=== PATIENT | male | born 1935 | race Caucasian/White ===

== ENCOUNTER 2016-07-16 09:48 | Inpatient (IN) | payer MEDICARE, OTHER ==
[~2016-07-16] VITALS: Ht 193 cm; Wt 90.3 kg
[~2016-07-16 09:48] MED LIST: ACLI400A2 IH; ALBU8.5H6 INH; AMOX1TAB11 PO; ASPI325T11 PO; BUDE10.2 IH; DIGO125T PO; DIGO250T PO; GABA-585 PO; GLIM1TAB2 PO; HYDR-971 PO; LISI10TA2 PO; LISI2.5T PO; METF500T9 PO; ROPI0.5T PO; TEMA15CA PO; THEO400T2 PO; WARF3TAB PO; WARF3TAB7 PO; WARF5TAB7 PO
--- NOTE | 2016-07-16 10:10 | EKG ---
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
[2016-07-16] MEDS ORDERED: ASPIRIN 81 MG TAB.CHEW PO ONE (10:15)
[2016-07-16] MEDS ORDERED: VENTOLIN HFA18 GM INH (10:22)
[2016-07-16] MEDS ORDERED: PROP150T2 PO (10:23)
[2016-07-16] MEDS ORDERED: GABA-587 PO (10:25)
[2016-07-16] MEDS ORDERED: METH-37 PO (10:25)
[2016-07-16] MEDS ORDERED: MELO-156 PO (10:25)
[2016-07-16] MEDS ORDERED: THEO400T2 PO (10:26)
[2016-07-16] MEDS ORDERED: ALEN70TA5 PO (10:27)
[2016-07-16] MEDS ORDERED: CEFU500T46 PO (10:28)
[2016-07-16 10:42] LABS: CALCIUM 8.8 mg/dL (8.5-10.1); GFR 71.5; POTASSIUM 4.5 mmol/L (3.5-5.1)
--- NOTE | 2016-07-16 10:42 | PHYS DOC ---
Past Medical History Past Medical History: A-Fib, Asthma, Cancer, COPD, Diabetes-Type II, Hypertension, Pneumonia, UTI, Other Additional Past Medical Histor: EMPHYSEMA,SKIN CANCER FACE,PROSTATE CA, NEUROPATHY Past Surgical History: Cholecystectomy, Knee Replacement Additional Past Surgical Histo: HERNIA, BACK, NECK,PROSTATECTOMY Alcohol Use: None Drug Use: None Adult General Chief Complaint Chief Complaint: SHORTNESS OF BREATH HPI HPI 80-year-old male presenting to the emergency department with shortness of breath with a cough for the past 3 weeks. He was recently diagnosed with pneumonia and given antibiotics. He denies chest pain. He reports changes in his sputum production including his sputum turning green. He has a history of COPD and hypertension. He denies chest pain nausea vomiting or diaphoresis. onset 3 wks location lungs duration intermittent no alleviating factors Review of Systems Review of Systems ROS neg for chest pain, nausea vomiting, abd pain, fevers or chills. All other review of systems is negative unless otherwise noted in history of present illness. Current Medications Current Medications Current Medications Medications (Trade) Dose Ordered Sig/Suri Start Time Stop Time Status Last Admin Dose Admin Aspirin 324 mg 324 mg 1X ONCE 07/16/16 10:15 07/16/16 10:37 DC Diltiazem HCl (Cardizem) 10 mg 1X ONCE 07/16/16 10:45 07/16/16 10:46 DC 07/16/16 10:46 10 MG Sodium Chloride (Iv Sodium Chloride 0.9% 500ml Bag) 500 ml @ 500 mls/hr 1X ONCE 07/16/16 10:45 07/16/16 11:44 DC 07/16/16 10:46 500 MLS/HR Allergies Allergies Allergies Coded Allergies Type Severity Reaction Last Updated Verified duloxetine Allergy Severe syncope; nausea; weakness 07/16/16 Yes Physical Exam Physical Exam Constitutional: Well developed, well nourished, no acute distress, non-toxic appearance. HENT: Normocephalic, atraumatic, bilateral external ears normal, oropharynx moist, no oral exudates, nose normal. [] Eyes: PERRLA, EOMI, conjunctiva normal, no discharge. Neck: Normal range of motion, no tenderness, supple, no stridor. [] Cardiovascular:Heart rate regular rhythm, no murmur Lungs & Thorax: Mild wheezing on left more than right. No crackles present. Abdomen: Bowel sounds normal, soft, no tenderness, no masses, no pulsatile masses. Skin: Warm, dry, no erythema, no rash. [] Back: No tenderness, no CVA tenderness. Extremities: No tenderness, no cyanosis, no clubbing, ROM intact, no edema. [] Neurologic: Alert and oriented X 3, normal motor function, normal sensory function, no focal deficits noted. Psychologic: Affect normal, judgement normal, mood normal. [] Current Patient Data Vital Signs Vital Signs Date Time Temp Pulse Resp B/P Pulse Ox O2 Delivery O2 Flow Rate FiO2 07/16/16 10:46 119 120/58 07/16/16 09:58 98.2 20 89 Room Air 98.2 Lab Values Laboratory Tests Test 07/16/16 10:09 White Blood Count 11.7x10^3/uL (4.0-11.0) H Red Blood Count 5.11x10^6/uL (4.30-5.70) Hemoglobin 14.7g/dL (13.0-17.5) Hematocrit 44.2% (39.0-53.0) Mean Corpuscular Volume 86fL (79-100) Mean Corpuscular Hemoglobin 29pg (25-35) Mean Corpuscular Hemoglobin Concent 33g/dL (31-37) Red Cell Distribution Width 16.0% (11.5-14.5) H Platelet Count 126x10^3/uL (140-400) L Neutrophils (%) (Auto) 84% (31-73) H Lymphocytes (%) (Auto) 7% (24-48) L Monocytes (%) (Auto) 8% (0-9) Eosinophils (%) (Auto) 0% (0-3) Basophils (%) (Auto) 1% (0-3) Neutrophils # (Auto) 9.9x10^3uL (1.8-7.7) H Lymphocytes # (Auto) 0.8x10^3/uL (1.0-4.8) L Monocytes # (Auto) 1.0x10^3/uL (0.0-1.1) Eosinophils # (Auto) 0.0x10^3/uL (0.0-0.7) Basophils # (Auto) 0.1x10^3/uL (0.0-0.2) Sodium Level 141mmol/L (136-145) Potassium Level 4.5mmol/L (3.5-5.1) Chloride Level 104mmol/L (98-107) Carbon Dioxide Level 27mmol/L (21-32) Anion Gap 10 (6-14) Blood Urea Nitrogen 13mg/dL (8-26) Creatinine 1.0mg/dL (0.7-1.3) Estimated GFR (Cockcroft-Gault) 71.5 Glucose Level 155mg/dL (70-99) H Calcium Level 8.8mg/dL (8.5-10.1) Total Bilirubin 0.8mg/dL (0.2-1.0) Direct Bilirubin 0.1mg/dL (0.0-0.2) Aspartate Amino Transferase (AST) 22U/L (15-37) Alanine Aminotransferase (ALT) 31U/L (16-63) Alkaline Phosphatase 60U/L (46-116) Troponin I Quantitative < 0.017ng/mL (0.000-0.055) EY-Czx-O-Type Natriuretic Peptide 324pg/mL (0-449) Total Protein 7.3g/dL (6.4-8.2) Albumin 4.0g/dL (3.4-5.0) Lipase 133U/L (73-393) Digoxin Level 1.8ng/mL (0.9-2.0) Digoxin Last Dose Date Unknown Digoxin Last Dose Time Unknown Laboratory Tests 07/16/16 10:09 Laboratory Tests 07/16/16 10:09 EKG EKG EKG shows irregularly irregular rhythm with associated tachycardia. [place] is mildly leftward. Intervals are within normal limits. ST segments show ST depressions in lead V3 V4 and V5 without ST elevation. Radiology/Procedures Radiology/Procedures [facility] [address] [place], [place] [id number] IMAGING REPORT Signed PATIENT: YUNIER HAWK ACCOUNT: [id number] : 1935 LOCATION: ER AGE: 80 SEX: M EXAM STATUS: REG ER ORD. PHYSICIAN: JJ ROLAND MD REASON: chest pain PROCEDURE: CHEST AP ONLY Exam: AP portable chest. History: Chest pain and shortness of breath, emphysema and diabetes. Comparison: 09/03/2015. Findings: The heart and mediastinal structures are within normal limits for size. Lungs are without infiltrate. No pneumothorax or pleural effusion is appreciated. Aortic atherosclerosis is seen. Impression: 1. No acute cardiopulmonary process. DICTATED and SIGNED BY: ZENAIDA ONTIVEROS MD DATE: 07/16/16 1052 CC: Edward MCGINNIS MD; JJ ROLAND MD ~ [] Course & Med Decision Making Course & Med Decision Making Pertinent Labs and Imaging studies reviewed. (See chart for details) 80-year-old male presenting to the emergency department today with worsening cough after being diagnosed with a pneumonia in the outpatient clinic setting. On evaluation the patient's vital signs showed tachycardia at 120 230. He was hypoxic and placed on 2 L nasal cannula. Otherwise blood pressure normal. Afebrile. Physical exam showed mild wheezing on the left. Abdomen was nontender. Patient was nontoxic appearing. Aspirin ordered however patient received full dose aspirin prior to arrival. IV fluids administered along with small dose of diltiazem which brought the patient's pulse from 130 to approximately 100. EKG showed A. fib with a tachycardic rate. ST depressions in lead V3 through V5. No ST elevation present. Otherwise the patient's blood work showed a mild leukocytosis with a normal hemoglobin. Chemistry panel showed hyperglycemia with a troponin within the reference range of normal. Digoxin level within the reference range of normal. Given the patient's new hypoxia, A. fib with RVR and ST depressions the patient was admitted to our hospital for further evaluation workup and care. Cardiology consulted. Dragon Disclaimer Dragon Disclaimer This electronic medical record was generated, in whole or in part, using a voice recognition dictation system. Departure Departure Impression: Primary Impression: Atrial fibrillation with RVR Additional Impressions: Hypoxia Shortness of breath Disposition: ADMITTED INPATIENT Admitting Physician: Juan Mcginnis Condition: IMPROVED Referrals: Edward MCGINNIS MD (PCP) Problem Qualifiers JJ ROLAND MD Jul 16, 2016 10:42
[2016-07-16 10:43] LABS: BASO # 0.1 x10^3/uL (0.0-0.2); BASO % 1 % (0-3); EOS % 0 % (0-3); HEMATOCRIT 44.2 % (39.0-53.0); HEMOGLOBIN 14.7 g/dL (13.0-17.5); LYMPH # 0.8 x10^3/uL (1.0-4.8); LYMPH % 7 % (24-48); MEAN CORPUSCULAR HEMOGLOBIN 29 pg (25-35); MEAN CORPUSCULAR HGB CONC 33 g/dL (31-37); MEAN CORPUSCULAR VOLUME 86 fL (79-100); MONO % 8 % (0-9); NEUT % 84 % (31-73); PLATELET COUNT 126 x10^3/uL (140-400); RED BLOOD COUNT 5.11 x10^6/uL (4.30-5.70); WHITE BLOOD COUNT 11.7 x10^3/uL (4.0-11.0)
[2016-07-16] MEDS ORDERED: DILTIAZEM IV PUSH 25 MG/5 ML VIAL. IVP ONE (10:45)
[2016-07-16] MEDS ORDERED: IV NORMAL SALINE 500ML BAG 500 ML IV ONE (10:45)
[2016-07-16 10:49] LABS: DIRECT BILIRUBIN 0.1 mg/dL (0.0-0.2); TOTAL BILIRUBIN 0.8 mg/dL (0.2-1.0); TOTAL PROTEIN 7.3 g/dL (6.4-8.2)
--- NOTE | 2016-07-16 10:56 | RAD ---
Exam: AP portable chest. History: Chest pain and shortness of breath, emphysema and diabetes. Comparison: 09/03/2015. Findings: The heart and mediastinal structures are within normal limits for size. Lungs are without infiltrate. No pneumothorax or pleural effusion is appreciated. Aortic atherosclerosis is seen. Impression: 1. No acute cardiopulmonary process.
[2016-07-16] MEDS ORDERED: MORPHINE SULFATE 2 MG/ML DISP.SYRIN. IV PRN (11:30)
[2016-07-16] MEDS ORDERED: AZITHRMYCN 500MG IVPB FOR OMNI 250 ML IV ONE (11:30)
[2016-07-16] MEDS ORDERED: CEFTRIAXONE 1GM IVPB FOR OMNI 50 ML IV ONE (11:30)
[2016-07-16] MEDS ORDERED: ONDANSETRON PF 4 MG/2 ML VIAL. IV PRN (11:30)
[2016-07-16] MEDS: IPRATRPIUM/ALBUTEROL 0.5/2.5MG 3 ML NEBU. NEB SCH ×2 (11:43→16:00)
[2016-07-16 13:05] VITALS: BP 120/58
[2016-07-16 13:17] LABS: PROTHROMBIN TIME PATIENT 21.5 SEC (11.7-14.0)
--- NOTE | 2016-07-16 13:40 | PDOC2 ---
CONSULT Date of Consult Date of Consult DATE: 07/16/16 TIME: 13:32 Reason for Consult Reason for Consult: SOB with dizziness Referring Physician Referring Physician: Identification/Chief Complaint Chief Complaint "I can't hardly walk without getting short of breath" Source Source: Patient History of Present Illness Reason for Visit: Pleasant 80 year old white male. A&O x 3. Presents with SOB and cough times 3 weeks. States he doesnt think he ahs been sick, feels that this came on out of nowhere. States that he has had a consistent non-productive cough over the past three weeks as well. States that he gets short of breath when walking and has noticed this worsening as well. States he can not walk to the door without getting SOB and dizzy. Denies any chest pain or LOC. States he has neve had this before. With his 81rd birthday next month, he became concerned and came into the ED for evaluation. Past Medical History Cardiovascular: AFIB, HTN Pulmonary: COPD Heme/Onc: Cancer Endocrine: Diabetes (sugars usually 105-110) Past Surgical History Past Surgical History: Other Current Problem List Problem List Problems Medical Problems: (1) Atrial fibrillation with RVR Status: Acute (2) Hypoxia Status: Acute (3) Shortness of breath Status: Acute Current Medications Current Medications Current Medications Aspirin 324 mg 324 mg 1X ONCE PO ; Start 07/16/16 at 10:15; Stop 07/16/16 at 10 :37; Status DC Sodium Chloride (Iv Sodium Chloride 0.9% 500ml Bag) 500 ml @ 500 mls/hr 1X ONCE IV Last administered on 07/16/16 10:46; Start 07/16/16 at 10:45; Stop at 11:44; Status DC Diltiazem HCl (Cardizem) 10 mg 1X ONCE IVP Last administered on 07/16/16t 10: 46; Start 07/16/16 at 10:45; Stop 07/16/16 at 10:46; Status DC Ondansetron HCl (Zofran) 4 mg PRN Q8HRS PRN IV NAUSEA/VOMITING; Start 07/16/16 at 11:30; Stop 07/17/16 at 11:29 Morphine Sulfate 2 mg PRN Q2HR PRN IV PAIN; Start 07/16/16 at 11:30; Stop 07/17 at 11:29 Albuterol/ Ipratropium 3 ml 3 ml RTQID NEB Last administered on 07/16/16t 11:43 ; Start 07/16/16 at 12:00; Stop 07/17/16 at 11:59 Ceftriaxone Sodium 50 ml @ 100 mls/hr 1X ONCE IV Last administered on t 11:44; Start 07/16/16 at 11:30; Stop 07/16/16 at 11:59; Status DC Azithromycin (Zithromax 500mg Ivpb For Omni) 250 ml @ 250 mls/hr 1X ONCE IV ; Start 07/16/16 at 11:30; Stop 07/16/16 at 12:29; Status DC Oxymetazoline HCl (Afrin) 2 spray BID NS ; Start 07/16/16 at 14:00 Active Scripts Active [place] 5-325 Tablet (Acetaminophen/Hydrocodone Bitart) 1 Each Tablet 1 Tab PO PRN Q6HRS PRN Amox Tr-K Clv 875-125 Mg Tab (Amoxicillin/Potassium Clav) 1 Each Tablet 1 Tab PO BID Reported Cefuroxime (Cefuroxime Axetil) 500 Mg Tablet 1 Tab PO BID Alendronate Sodium 70 Mg Tablet 1 Tab PO WEEKLY Theophylline (Theophylline Anhydrous) 400 Mg Tablet.er 300 Mg PO Meloxicam 7.5 Mg Tablet 1 Tab PO DAILY Robaxin (Methocarbamol) 500 Mg Tablet 1 Tab PO BID Gabapentin 400 Mg Capsule 400 Mg PO TID Propafenone Hcl 150 Mg Tablet 150 Mg PO BID Ventolin Hfa Inhaler (Albuterol Sulfate) 18 Gm Hfa.aer.ad 2 Puff INH Q4HRS Warfarin Sodium 3 Mg Tablet 2 Tab PO QFR Warfarin Sodium 3 Mg Tablet 1 Tab PO QHS Digoxin 250 Mcg Tablet 250 Mcg PO DAILY Lisinopril 2.5 Mg Tablet 2.5 Mg PO DAILY Glimepiride 1 Mg Tablet 1 Mg PO DAILY Albuterol Sulfate Hfa Inhaler (Albuterol Sulfate) 8.5 Gm Hfa.aer.ad 2 Puff INH QID Symbicort 160-4.5 Mcg Inhaler (Budesonide/Formoterol Fumarate) 10.2 Gm Hfa.aer.ad 2 Puff IH BID Aspirin Ec (Aspirin) 325 Mg Tablet.dr 1 Tab PO DAILY Temazepam 15 Mg Capsule 1 Cap PO QHS Gabapentin 100 Mg Capsule 300 Mg PO HS Metformin Hcl Er (Metformin Hcl) 500 Mg Tab.er.24h 1 Tab PO BID Theophylline (Theophylline Anhydrous) 400 Mg Tablet.er 300 Mg PO DAILY07 Allergies Allergies: Coded Allergies: duloxetine (Verified Allergy, Severe, syncope; nausea; weakness, 07/16/16) Physical Exam General: Alert, Oriented X3, Cooperative, No acute distress Lungs: Clear to auscultation, Other (diminished bialt bases) Heart: Regular rate, Normal S1, Normal S2, No murmurs Abdomen: Normal bowel sounds, Soft, No tenderness, No hepatosplenomegaly, No masses Vitals VITALS Vital Signs Date Time Temp Pulse Resp B/P Pulse Ox O2 Delivery O2 Flow Rate FiO2 07/16/16 13:05 98.2 119 120/58 92 1.0 98.2 07/16/16 11:48 Nasal Cannula 07/16/16 09:58 20 Labs Labs Laboratory Tests Test 07/16/16 10:09 07/16/16 12:28 White Blood Count 11.7x10^3/uL (4.0-11.0) Red Blood Count 5.11x10^6/uL (4.30-5.70) Hemoglobin 14.7g/dL (13.0-17.5) Hematocrit 44.2% (39.0-53.0) Mean Corpuscular Volume 86fL (79-100) Mean Corpuscular Hemoglobin 29pg (25-35) Mean Corpuscular Hemoglobin Concent 33g/dL (31-37) Red Cell Distribution Width 16.0% (11.5-14.5) Platelet Count 126x10^3/uL (140-400) Neutrophils (%) (Auto) 84% (31-73) Lymphocytes (%) (Auto) 7% (24-48) Monocytes (%) (Auto) 8% (0-9) Eosinophils (%) (Auto) 0% (0-3) Basophils (%) (Auto) 1% (0-3) Neutrophils # (Auto) 9.9x10^3uL (1.8-7.7) Lymphocytes # (Auto) 0.8x10^3/uL (1.0-4.8) Monocytes # (Auto) 1.0x10^3/uL (0.0-1.1) Eosinophils # (Auto) 0.0x10^3/uL (0.0-0.7) Basophils # (Auto) 0.1x10^3/uL (0.0-0.2) Prothrombin Time 21.5SEC (11.7-14.0) Prothromb Time International Ratio 2.0 (0.8-1.1) Activated Partial Thromboplast Time 42SEC (24-38) Sodium Level 141mmol/L (136-145) Potassium Level 4.5mmol/L (3.5-5.1) Chloride Level 104mmol/L (98-107) Carbon Dioxide Level 27mmol/L (21-32) Anion Gap 10 (6-14) Blood Urea Nitrogen 13mg/dL (8-26) Creatinine 1.0mg/dL (0.7-1.3) Estimated GFR (Cockcroft-Gault) 71.5 Glucose Level 155mg/dL (70-99) Calcium Level 8.8mg/dL (8.5-10.1) Total Bilirubin 0.8mg/dL (0.2-1.0) Direct Bilirubin 0.1mg/dL (0.0-0.2) Aspartate Amino Transf (AST/SGOT) 22U/L (15-37) Alanine Aminotransferase (ALT/SGPT) 31U/L (16-63) Alkaline Phosphatase 60U/L (46-116) Troponin I Quantitative < 0.017ng/mL (0.000-0.055) IP-Vtp-Z-Type Natriuretic Peptide 324pg/mL (0-449) Total Protein 7.3g/dL (6.4-8.2) Albumin 4.0g/dL (3.4-5.0) Lipase 133U/L (73-393) Digoxin Level 1.8ng/mL (0.9-2.0) Digoxin Last Dose Date Unknown Digoxin Last Dose Time Unknown Glucose (Fingerstick) 134mg/dL (70-99) Laboratory Tests Test 07/16/16 10:09 07/16/16 12:28 White Blood Count 11.7x10^3/uL (4.0-11.0) Red Blood Count 5.11x10^6/uL (4.30-5.70) Hemoglobin 14.7g/dL (13.0-17.5) Hematocrit 44.2% (39.0-53.0) Mean Corpuscular Volume 86fL (79-100) Mean Corpuscular Hemoglobin 29pg (25-35) Mean Corpuscular Hemoglobin Concent 33g/dL (31-37) Red Cell Distribution Width 16.0% (11.5-14.5) Platelet Count 126x10^3/uL (140-400) Neutrophils (%) (Auto) 84% (31-73) Lymphocytes (%) (Auto) 7% (24-48) Monocytes (%) (Auto) 8% (0-9) Eosinophils (%) (Auto) 0% (0-3) Basophils (%) (Auto) 1% (0-3) Neutrophils # (Auto) 9.9x10^3uL (1.8-7.7) Lymphocytes # (Auto) 0.8x10^3/uL (1.0-4.8) Monocytes # (Auto) 1.0x10^3/uL (0.0-1.1) Eosinophils # (Auto) 0.0x10^3/uL (0.0-0.7) Basophils # (Auto) 0.1x10^3/uL (0.0-0.2) Prothrombin Time 21.5SEC (11.7-14.0) Prothromb Time International Ratio 2.0 (0.8-1.1) Activated Partial Thromboplast Time 42SEC (24-38) Sodium Level 141mmol/L (136-145) Potassium Level 4.5mmol/L (3.5-5.1) Chloride Level 104mmol/L (98-107) Carbon Dioxide Level 27mmol/L (21-32) Anion Gap 10 (6-14) Blood Urea Nitrogen 13mg/dL (8-26) Creatinine 1.0mg/dL (0.7-1.3) Estimated GFR (Cockcroft-Gault) 71.5 Glucose Level 155mg/dL (70-99) Calcium Level 8.8mg/dL (8.5-10.1) Total Bilirubin 0.8mg/dL (0.2-1.0) Direct Bilirubin 0.1mg/dL (0.0-0.2) Aspartate Amino Transf (AST/SGOT) 22U/L (15-37) Alanine Aminotransferase (ALT/SGPT) 31U/L (16-63) Alkaline Phosphatase 60U/L (46-116) Troponin I Quantitative < 0.017ng/mL (0.000-0.055) GK-Zbp-T-Type Natriuretic Peptide 324pg/mL (0-449) Total Protein 7.3g/dL (6.4-8.2) Albumin 4.0g/dL (3.4-5.0) Lipase 133U/L (73-393) Digoxin Level 1.8ng/mL (0.9-2.0) Digoxin Last Dose Date Unknown Digoxin Last Dose Time Unknown Glucose (Fingerstick) 134mg/dL (70-99) Assessment/Plan Assessment/Plan Shortness of Breath due to a viral infection. AFIB: This patient with a known history of atrial fibrillation for many years has been well controlled and on Rhythmol 150 mg by mouth twice a day but about 2 weeks ago he chose to stop taking it. Now with this respiratory tract infection he has gone back into the atrial fibrillation with a rapid ventricular response. The rapid ventricular response has been controlled with the diltiazem but I would recommend to resume the Rhythmol at 150 mg by mouth twice a day like he had been on for years with a very good control of the rhythm. Continue to monitor COPD Thank you for allowing me to participate in the care of this patient RUDY NELSON MD Jul 16, 2016 13:40
[2016-07-16] MEDS: OXYMETAZOLINE 0.05% NASAL SPRAY 30ML BOTTLE. NS SCH ×2 (14:00→21:11)
[2016-07-16 15:00] VITALS: BP 104/57
--- NOTE | 2016-07-16 16:41 | PDOC1 ---
History and Physical Date of Admission Date of Admission DATE: 07/16/16 TIME: 16:29 Identification/Chief Complaint Chief Complaint He came to the office yesterday with complaint of cough and tenacious sputum and was worried he had pneumonia, he was also requesting samples of Symbicort, he has emphysema. He was presumed to have pneumonia and sent for a CXR but 1st given a gram of Rocephin IM and started on Ceftin 500 mg bid. This am he noted he was more SOA and came to the ER, his CXR was negative for pneumonia but his monitor showed Afib with RVR requiring a Cardizem bolus and admission. 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 Almazan History of Present Illness History of Present Illness see above Past Medical History Cardiovascular: AFIB, HTN Pulmonary: COPD Heme/Onc: Cancer Endocrine: Diabetes (sugars usually 105-110) Past Surgical History Past Surgical History: Other Social History Smoke: No Drugs: None Current Problem List Problem List Problems Medical Problems: (1) Atrial fibrillation with RVR Status: Acute (2) Hypoxia Status: Acute (3) Shortness of breath Status: Acute Problems: Current Medications Current Medications Current Medications Aspirin 324 mg 324 mg 1X ONCE PO ; Start 07/16/16 at 10:15; Stop 07/16/16 at 10 :37; Status DC Sodium Chloride (Iv Sodium Chloride 0.9% 500ml Bag) 500 ml @ 500 mls/hr 1X ONCE IV Last administered on 07/16/16 10:46; Start 07/16/16 at 10:45; Stop at 11:44; Status DC Diltiazem HCl (Cardizem) 10 mg 1X ONCE IVP Last administered on 07/16/16 10: 46; Start 07/16/16 at 10:45; Stop 07/16/16 at 10:46; Status DC Ondansetron HCl (Zofran) 4 mg PRN Q8HRS PRN IV NAUSEA/VOMITING; Start 07/16/16 at 11:30; Stop 07/17/16 at 11:29 Morphine Sulfate 2 mg PRN Q2HR PRN IV PAIN; Start 07/16/16 at 11:30; Stop 07/17 at 11:29 Albuterol/ Ipratropium 3 ml 3 ml RTQID NEB Last administered on 07/16/16t 11:43 ; Start 07/16/16 at 12:00; Stop 07/17/16 at 11:59 Ceftriaxone Sodium 50 ml @ 100 mls/hr 1X ONCE IV Last administered on t 11:44; Start 07/16/16 at 11:30; Stop 07/16/16 at 11:59; Status DC Azithromycin (Zithromax 500mg Ivpb For Omni) 250 ml @ 250 mls/hr 1X ONCE IV ; Start 07/16/16 at 11:30; Stop 07/16/16 at 12:29; Status DC Oxymetazoline HCl (Afrin) 2 spray BID NS ; Start 07/16/16 at 14:00 Aspirin (Ecotrin) 325 mg DAILY PO ; Start 07/17/16 at 09:00; Status UNV Digoxin (Lanoxin) 250 mcg DAILY PO ; Start 07/17/16 at 09:00; Status UNV Gabapentin (Neurontin) 300 mg HS PO ; Start 07/16/16 at 21:00; Status UNV Gabapentin (Neurontin) 400 mg TID PO ; Start 07/16/16 at 21:00; Status UNV Acetaminophen/ Hydrocodone Bitart (Lortab 5/325) 1 tab PRN Q6HRS PRN PO PAIN; Start 07/16/16 at 16:30; Status UNV Lisinopril (Prinivil) 2.5 mg DAILY PO ; Start 07/17/16 at 09:00; Status UNV Meloxicam (Mobic) 7.5 mg DAILY PO ; Start 07/17/16 at 09:00; Status UNV Metformin HCl (Glucophage Xr) 500 mg BID PO ; Start 07/16/16 at 21:00; Status UNV Methocarbamol (Robaxin) 500 mg BID PO ; Start 07/16/16 at 21:00; Status UNV Active Scripts Active [place] 5-325 Tablet (Acetaminophen/Hydrocodone Bitart) 1 Each Tablet 1 Tab PO PRN Q6HRS PRN Amox Tr-K Clv 875-125 Mg Tab (Amoxicillin/Potassium Clav) 1 Each Tablet 1 Tab PO BID Reported Cefuroxime (Cefuroxime Axetil) 500 Mg Tablet 1 Tab PO BID Alendronate Sodium 70 Mg Tablet 1 Tab PO WEEKLY Theophylline (Theophylline Anhydrous) 400 Mg Tablet.er 300 Mg PO Meloxicam 7.5 Mg Tablet 1 Tab PO DAILY Robaxin (Methocarbamol) 500 Mg Tablet 1 Tab PO BID Gabapentin 400 Mg Capsule 400 Mg PO TID Propafenone Hcl 150 Mg Tablet 150 Mg PO BID Ventolin Hfa Inhaler (Albuterol Sulfate) 18 Gm Hfa.aer.ad 2 Puff INH Q4HRS Warfarin Sodium 3 Mg Tablet 2 Tab PO QFR Warfarin Sodium 3 Mg Tablet 1 Tab PO QHS Digoxin 250 Mcg Tablet 250 Mcg PO DAILY Lisinopril 2.5 Mg Tablet 2.5 Mg PO DAILY Glimepiride 1 Mg Tablet 1 Mg PO DAILY Albuterol Sulfate Hfa Inhaler (Albuterol Sulfate) 8.5 Gm Hfa.aer.ad 2 Puff INH QID Symbicort 160-4.5 Mcg Inhaler (Budesonide/Formoterol Fumarate) 10.2 Gm Hfa.aer.ad 2 Puff IH BID Aspirin Ec (Aspirin) 325 Mg Tablet.dr 1 Tab PO DAILY Temazepam 15 Mg Capsule 1 Cap PO QHS Gabapentin 100 Mg Capsule 300 Mg PO HS Metformin Hcl Er (Metformin Hcl) 500 Mg Tab.er.24h 1 Tab PO BID Theophylline (Theophylline Anhydrous) 400 Mg Tablet.er 300 Mg PO DAILY07 Allergies Allergies: Coded Allergies: duloxetine (Verified Allergy, Severe, syncope; nausea; weakness, 07/16/16) ROS General: YES: Fatigue, Malaise, No: Appetite, Chills, Night Sweats, Other PSYCHOLOGICAL ROS: YES: Anxiety, No: Behavioral Disorder, Concentration difficultie, Decreased libido, Depression, Disorientation, Hallucinations, Hostility, Irritablity, Memory difficulties, Mood Swings, Obsessive thoughts, Other, Physical abuse, Sexual abuse, Sleep disturbances, Suicidal ideation Eyes: No Blurry vision, No Decreased vision, No Double vision, No Dry eyes, No Excessive tearing, No Eye Pain, No Itchy Eyes, No Loss of vision, No Other, No Photophobia, No Scotomata, No Uses contacts, No Uses glasses HEENT: YES: Hearing change, Nasal congestion, No: Epistaxis, Heacaches, Nasal discharge, Oral lesions, Other, Sinus pain, Sneezing, Snoring, Sore Throat, Tinnitus, Vertigo, Visual Changes, Vocal changes ALLERGY AND IMMUNOLOGY: YES: Nasal Congestion, No: Hives, Insect Bite Sensitivity, Itchy/Watery Eyes, Other, Post Nasal Drip , Seasonal Allergies Hematological and Lymphatic: No: Bleeding Problems, Blood Clots, Blood Transfusions, Brusing, Night Sweats, Other, Pallor, Swollen Lymph Nodes Respiratory: YES: Cough, Orthopnea, SOB with excertion, Shortness of breath, Sputum Changes, Wheezing, No: Hemoptysis, Other, Pleuritic Pain, Stridor, Tachypnea Cardiovascular: yes Lt Headedness, No Chest Pain, No Edema, No Orthopnea, No Other, No Palpitations, No Paroxysmal Noc. Dyspnea Gastrointestinal: No Abdominal Pain, No Constipation, No Diarrhea, No Hematochezia, No Melena, No Nausea, No Other, No Vomiting Genitourinary: No , No , No , No , No , No , No , No Discharge, No Dysuria, No Flank Pain, No Frequency, No Hematuria, No Incontinence, No Other, No Pain, No Retention, No Urgency Physical Exam General: Alert, Oriented X3, Cooperative HEENT: Other (congested) Lungs: Other (coarse sounds with end expiratory wheezes) Heart: irregularly irregular Abdomen: Soft, No tenderness Extremities: No clubbing, No cyanosis Skin: No breakdown Neuro: Normal speech Psych/Mental Status: Mental status NL Vitals Vitals Vital Signs Date Time Temp Pulse Resp B/P Pulse Ox O2 Delivery O2 Flow Rate FiO2 07/16/16 15:00 97.9 116 17 104/57 94 Nasal Cannula 2.0 97.9 Labs Labs Laboratory Tests Test 07/16/16 10:09 07/16/16 12:28 White Blood Count 11.7x10^3/uL (4.0-11.0) Red Blood Count 5.11x10^6/uL (4.30-5.70) Hemoglobin 14.7g/dL (13.0-17.5) Hematocrit 44.2% (39.0-53.0) Mean Corpuscular Volume 86fL (79-100) Mean Corpuscular Hemoglobin 29pg (25-35) Mean Corpuscular Hemoglobin Concent 33g/dL (31-37) Red Cell Distribution Width 16.0% (11.5-14.5) Platelet Count 126x10^3/uL (140-400) Neutrophils (%) (Auto) 84% (31-73) Lymphocytes (%) (Auto) 7% (24-48) Monocytes (%) (Auto) 8% (0-9) Eosinophils (%) (Auto) 0% (0-3) Basophils (%) (Auto) 1% (0-3) Neutrophils # (Auto) 9.9x10^3uL (1.8-7.7) Lymphocytes # (Auto) 0.8x10^3/uL (1.0-4.8) Monocytes # (Auto) 1.0x10^3/uL (0.0-1.1) Eosinophils # (Auto) 0.0x10^3/uL (0.0-0.7) Basophils # (Auto) 0.1x10^3/uL (0.0-0.2) Prothrombin Time 21.5SEC (11.7-14.0) Prothromb Time International Ratio 2.0 (0.8-1.1) Activated Partial Thromboplast Time 42SEC (24-38) Sodium Level 141mmol/L (136-145) Potassium Level 4.5mmol/L (3.5-5.1) Chloride Level 104mmol/L (98-107) Carbon Dioxide Level 27mmol/L (21-32) Anion Gap 10 (6-14) Blood Urea Nitrogen 13mg/dL (8-26) Creatinine 1.0mg/dL (0.7-1.3) Estimated GFR (Cockcroft-Gault) 71.5 Glucose Level 155mg/dL (70-99) Calcium Level 8.8mg/dL (8.5-10.1) Total Bilirubin 0.8mg/dL (0.2-1.0) Direct Bilirubin 0.1mg/dL (0.0-0.2) Aspartate Amino Transf (AST/SGOT) 22U/L (15-37) Alanine Aminotransferase (ALT/SGPT) 31U/L (16-63) Alkaline Phosphatase 60U/L (46-116) Troponin I Quantitative < 0.017ng/mL (0.000-0.055) NV-Gfv-E-Type Natriuretic Peptide 324pg/mL (0-449) Total Protein 7.3g/dL (6.4-8.2) Albumin 4.0g/dL (3.4-5.0) Lipase 133U/L (73-393) Digoxin Level 1.8ng/mL (0.9-2.0) Digoxin Last Dose Date Unknown Digoxin Last Dose Time Unknown Glucose (Fingerstick) 134mg/dL (70-99) Laboratory Tests Test 07/16/16 10:09 07/16/16 12:28 White Blood Count 11.7x10^3/uL (4.0-11.0) Red Blood Count 5.11x10^6/uL (4.30-5.70) Hemoglobin 14.7g/dL (13.0-17.5) Hematocrit 44.2% (39.0-53.0) Mean Corpuscular Volume 86fL (79-100) Mean Corpuscular Hemoglobin 29pg (25-35) Mean Corpuscular Hemoglobin Concent 33g/dL (31-37) Red Cell Distribution Width 16.0% (11.5-14.5) Platelet Count 126x10^3/uL (140-400) Neutrophils (%) (Auto) 84% (31-73) Lymphocytes (%) (Auto) 7% (24-48) Monocytes (%) (Auto) 8% (0-9) Eosinophils (%) (Auto) 0% (0-3) Basophils (%) (Auto) 1% (0-3) Neutrophils # (Auto) 9.9x10^3uL (1.8-7.7) Lymphocytes # (Auto) 0.8x10^3/uL (1.0-4.8) Monocytes # (Auto) 1.0x10^3/uL (0.0-1.1) Eosinophils # (Auto) 0.0x10^3/uL (0.0-0.7) Basophils # (Auto) 0.1x10^3/uL (0.0-0.2) Prothrombin Time 21.5SEC (11.7-14.0) Prothromb Time International Ratio 2.0 (0.8-1.1) Activated Partial Thromboplast Time 42SEC (24-38) Sodium Level 141mmol/L (136-145) Potassium Level 4.5mmol/L (3.5-5.1) Chloride Level 104mmol/L (98-107) Carbon Dioxide Level 27mmol/L (21-32) Anion Gap 10 (6-14) Blood Urea Nitrogen 13mg/dL (8-26) Creatinine 1.0mg/dL (0.7-1.3) Estimated GFR (Cockcroft-Gault) 71.5 Glucose Level 155mg/dL (70-99) Calcium Level 8.8mg/dL (8.5-10.1) Total Bilirubin 0.8mg/dL (0.2-1.0) Direct Bilirubin 0.1mg/dL (0.0-0.2) Aspartate Amino Transf (AST/SGOT) 22U/L (15-37) Alanine Aminotransferase (ALT/SGPT) 31U/L (16-63) Alkaline Phosphatase 60U/L (46-116) Troponin I Quantitative < 0.017ng/mL (0.000-0.055) WZ-Gli-W-Type Natriuretic Peptide 324pg/mL (0-449) Total Protein 7.3g/dL (6.4-8.2) Albumin 4.0g/dL (3.4-5.0) Lipase 133U/L (73-393) Digoxin Level 1.8ng/mL (0.9-2.0) Digoxin Last Dose Date Unknown Digoxin Last Dose Time Unknown Glucose (Fingerstick) 134mg/dL (70-99) VTE Prophylaxis Ordered VTE Prophylaxis Devices: No VTE Pharmacological Prophylaxi: Yes Assessment/Plan Assessment/Plan 1. Afib with RVR requiring Cardizem bolus, not currently on drip and heart rate around 100, will resume home meds including Rythmol which may have recently been stopped 2. Bronchitis - with hypoxia causing acute respiratory failure - continue IV ceftriaxone, add mucinex 3. chronic bronchitis with emphysema/COPD - [facility] tx Edward ALLEN MD Jul 16, 2016 16:41
[2016-07-16] MEDS: DIGOXIN 250 MCG TABLET PO SCH (17:36)
[2016-07-16] MEDS: LISINOPRIL 2.5 MG TABLET PO SCH (17:36)
[2016-07-16] MEDS: GABAPENTIN 400 MG CAPSULE. PO SCH (17:36)
[2016-07-16] MEDS: MELOXICAM 7.5 MG TABLET PO SCH (17:38)
[2016-07-16] MEDS: WARFARIN 6 MG TABLET. PO SCH (17:41)
[2016-07-16] MEDS ORDERED: ENOXAPARIN 40 MG/0.4 ML DISP.SYRIN. SQ SCH (18:30)
[2016-07-16 19:45] VITALS: BP 111/61
[2016-07-16] MEDS: GABAPENTIN 300 MG CAPSULE. PO SCH (20:35)
[2016-07-16] MEDS: TEMAZEPAM 15 MG CAPSULE PO SCH (20:35)
[2016-07-16] MEDS: PROPAFENONE 150 MG TABLET. PO SCH (20:35)
[2016-07-16] MEDS: METHOCARBAMOL 500 MG TABLET PO SCH (20:36)
[2016-07-16] MEDS: METFORMIN XR 500 MG TAB.ER.24H PO SCH (20:36)
[2016-07-16] MEDS: BUDESONIDE 0.5 MG/2 ML NEBU NEB SCH (20:39)
[2016-07-16] MEDS: ALBUTEROL SULFATE 2.5 MG/3 ML NEBU. NEB SCH (20:39)
[2016-07-16] MEDS ORDERED: NON FORMULARY ITEM (Budesonide/Formoterol Fumarate (Symbicort 160-4.5 Mcg Inhaler) 2 PUFF) IH SCH (21:00)
[2016-07-16] MEDS ORDERED: PROPAFENONE 150 MG TABLET. PO SCH (21:00)
[2016-07-16 23:25] VITALS: BP 114/60
[2016-07-16] MEDS: HYDROCODONE/APAP 5/325MG TABLET. PO PRN (23:56)
[2016-07-17 05:29] LABS: BASO # 0.1 x10^3/uL (0.0-0.2); BASO % 1 % (0-3); EOS % 0 % (0-3); HEMATOCRIT 42.9 % (39.0-53.0); HEMOGLOBIN 13.8 g/dL (13.0-17.5); LYMPH # 1.5 x10^3/uL (1.0-4.8); LYMPH % 19 % (24-48); MEAN CORPUSCULAR HEMOGLOBIN 29 pg (25-35); MEAN CORPUSCULAR HGB CONC 32 g/dL (31-37); MEAN CORPUSCULAR VOLUME 90 fL (79-100); MONO % 12 % (0-9); NEUT % 68 % (31-73); PLATELET COUNT 114 x10^3/uL (140-400); RED BLOOD COUNT 4.76 x10^6/uL (4.30-5.70); RED CELL DISTRIBUTION WIDTH 16.7 % (11.5-14.5); WHITE BLOOD COUNT 8.1 x10^3/uL (4.0-11.0)
[2016-07-17 06:08] LABS: CALCIUM 8.6 mg/dL (8.5-10.1); GFR 71.5; POTASSIUM 4.2 mmol/L (3.5-5.1)
[2016-07-17] MEDS: BUDESONIDE 0.5 MG/2 ML NEBU NEB SCH ×2 (06:10→19:19)
[2016-07-17] MEDS: ALBUTEROL SULFATE 2.5 MG/3 ML NEBU. NEB SCH ×4 (06:10→19:20)
[2016-07-17 07:00] VITALS: BP 137/67
[2016-07-17] MEDS: THEOPHYLLINE 12HR ER 300 MG TAB.ER.12H. PO SCH (07:15)
[2016-07-17] MEDS: PROPAFENONE 150 MG TABLET. PO SCH ×2 (09:06→20:56)
[2016-07-17] MEDS: GABAPENTIN 400 MG CAPSULE. PO SCH ×3 (09:06→16:44)
[2016-07-17] MEDS: METFORMIN XR 500 MG TAB.ER.24H PO SCH ×2 (09:06→20:55)
[2016-07-17] MEDS: GLIMEPIRIDE 2 MG TABLET PO SCH (09:06)
[2016-07-17] MEDS: ASPIRIN ENTERIC COATED 325 MG TABLET.DR. PO SCH (09:06)
[2016-07-17] MEDS: DIGOXIN 250 MCG TABLET PO SCH (09:07)
[2016-07-17] MEDS: METHOCARBAMOL 500 MG TABLET PO SCH ×2 (09:07→20:55)
[2016-07-17] MEDS: MELOXICAM 7.5 MG TABLET PO SCH (09:07)
[2016-07-17] MEDS: LISINOPRIL 2.5 MG TABLET PO SCH (09:07)
[2016-07-17] MEDS: OXYMETAZOLINE 0.05% NASAL SPRAY 30ML BOTTLE. NS SCH ×2 (09:09→21:00)
[2016-07-17 10:46] VITALS: BP 116/56
[2016-07-17] MEDS: CEFTRIAXONE SODIUM 1 GM in IV NORMAL SALINE 50ML 50 ML IV SCH (12:19)
--- NOTE | 2016-07-17 13:33 | PDOC ---
PROGRESS NOTES Subjective Subjective Patient not feeling better yet, C/O cough and chest pain. Objective Objective Vital Signs Date Time Temp Pulse Resp B/P Pulse Ox O2 Delivery O2 Flow Rate FiO2 07/17/16 12:22 94 Nasal Cannula 2.0 07/17/16 10:46 98.4 72 18 116/56 98.4 Intake and Output 07/17/16 07:00 Intake Total 2430 ml Output Total 600 ml Balance 1830 ml Intake Oral 1880 ml IV Total 550 ml Output Urine Total 600 ml # Voids 1 Physical Exam Abdomen: Normal bowel sounds Heart: Other (irregular) Extremities: No edema General: Alert Lungs: Other (wheezes bilaterally) Assessment Assessment Problems Medical Problems: (1) Atrial fibrillation with RVR Status: Acute (2) Hypoxia Status: Acute (3) Shortness of breath Status: Acute 1. Afib with RVR requiring Cardizem bolus, not currently on drip and heart rate around 100, will resume home meds including Rythmol which may have recently been stopped 2. Bronchitis - with hypoxia causing acute respiratory failure - continue IV ceftriaxone, add mucinex 3. chronic bronchitis with emphysema/COPD - neb tx Plan Plan of Care Continue pulm toilet Give po steroids today Comment Review of Relevant I have reviewed the following items kaila (where applicable) has been applied. Labs Laboratory Tests Test 07/16/16 10:09 07/16/16 12:28 07/16/16 17:08 07/16/16 17:30 White Blood Count 11.7x10^3/uL (4.0-11.0) Red Blood Count 5.11x10^6/uL (4.30-5.70) Hemoglobin 14.7g/dL (13.0-17.5) Hematocrit 44.2% (39.0-53.0) Mean Corpuscular Volume 86fL (79-100) Mean Corpuscular Hemoglobin 29pg (25-35) Mean Corpuscular Hemoglobin Concent 33g/dL (31-37) Red Cell Distribution Width 16.0% (11.5-14.5) Platelet Count 126x10^3/uL (140-400) Neutrophils (%) (Auto) 84% (31-73) Lymphocytes (%) (Auto) 7% (24-48) Monocytes (%) (Auto) 8% (0-9) Eosinophils (%) (Auto) 0% (0-3) Basophils (%) (Auto) 1% (0-3) Neutrophils # (Auto) 9.9x10^3uL (1.8-7.7) Lymphocytes # (Auto) 0.8x10^3/uL (1.0-4.8) Monocytes # (Auto) 1.0x10^3/uL (0.0-1.1) Eosinophils # (Auto) 0.0x10^3/uL (0.0-0.7) Basophils # (Auto) 0.1x10^3/uL (0.0-0.2) Prothrombin Time 21.5SEC (11.7-14.0) Prothromb Time International Ratio 2.0 (0.8-1.1) Activated Partial Thromboplast Time 42SEC (24-38) Sodium Level 141mmol/L (136-145) Potassium Level 4.5mmol/L (3.5-5.1) Chloride Level 104mmol/L (98-107) Carbon Dioxide Level 27mmol/L (21-32) Anion Gap 10 (6-14) Blood Urea Nitrogen 13mg/dL (8-26) Creatinine 1.0mg/dL (0.7-1.3) Estimated GFR (Cockcroft-Gault) 71.5 Glucose Level 155mg/dL (70-99) Calcium Level 8.8mg/dL (8.5-10.1) Total Bilirubin 0.8mg/dL (0.2-1.0) Direct Bilirubin 0.1mg/dL (0.0-0.2) Aspartate Amino Transf (AST/SGOT) 22U/L (15-37) Alanine Aminotransferase (ALT/SGPT) 31U/L (16-63) Alkaline Phosphatase 60U/L (46-116) Troponin I Quantitative < 0.017ng/mL (0.000-0.055) < 0.017ng/mL (0.000-0.055) AF-Ldf-O-Type Natriuretic Peptide 324pg/mL (0-449) Total Protein 7.3g/dL (6.4-8.2) Albumin 4.0g/dL (3.4-5.0) Lipase 133U/L (73-393) Digoxin Level 1.8ng/mL (0.9-2.0) Digoxin Last Dose Date Unknown Digoxin Last Dose Time Unknown Glucose (Fingerstick) 134mg/dL (70-99) 145mg/dL (70-99) Test 07/16/16 17:44 07/16/16 20:33 07/17/16 05:00 07/17/16 07:32 Glucose (Fingerstick) 137mg/dL (70-99) 172mg/dL (70-99) 135mg/dL (70-99) White Blood Count 8.1x10^3/uL (4.0-11.0) Red Blood Count 4.76x10^6/uL (4.30-5.70) Hemoglobin 13.8g/dL (13.0-17.5) Hematocrit 42.9% (39.0-53.0) Mean Corpuscular Volume 90fL (79-100) Mean Corpuscular Hemoglobin 29pg (25-35) Mean Corpuscular Hemoglobin Concent 32g/dL (31-37) Red Cell Distribution Width 16.7% (11.5-14.5) Platelet Count 114x10^3/uL (140-400) Neutrophils (%) (Auto) 68% (31-73) Lymphocytes (%) (Auto) 19% (24-48) Monocytes (%) (Auto) 12% (0-9) Eosinophils (%) (Auto) 0% (0-3) Basophils (%) (Auto) 1% (0-3) Neutrophils # (Auto) 5.5x10^3uL (1.8-7.7) Lymphocytes # (Auto) 1.5x10^3/uL (1.0-4.8) Monocytes # (Auto) 1.0x10^3/uL (0.0-1.1) Eosinophils # (Auto) 0.0x10^3/uL (0.0-0.7) Basophils # (Auto) 0.1x10^3/uL (0.0-0.2) Sodium Level 141mmol/L (136-145) Potassium Level 4.2mmol/L (3.5-5.1) Chloride Level 104mmol/L (98-107) Carbon Dioxide Level 27mmol/L (21-32) Anion Gap 10 (6-14) Blood Urea Nitrogen 14mg/dL (8-26) Creatinine 1.0mg/dL (0.7-1.3) Estimated GFR (Cockcroft-Gault) 71.5 Glucose Level 66mg/dL (70-99) Calcium Level 8.6mg/dL (8.5-10.1) Test 07/17/16 11:38 Glucose (Fingerstick) 148mg/dL (70-99) Laboratory Tests Test 07/16/16 17:08 07/16/16 17:30 07/16/16 17:44 07/16/16 20:33 Glucose (Fingerstick) 145mg/dL (70-99) 137mg/dL (70-99) 172mg/dL (70-99) Troponin I Quantitative < 0.017ng/mL (0.000-0.055) Test 07/17/16 05:00 07/17/16 07:32 07/17/16 11:38 White Blood Count 8.1x10^3/uL (4.0-11.0) Red Blood Count 4.76x10^6/uL (4.30-5.70) Hemoglobin 13.8g/dL (13.0-17.5) Hematocrit 42.9% (39.0-53.0) Mean Corpuscular Volume 90fL (79-100) Mean Corpuscular Hemoglobin 29pg (25-35) Mean Corpuscular Hemoglobin Concent 32g/dL (31-37) Red Cell Distribution Width 16.7% (11.5-14.5) Platelet Count 114x10^3/uL (140-400) Neutrophils (%) (Auto) 68% (31-73) Lymphocytes (%) (Auto) 19% (24-48) Monocytes (%) (Auto) 12% (0-9) Eosinophils (%) (Auto) 0% (0-3) Basophils (%) (Auto) 1% (0-3) Neutrophils # (Auto) 5.5x10^3uL (1.8-7.7) Lymphocytes # (Auto) 1.5x10^3/uL (1.0-4.8) Monocytes # (Auto) 1.0x10^3/uL (0.0-1.1) Eosinophils # (Auto) 0.0x10^3/uL (0.0-0.7) Basophils # (Auto) 0.1x10^3/uL (0.0-0.2) Sodium Level 141mmol/L (136-145) Potassium Level 4.2mmol/L (3.5-5.1) Chloride Level 104mmol/L (98-107) Carbon Dioxide Level 27mmol/L (21-32) Anion Gap 10 (6-14) Blood Urea Nitrogen 14mg/dL (8-26) Creatinine 1.0mg/dL (0.7-1.3) Estimated GFR (Cockcroft-Gault) 71.5 Glucose Level 66mg/dL (70-99) Calcium Level 8.6mg/dL (8.5-10.1) Glucose (Fingerstick) 135mg/dL (70-99) 148mg/dL (70-99) Microbiology 07/16/16 Blood Culture - Preliminary, Resulted NO GROWTH AFTER 1 DAY Medications Current Medications Aspirin 324 mg 324 mg 1X ONCE PO ; Start 07/16/16 at 10:15; Stop 07/16/16 at 10 :37; Status DC Sodium Chloride (Iv Sodium Chloride 0.9% 500ml Bag) 500 ml @ 500 mls/hr 1X ONCE IV Last administered on 07/16/16 10:46; Start 07/16/16 at 10:45; Stop at 11:44; Status DC Diltiazem HCl (Cardizem) 10 mg 1X ONCE IVP Last administered on 07/16/16 10: 46; Start 07/16/16 at 10:45; Stop 07/16/16 at 10:46; Status DC Ondansetron HCl (Zofran) 4 mg PRN Q8HRS PRN IV NAUSEA/VOMITING; Start 07/16/16 at 11:30; Stop 07/17/16 at 11:29; Status DC Morphine Sulfate 2 mg PRN Q2HR PRN IV PAIN Last administered on 07/17/16 01:45 ; Start 07/16/16 at 11:30; Stop 07/17/16 at 11:29; Status DC Albuterol/ Ipratropium 3 ml 3 ml RTQID NEB Last administered on 07/16/16 16:00 ; Start 07/16/16 at 12:00; Stop 07/16/16 at 16:40; Status DC Ceftriaxone Sodium 50 ml @ 100 mls/hr 1X ONCE IV Last administered on 11:44; Start 07/16/16 at 11:30; Stop 07/16/16 at 11:59; Status DC Azithromycin (Zithromax 500mg Ivpb For Omni) 250 ml @ 250 mls/hr 1X ONCE IV ; Start 07/16/16 at 11:30; Stop 07/16/16 at 12:29; Status DC Oxymetazoline HCl (Afrin) 2 spray BID NS Last administered on 07/17/16 09:09; Start 07/16/16 at 14:00 Aspirin (Ecotrin) 325 mg DAILY PO Last administered on 07/17/16 09:06; Start 07/17/16 at 09:00 Digoxin (Lanoxin) 250 mcg DAILY PO Last administered on 07/17/16 09:07; Start 07/16/16 at 17:00 Gabapentin (Neurontin) 300 mg HS PO Last administered on 07/16/16 20:35; Start 07/16/16 at 21:00 Gabapentin (Neurontin) 400 mg TIDWMEALS PO Last administered on 07/17/16 12:19 ; Start 07/16/16 at 17:00 Acetaminophen/ Hydrocodone Bitart (Lortab 5/325) 1 tab PRN Q6HRS PRN PO PAIN Last administered on 07/16/16 23:56; Start 07/16/16 at 16:30 Lisinopril (Prinivil) 2.5 mg DAILY PO Last administered on 07/17/16 09:07; Start 07/16/16 at 17:00 Meloxicam (Mobic) 7.5 mg DAILY PO Last administered on 07/17/16 09:07; Start 07/16/16 at 17:30 Metformin HCl (Glucophage Xr) 500 mg BID PO Last administered on 07/17/16 09: 06; Start 07/16/16 at 21:00 Methocarbamol (Robaxin) 500 mg BID PO Last administered on 07/17/16 09:07; Start 07/16/16 at 21:00 Propafenone HCl (Rythmol) 150 mg BID PO Last administered on 07/17/16 09:06; Start 07/16/16 at 21:00 Temazepam (Restoril) 15 mg QHS PO Last administered on 07/16/16 20:35; Start 07/16/16 at 21:00 Warfarin Sodium (Coumadin) 3 mg [id number] PO ; Start 07/17/16 at 16:00 Warfarin Sodium (Coumadin) 6 mg QFR PO Last administered on 07/16/16 17:41; Start 07/16/16 at 17:00 Non-Formulary Medication 2 puff BID IH ; Start 07/16/16 at 21:00; Status UNV Glimepiride (Amaryl) 1 mg DAILY PO Last administered on 07/17/16 09:06; Start 07/17/16 at 09:00 Theophylline (Theodur) 300 mg DAILY07 PO Last administered on 07/17/16 07:15; Start 07/17/16 at 07:00 Warfarin Sodium (Coumadin Per Physician) 1 each PRN DAILY PRN MC SEE COMMENTS Last administered on 07/17/16 11:15; Start 07/16/16 at 16:45 Budesonide (Pulmicort) 0.5 mg RTBID NEB Last administered on 07/17/16 06:10; Start 07/16/16 at 20:00 Albuterol Sulfate (Ventolin Neb Soln) 2.5 mg RTQID NEB Last administered on 12:20; Start 07/16/16 at 20:00 Propafenone HCl (Rythmol) 150 mg BID PO ; Start 07/16/16 at 21:00; Stop at 21:00; Status DC Enoxaparin Sodium 40 mg 40 mg Q24H SQ ; Start 07/16/16 at 18:30; Status UNV Ceftriaxone Sodium/Sodium Chloride (Rocephin/Iv Sodium Chloride 0.9% 50ml) 50 ml @ 100 mls/hr Q24H IV Last administered on 07/17/16 12:19; Start 07/17/16 at 12:00 Active Scripts Active [place] 5-325 Tablet (Acetaminophen/Hydrocodone Bitart) 1 Each Tablet 1 Tab PO PRN Q6HRS PRN Amox Tr-K Clv 875-125 Mg Tab (Amoxicillin/Potassium Clav) 1 Each Tablet 1 Tab PO BID Reported Cefuroxime (Cefuroxime Axetil) 500 Mg Tablet 1 Tab PO BID Alendronate Sodium 70 Mg Tablet 1 Tab PO WEEKLY Theophylline (Theophylline Anhydrous) 400 Mg Tablet.er 300 Mg PO Meloxicam 7.5 Mg Tablet 1 Tab PO DAILY Robaxin (Methocarbamol) 500 Mg Tablet 1 Tab PO BID Gabapentin 400 Mg Capsule 400 Mg PO TID Propafenone Hcl 150 Mg Tablet 150 Mg PO BID Ventolin Hfa Inhaler (Albuterol Sulfate) 18 Gm Hfa.aer.ad 2 Puff INH Q4HRS Warfarin Sodium 3 Mg Tablet 2 Tab PO QFR Warfarin Sodium 3 Mg Tablet 1 Tab PO QHS Digoxin 250 Mcg Tablet 250 Mcg PO DAILY Lisinopril 2.5 Mg Tablet 2.5 Mg PO DAILY Glimepiride 1 Mg Tablet 1 Mg PO DAILY Albuterol Sulfate Hfa Inhaler (Albuterol Sulfate) 8.5 Gm Hfa.aer.ad 2 Puff INH QID Symbicort 160-4.5 Mcg Inhaler (Budesonide/Formoterol Fumarate) 10.2 Gm Hfa.aer.ad 2 Puff IH BID Aspirin Ec (Aspirin) 325 Mg Tablet.dr 1 Tab PO DAILY Temazepam 15 Mg Capsule 1 Cap PO QHS Gabapentin 100 Mg Capsule 300 Mg PO HS Metformin Hcl Er (Metformin Hcl) 500 Mg Tab.er.24h 1 Tab PO BID Theophylline (Theophylline Anhydrous) 400 Mg Tablet.er 300 Mg PO DAILY07 Vitals/I & O Vital Sign - Last 24 Hours 07/16/16 07/16/16 07/16/16 07/16/16 15:00 16:46 17:36 17:36 Temp 97.9 97.9 Pulse 116 116 116 Resp 17 B/P 104/57 104/57 104/57 Pulse Ox 94 92 O2 Delivery Nasal Cannula Nasal Cannula O2 Flow Rate 2.0 1.0 07/16/16 07/16/16 07/16/16 07/16/16 19:45 20:28 20:35 20:39 Temp 99.1 99.1 Pulse 94 84 Resp 20 B/P 111/61 111/61 Pulse Ox 97 93 O2 Delivery Nasal Cannula Nasal Cannula Nasal Cannula O2 Flow Rate 2.0 2.0 2.0 07/16/16 07/16/16 07/17/16 07/17/16 23:25 23:56 00:56 01:45 Temp 98.1 98.1 Pulse 87 Resp 22 20 18 18 B/P 114/60 Pulse Ox 95 O2 Delivery Nasal Cannula Nasal Cannula Nasal Cannula Nasal Cannula O2 Flow Rate 2.0 2.0 2.0 2.0 07/17/16 07/17/16 07/17/16 07/17/16 02:15 06:10 07:00 08:00 Temp 97.6 97.6 Pulse 89 Resp 18 18 B/P 137/67 Pulse Ox 94 95 O2 Delivery Nasal Cannula Nasal Cannula Nasal Cannula Nasal Cannula O2 Flow Rate 2.0 2.0 2.0 2.0 07/17/16 07/17/16 07/17/16 07/17/16 09:06 09:07 09:07 10:46 Temp 98.4 98.4 Pulse 89 89 89 72 Resp 18 B/P 137/67 137/67 137/67 116/56 Pulse Ox 97 O2 Delivery Nasal Cannula O2 Flow Rate 2.0 07/17/16 12:22 Pulse Ox 94 O2 Delivery Nasal Cannula O2 Flow Rate 2.0 Intake and Output 07/16/16 07/16/16 07/17/16 15:00 23:00 07:00 Intake Total 790 ml 1220 ml 420 ml Output Total 500 ml 100 ml Balance 790 ml 720 ml 320 ml ZENAIDA PATEL MD Jul 17, 2016 13:33
[2016-07-17] MEDS ORDERED: PREDNISONE 20 MG TABLET PO ONE (14:00)
[2016-07-17] MEDS: BENZONATATE 100 MG CAPSULE. PO PRN ×2 (14:07→20:57)
[2016-07-17] MEDS: GUAIFENESIN ER 600 MG TABLET.ER PO SCH ×2 (14:08→20:54)
--- NOTE | 2016-07-17 14:41 | PDOC ---
PROGRESS NOTES Subjective Subjective Patient complains of cough and dyspnea. No chest pains. Objective Objective Vital Signs Date Time Temp Pulse Resp B/P Pulse Ox O2 Delivery O2 Flow Rate FiO2 07/17/16 12:22 94 Nasal Cannula 2.0 07/17/16 10:46 98.4 72 18 116/56 98.4 Intake and Output 07/17/16 07:00 Intake Total 2430 ml Output Total 600 ml Balance 1830 ml Intake Oral 1880 ml IV Total 550 ml Output Urine Total 600 ml # Voids 1 Physical Exam Physical Exam Neck no JVD. Lungs diffuse wheezing rhonchi and fine crackles. Heart irregular. Extremities no changes Assessment Assessment Patient seems to be having a pneumonic process with a COPD exacerbation. Cardiac-montejo I would continue with the propafenone at the present dose Problems Medical Problems: (1) Atrial fibrillation with RVR Status: Acute (2) Hypoxia Status: Acute (3) Shortness of breath Status: Acute Comment Review of Relevant I have reviewed the following items kaila (where applicable) has been applied. Labs Laboratory Tests Test 07/16/16 10:09 07/16/16 12:28 07/16/16 17:08 07/16/16 17:30 White Blood Count 11.7x10^3/uL (4.0-11.0) Red Blood Count 5.11x10^6/uL (4.30-5.70) Hemoglobin 14.7g/dL (13.0-17.5) Hematocrit 44.2% (39.0-53.0) Mean Corpuscular Volume 86fL (79-100) Mean Corpuscular Hemoglobin 29pg (25-35) Mean Corpuscular Hemoglobin Concent 33g/dL (31-37) Red Cell Distribution Width 16.0% (11.5-14.5) Platelet Count 126x10^3/uL (140-400) Neutrophils (%) (Auto) 84% (31-73) Lymphocytes (%) (Auto) 7% (24-48) Monocytes (%) (Auto) 8% (0-9) Eosinophils (%) (Auto) 0% (0-3) Basophils (%) (Auto) 1% (0-3) Neutrophils # (Auto) 9.9x10^3uL (1.8-7.7) Lymphocytes # (Auto) 0.8x10^3/uL (1.0-4.8) Monocytes # (Auto) 1.0x10^3/uL (0.0-1.1) Eosinophils # (Auto) 0.0x10^3/uL (0.0-0.7) Basophils # (Auto) 0.1x10^3/uL (0.0-0.2) Prothrombin Time 21.5SEC (11.7-14.0) Prothromb Time International Ratio 2.0 (0.8-1.1) Activated Partial Thromboplast Time 42SEC (24-38) Sodium Level 141mmol/L (136-145) Potassium Level 4.5mmol/L (3.5-5.1) Chloride Level 104mmol/L (98-107) Carbon Dioxide Level 27mmol/L (21-32) Anion Gap 10 (6-14) Blood Urea Nitrogen 13mg/dL (8-26) Creatinine 1.0mg/dL (0.7-1.3) Estimated GFR (Cockcroft-Gault) 71.5 Glucose Level 155mg/dL (70-99) Calcium Level 8.8mg/dL (8.5-10.1) Total Bilirubin 0.8mg/dL (0.2-1.0) Direct Bilirubin 0.1mg/dL (0.0-0.2) Aspartate Amino Transf (AST/SGOT) 22U/L (15-37) Alanine Aminotransferase (ALT/SGPT) 31U/L (16-63) Alkaline Phosphatase 60U/L (46-116) Troponin I Quantitative < 0.017ng/mL (0.000-0.055) < 0.017ng/mL (0.000-0.055) DT-Rcr-Y-Type Natriuretic Peptide 324pg/mL (0-449) Total Protein 7.3g/dL (6.4-8.2) Albumin 4.0g/dL (3.4-5.0) Lipase 133U/L (73-393) Digoxin Level 1.8ng/mL (0.9-2.0) Digoxin Last Dose Date Unknown Digoxin Last Dose Time Unknown Glucose (Fingerstick) 134mg/dL (70-99) 145mg/dL (70-99) Test 07/16/16 17:44 07/16/16 20:33 1/14/17 05:00 07/17/16 07:32 Glucose (Fingerstick) 137mg/dL (70-99) 172mg/dL (70-99) 135mg/dL (70-99) White Blood Count 8.1x10^3/uL (4.0-11.0) Red Blood Count 4.76x10^6/uL (4.30-5.70) Hemoglobin 13.8g/dL (13.0-17.5) Hematocrit 42.9% (39.0-53.0) Mean Corpuscular Volume 90fL (79-100) Mean Corpuscular Hemoglobin 29pg (25-35) Mean Corpuscular Hemoglobin Concent 32g/dL (31-37) Red Cell Distribution Width 16.7% (11.5-14.5) Platelet Count 114x10^3/uL (140-400) Neutrophils (%) (Auto) 68% (31-73) Lymphocytes (%) (Auto) 19% (24-48) Monocytes (%) (Auto) 12% (0-9) Eosinophils (%) (Auto) 0% (0-3) Basophils (%) (Auto) 1% (0-3) Neutrophils # (Auto) 5.5x10^3uL (1.8-7.7) Lymphocytes # (Auto) 1.5x10^3/uL (1.0-4.8) Monocytes # (Auto) 1.0x10^3/uL (0.0-1.1) Eosinophils # (Auto) 0.0x10^3/uL (0.0-0.7) Basophils # (Auto) 0.1x10^3/uL (0.0-0.2) Sodium Level 141mmol/L (136-145) Potassium Level 4.2mmol/L (3.5-5.1) Chloride Level 104mmol/L (98-107) Carbon Dioxide Level 27mmol/L (21-32) Anion Gap 10 (6-14) Blood Urea Nitrogen 14mg/dL (8-26) Creatinine 1.0mg/dL (0.7-1.3) Estimated GFR (Cockcroft-Gault) 71.5 Glucose Level 66mg/dL (70-99) Calcium Level 8.6mg/dL (8.5-10.1) Troponin I Quantitative < 0.017ng/mL (0.000-0.055) Test 07/17/16 11:38 Glucose (Fingerstick) 148mg/dL (70-99) Laboratory Tests Test 07/16/16 17:08 07/16/16 17:30 07/16/16 17:44 07/16/16 20:33 Glucose (Fingerstick) 145mg/dL (70-99) 137mg/dL (70-99) 172mg/dL (70-99) Troponin I Quantitative < 0.017ng/mL (0.000-0.055) Test 07/17/16 05:00 07/17/16 07:32 07/17/16 11:38 White Blood Count 8.1x10^3/uL (4.0-11.0) Red Blood Count 4.76x10^6/uL (4.30-5.70) Hemoglobin 13.8g/dL (13.0-17.5) Hematocrit 42.9% (39.0-53.0) Mean Corpuscular Volume 90fL (79-100) Mean Corpuscular Hemoglobin 29pg (25-35) Mean Corpuscular Hemoglobin Concent 32g/dL (31-37) Red Cell Distribution Width 16.7% (11.5-14.5) Platelet Count 114x10^3/uL (140-400) Neutrophils (%) (Auto) 68% (31-73) Lymphocytes (%) (Auto) 19% (24-48) Monocytes (%) (Auto) 12% (0-9) Eosinophils (%) (Auto) 0% (0-3) Basophils (%) (Auto) 1% (0-3) Neutrophils # (Auto) 5.5x10^3uL (1.8-7.7) Lymphocytes # (Auto) 1.5x10^3/uL (1.0-4.8) Monocytes # (Auto) 1.0x10^3/uL (0.0-1.1) Eosinophils # (Auto) 0.0x10^3/uL (0.0-0.7) Basophils # (Auto) 0.1x10^3/uL (0.0-0.2) Sodium Level 141mmol/L (136-145) Potassium Level 4.2mmol/L (3.5-5.1) Chloride Level 104mmol/L (98-107) Carbon Dioxide Level 27mmol/L (21-32) Anion Gap 10 (6-14) Blood Urea Nitrogen 14mg/dL (8-26) Creatinine 1.0mg/dL (0.7-1.3) Estimated GFR (Cockcroft-Gault) 71.5 Glucose Level 66mg/dL (70-99) Calcium Level 8.6mg/dL (8.5-10.1) Troponin I Quantitative < 0.017ng/mL (0.000-0.055) Glucose (Fingerstick) 135mg/dL (70-99) 148mg/dL (70-99) Microbiology 07/16/16 Blood Culture - Preliminary, Resulted NO GROWTH AFTER 1 DAY Medications Current Medications Aspirin 324 mg 324 mg 1X ONCE PO ; Start 07/16/16 at 10:15; Stop 07/16/16 at 10 :37; Status DC Sodium Chloride (Iv Sodium Chloride 0.9% 500ml Bag) 500 ml @ 500 mls/hr 1X ONCE IV Last administered on 07/16/16 10:46; Start 07/16/16 at 10:45; Stop at 11:44; Status DC Diltiazem HCl (Cardizem) 10 mg 1X ONCE IVP Last administered on 07/16/16 10: 46; Start 07/16/16 at 10:45; Stop 07/16/16 at 10:46; Status DC Ondansetron HCl (Zofran) 4 mg PRN Q8HRS PRN IV NAUSEA/VOMITING; Start 07/16/16 at 11:30; Stop 07/17/16 at 11:29; Status DC Morphine Sulfate 2 mg PRN Q2HR PRN IV PAIN Last administered on 07/17/16 01:45 ; Start 07/16/16 at 11:30; Stop 07/17/16 at 11:29; Status DC Albuterol/ Ipratropium 3 ml 3 ml RTQID NEB Last administered on 07/16/16 16:00 ; Start 07/16/16 at 12:00; Stop 07/16/16 at 16:40; Status DC Ceftriaxone Sodium 50 ml @ 100 mls/hr 1X ONCE IV Last administered on 11:44; Start 07/16/16 at 11:30; Stop 07/16/16 at 11:59; Status DC Azithromycin (Zithromax 500mg Ivpb For Omni) 250 ml @ 250 mls/hr 1X ONCE IV ; Start 07/16/16 at 11:30; Stop 07/16/16 at 12:29; Status DC Oxymetazoline HCl (Afrin) 2 spray BID NS Last administered on 07/17/16 09:09; Start 07/16/16 at 14:00 Aspirin (Ecotrin) 325 mg DAILY PO Last administered on 07/17/16 09:06; Start 07/17/16 at 09:00 Digoxin (Lanoxin) 250 mcg DAILY PO Last administered on 07/17/16 09:07; Start 07/16/16 at 17:00 Gabapentin (Neurontin) 300 mg HS PO Last administered on 07/16/16 20:35; Start 07/16/16 at 21:00 Gabapentin (Neurontin) 400 mg TIDWMEALS PO Last administered on 07/17/16 12:19 ; Start 07/16/16 at 17:00 Acetaminophen/ Hydrocodone Bitart (Lortab 5/325) 1 tab PRN Q6HRS PRN PO PAIN Last administered on 07/16/16 23:56; Start 07/16/16 at 16:30 Lisinopril (Prinivil) 2.5 mg DAILY PO Last administered on 07/17/16 09:07; Start 07/16/16 at 17:00 Meloxicam (Mobic) 7.5 mg DAILY PO Last administered on 07/17/16 09:07; Start 07/16/16 at 17:30 Metformin HCl (Glucophage Xr) 500 mg BID PO Last administered on 07/17/16 09: 06; Start 07/16/16 at 21:00 Methocarbamol (Robaxin) 500 mg BID PO Last administered on 07/17/16 09:07; Start 07/16/16 at 21:00 Propafenone HCl (Rythmol) 150 mg BID PO Last administered on 07/17/16 09:06; Start 07/16/16 at 21:00 Temazepam (Restoril) 15 mg QHS PO Last administered on 07/16/16 20:35; Start 07/16/16 at 21:00 Warfarin Sodium (Coumadin) 3 mg [id number] PO ; Start 07/17/16 at 16:00 Warfarin Sodium (Coumadin) 6 mg QFR PO Last administered on 07/16/16 17:41; Start 07/16/16 at 17:00 Non-Formulary Medication 2 puff BID IH ; Start 07/16/16 at 21:00; Status UNV Glimepiride (Amaryl) 1 mg DAILY PO Last administered on 07/17/16 09:06; Start 07/17/16 at 09:00 Theophylline (Theodur) 300 mg DAILY07 PO Last administered on 07/17/16 07:15; Start 07/17/16 at 07:00 Warfarin Sodium (Coumadin Per Physician) 1 each PRN DAILY PRN MC SEE COMMENTS Last administered on 07/17/16 11:15; Start 07/16/16 at 16:45 Budesonide (Pulmicort) 0.5 mg RTBID NEB Last administered on 07/17/16 06:10; Start 07/16/16 at 20:00 Albuterol Sulfate (Ventolin Neb Soln) 2.5 mg RTQID NEB Last administered on 12:20; Start 07/16/16 at 20:00 Propafenone HCl (Rythmol) 150 mg BID PO ; Start 07/16/16 at 21:00; Stop at 21:00; Status DC Enoxaparin Sodium 40 mg 40 mg Q24H SQ ; Start 07/16/16 at 18:30; Status UNV Ceftriaxone Sodium/Sodium Chloride (Rocephin/Iv Sodium Chloride 0.9% 50ml) 50 ml @ 100 mls/hr Q24H IV Last administered on 07/17/16 12:19; Start 07/17/16 at 12:00 Guaifenesin (Mucinex) 1,200 mg BID PO Last administered on 07/17/16 14:08; Start 07/17/16 at 14:00 Benzonatate (Tessalon Perle) 100 mg PRN TID PRN PO COUGH Last administered on 14:07; Start 07/17/16 at 14:00 Morphine Sulfate 2 mg PRN QHS PRN IM PAIN; Start 07/17/16 at 13:30 Prednisone (Prednisone) 60 mg 1X ONCE PO Last administered on 07/17/16t 14:08 ; Start 07/17/16 at 14:00; Stop 07/17/16 at 14:01; Status DC Active Scripts Active Ross 5-325 Tablet (Acetaminophen/Hydrocodone Bitart) 1 Each Tablet 1 Tab PO PRN Q6HRS PRN Amox Tr-K Clv 875-125 Mg Tab (Amoxicillin/Potassium Clav) 1 Each Tablet 1 Tab PO BID Reported Cefuroxime (Cefuroxime Axetil) 500 Mg Tablet 1 Tab PO BID Alendronate Sodium 70 Mg Tablet 1 Tab PO WEEKLY Theophylline (Theophylline Anhydrous) 400 Mg Tablet.er 300 Mg PO Meloxicam 7.5 Mg Tablet 1 Tab PO DAILY Robaxin (Methocarbamol) 500 Mg Tablet 1 Tab PO BID Gabapentin 400 Mg Capsule 400 Mg PO TID Propafenone Hcl 150 Mg Tablet 150 Mg PO BID Ventolin Hfa Inhaler (Albuterol Sulfate) 18 Gm Hfa.aer.ad 2 Puff INH Q4HRS Warfarin Sodium 3 Mg Tablet 2 Tab PO QFR Warfarin Sodium 3 Mg Tablet 1 Tab PO QHS Digoxin 250 Mcg Tablet 250 Mcg PO DAILY Lisinopril 2.5 Mg Tablet 2.5 Mg PO DAILY Glimepiride 1 Mg Tablet 1 Mg PO DAILY Albuterol Sulfate Hfa Inhaler (Albuterol Sulfate) 8.5 Gm Hfa.aer.ad 2 Puff INH QID Symbicort 160-4.5 Mcg Inhaler (Budesonide/Formoterol Fumarate) 10.2 Gm Hfa.aer.ad 2 Puff IH BID Aspirin Ec (Aspirin) 325 Mg Tablet.dr 1 Tab PO DAILY Temazepam 15 Mg Capsule 1 Cap PO QHS Gabapentin 100 Mg Capsule 300 Mg PO HS Metformin Hcl Er (Metformin Hcl) 500 Mg Tab.er.24h 1 Tab PO BID Theophylline (Theophylline Anhydrous) 400 Mg Tablet.er 300 Mg PO DAILY07 Vitals/I & O Vital Sign - Last 24 Hours 07/16/16 07/16/16 07/16/16 07/16/16 15:00 16:46 17:36 17:36 Temp 97.9 97.9 Pulse 116 116 116 Resp 17 B/P 104/57 104/57 104/57 Pulse Ox 94 92 O2 Delivery Nasal Cannula Nasal Cannula O2 Flow Rate 2.0 1.0 07/16/16 07/16/16 07/16/16 07/16/16 19:45 20:28 20:35 20:39 Temp 99.1 99.1 Pulse 94 84 Resp 20 B/P 111/61 111/61 Pulse Ox 97 93 O2 Delivery Nasal Cannula Nasal Cannula Nasal Cannula O2 Flow Rate 2.0 2.0 2.0 07/16/16 07/16/16 07/17/16 07/17/16 23:25 23:56 00:56 01:45 Temp 98.1 98.1 Pulse 87 Resp 22 20 18 18 B/P 114/60 Pulse Ox 95 O2 Delivery Nasal Cannula Nasal Cannula Nasal Cannula Nasal Cannula O2 Flow Rate 2.0 2.0 2.0 2.0 07/17/16 07/17/16 07/17/16 07/17/16 02:15 06:10 07:00 08:00 Temp 97.6 97.6 Pulse 89 Resp 18 18 B/P 137/67 Pulse Ox 94 95 O2 Delivery Nasal Cannula Nasal Cannula Nasal Cannula Nasal Cannula O2 Flow Rate 2.0 2.0 2.0 2.0 07/17/16 07/17/16 07/17/16 07/17/16 09:06 09:07 09:07 10:46 Temp 98.4 98.4 Pulse 89 89 89 72 Resp 18 B/P 137/67 137/67 137/67 116/56 Pulse Ox 97 O2 Delivery Nasal Cannula O2 Flow Rate 2.0 07/17/16 12:22 Pulse Ox 94 O2 Delivery Nasal Cannula O2 Flow Rate 2.0 Intake and Output 07/16/16 07/16/16 07/17/16 15:00 23:00 07:00 Intake Total 790 ml 1220 ml 420 ml Output Total 500 ml 100 ml Balance 790 ml 720 ml 320 ml RUDY NELSON MD Jul 17, 2016 14:40
[2016-07-17 15:00] VITALS: BP 117/64
[2016-07-17] MEDS: WARFARIN 3 MG TABLET. PO SCH (16:44)
[2016-07-17 19:50] VITALS: BP 110/63
[2016-07-17] MEDS: TEMAZEPAM 15 MG CAPSULE PO SCH (20:54)
[2016-07-17] MEDS: GABAPENTIN 300 MG CAPSULE. PO SCH (20:56)
[2016-07-17 23:06] VITALS: BP 117/67
[2016-07-17] MEDS: MORPHINE SULFATE 2 MG/ML DISP.SYRIN. IM PRN (23:29)
[2016-07-18 03:20] VITALS: BP 131/84
[2016-07-18 05:36] LABS: PROTHROMBIN TIME PATIENT 21.9 SEC (11.7-14.0)
--- NOTE | 2016-07-18 06:01 | ACF ---
Admission Forms Criteria ATRIAL FIBRILLATION Clinical Indications for Admission to Inpatient Care (Place 'X' for any and all applicable criteria): Admission indicated for ANY ONE of the following(1)(2)(3)(4)(5) : [ ]I. Myocardial ischemia [X]II. Dyspnea or hypoxemia [ ]III. Hemodynamic instability [ ]IV. Heart failure (e.g., pulmonary edema) (7) [ ]V. New-onset (less than 48 hours) atrial fibrillation with high risk for causing complications secondary to comorbidities (eg, symptomatic heart failure ) [ ]. Altered mental status [ ]VII. Syncope [ ]VIII. Patient has implantable cardioverter defibrillator that has fired more than once within past 24hr or needs immediate adjustment of settings that cannot be done other than in inpatient setting. (8) [ ]IX. Suspected accessory pathway (e.g., Rddpv-Dfxloqohl-Pwhxp syndrome) on ECG [ ]X. Recent systemic thromboembolism (eg, stroke) [ ]XI. Medication toxicity (e.g., digitalis) causing arrhythmia(9) [ ]XII. Underlying medical condition that necessitates inpatient care (e.g., thyrotoxicosis, pneumonia) (10) [ ]XIII. Continuous ECG monitoring is required for condition causing arrhythmia (e.g., severe hyperkalemia, hypokalemia, acid-base disturbance).(11)(12)(13) [ ]XIV. Initiation of antiarrhythmic drug therapy is needed in patient at high risk of adverse effects as indicated by ANY ONE of the following: [ ]a) Significant structural heart disease (e.g., reduced ejection fraction, congenital heart disease, valvular heart disease) [ ]b) Prolonged QT interval [ ]c) Underlying sinus node or atrioventricular conduction disturbances [ ]d) Need for treatment with antiarrhythmic drugs that have significant proarrhythmic potential (e.g., dofetilide, sotalol, procainamide) [ ]e) Patient whose sinus rhythm has never been observed on ECG [ ]XV. Intolerable symptoms despite optimal outpatient treatment [ ]XVI. Elective or urgent cardioversion that cannot be performed on outpatient basis or during observation care. [A] (Use also Atrial Fibrillation: Observation Care ) as appropriate.(14) [ ]XVII.Contraindications and/or Inappropriate clinical situations for Observational Care in patients with Atrial Fibrillation, when ANY ONE of the following is required: [ ]a) Patient with High risk of cardiac embolism (e.g, patients with previous cardiac embolism, LVEF < 40%, age >75 and patients with prosthetic valve) 18 [ ]b) Patient with Moderate risk including DM patient, CAD and patient aged 65-75 18 [ ]c) Patient with any change in cardiac biomarker especially troponin should be managed as high risk in an inpatient setting 19 [ ]d) Physician judgement irrespective of ECG and other diagnostic findings 20 [ ]XVIII.General contraindications and/or Inappropriate clinical situations for Observational Care in patients with Atrial Fibrillation, when ANY ONE of the following is required: [ ]a) Prediction of prolongation of LOS based on ANY ONE of the following may be considered as a contraindication for observational care 2, 3, 4, 5, 6, 7, 8, 9, 10, 11 [ ]i) Age > 65 yrs. [ ]ii) Patient arriving by ambulance [ ]iii) Patient with high acuity [ ]iv) Patient requiring vital sign monitoring [ ]v) Patient on IV medication [ ]b) Systolic blood pressures 180mmHg 3,12 [ ]c) Patient with altered mental status including delirium and other alteration of consciousness3 [ ]d) Patient whose discharge disposition will be to a group home home or rehabilitation home should not be managed in Emergency Department Observation Unit. CMS rule requires 3 days hospital stay before such placement.3,13 [ ]e) Patient with failure to thrive due to broad array of etiologies 3,16,17 [ ]f) Inability to ambulate 3,14 Extended stay beyond goal length of stay may be needed for (1)(25)(26): [ ]a) Unstable comorbidities [ ]b) Persistently uncontrolled atrial fibrillation or other arrhythmias [ ]c) Acute thromboembolic event (e.g., stroke, limb ischemia) [ ]d) Need for inpatient attainment of full anticoagulation The original [employer] content created by [employer] has been revised. The portions of the content which have been revised are identified through the use of italic text or in bold, and [employer] has neither reviewed nor approved the modified material. All other unmodified content is copyright [employer]. Please see references footnoted in the original [facility] [facility] edition 2016 Admission Criteria Met?: Yes ROSA NICOLE Jul 18, 2016 06:01
[2016-07-18 07:15] VITALS: BP 115/72
[2016-07-18] MEDS: ALBUTEROL SULFATE 2.5 MG/3 ML NEBU. NEB SCH (07:48)
[2016-07-18] MEDS: BUDESONIDE 0.5 MG/2 ML NEBU NEB SCH ×2 (07:48→21:01)
[2016-07-18] MEDS: IPRATRPIUM/ALBUTEROL 0.5/2.5MG 3 ML NEBU. NEB SCH ×4 (08:00→21:01)
--- NOTE | 2016-07-18 08:06 | PDOC ---
Provider Note Provider Note [id number] acute resp fail acute exacer of copd acute bronchitis 02 bronchodilator abx steroid REE RODRIGUEZ MD Jul 18, 2016 08:06
--- NOTE | 2016-07-18 08:19 | PDOC ---
PROGRESS NOTES Subjective Subjective Patient without new complaints, Pulm input appreciated, BS high with IV steroids. Objective Objective Vital Signs Date Time Temp Pulse Resp B/P Pulse Ox O2 Delivery O2 Flow Rate FiO2 07/18/16 07:49 95 Nasal Cannula 2.0 07/18/16 07:15 97.3 86 17 115/72 97.3 Intake and Output 07/18/16 07:00 Intake Total 1580 ml Output Total 325 ml Balance 1255 ml Intake Oral 1580 ml Output Urine Total 325 ml Physical Exam Physical Exam Abdomen: Normal bowel sounds Heart: Other (irregular) Extremities: No edema General: Alert Lungs: Other (wheezes bilaterally) Assessment Assessment Problems Medical Problems: (1) Atrial fibrillation with RVR Status: Acute (2) Hypoxia Status: Acute (3) Shortness of breath Status: Acute 1. Afib with RVR requiring Cardizem bolus, not currently on drip and heart rate around 100, will resume home meds including Rythmol which may have recently been stopped 2. Bronchitis - with hypoxia causing acute respiratory failure - continue IV ceftriaxone, add mucinex 3. chronic bronchitis with emphysema/COPD - neb tx Plan Plan of Care Continue Pulm Care Add SS insulin Monitor AFIB Comment Review of Relevant I have reviewed the following items kaila (where applicable) has been applied. Labs Laboratory Tests Test 07/16/16 10:09 07/16/16 12:28 07/16/16 17:08 07/16/16 17:30 White Blood Count 11.7x10^3/uL (4.0-11.0) Red Blood Count 5.11x10^6/uL (4.30-5.70) Hemoglobin 14.7g/dL (13.0-17.5) Hematocrit 44.2% (39.0-53.0) Mean Corpuscular Volume 86fL (79-100) Mean Corpuscular Hemoglobin 29pg (25-35) Mean Corpuscular Hemoglobin Concent 33g/dL (31-37) Red Cell Distribution Width 16.0% (11.5-14.5) Platelet Count 126x10^3/uL (140-400) Neutrophils (%) (Auto) 84% (31-73) Lymphocytes (%) (Auto) 7% (24-48) Monocytes (%) (Auto) 8% (0-9) Eosinophils (%) (Auto) 0% (0-3) Basophils (%) (Auto) 1% (0-3) Neutrophils # (Auto) 9.9x10^3uL (1.8-7.7) Lymphocytes # (Auto) 0.8x10^3/uL (1.0-4.8) Monocytes # (Auto) 1.0x10^3/uL (0.0-1.1) Eosinophils # (Auto) 0.0x10^3/uL (0.0-0.7) Basophils # (Auto) 0.1x10^3/uL (0.0-0.2) Prothrombin Time 21.5SEC (11.7-14.0) Prothromb Time International Ratio 2.0 (0.8-1.1) Activated Partial Thromboplast Time 42SEC (24-38) Sodium Level 141mmol/L (136-145) Potassium Level 4.5mmol/L (3.5-5.1) Chloride Level 104mmol/L (98-107) Carbon Dioxide Level 27mmol/L (21-32) Anion Gap 10 (6-14) Blood Urea Nitrogen 13mg/dL (8-26) Creatinine 1.0mg/dL (0.7-1.3) Estimated GFR (Cockcroft-Gault) 71.5 Glucose Level 155mg/dL (70-99) Calcium Level 8.8mg/dL (8.5-10.1) Total Bilirubin 0.8mg/dL (0.2-1.0) Direct Bilirubin 0.1mg/dL (0.0-0.2) Aspartate Amino Transf (AST/SGOT) 22U/L (15-37) Alanine Aminotransferase (ALT/SGPT) 31U/L (16-63) Alkaline Phosphatase 60U/L (46-116) Troponin I Quantitative < 0.017ng/mL (0.000-0.055) < 0.017ng/mL (0.000-0.055) SF-Peq-V-Type Natriuretic Peptide 324pg/mL (0-449) Total Protein 7.3g/dL (6.4-8.2) Albumin 4.0g/dL (3.4-5.0) Lipase 133U/L (73-393) Digoxin Level 1.8ng/mL (0.9-2.0) Digoxin Last Dose Date Unknown Digoxin Last Dose Time Unknown Glucose (Fingerstick) 134mg/dL (70-99) 145mg/dL (70-99) Test 07/16/16 17:44 07/16/16 20:33 07/17/16 05:00 07/17/16 07:32 Glucose (Fingerstick) 137mg/dL (70-99) 172mg/dL (70-99) 135mg/dL (70-99) White Blood Count 8.1x10^3/uL (4.0-11.0) Red Blood Count 4.76x10^6/uL (4.30-5.70) Hemoglobin 13.8g/dL (13.0-17.5) Hematocrit 42.9% (39.0-53.0) Mean Corpuscular Volume 90fL (79-100) Mean Corpuscular Hemoglobin 29pg (25-35) Mean Corpuscular Hemoglobin Concent 32g/dL (31-37) Red Cell Distribution Width 16.7% (11.5-14.5) Platelet Count 114x10^3/uL (140-400) Neutrophils (%) (Auto) 68% (31-73) Lymphocytes (%) (Auto) 19% (24-48) Monocytes (%) (Auto) 12% (0-9) Eosinophils (%) (Auto) 0% (0-3) Basophils (%) (Auto) 1% (0-3) Neutrophils # (Auto) 5.5x10^3uL (1.8-7.7) Lymphocytes # (Auto) 1.5x10^3/uL (1.0-4.8) Monocytes # (Auto) 1.0x10^3/uL (0.0-1.1) Eosinophils # (Auto) 0.0x10^3/uL (0.0-0.7) Basophils # (Auto) 0.1x10^3/uL (0.0-0.2) Sodium Level 141mmol/L (136-145) Potassium Level 4.2mmol/L (3.5-5.1) Chloride Level 104mmol/L (98-107) Carbon Dioxide Level 27mmol/L (21-32) Anion Gap 10 (6-14) Blood Urea Nitrogen 14mg/dL (8-26) Creatinine 1.0mg/dL (0.7-1.3) Estimated GFR (Cockcroft-Gault) 71.5 Glucose Level 66mg/dL (70-99) Calcium Level 8.6mg/dL (8.5-10.1) Troponin I Quantitative < 0.017ng/mL (0.000-0.055) Test 07/17/16 11:38 07/17/16 16:45 07/17/16 21:31 07/17/16 21:33 Glucose (Fingerstick) 148mg/dL (70-99) 179mg/dL (70-99) 299mg/dL (70-99) 333mg/dL (70-99) Test 07/18/16 04:30 Prothrombin Time 21.9SEC (11.7-14.0) Prothromb Time International Ratio 2.0 (0.8-1.1) Laboratory Tests Test 07/17/16 11:38 07/17/16 16:45 07/17/16 21:31 07/17/16 21:33 Glucose (Fingerstick) 148mg/dL (70-99) 179mg/dL (70-99) 299mg/dL (70-99) 333mg/dL (70-99) Test 07/18/16 04:30 Prothrombin Time 21.9SEC (11.7-14.0) Prothromb Time International Ratio 2.0 (0.8-1.1) Microbiology 07/16/16 Blood Culture - Preliminary, Resulted NO GROWTH AFTER 1 DAY Medications Current Medications Aspirin 324 mg 324 mg 1X ONCE PO ; Start 07/16/16 at 10:15; Stop 07/16/16 at 10 :37; Status DC Sodium Chloride (Iv Sodium Chloride 0.9% 500ml Bag) 500 ml @ 500 mls/hr 1X ONCE IV Last administered on 07/16/16t 10:46; Start 07/16/16 at 10:45; Stop at 11:44; Status DC Diltiazem HCl (Cardizem) 10 mg 1X ONCE IVP Last administered on 07/16/16t 10: 46; Start 07/16/16 at 10:45; Stop 07/16/16 at 10:46; Status DC Ondansetron HCl (Zofran) 4 mg PRN Q8HRS PRN IV NAUSEA/VOMITING; Start 07/16/16 at 11:30; Stop 07/17/16 at 11:29; Status DC Morphine Sulfate 2 mg PRN Q2HR PRN IV PAIN Last administered on 07/17/16 01:45 ; Start 07/16/16 at 11:30; Stop 07/17/16 at 11:29; Status DC Albuterol/ Ipratropium 3 ml 3 ml RTQID NEB Last administered on 07/16/16 16:00 ; Start 07/16/16 at 12:00; Stop 07/16/16 at 16:40; Status DC Ceftriaxone Sodium 50 ml @ 100 mls/hr 1X ONCE IV Last administered on 11:44; Start 07/16/16 at 11:30; Stop 07/16/16 at 11:59; Status DC Azithromycin (Zithromax 500mg Ivpb For Omni) 250 ml @ 250 mls/hr 1X ONCE IV ; Start 07/16/16 at 11:30; Stop 07/16/16 at 12:29; Status DC Oxymetazoline HCl (Afrin) 2 spray BID NS Last administered on 07/17/16 21:00; Start 07/16/16 at 14:00 Aspirin (Ecotrin) 325 mg DAILY PO Last administered on 07/17/16 09:06; Start 07/17/16 at 09:00 Digoxin (Lanoxin) 250 mcg DAILY PO Last administered on 07/17/16 09:07; Start 07/16/16 at 17:00 Gabapentin (Neurontin) 300 mg HS PO Last administered on 07/17/16 20:56; Start 07/16/16 at 21:00 Gabapentin (Neurontin) 400 mg TIDWMEALS PO Last administered on 07/17/16 16:44 ; Start 07/16/16 at 17:00 Acetaminophen/ Hydrocodone Bitart (Lortab 5/325) 1 tab PRN Q6HRS PRN PO PAIN Last administered on 07/16/16 23:56; Start 07/16/16 at 16:30 Lisinopril (Prinivil) 2.5 mg DAILY PO Last administered on 07/17/16 09:07; Start 07/16/16 at 17:00 Meloxicam (Mobic) 7.5 mg DAILY PO Last administered on 07/17/16 09:07; Start 07/16/16 at 17:30 Metformin HCl (Glucophage Xr) 500 mg BID PO Last administered on 07/17/16 20: 55; Start 07/16/16 at 21:00 Methocarbamol (Robaxin) 500 mg BID PO Last administered on 07/17/16 20:55; Start 07/16/16 at 21:00 Propafenone HCl (Rythmol) 150 mg BID PO Last administered on 07/17/16 20:56; Start 07/16/16 at 21:00 Temazepam (Restoril) 15 mg QHS PO Last administered on 07/17/16 20:54; Start 07/16/16 at 21:00 Warfarin Sodium (Coumadin) 3 mg [id number] PO Last administered on 07/17/16 16:44; Start 07/17/16 at 16:00 Warfarin Sodium (Coumadin) 6 mg QFR PO Last administered on 07/16/16 17:41; Start 07/16/16 at 17:00 Non-Formulary Medication 2 puff BID IH ; Start 07/16/16 at 21:00; Status UNV Glimepiride (Amaryl) 1 mg DAILY PO Last administered on 07/17/16 09:06; Start 07/17/16 at 09:00 Theophylline (Theodur) 300 mg DAILY07 PO Last administered on 07/17/16 07:15; Start 07/17/16 at 07:00 Warfarin Sodium (Coumadin Per Physician) 1 each PRN DAILY PRN MC SEE COMMENTS Last administered on 07/17/16 11:15; Start 07/16/16 at 16:45 Budesonide (Pulmicort) 0.5 mg RTBID NEB Last administered on 07/18/16 07:48; Start 07/16/16 at 20:00 Albuterol Sulfate (Ventolin Neb Soln) 2.5 mg RTQID NEB Last administered on 07:48; Start 07/16/16 at 20:00; Stop 07/18/16 at 07:59; Status DC Propafenone HCl (Rythmol) 150 mg BID PO ; Start 07/16/16 at 21:00; Stop at 21:00; Status DC Enoxaparin Sodium 40 mg 40 mg Q24H SQ ; Start 07/16/16 at 18:30; Status UNV Ceftriaxone Sodium/Sodium Chloride (Rocephin/Iv Sodium Chloride 0.9% 50ml) 50 ml @ 100 mls/hr Q24H IV Last administered on 07/17/16 12:19; Start 07/17/16 at 12:00 Guaifenesin (Mucinex) 1,200 mg BID PO Last administered on 07/17/16 20:54; Start 07/17/16 at 14:00 Benzonatate (Tessalon Perle) 100 mg PRN TID PRN PO COUGH Last administered on 20:57; Start 07/17/16 at 14:00 Morphine Sulfate 2 mg PRN QHS PRN IM PAIN Last administered on 07/17/16 23:29 ; Start 07/17/16 at 13:30 Prednisone (Prednisone) 60 mg 1X ONCE PO Last administered on 07/17/16 14:08 ; Start 07/17/16 at 14:00; Stop 07/17/16 at 14:01; Status DC Albuterol Sulfate (Ventolin Neb Soln) 2.5 mg PRN QID PRN NEB SHORTNESS OF BREATH; Start 07/18/16 at 08:00 Methylprednisolone Sodium Succinate (Solu-Medrol 40mg Vial) 40 mg Q12HR IV ; Start 07/18/16 at 09:00 Albuterol/ Ipratropium (Duoneb) 3 ml RTQID NEB ; Start 07/18/16 at 08:00 Active Scripts Active [place] 5-325 Tablet (Acetaminophen/Hydrocodone Bitart) 1 Each Tablet 1 Tab PO PRN Q6HRS PRN Amox Tr-K Clv 875-125 Mg Tab (Amoxicillin/Potassium Clav) 1 Each Tablet 1 Tab PO BID Reported Cefuroxime (Cefuroxime Axetil) 500 Mg Tablet 1 Tab PO BID Alendronate Sodium 70 Mg Tablet 1 Tab PO WEEKLY Theophylline (Theophylline Anhydrous) 400 Mg Tablet.er 300 Mg PO Meloxicam 7.5 Mg Tablet 1 Tab PO DAILY Robaxin (Methocarbamol) 500 Mg Tablet 1 Tab PO BID Gabapentin 400 Mg Capsule 400 Mg PO TID Propafenone Hcl 150 Mg Tablet 150 Mg PO BID Ventolin Hfa Inhaler (Albuterol Sulfate) 18 Gm Hfa.aer.ad 2 Puff INH Q4HRS Warfarin Sodium 3 Mg Tablet 2 Tab PO QFR Warfarin Sodium 3 Mg Tablet 1 Tab PO QHS Digoxin 250 Mcg Tablet 250 Mcg PO DAILY Lisinopril 2.5 Mg Tablet 2.5 Mg PO DAILY Glimepiride 1 Mg Tablet 1 Mg PO DAILY Albuterol Sulfate Hfa Inhaler (Albuterol Sulfate) 8.5 Gm Hfa.aer.ad 2 Puff INH QID Symbicort 160-4.5 Mcg Inhaler (Budesonide/Formoterol Fumarate) 10.2 Gm Hfa.aer.ad 2 Puff IH BID Aspirin Ec (Aspirin) 325 Mg Tablet.dr 1 Tab PO DAILY Temazepam 15 Mg Capsule 1 Cap PO QHS Gabapentin 100 Mg Capsule 300 Mg PO HS Metformin Hcl Er (Metformin Hcl) 500 Mg Tab.er.24h 1 Tab PO BID Theophylline (Theophylline Anhydrous) 400 Mg Tablet.er 300 Mg PO DAILY07 Vitals/I & O Vital Sign - Last 24 Hours 07/17/16 07/17/16 07/17/16 07/17/16 09:06 09:07 09:07 10:46 Temp 98.4 98.4 Pulse 89 89 89 72 Resp 18 B/P 137/67 137/67 137/67 116/56 Pulse Ox 97 O2 Delivery Nasal Cannula O2 Flow Rate 2.0 07/17/16 07/17/16 07/17/16 07/17/16 12:22 15:00 16:33 19:22 Temp 98.4 98.4 Pulse 85 Resp 18 B/P 117/64 Pulse Ox 94 99 96 O2 Delivery Nasal Cannula Nasal Cannula Nasal Cannula Nasal Cannula O2 Flow Rate 2.0 2.0 2.0 2.0 07/17/16 07/17/16 07/17/16 07/17/16 19:38 19:50 20:00 20:56 Temp 98.4 98.4 Pulse 94 99 Resp 18 B/P 110/63 110/63 Pulse Ox 96 93 O2 Delivery Nasal Cannula Room Air Nasal Cannula O2 Flow Rate 2.0 2.0 07/17/16 07/18/16 07/18/16 07/18/16 23:06 03:20 07:15 07:48 Temp 97.7 97.2 97.3 97.7 97.2 97.3 Pulse 99 87 86 Resp B/P 117/67 131/84 115/72 Pulse Ox 94 94 95 95 O2 Delivery Nasal Cannula Nasal Cannula Nasal Cannula Nasal Cannula O2 Flow Rate 2.0 2.0 2.0 2.0 07/18/16 07:49 Pulse Ox 95 O2 Delivery Nasal Cannula O2 Flow Rate 2.0 Intake and Output 07/17/16 07/17/16 07/18/16 15:00 23:00 07:00 Intake Total 240 ml 940 ml 400 ml Output Total 125 ml 200 ml Balance 240 ml 815 ml 200 ml ZENAIDA PATEL MD Jul 18, 2016 08:19
--- NOTE | 2016-07-18 08:34 | CONS ---
DATE OF CONSULTATION: 07/18/2016 REASON FOR CONSULTATION: I was asked to see this 80-year-old gentleman for shortness of breath, cough, wheezing. HISTORY OF PRESENT ILLNESS: He does have a history of [id number] smoking; stopped smoking many years ago. He does have COPD. He has had shortness of breath and cough and wheezing for the past 3 weeks. He was found to have atrial fibrillation with rapid ventricular response on admission. He does have cough, but not able to cough up his sputum. He has chest tightness. He denies nasal congestion or gastroesophageal reflux symptoms or chest pain. PAST MEDICAL HISTORY: COPD, AFib, diabetes mellitus, hypertension, UTI, skin cancer, prostate cancer. ALLERGIES: DULOXETINE. MEDICATIONS: Currently, he is on albuterol, Rocephin, Coumadin, Tessalon Perles, Mucinex, aspirin, theophylline, Restoril, Rythmol, Robaxin, metformin, Pulmicort, Neurontin. SOCIAL HISTORY: History of [id number] smoking, stopped smoking many years ago. FAMILY HISTORY: There is no history of lung disease. REVIEW OF SYSTEMS: As mentioned as above. Other systems are otherwise negative. PHYSICAL EXAMINATION: GENERAL: Well-developed gentleman. VITAL SIGNS: His O2 saturation on 2 liters of oxygen is 94%, respiratory rate 18, heart rate 86, blood pressure 128 /73, temperature 97.3. HEENT: Normocephalic, atraumatic. Pupils are equal, round, reactive to light. Throat is clear. Nose is clear. NECK: There is no JVD, lymphadenopathy, or thyromegaly. CARDIOVASCULAR: Irregularly irregular rhythm. PMI is nondisplaced. CHEST: Expansion is normal. LUNGS: There is bilateral end-expiratory wheezing. Percussion is normal. ABDOMEN: Soft. Bowel sounds are good. There is no mass. EXTREMITIES: There is no edema. LYMPHATICS: There is no lymphadenopathy. NEUROLOGIC: Alert and oriented x 3. SKIN: Chronic changes. LABORATORY DATA: I reviewed the following lab data: Chest x-ray does not show infiltrate. WBC 8.1, hemoglobin 13.8, platelets 114. Sodium 141, potassium 4.2, chloride 104, CO2 is 27, glucose 66, BUN 14, creatinine 1. Troponin is less than 0.01. BNP 324. Influenza A and B negative. IMPRESSION: 1. Acute hypoxemic respiratory failure: Multifactorial in etiology, including acute exacerbation of chronic obstructive pulmonary disease, acute bronchitis, atrial fibrillation with rapid ventricular response versus others. 2. Acute exacerbation of chronic obstructive pulmonary disease. 3. Acute bronchitis. 4. Atrial fibrillation with rapid ventricular response. 5. Hypertension. 6. Diabetes mellitus. 7. Ex-smoker. 8. History of prostate cancer. PLAN AND RECOMMENDATIONS: 1. Titrate FiO2 to keep O2 saturation 92%. 2. Bronchodilator: I will change to albuterol and Atrovent q.i.d. and albuterol p.r.n. I have advised him to avoid overusing albuterol. 3. Continue Pulmicort. 4. Start Solu-Medrol 40 mg IV every 12 h. 5. Continue Rocephin. 6. Legionella and Strep pneumoniae antigen. 7. Continue Coumadin. Monitor for bleeding. 8. Protonix for stress ulcer prophylaxis. 9. Monitor respiratory status very closely. 10. The findings and recommendations were discussed with the patient and RN. The patient understood and agreed to proceed with the plan. I have answered all of his questions. Thank you very much for allowing me to participate in the care of this very nice gentleman. REE RODRIGUEZ M.D. DR: Dorothea JOB#: [id number] / [id number] [facility]
[2016-07-18] MEDS: GUAIFENESIN ER 600 MG TABLET.ER PO SCH ×2 (08:47→21:12)
[2016-07-18] MEDS: DIGOXIN 250 MCG TABLET PO SCH (08:47)
[2016-07-18] MEDS: THEOPHYLLINE 12HR ER 300 MG TAB.ER.12H. PO SCH (08:47)
[2016-07-18] MEDS: LISINOPRIL 2.5 MG TABLET PO SCH (08:48)
[2016-07-18] MEDS: PROPAFENONE 150 MG TABLET. PO SCH ×2 (08:48→21:14)
[2016-07-18] MEDS: GLIMEPIRIDE 2 MG TABLET PO SCH (08:48)
[2016-07-18] MEDS: GABAPENTIN 400 MG CAPSULE. PO SCH ×3 (08:48→16:21)
[2016-07-18] MEDS: METHOCARBAMOL 500 MG TABLET PO SCH ×2 (08:48→21:13)
[2016-07-18] MEDS: ASPIRIN ENTERIC COATED 325 MG TABLET.DR. PO SCH (08:49)
[2016-07-18] MEDS: METFORMIN XR 500 MG TAB.ER.24H PO SCH ×2 (08:49→21:13)
[2016-07-18] MEDS: MELOXICAM 7.5 MG TABLET PO SCH (08:49)
[2016-07-18] MEDS: OXYMETAZOLINE 0.05% NASAL SPRAY 30ML BOTTLE. NS SCH ×2 (09:00→21:00)
[2016-07-18] MEDS: methylPREDNISolone SOD SUCC PF 40 MG/ML VIAL. IV SCH ×2 (10:04→21:12)
[2016-07-18 10:38] VITALS: BP 121/71
[2016-07-18] MEDS: CEFTRIAXONE SODIUM 1 GM in IV NORMAL SALINE 50ML 50 ML IV SCH (12:27)
[2016-07-18] MEDS: INSULIN ASPART 300 UNITS/3 ML INSULN.PEN SQ SCH ×3 (12:32→21:00)
[2016-07-18 15:25] VITALS: BP 115/70
[2016-07-18] MEDS: GABAPENTIN 300 MG CAPSULE. PO SCH (16:02)
[2016-07-18] MEDS: WARFARIN 3 MG TABLET. PO SCH (16:02)
[2016-07-18 18:59] VITALS: BP 102/59
[2016-07-18 19:09] LABS: SPECIMEN SOURCE Urine (.)
[2016-07-18] MEDS: HYDROCODONE/APAP 5/325MG TABLET. PO PRN (21:13)
[2016-07-18] MEDS: TEMAZEPAM 15 MG CAPSULE PO SCH (21:13)
[2016-07-18] MEDS: BENZONATATE 100 MG CAPSULE. PO PRN (21:15)
[2016-07-18 22:51] VITALS: BP 103/69
[2016-07-19] VITALS (7 sets, daily range): BP systolic 91–144; BP diastolic 65–84
[2016-07-19] MEDS: MORPHINE SULFATE 2 MG/ML DISP.SYRIN. IM PRN
[2016-07-19] MEDS: ALBUTEROL SULFATE 2.5 MG/3 ML NEBU. NEB PRN (02:49)
[2016-07-19] MEDS: THEOPHYLLINE 12HR ER 300 MG TAB.ER.12H. PO SCH ×2 (06:45→08:59)
[2016-07-19] MEDS: BUDESONIDE 0.5 MG/2 ML NEBU NEB SCH ×2 (07:39→19:32)
[2016-07-19] MEDS: IPRATRPIUM/ALBUTEROL 0.5/2.5MG 3 ML NEBU. NEB SCH ×4 (07:39→19:32)
--- NOTE | 2016-07-19 08:44 | PDOC ---
PROGRESS NOTES Subjective Subjective He is still dyspneic walking to the bathroom and has trouble catching his breath after. Heart rate 90s. Now on IV steroids and having hyperglycemia but on SSI. Pulm and cardiology following, he deies chest pain Objective Objective Vital Signs Date Time Temp Pulse Resp B/P Pulse Ox O2 Delivery O2 Flow Rate FiO2 07/19/16 07:35 95 Nasal Cannula 2.0 07/19/16 07:27 97.5 88 16 144/79 97.5 Intake and Output 07/19/16 07:00 Intake Total 840 ml Output Total 575 ml Balance 265 ml Intake Oral 840 ml Output Urine Total 575 ml # Voids 5 Physical Exam Abdomen: Soft Heart: Other (irreg, rate controlled) Extremities: No clubbing, No cyanosis General: Alert, Oriented X3, Cooperative HEENT: Atraumatic, Other (tongue normal appearing) Lungs: Other (diminished breath sounds with end expiratory wheezing) MUSCULOSKELETAL: No joint tenderness Neck: Supple Neuro: Normal speech Psych/Mental Status: Mental status NL Skin: No breakdown Assessment Assessment Problems Medical Problems: (1) Atrial fibrillation with RVR Status: Acute (2) Hypoxia Status: Acute (3) Shortness of breath Status: Acute Plan Plan of Care continue present meds, control glucose on IV steroids (he is worried about thrush as his [id number] currently has it) Comment Review of Relevant I have reviewed the following items kaila (where applicable) has been applied. Labs Laboratory Tests Test 07/17/16 11:38 07/17/16 16:45 07/17/16 21:31 07/17/16 21:33 Glucose (Fingerstick) 148mg/dL (70-99) 179mg/dL (70-99) 299mg/dL (70-99) 333mg/dL (70-99) Test 07/18/16 04:30 07/18/16 08:03 07/18/16 10:15 07/18/16 12:01 Prothrombin Time 21.9SEC (11.7-14.0) Prothromb Time International Ratio 2.0 (0.8-1.1) Glucose (Fingerstick) 109mg/dL (70-99) 170mg/dL (70-99) Body Fluid Culture (LAB) (.) Urine Legionella Antigen Negative (Negative) Streptococcus pneumoniae Antigen Negative (Negative) Organism Identification (LAB) (.) SOHAM Specimen Source Urine (.) Test 07/18/16 17:03 07/18/16 20:51 Glucose (Fingerstick) 233mg/dL (70-99) 198mg/dL (70-99) Laboratory Tests Test 07/18/16 10:15 07/18/16 12:01 07/18/16 17:03 07/18/16 20:51 Body Fluid Culture (LAB) (.) Urine Legionella Antigen Negative (Negative) Streptococcus pneumoniae Antigen Negative (Negative) Organism Identification (LAB) (.) SOHAM Specimen Source Urine (.) Glucose (Fingerstick) 170mg/dL (70-99) 233mg/dL (70-99) 198mg/dL (70-99) Microbiology 07/16/16 Blood Culture - Preliminary, Resulted NO GROWTH AFTER 2 DAYS Medications Current Medications Aspirin 324 mg 324 mg 1X ONCE PO ; Start 07/16/16 at 10:15; Stop 07/16/16 at 10 :37; Status DC Sodium Chloride (Iv Sodium Chloride 0.9% 500ml Bag) 500 ml @ 500 mls/hr 1X ONCE IV Last administered on 07/16/16 10:46; Start 07/16/16 at 10:45; Stop at 11:44; Status DC Diltiazem HCl (Cardizem) 10 mg 1X ONCE IVP Last administered on 07/16/16 10: 46; Start 07/16/16 at 10:45; Stop 07/16/16 at 10:46; Status DC Ondansetron HCl (Zofran) 4 mg PRN Q8HRS PRN IV NAUSEA/VOMITING; Start 07/16/16 at 11:30; Stop 07/17/16 at 11:29; Status DC Morphine Sulfate 2 mg PRN Q2HR PRN IV PAIN Last administered on 07/17/16 01:45 ; Start 07/16/16 at 11:30; Stop 07/17/16 at 11:29; Status DC Albuterol/ Ipratropium 3 ml 3 ml RTQID NEB Last administered on 07/16/16 16:00 ; Start 07/16/16 at 12:00; Stop 07/16/16 at 16:40; Status DC Ceftriaxone Sodium 50 ml @ 100 mls/hr 1X ONCE IV Last administered on 11:44; Start 07/16/16 at 11:30; Stop 07/16/16 at 11:59; Status DC Azithromycin (Zithromax 500mg Ivpb For Omni) 250 ml @ 250 mls/hr 1X ONCE IV ; Start 07/16/16 at 11:30; Stop 07/16/16 at 12:29; Status DC Oxymetazoline HCl (Afrin) 2 spray BID NS Last administered on 07/18/16 21:00; Start 07/16/16 at 14:00 Aspirin (Ecotrin) 325 mg DAILY PO Last administered on 07/18/16 08:49; Start 07/17/16 at 09:00 Digoxin (Lanoxin) 250 mcg DAILY PO Last administered on 07/18/16 08:47; Start 07/16/16 at 17:00 Gabapentin (Neurontin) 300 mg HS PO Last administered on 07/18/16 16:02; Start 07/16/16 at 21:00 Gabapentin (Neurontin) 400 mg TIDWMEALS PO Last administered on 07/18/16 16:21 ; Start 07/16/16 at 17:00 Acetaminophen/ Hydrocodone Bitart (Lortab 5/325) 1 tab PRN Q6HRS PRN PO PAIN Last administered on 07/18/16 21:13; Start 07/16/16 at 16:30 Lisinopril (Prinivil) 2.5 mg DAILY PO Last administered on 07/18/16 08:48; Start 07/16/16 at 17:00 Meloxicam (Mobic) 7.5 mg DAILY PO Last administered on 07/18/16 08:49; Start 07/16/16 at 17:30 Metformin HCl (Glucophage Xr) 500 mg BID PO Last administered on 07/18/16 21: 13; Start 07/16/16 at 21:00 Methocarbamol (Robaxin) 500 mg BID PO Last administered on 07/18/16 21:13; Start 07/16/16 at 21:00 Propafenone HCl (Rythmol) 150 mg BID PO Last administered on 07/18/16 21:14; Start 07/16/16 at 21:00 Temazepam (Restoril) 15 mg QHS PO Last administered on 07/18/16 21:13; Start 07/16/16 at 21:00 Warfarin Sodium (Coumadin) 3 mg [id number] PO Last administered on 07/18/16 16:02; Start 07/17/16 at 16:00 Warfarin Sodium (Coumadin) 6 mg QFR PO Last administered on 07/16/16 17:41; Start 07/16/16 at 17:00 Non-Formulary Medication 2 puff BID IH ; Start 07/16/16 at 21:00; Status UNV Glimepiride (Amaryl) 1 mg DAILY PO Last administered on 07/18/16 08:48; Start 07/17/16 at 09:00 Theophylline (Theodur) 300 mg DAILY07 PO Last administered on 07/19/16 06:45; Start 07/17/16 at 07:00 Warfarin Sodium (Coumadin Per Physician) 1 each PRN DAILY PRN MC SEE COMMENTS Last administered on 07/18/16 09:40; Start 07/16/16 at 16:45 Budesonide (Pulmicort) 0.5 mg RTBID NEB Last administered on 07/19/16 07:39; Start 07/16/16 at 20:00 Albuterol Sulfate (Ventolin Neb Soln) 2.5 mg RTQID NEB Last administered on 07:48; Start 07/16/16 at 20:00; Stop 07/18/16 at 07:59; Status DC Propafenone HCl (Rythmol) 150 mg BID PO ; Start 07/16/16 at 21:00; Stop at 21:00; Status DC Enoxaparin Sodium 40 mg 40 mg Q24H SQ ; Start 07/16/16 at 18:30; Status UNV Ceftriaxone Sodium/Sodium Chloride (Rocephin/Iv Sodium Chloride 0.9% 50ml) 50 ml @ 100 mls/hr Q24H IV Last administered on 07/18/16 12:27; Start 07/17/16 at 12:00 Guaifenesin (Mucinex) 1,200 mg BID PO Last administered on 07/18/16 21:12; Start 07/17/16 at 14:00 Benzonatate (Tessalon Perle) 100 mg PRN TID PRN PO COUGH Last administered on 21:15; Start 07/17/16 at 14:00 Morphine Sulfate 2 mg PRN QHS PRN IM PAIN Last administered on 07/19/16 00:00 ; Start 07/17/16 at 13:30 Prednisone (Prednisone) 60 mg 1X ONCE PO Last administered on 07/17/16 14:08 ; Start 07/17/16 at 14:00; Stop 07/17/16 at 14:01; Status DC Albuterol Sulfate (Ventolin Neb Soln) 2.5 mg PRN QID PRN NEB SHORTNESS OF BREATH Last administered on 07/19/16 02:49; Start 07/18/16 at 08:00 Methylprednisolone Sodium Succinate (Solu-Medrol 40mg Vial) 40 mg Q12HR IV Last administered on 07/18/16 21:12; Start 07/18/16 at 09:00 Albuterol/ Ipratropium (Duoneb) 3 ml RTQID NEB Last administered on 07/19/16 07:39; Start 07/18/16 at 08:00 Insulin Aspart (Novolog) 0-12 UNITS QIDACHS SQ Last administered on 07/18/16 21:00; Start 07/18/16 at 11:30 Active Scripts Active [place] 5-325 Tablet (Acetaminophen/Hydrocodone Bitart) 1 Each Tablet 1 Tab PO PRN Q6HRS PRN Amox Tr-K Clv 875-125 Mg Tab (Amoxicillin/Potassium Clav) 1 Each Tablet 1 Tab PO BID Reported Cefuroxime (Cefuroxime Axetil) 500 Mg Tablet 1 Tab PO BID Alendronate Sodium 70 Mg Tablet 1 Tab PO WEEKLY Theophylline (Theophylline Anhydrous) 400 Mg Tablet.er 300 Mg PO Meloxicam 7.5 Mg Tablet 1 Tab PO DAILY Robaxin (Methocarbamol) 500 Mg Tablet 1 Tab PO BID Gabapentin 400 Mg Capsule 400 Mg PO TID Propafenone Hcl 150 Mg Tablet 150 Mg PO BID Ventolin Hfa Inhaler (Albuterol Sulfate) 18 Gm Hfa.aer.ad 2 Puff INH Q4HRS Warfarin Sodium 3 Mg Tablet 2 Tab PO QFR Warfarin Sodium 3 Mg Tablet 1 Tab PO QHS Digoxin 250 Mcg Tablet 250 Mcg PO DAILY Lisinopril 2.5 Mg Tablet 2.5 Mg PO DAILY Glimepiride 1 Mg Tablet 1 Mg PO DAILY Albuterol Sulfate Hfa Inhaler (Albuterol Sulfate) 8.5 Gm Hfa.aer.ad 2 Puff INH QID Symbicort 160-4.5 Mcg Inhaler (Budesonide/Formoterol Fumarate) 10.2 Gm Hfa.aer.ad 2 Puff IH BID Aspirin Ec (Aspirin) 325 Mg Tablet.dr 1 Tab PO DAILY Temazepam 15 Mg Capsule 1 Cap PO QHS Gabapentin 100 Mg Capsule 300 Mg PO HS Metformin Hcl Er (Metformin Hcl) 500 Mg Tab.er.24h 1 Tab PO BID Theophylline (Theophylline Anhydrous) 400 Mg Tablet.er 300 Mg PO DAILY07 Vitals/I & O Vital Sign - Last 24 Hours 07/18/16 07/18/16 07/18/16 07/18/16 08:47 08:48 08:48 10:38 Temp 97.6 97.6 Pulse 86 86 86 75 Resp 16 B/P 115/72 115/72 115/72 121/71 Pulse Ox 97 O2 Delivery Nasal Cannula O2 Flow Rate 2.0 07/18/16 07/18/16 07/18/16 07/18/16 11:48 15:25 16:16 18:59 Temp 97.8 97.7 97.8 97.7 Pulse 85 74 Resp 18 B/P 115/70 102/59 Pulse Ox 95 94 O2 Delivery Nasal Cannula Nasal Cannula Nasal Cannula Nasal Cannula O2 Flow Rate 2.0 2.0 2.0 2.0 07/18/16 07/18/16 07/18/16 07/18/16 20:00 20:00 21:01 21:03 Pulse Ox 95 95 O2 Delivery Nasal Cannula Nasal Cannula Nasal Cannula Nasal Cannula O2 Flow Rate 2.0 2.0 2.0 2.0 07/18/16 07/18/16 07/19/16 07/19/16 21:14 22:51 02:49 03:12 Temp 97.5 97.2 97.5 97.2 Pulse 97 80 82 Resp 16 16 B/P 102/59 103/69 114/65 Pulse Ox 93 95 94 O2 Delivery Nasal Cannula Nasal Cannula Room Air O2 Flow Rate 2.0 2.0 07/19/16 07/19/16 07:27 07:35 Temp 97.5 97.5 Pulse 88 Resp 16 B/P 144/79 Pulse Ox 97 95 O2 Delivery Nasal Cannula Nasal Cannula O2 Flow Rate 2.0 2.0 Intake and Output 07/18/16 07/18/16 07/19/16 15:00 23:00 07:00 Intake Total 240 ml 300 ml 300 ml Output Total 200 ml 375 ml Balance 240 ml 100 ml -75 ml Edward ALLEN MD Jul 19, 2016 08:44
[2016-07-19] MEDS: methylPREDNISolone SOD SUCC PF 40 MG/ML VIAL. IV SCH ×2 (08:56→21:24)
[2016-07-19] MEDS: DIGOXIN 250 MCG TABLET PO SCH (08:57)
[2016-07-19] MEDS: PROPAFENONE 150 MG TABLET. PO SCH ×2 (08:57→21:22)
[2016-07-19] MEDS: BENZONATATE 100 MG CAPSULE. PO PRN (08:58)
[2016-07-19] MEDS: MELOXICAM 7.5 MG TABLET PO SCH (08:58)
[2016-07-19] MEDS: GUAIFENESIN ER 600 MG TABLET.ER PO SCH ×2 (08:59→21:18)
[2016-07-19] MEDS: METFORMIN XR 500 MG TAB.ER.24H PO SCH ×2 (08:59→21:23)
[2016-07-19] MEDS: GABAPENTIN 400 MG CAPSULE. PO SCH ×3 (08:59→17:56)
[2016-07-19] MEDS: GLIMEPIRIDE 2 MG TABLET PO SCH (09:00)
[2016-07-19] MEDS: METHOCARBAMOL 500 MG TABLET PO SCH ×2 (09:00→21:23)
[2016-07-19] MEDS: LISINOPRIL 2.5 MG TABLET PO SCH (09:00)
[2016-07-19] MEDS: OXYMETAZOLINE 0.05% NASAL SPRAY 30ML BOTTLE. NS SCH ×2 (09:01→21:24)
[2016-07-19] MEDS: ASPIRIN ENTERIC COATED 325 MG TABLET.DR. PO SCH (09:02)
[2016-07-19] MEDS: INSULIN ASPART 300 UNITS/3 ML INSULN.PEN SQ SCH ×4 (09:06→21:28)
--- NOTE | 2016-07-19 11:09 | PDOC ---
PROGRESS NOTES Subjective Subjective A&Ox3, cooperative. Resting comfortably in bed. C/o SOB with exertion. Maintained on 2L NC. Cough continues and being managed by primary. Denies chest pain. Denies palpitations. Objective Objective Vital Signs Date Time Temp Pulse Resp B/P Pulse Ox O2 Delivery O2 Flow Rate FiO2 07/19/16 10:37 97.6 85 22 124/69 95 Nasal Cannula 2.0 97.6 Intake and Output 07/19/16 07:00 Intake Total 840 ml Output Total 575 ml Balance 265 ml Intake Oral 840 ml Output Urine Total 575 ml # Voids 5 Physical Exam Abdomen: Normal bowel sounds, Soft, No tenderness, No hepatosplenomegaly, No masses Heart: Regular rate, Normal S1, Normal S2, No murmurs, Gallops Extremities: No clubbing, No cyanosis, No edema, Normal pulses, No tenderness/ swelling General: Alert, Oriented X3, Cooperative, No acute distress Lungs: Clear to auscultation, Other (Wheezes to left upper and lower lobes. CTA on right) Neck: Supple, No JVD, No thyromegaly Assessment Assessment Problems Medical Problems: (1) Atrial fibrillation with RVR Status: Acute (2) Hypoxia Status: Acute (3) Shortness of breath Status: Acute Plan Plan of Care HTN stable, continue with current medications AFIB stable with Rhythmol and will continue present dose Continue with current treatment plan Comment Review of Relevant I have reviewed the following items kaila (where applicable) has been applied. Labs Laboratory Tests Test 07/17/16 11:38 07/17/16 16:45 07/17/16 21:31 07/17/16 21:33 Glucose (Fingerstick) 148mg/dL (70-99) 179mg/dL (70-99) 299mg/dL (70-99) 333mg/dL (70-99) Test 07/18/16 04:30 07/18/16 08:03 07/18/16 10:15 07/18/16 12:01 Prothrombin Time 21.9SEC (11.7-14.0) Prothromb Time International Ratio 2.0 (0.8-1.1) Glucose (Fingerstick) 109mg/dL (70-99) 170mg/dL (70-99) Body Fluid Culture (LAB) (.) Urine Legionella Antigen Negative (Negative) Streptococcus pneumoniae Antigen Negative (Negative) Organism Identification (LAB) (.) SOHAM Specimen Source Urine (.) Test 07/18/16 17:03 07/18/16 20:51 07/19/16 07:30 Glucose (Fingerstick) 233mg/dL (70-99) 198mg/dL (70-99) 186mg/dL (70-99) Laboratory Tests Test 07/18/16 12:01 07/18/16 17:03 07/18/16 20:51 07/19/16 07:30 Glucose (Fingerstick) 170mg/dL (70-99) 233mg/dL (70-99) 198mg/dL (70-99) 186mg/dL (70-99) Microbiology 07/16/16 Blood Culture - Preliminary, Resulted NO GROWTH AFTER 3 DAYS Medications Current Medications Aspirin 324 mg 324 mg 1X ONCE PO ; Start 07/16/16 at 10:15; Stop 07/16/16 at 10 :37; Status DC Sodium Chloride (Iv Sodium Chloride 0.9% 500ml Bag) 500 ml @ 500 mls/hr 1X ONCE IV Last administered on 07/16/16 10:46; Start 07/16/16 at 10:45; Stop at 11:44; Status DC Diltiazem HCl (Cardizem) 10 mg 1X ONCE IVP Last administered on 07/16/16 10: 46; Start 07/16/16 at 10:45; Stop 07/16/16 at 10:46; Status DC Ondansetron HCl (Zofran) 4 mg PRN Q8HRS PRN IV NAUSEA/VOMITING; Start 07/16/16 at 11:30; Stop 07/17/16 at 11:29; Status DC Morphine Sulfate 2 mg PRN Q2HR PRN IV PAIN Last administered on 07/17/16 01:45 ; Start 07/16/16 at 11:30; Stop 07/17/16 at 11:29; Status DC Albuterol/ Ipratropium 3 ml 3 ml RTQID NEB Last administered on 07/16/16 16:00 ; Start 07/16/16 at 12:00; Stop 07/16/16 at 16:40; Status DC Ceftriaxone Sodium 50 ml @ 100 mls/hr 1X ONCE IV Last administered on 11:44; Start 07/16/16 at 11:30; Stop 07/16/16 at 11:59; Status DC Azithromycin (Zithromax 500mg Ivpb For Omni) 250 ml @ 250 mls/hr 1X ONCE IV ; Start 07/16/16 at 11:30; Stop 07/16/16 at 12:29; Status DC Oxymetazoline HCl (Afrin) 2 spray BID NS Last administered on 07/19/16 09:01; Start 07/16/16 at 14:00 Aspirin (Ecotrin) 325 mg DAILY PO Last administered on 07/19/16 09:02; Start 07/17/16 at 09:00 Digoxin (Lanoxin) 250 mcg DAILY PO Last administered on 07/19/16 08:57; Start 07/16/16 at 17:00 Gabapentin (Neurontin) 300 mg HS PO Last administered on 07/18/16 16:02; Start 07/16/16 at 21:00 Gabapentin (Neurontin) 400 mg TIDWMEALS PO Last administered on 07/19/16 08:59 ; Start 07/16/16 at 17:00 Acetaminophen/ Hydrocodone Bitart (Lortab 5/325) 1 tab PRN Q6HRS PRN PO PAIN Last administered on 07/18/16 21:13; Start 07/16/16 at 16:30 Lisinopril (Prinivil) 2.5 mg DAILY PO Last administered on 07/19/16 09:00; Start 07/16/16 at 17:00 Meloxicam (Mobic) 7.5 mg DAILY PO Last administered on 07/19/16 08:58; Start 07/16/16 at 17:30 Metformin HCl (Glucophage Xr) 500 mg BID PO Last administered on 07/19/16 08: 59; Start 07/16/16 at 21:00 Methocarbamol (Robaxin) 500 mg BID PO Last administered on 07/19/16 09:00; Start 07/16/16 at 21:00 Propafenone HCl (Rythmol) 150 mg BID PO Last administered on 07/19/16 08:57; Start 07/16/16 at 21:00 Temazepam (Restoril) 15 mg QHS PO Last administered on 07/18/16 21:13; Start 07/16/16 at 21:00 Warfarin Sodium (Coumadin) 3 mg SuMoTuWeThSa PO Last administered on 07/18/16 16:02; Start 07/17/16 at 16:00 Warfarin Sodium (Coumadin) 6 mg QFR PO Last administered on 07/16/16 17:41; Start 07/16/16 at 17:00 Non-Formulary Medication 2 puff BID IH ; Start 07/16/16 at 21:00; Status UNV Glimepiride (Amaryl) 1 mg DAILY PO Last administered on 07/19/16 09:00; Start 07/17/16 at 09:00 Theophylline (Theodur) 300 mg DAILY07 PO Last administered on 07/19/16 08:59; Start 07/17/16 at 07:00 Warfarin Sodium (Coumadin Per Physician) 1 each PRN DAILY PRN MC SEE COMMENTS Last administered on 07/18/16 09:40; Start 07/16/16 at 16:45 Budesonide (Pulmicort) 0.5 mg RTBID NEB Last administered on 07/19/16 07:39; Start 07/16/16 at 20:00 Albuterol Sulfate (Ventolin Neb Soln) 2.5 mg RTQID NEB Last administered on 07:48; Start 07/16/16 at 20:00; Stop 07/18/16 at 07:59; Status DC Propafenone HCl (Rythmol) 150 mg BID PO ; Start 07/16/16 at 21:00; Stop at 21:00; Status DC Enoxaparin Sodium 40 mg 40 mg Q24H SQ ; Start 07/16/16 at 18:30; Status UNV Ceftriaxone Sodium/Sodium Chloride (Rocephin/Iv Sodium Chloride 0.9% 50ml) 50 ml @ 100 mls/hr Q24H IV Last administered on 07/18/16 12:27; Start 07/17/16 at 12:00 Guaifenesin (Mucinex) 1,200 mg BID PO Last administered on 07/19/16 08:59; Start 07/17/16 at 14:00 Benzonatate (Tessalon Perle) 100 mg PRN TID PRN PO COUGH Last administered on 08:58; Start 07/17/16 at 14:00 Morphine Sulfate 2 mg PRN QHS PRN IM PAIN Last administered on 07/19/16 00:00 ; Start 07/17/16 at 13:30 Prednisone (Prednisone) 60 mg 1X ONCE PO Last administered on 07/17/16 14:08 ; Start 07/17/16 at 14:00; Stop 07/17/16 at 14:01; Status DC Albuterol Sulfate (Ventolin Neb Soln) 2.5 mg PRN QID PRN NEB SHORTNESS OF BREATH Last administered on 07/19/16 02:49; Start 07/18/16 at 08:00 Methylprednisolone Sodium Succinate (Solu-Medrol 40mg Vial) 40 mg Q12HR IV Last administered on 07/19/16 08:56; Start 07/18/16 at 09:00 Albuterol/ Ipratropium (Duoneb) 3 ml RTQID NEB Last administered on 07/19/16 07:39; Start 07/18/16 at 08:00 Insulin Aspart (Novolog) 0-12 UNITS QIDACHS SQ Last administered on 07/19/16 09:06; Start 07/18/16 at 11:30 Active Scripts Active [place] 5-325 Tablet (Acetaminophen/Hydrocodone Bitart) 1 Each Tablet 1 Tab PO PRN Q6HRS PRN Amox Tr-K Clv 875-125 Mg Tab (Amoxicillin/Potassium Clav) 1 Each Tablet 1 Tab PO BID Reported Cefuroxime (Cefuroxime Axetil) 500 Mg Tablet 1 Tab PO BID Alendronate Sodium 70 Mg Tablet 1 Tab PO WEEKLY Theophylline (Theophylline Anhydrous) 400 Mg Tablet.er 300 Mg PO Meloxicam 7.5 Mg Tablet 1 Tab PO DAILY Robaxin (Methocarbamol) 500 Mg Tablet 1 Tab PO BID Gabapentin 400 Mg Capsule 400 Mg PO TID Propafenone Hcl 150 Mg Tablet 150 Mg PO BID Ventolin Hfa Inhaler (Albuterol Sulfate) 18 Gm Hfa.aer.ad 2 Puff INH Q4HRS Warfarin Sodium 3 Mg Tablet 2 Tab PO QFR Warfarin Sodium 3 Mg Tablet 1 Tab PO QHS Digoxin 250 Mcg Tablet 250 Mcg PO DAILY Lisinopril 2.5 Mg Tablet 2.5 Mg PO DAILY Glimepiride 1 Mg Tablet 1 Mg PO DAILY Albuterol Sulfate Hfa Inhaler (Albuterol Sulfate) 8.5 Gm Hfa.aer.ad 2 Puff INH QID Symbicort 160-4.5 Mcg Inhaler (Budesonide/Formoterol Fumarate) 10.2 Gm Hfa.aer.ad 2 Puff IH BID Aspirin Ec (Aspirin) 325 Mg Tablet.dr 1 Tab PO DAILY Temazepam 15 Mg Capsule 1 Cap PO QHS Gabapentin 100 Mg Capsule 300 Mg PO HS Metformin Hcl Er (Metformin Hcl) 500 Mg Tab.er.24h 1 Tab PO BID Theophylline (Theophylline Anhydrous) 400 Mg Tablet.er 300 Mg PO DAILY07 Vitals/I & O Vital Sign - Last 24 Hours 07/18/16 07/18/16 07/18/16 07/18/16 11:48 15:25 16:16 18:59 Temp 97.8 97.7 97.8 97.7 Pulse 85 74 Resp 18 B/P 115/70 102/59 Pulse Ox 95 94 O2 Delivery Nasal Cannula Nasal Cannula Nasal Cannula Nasal Cannula O2 Flow Rate 2.0 2.0 2.0 2.0 07/18/16 07/18/16 07/18/16 07/18/16 20:00 20:00 21:01 21:03 Pulse Ox 95 95 O2 Delivery Nasal Cannula Nasal Cannula Nasal Cannula Nasal Cannula O2 Flow Rate 2.0 2.0 2.0 2.0 07/18/16 07/18/16 07/19/16 07/19/16 21:14 22:51 02:49 03:12 Temp 97.5 97.2 97.5 97.2 Pulse 97 80 82 Resp 16 16 B/P 102/59 103/69 114/65 Pulse Ox 93 95 94 O2 Delivery Nasal Cannula Nasal Cannula Room Air O2 Flow Rate 2.0 2.0 07/19/16 07/19/16 07/19/16 07/19/16 07:27 07:35 08:57 08:57 Temp 97.5 97.5 Pulse 88 88 88 Resp 16 B/P 144/79 144/79 144/79 Pulse Ox 97 95 O2 Delivery Nasal Cannula Nasal Cannula O2 Flow Rate 2.0 2.0 07/19/16 07/19/16 09:00 10:37 Temp 97.6 97.6 Pulse 88 85 Resp 22 B/P 144/79 124/69 Pulse Ox 95 O2 Delivery Nasal Cannula O2 Flow Rate 2.0 Intake and Output 1/15/17 1/15/17 1/16/17 15:00 23:00 07:00 Intake Total 240 ml 300 ml 300 ml Output Total 200 ml 375 ml Balance 240 ml 100 ml -75 ml RUDY NELSON MD Jul 19, 2016 11:09
[2016-07-19] MEDS: CEFTRIAXONE SODIUM 1 GM in IV NORMAL SALINE 50ML 50 ML IV SCH (12:17)
--- NOTE | 2016-07-19 12:25 | PDOC ---
PULMONARY PROGRESS NOTES Subjective still has cough Vitals Vital Signs Date Time Temp Pulse Resp B/P Pulse Ox O2 Delivery O2 Flow Rate FiO2 07/19/16 11:52 98.2 65 20 120/84 98 Room Air 98.2 07/19/16 11:20 2.0 General: Alert, Oriented X4, No acute distress Lungs: Other (few rhonchi) Cardiovascular: S1 Abdomen: Soft Extremities: No Edema Skin: Warm Labs Laboratory Tests Test 07/17/16 16:45 07/17/16 21:31 07/17/16 21:33 07/18/16 04:30 Glucose (Fingerstick) 179mg/dL (70-99) 299mg/dL (70-99) 333mg/dL (70-99) Prothrombin Time 21.9SEC (11.7-14.0) Prothromb Time International Ratio 2.0 (0.8-1.1) Test 07/18/16 08:03 07/18/16 10:15 07/18/16 12:01 07/18/16 17:03 Glucose (Fingerstick) 109mg/dL (70-99) 170mg/dL (70-99) 233mg/dL (70-99) Body Fluid Culture (LAB) (.) Urine Legionella Antigen Negative (Negative) Streptococcus pneumoniae Antigen Negative (Negative) Organism Identification (LAB) (.) SOHAM Specimen Source Urine (.) Test 07/18/16 20:51 07/19/16 07:30 Glucose (Fingerstick) 198mg/dL (70-99) 186mg/dL (70-99) Laboratory Tests Test 07/18/16 17:03 07/18/16 20:51 07/19/16 07:30 Glucose (Fingerstick) 233mg/dL (70-99) 198mg/dL (70-99) 186mg/dL (70-99) Medications Active Scripts Medications Dose Route/Sig Days Date Category Cefuroxime (Cefuroxime Axetil) 500 Mg Tablet 1 Tab PO BID 07/16/16 Reported Alendronate Sodium 70 Mg Tablet 1 Tab PO WEEKLY 07/16/16 Reported Theophylline (Theophylline Anhydrous) 400 Mg Tablet.er 300 Mg PO 07/16/16 Reported Meloxicam 7.5 Mg Tablet 1 Tab PO DAILY 07/16/16 Reported Robaxin (Methocarbamol) 500 Mg Tablet 1 Tab PO BID 07/16/16 Reported Gabapentin 400 Mg Capsule 400 Mg PO TID 07/16/16 Reported Propafenone Hcl 150 Mg Tablet 150 Mg PO BID 07/16/16 Reported Ventolin Hfa Inhaler (Albuterol Sulfate) 18 Gm Hfa.aer.ad 2 Puff INH Q4HRS 07/16/16 Reported [place] 5-325 Tablet (Acetaminophen/Hydrocodone Bitart) 1 Each Tablet 1 Tab PO PRN Q6HRS PRN 09/04/15 Rx Warfarin Sodium 3 Mg Tablet 2 Tab PO QFR 08/31/15 Reported Warfarin Sodium 3 Mg Tablet 1 Tab PO QHS 08/31/15 Reported Amox Tr-K Clv 875-125 Mg Tab (Amoxicillin/Potassium Clav) 1 Each Tablet 1 Tab PO BID 04/03/15 Rx Digoxin 250 Mcg Tablet 250 Mcg PO DAILY 04/01/15 Reported Lisinopril 2.5 Mg Tablet 2.5 Mg PO DAILY 04/01/15 Reported Glimepiride 1 Mg Tablet 1 Mg PO DAILY 02/14/15 Reported Albuterol Sulfate Hfa Inhaler (Albuterol Sulfate) 8.5 Gm Hfa.aer.ad 2 Puff INH QID 02/14/15 Reported Symbicort 160-4.5 Mcg Inhaler (Budesonide/Formoterol Fumarate) 10.2 Gm Hfa.aer.ad 2 Puff IH BID 02/14/15 Reported Aspirin Ec (Aspirin) 325 Mg Tablet.dr 1 Tab PO DAILY 03/05/14 Reported Temazepam 15 Mg Capsule 1 Cap PO QHS 03/05/14 Reported Gabapentin 100 Mg Capsule 300 Mg PO HS 03/05/14 Reported Metformin Hcl Er (Metformin Hcl) 500 Mg Tab.er.24h 1 Tab PO BID 03/05/14 Reported Theophylline (Theophylline Anhydrous) 400 Mg Tablet.er 300 Mg PO DAILY07 03/05/14 Reported Impression . 1. Acute hypoxemic respiratory failure: Multifactorial in etiology, including acute exacerbation of chronic obstructive pulmonary disease, acute bronchitis, atrial fibrillation with rapid ventricular response 2. Acute exacerbation of chronic obstructive pulmonary disease. 3. Acute bronchitis. 4. Atrial fibrillation with rapid ventricular response. 5. Hypertension. 6. Diabetes mellitus. 7. Ex-smoker. 8. History of prostate cancer. Plan . 1. Titrate FiO2 to keep O2 saturation 92%. 2. Bronchodilator: albuterol and Atrovent q.i.d. and albuterol p.r.n. I have advised him to avoid overusing albuterol. 3. Continue Pulmicort. 4. Solu-Medrol 40 mg IV every 12 h. 5. Continue Rocephin. 7. Continue Coumadin. Monitor for bleeding. 8. Protonix for stress ulcer prophylaxis. 9. Monitor respiratory status very closely. 10. The findings and recommendations were discussed with the patient and RN. JW CERVANTES MD Jul 19, 2016 12:24
[2016-07-19] MEDS: WARFARIN 3 MG TABLET. PO SCH (17:56)
[2016-07-19] MEDS: TEMAZEPAM 15 MG CAPSULE PO SCH (21:23)
[2016-07-19] MEDS: GABAPENTIN 300 MG CAPSULE. PO SCH (21:23)
[2016-07-20] VITALS (9 sets, daily range): BP systolic 106–144; BP diastolic 65–80
[2016-07-20] MEDS: MORPHINE SULFATE 2 MG/ML DISP.SYRIN. IM PRN ×2 (03:06→23:08)
[2016-07-20 06:55] LABS: ALBUMIN 3.4 g/dL (3.4-5.0); CALCIUM 8.7 mg/dL (8.5-10.1); CREATININE 1.2 mg/dL (0.7-1.3); POTASSIUM 4.6 mmol/L (3.5-5.1); TOTAL BILIRUBIN 0.5 mg/dL (0.2-1.0); TOTAL PROTEIN 6.9 g/dL (6.4-8.2)
[2016-07-20 07:03] LABS: INR 2.6 (0.8-1.1)
[2016-07-20 07:06] LABS: BASO % 0 % (0-3); EOS % 0 % (0-3); HEMATOCRIT 43.8 % (39.0-53.0); HEMOGLOBIN 14.3 g/dL (13.0-17.5); LYMPH # 0.8 x10^3/uL (1.0-4.8); LYMPH % 12 % (24-48); MEAN CORPUSCULAR HEMOGLOBIN 29 pg (25-35); MEAN CORPUSCULAR HGB CONC 33 g/dL (31-37); MEAN CORPUSCULAR VOLUME 88 fL (79-100); MONO % 5 % (0-9); NEUT % 82 % (31-73); PLATELET COUNT 169 x10^3/uL (140-400); RED BLOOD COUNT 4.99 x10^6/uL (4.30-5.70); RED CELL DISTRIBUTION WIDTH 15.8 % (11.5-14.5); WHITE BLOOD COUNT 6.8 x10^3/uL (4.0-11.0)
[2016-07-20] MEDS: BUDESONIDE 0.5 MG/2 ML NEBU NEB SCH ×2 (08:13→19:05)
[2016-07-20] MEDS: IPRATRPIUM/ALBUTEROL 0.5/2.5MG 3 ML NEBU. NEB SCH ×4 (08:13→19:05)
--- NOTE | 2016-07-20 09:12 | PDOC ---
PROGRESS NOTES Subjective Subjective Trouble sleeping overnight, was not able to sleep past 4am due to a coughing fit. Is still having trouble breathing. Struggles to make it to the bathroom due to shortness of breath. Denies chest pain. Objective Objective Vital Signs Date Time Temp Pulse Resp B/P Pulse Ox O2 Delivery O2 Flow Rate FiO2 07/20/16 08:14 94 Nasal Cannula 2.0 07/20/16 07:00 97.7 74 20 119/76 97.7 Intake and Output 07/20/16 07:00 Intake Total 1410 ml Output Total 1500 ml Balance -90 ml Intake Oral 1360 ml IV Total 50 ml Output Urine Total 1500 ml Physical Exam Abdomen: Normal bowel sounds, Soft Heart: Regular rate Extremities: No clubbing, No cyanosis General: Alert, Oriented X3 HEENT: Atraumatic Lungs: Other (decreased breath sounds with expiratory wheezing on auscultation) MUSCULOSKELETAL: No joint tenderness Neck: Supple Neuro: Normal speech Psych/Mental Status: Mental status NL Skin: No rashes, No breakdown Assessment Assessment Problems Medical Problems: (1) Atrial fibrillation with RVR Status: Acute (2) Hypoxia Status: Acute (3) Shortness of breath Status: Acute Plan Plan of Care continue present meds and await slow lung improvement Comment Review of Relevant I have reviewed the following items kaila (where applicable) has been applied. Labs Laboratory Tests Test 07/18/16 10:15 07/18/16 12:01 07/18/16 17:03 07/18/16 20:51 Body Fluid Culture (LAB) (.) Urine Legionella Antigen Negative (Negative) Streptococcus pneumoniae Antigen Negative (Negative) Organism Identification (LAB) (.) SOHAM Specimen Source Urine (.) Glucose (Fingerstick) 170mg/dL (70-99) 233mg/dL (70-99) 198mg/dL (70-99) Test 07/19/16 07:30 07/19/16 11:55 07/19/16 16:48 07/19/16 20:39 Glucose (Fingerstick) 186mg/dL (70-99) 166mg/dL (70-99) 206mg/dL (70-99) 214mg/dL (70-99) Test 07/20/16 06:12 07/20/16 07:39 White Blood Count 6.8x10^3/uL (4.0-11.0) Red Blood Count 4.99x10^6/uL (4.30-5.70) Hemoglobin 14.3g/dL (13.0-17.5) Hematocrit 43.8% (39.0-53.0) Mean Corpuscular Volume 88fL (79-100) Mean Corpuscular Hemoglobin 29pg (25-35) Mean Corpuscular Hemoglobin Concent 33g/dL (31-37) Red Cell Distribution Width 15.8% (11.5-14.5) Platelet Count 169x10^3/uL (140-400) Neutrophils (%) (Auto) 82% (31-73) Lymphocytes (%) (Auto) 12% (24-48) Monocytes (%) (Auto) 5% (0-9) Eosinophils (%) (Auto) 0% (0-3) Basophils (%) (Auto) 0% (0-3) Neutrophils # (Auto) 5.6x10^3uL (1.8-7.7) Lymphocytes # (Auto) 0.8x10^3/uL (1.0-4.8) Monocytes # (Auto) 0.4x10^3/uL (0.0-1.1) Eosinophils # (Auto) 0.0x10^3/uL (0.0-0.7) Basophils # (Auto) 0.0x10^3/uL (0.0-0.2) Prothrombin Time 26.0SEC (11.7-14.0) Prothromb Time International Ratio 2.6 (0.8-1.1) Sodium Level 142mmol/L (136-145) Potassium Level 4.6mmol/L (3.5-5.1) Chloride Level 105mmol/L (98-107) Carbon Dioxide Level 29mmol/L (21-32) Anion Gap 8 (6-14) Blood Urea Nitrogen 25mg/dL (8-26) Creatinine 1.2mg/dL (0.7-1.3) Estimated GFR (Cockcroft-Gault) 58.0 BUN/Creatinine Ratio 21 (6-20) Glucose Level 194mg/dL (70-99) Calcium Level 8.7mg/dL (8.5-10.1) Total Bilirubin 0.5mg/dL (0.2-1.0) Aspartate Amino Transf (AST/SGOT) 14U/L (15-37) Alanine Aminotransferase (ALT/SGPT) 29U/L (16-63) Alkaline Phosphatase 55U/L (46-116) Total Protein 6.9g/dL (6.4-8.2) Albumin 3.4g/dL (3.4-5.0) Albumin/Globulin Ratio 1.0 (1.0-1.7) Glucose (Fingerstick) 155mg/dL (70-99) Laboratory Tests Test 07/19/16 11:55 07/19/16 16:48 07/19/16 20:39 07/20/16 06:12 Glucose (Fingerstick) 166mg/dL (70-99) 206mg/dL (70-99) 214mg/dL (70-99) White Blood Count 6.8x10^3/uL (4.0-11.0) Red Blood Count 4.99x10^6/uL (4.30-5.70) Hemoglobin 14.3g/dL (13.0-17.5) Hematocrit 43.8% (39.0-53.0) Mean Corpuscular Volume 88fL (79-100) Mean Corpuscular Hemoglobin 29pg (25-35) Mean Corpuscular Hemoglobin Concent 33g/dL (31-37) Red Cell Distribution Width 15.8% (11.5-14.5) Platelet Count 169x10^3/uL (140-400) Neutrophils (%) (Auto) 82% (31-73) Lymphocytes (%) (Auto) 12% (24-48) Monocytes (%) (Auto) 5% (0-9) Eosinophils (%) (Auto) 0% (0-3) Basophils (%) (Auto) 0% (0-3) Neutrophils # (Auto) 5.6x10^3uL (1.8-7.7) Lymphocytes # (Auto) 0.8x10^3/uL (1.0-4.8) Monocytes # (Auto) 0.4x10^3/uL (0.0-1.1) Eosinophils # (Auto) 0.0x10^3/uL (0.0-0.7) Basophils # (Auto) 0.0x10^3/uL (0.0-0.2) Prothrombin Time 26.0SEC (11.7-14.0) Prothromb Time International Ratio 2.6 (0.8-1.1) Sodium Level 142mmol/L (136-145) Potassium Level 4.6mmol/L (3.5-5.1) Chloride Level 105mmol/L (98-107) Carbon Dioxide Level 29mmol/L (21-32) Anion Gap 8 (6-14) Blood Urea Nitrogen 25mg/dL (8-26) Creatinine 1.2mg/dL (0.7-1.3) Estimated GFR (Cockcroft-Gault) 58.0 BUN/Creatinine Ratio 21 (6-20) Glucose Level 194mg/dL (70-99) Calcium Level 8.7mg/dL (8.5-10.1) Total Bilirubin 0.5mg/dL (0.2-1.0) Aspartate Amino Transf (AST/SGOT) 14U/L (15-37) Alanine Aminotransferase (ALT/SGPT) 29U/L (16-63) Alkaline Phosphatase 55U/L (46-116) Total Protein 6.9g/dL (6.4-8.2) Albumin 3.4g/dL (3.4-5.0) Albumin/Globulin Ratio 1.0 (1.0-1.7) Test 07/20/16 07:39 Glucose (Fingerstick) 155mg/dL (70-99) Microbiology 07/16/16 Blood Culture - Preliminary, Resulted NO GROWTH AFTER 3 DAYS Medications Current Medications Aspirin 324 mg 324 mg 1X ONCE PO ; Start 07/16/16 at 10:15; Stop 07/16/16 at 10 :37; Status DC Sodium Chloride (Iv Sodium Chloride 0.9% 500ml Bag) 500 ml @ 500 mls/hr 1X ONCE IV Last administered on 07/16/16 10:46; Start 07/16/16 at 10:45; Stop at 11:44; Status DC Diltiazem HCl (Cardizem) 10 mg 1X ONCE IVP Last administered on 07/16/16 10: 46; Start 07/16/16 at 10:45; Stop 07/16/16 at 10:46; Status DC Ondansetron HCl (Zofran) 4 mg PRN Q8HRS PRN IV NAUSEA/VOMITING; Start 07/16/16 at 11:30; Stop 07/17/16 at 11:29; Status DC Morphine Sulfate 2 mg PRN Q2HR PRN IV PAIN Last administered on 07/17/16 01:45 ; Start 07/16/16 at 11:30; Stop 07/17/16 at 11:29; Status DC Albuterol/ Ipratropium 3 ml 3 ml RTQID NEB Last administered on 07/16/16 16:00 ; Start 07/16/16 at 12:00; Stop 07/16/16 at 16:40; Status DC Ceftriaxone Sodium 50 ml @ 100 mls/hr 1X ONCE IV Last administered on 11:44; Start 07/16/16 at 11:30; Stop 07/16/16 at 11:59; Status DC Azithromycin (Zithromax 500mg Ivpb For Omni) 250 ml @ 250 mls/hr 1X ONCE IV ; Start 07/16/16 at 11:30; Stop 07/16/16 at 12:29; Status DC Oxymetazoline HCl (Afrin) 2 spray BID NS Last administered on 07/19/16 21:24; Start 07/16/16 at 14:00 Aspirin (Ecotrin) 325 mg DAILY PO Last administered on 07/19/16 09:02; Start 07/17/16 at 09:00 Digoxin (Lanoxin) 250 mcg DAILY PO Last administered on 07/19/16 08:57; Start 07/16/16 at 17:00 Gabapentin (Neurontin) 300 mg HS PO Last administered on 07/19/16 21:23; Start 07/16/16 at 21:00 Gabapentin (Neurontin) 400 mg TIDWMEALS PO Last administered on 07/19/16 17:56 ; Start 07/16/16 at 17:00 Acetaminophen/ Hydrocodone Bitart (Lortab 5/325) 1 tab PRN Q6HRS PRN PO PAIN Last administered on 07/18/16 21:13; Start 07/16/16 at 16:30 Lisinopril (Prinivil) 2.5 mg DAILY PO Last administered on 07/19/16 09:00; Start 07/16/16 at 17:00 Meloxicam (Mobic) 7.5 mg DAILY PO Last administered on 07/19/16 08:58; Start 07/16/16 at 17:30 Metformin HCl (Glucophage Xr) 500 mg BID PO Last administered on 07/19/16 21: 23; Start 07/16/16 at 21:00 Methocarbamol (Robaxin) 500 mg BID PO Last administered on 07/19/16 21:23; Start 07/16/16 at 21:00 Propafenone HCl (Rythmol) 150 mg BID PO Last administered on 07/19/16 21:22; Start 07/16/16 at 21:00 Temazepam (Restoril) 15 mg QHS PO Last administered on 07/19/16 21:23; Start 07/16/16 at 21:00 Warfarin Sodium (Coumadin) 3 mg [id number] PO Last administered on 07/19/16 17:56; Start 07/17/16 at 16:00 Warfarin Sodium (Coumadin) 6 mg QFR PO Last administered on 07/16/16 17:41; Start 07/16/16 at 17:00 Non-Formulary Medication 2 puff BID IH ; Start 07/16/16 at 21:00; Status UNV Glimepiride (Amaryl) 1 mg DAILY PO Last administered on 07/19/16 09:00; Start 07/17/16 at 09:00 Theophylline (Theodur) 300 mg DAILY07 PO Last administered on 07/19/16 08:59; Start 07/17/16 at 07:00 Warfarin Sodium (Coumadin Per Physician) 1 each PRN DAILY PRN MC SEE COMMENTS Last administered on 07/19/16 15:04; Start 07/16/16 at 16:45 Budesonide (Pulmicort) 0.5 mg RTBID NEB Last administered on 07/20/16 08:13; Start 07/16/16 at 20:00 Albuterol Sulfate (Ventolin Neb Soln) 2.5 mg RTQID NEB Last administered on 07:48; Start 07/16/16 at 20:00; Stop 07/18/16 at 07:59; Status DC Propafenone HCl (Rythmol) 150 mg BID PO ; Start 07/16/16 at 21:00; Stop at 21:00; Status DC Enoxaparin Sodium 40 mg 40 mg Q24H SQ ; Start 07/16/16 at 18:30; Status UNV Ceftriaxone Sodium/Sodium Chloride (Rocephin/Iv Sodium Chloride 0.9% 50ml) 50 ml @ 100 mls/hr Q24H IV Last administered on 07/19/16 12:17; Start 07/17/16 at 12:00 Guaifenesin (Mucinex) 1,200 mg BID PO Last administered on 07/19/16 21:18; Start 07/17/16 at 14:00 Benzonatate (Tessalon Perle) 100 mg PRN TID PRN PO COUGH Last administered on 08:58; Start 07/17/16 at 14:00 Morphine Sulfate 2 mg PRN QHS PRN IM PAIN Last administered on 07/20/16 03:06 ; Start 07/17/16 at 13:30 Prednisone (Prednisone) 60 mg 1X ONCE PO Last administered on 07/17/16 14:08 ; Start 07/17/16 at 14:00; Stop 07/17/16 at 14:01; Status DC Albuterol Sulfate (Ventolin Neb Soln) 2.5 mg PRN QID PRN NEB SHORTNESS OF BREATH Last administered on 07/19/16 02:49; Start 07/18/16 at 08:00 Methylprednisolone Sodium Succinate (Solu-Medrol 40mg Vial) 40 mg Q12HR IV Last administered on 07/19/16 21:24; Start 07/18/16 at 09:00 Albuterol/ Ipratropium (Duoneb) 3 ml RTQID NEB Last administered on 07/20/16 08:13; Start 07/18/16 at 08:00 Insulin Aspart (Novolog) 0-12 UNITS QIDACHS SQ Last administered on 07/19/16 21:28; Start 07/18/16 at 11:30 Active Scripts Active [place] 5-325 Tablet (Acetaminophen/Hydrocodone Bitart) 1 Each Tablet 1 Tab PO PRN Q6HRS PRN Amox Tr-K Clv 875-125 Mg Tab (Amoxicillin/Potassium Clav) 1 Each Tablet 1 Tab PO BID Reported Cefuroxime (Cefuroxime Axetil) 500 Mg Tablet 1 Tab PO BID Alendronate Sodium 70 Mg Tablet 1 Tab PO WEEKLY Theophylline (Theophylline Anhydrous) 400 Mg Tablet.er 300 Mg PO Meloxicam 7.5 Mg Tablet 1 Tab PO DAILY Robaxin (Methocarbamol) 500 Mg Tablet 1 Tab PO BID Gabapentin 400 Mg Capsule 400 Mg PO TID Propafenone Hcl 150 Mg Tablet 150 Mg PO BID Ventolin Hfa Inhaler (Albuterol Sulfate) 18 Gm Hfa.aer.ad 2 Puff INH Q4HRS Warfarin Sodium 3 Mg Tablet 2 Tab PO QFR Warfarin Sodium 3 Mg Tablet 1 Tab PO QHS Digoxin 250 Mcg Tablet 250 Mcg PO DAILY Lisinopril 2.5 Mg Tablet 2.5 Mg PO DAILY Glimepiride 1 Mg Tablet 1 Mg PO DAILY Albuterol Sulfate Hfa Inhaler (Albuterol Sulfate) 8.5 Gm Hfa.aer.ad 2 Puff INH QID Symbicort 160-4.5 Mcg Inhaler (Budesonide/Formoterol Fumarate) 10.2 Gm Hfa.aer.ad 2 Puff IH BID Aspirin Ec (Aspirin) 325 Mg Tablet.dr 1 Tab PO DAILY Temazepam 15 Mg Capsule 1 Cap PO QHS Gabapentin 100 Mg Capsule 300 Mg PO HS Metformin Hcl Er (Metformin Hcl) 500 Mg Tab.er.24h 1 Tab PO BID Theophylline (Theophylline Anhydrous) 400 Mg Tablet.er 300 Mg PO DAILY07 Vitals/I & O Vital Sign - Last 24 Hours 07/19/16 07/19/16 07/19/16 07/19/16 10:37 11:20 11:52 15:30 Temp 97.6 98.2 97.8 97.6 98.2 97.8 Pulse 85 65 94 Resp 22 20 18 B/P 124/69 120/84 113/65 Pulse Ox 95 98 93 O2 Delivery Nasal Cannula Nasal Cannula Room Air Nasal Cannula O2 Flow Rate 2.0 2.0 2.0 07/19/16 07/19/16 07/19/16 07/19/16 15:37 19:32 19:46 20:00 Temp 97.5 97.5 Pulse 98 Resp 20 B/P 91/70 Pulse Ox 94 94 O2 Delivery Nasal Cannula Nasal Cannula Nasal Cannula Nasal Cannula O2 Flow Rate 2.0 2.0 2.0 2.0 07/19/16 07/19/16 07/20/16 07/20/16 21:22 23:00 02:56 03:06 Temp 97.7 97.6 97.7 97.6 Pulse 103 104 95 Resp 20 18 B/P 126/76 108/65 106/67 Pulse Ox 94 95 O2 Delivery Nasal Cannula Nasal Cannula Nasal Cannula O2 Flow Rate 2.0 2.0 2.0 07/20/16 07/20/16 07:00 08:14 Temp 97.7 97.7 Pulse 74 Resp 20 B/P 119/76 Pulse Ox 96 94 O2 Delivery Nasal Cannula Nasal Cannula O2 Flow Rate 2.0 2.0 Intake and Output 07/19/16 07/19/16 07/20/16 15:00 23:00 07:00 Intake Total 650 ml 640 ml 120 ml Output Total 600 ml 600 ml 300 ml Balance 50 ml 40 ml -180 ml Edward ALLEN MD Jul 20, 2016 09:12
--- NOTE | 2016-07-20 09:26 | PDOC ---
PROGRESS NOTES Subjective Subjective A&O x3, cooperative. Denies chest pain. C/o SOB with exertion that has not improved. C/o lingering cough (non-productive) and chest tightness. Objective Objective Vital Signs Date Time Temp Pulse Resp B/P Pulse Ox O2 Delivery O2 Flow Rate FiO2 07/20/16 08:14 94 Nasal Cannula 2.0 07/20/16 07:00 97.7 74 20 119/76 97.7 Intake and Output 07/20/16 07:00 Intake Total 1410 ml Output Total 1500 ml Balance -90 ml Intake Oral 1360 ml IV Total 50 ml Output Urine Total 1500 ml Physical Exam Abdomen: Normal bowel sounds, Soft, No tenderness, No hepatosplenomegaly, No masses Heart: Regular rate, Normal S1, Normal S2, No murmurs, Gallops Extremities: No clubbing, No cyanosis, No edema, Normal pulses, No tenderness/ swelling General: Alert, Oriented X3, Cooperative, mild distress Lungs: Other (Wheezes to left upper and lower lobes) Neck: Supple, No JVD, No thyromegaly Assessment Assessment Problems Medical Problems: (1) Atrial fibrillation with RVR Status: Acute (2) Hypoxia Status: Acute (3) Shortness of breath Status: Acute Plan Plan of Care AFIB Controlled with Rhythmol HTN Stable on Lisinopril Continue to monitor Continue with current plan of care Comment Review of Relevant I have reviewed the following items kaila (where applicable) has been applied. Labs Laboratory Tests Test 07/18/16 10:15 07/18/16 12:01 07/18/16 17:03 07/18/16 20:51 Body Fluid Culture (LAB) (.) Urine Legionella Antigen Negative (Negative) Streptococcus pneumoniae Antigen Negative (Negative) Organism Identification (LAB) (.) SOHAM Specimen Source Urine (.) Glucose (Fingerstick) 170mg/dL (70-99) 233mg/dL (70-99) 198mg/dL (70-99) Test 07/19/16 07:30 07/19/16 11:55 07/19/16 16:48 07/19/16 20:39 Glucose (Fingerstick) 186mg/dL (70-99) 166mg/dL (70-99) 206mg/dL (70-99) 214mg/dL (70-99) Test 07/20/16 06:12 07/20/16 07:39 White Blood Count 6.8x10^3/uL (4.0-11.0) Red Blood Count 4.99x10^6/uL (4.30-5.70) Hemoglobin 14.3g/dL (13.0-17.5) Hematocrit 43.8% (39.0-53.0) Mean Corpuscular Volume 88fL (79-100) Mean Corpuscular Hemoglobin 29pg (25-35) Mean Corpuscular Hemoglobin Concent 33g/dL (31-37) Red Cell Distribution Width 15.8% (11.5-14.5) Platelet Count 169x10^3/uL (140-400) Neutrophils (%) (Auto) 82% (31-73) Lymphocytes (%) (Auto) 12% (24-48) Monocytes (%) (Auto) 5% (0-9) Eosinophils (%) (Auto) 0% (0-3) Basophils (%) (Auto) 0% (0-3) Neutrophils # (Auto) 5.6x10^3uL (1.8-7.7) Lymphocytes # (Auto) 0.8x10^3/uL (1.0-4.8) Monocytes # (Auto) 0.4x10^3/uL (0.0-1.1) Eosinophils # (Auto) 0.0x10^3/uL (0.0-0.7) Basophils # (Auto) 0.0x10^3/uL (0.0-0.2) Prothrombin Time 26.0SEC (11.7-14.0) Prothromb Time International Ratio 2.6 (0.8-1.1) Sodium Level 142mmol/L (136-145) Potassium Level 4.6mmol/L (3.5-5.1) Chloride Level 105mmol/L (98-107) Carbon Dioxide Level 29mmol/L (21-32) Anion Gap 8 (6-14) Blood Urea Nitrogen 25mg/dL (8-26) Creatinine 1.2mg/dL (0.7-1.3) Estimated GFR (Cockcroft-Gault) 58.0 BUN/Creatinine Ratio 21 (6-20) Glucose Level 194mg/dL (70-99) Calcium Level 8.7mg/dL (8.5-10.1) Total Bilirubin 0.5mg/dL (0.2-1.0) Aspartate Amino Transf (AST/SGOT) 14U/L (15-37) Alanine Aminotransferase (ALT/SGPT) 29U/L (16-63) Alkaline Phosphatase 55U/L (46-116) Total Protein 6.9g/dL (6.4-8.2) Albumin 3.4g/dL (3.4-5.0) Albumin/Globulin Ratio 1.0 (1.0-1.7) Glucose (Fingerstick) 155mg/dL (70-99) Laboratory Tests Test 07/19/16 11:55 07/19/16 16:48 07/19/16 20:39 07/20/16 06:12 Glucose (Fingerstick) 166mg/dL (70-99) 206mg/dL (70-99) 214mg/dL (70-99) White Blood Count 6.8x10^3/uL (4.0-11.0) Red Blood Count 4.99x10^6/uL (4.30-5.70) Hemoglobin 14.3g/dL (13.0-17.5) Hematocrit 43.8% (39.0-53.0) Mean Corpuscular Volume 88fL (79-100) Mean Corpuscular Hemoglobin 29pg (25-35) Mean Corpuscular Hemoglobin Concent 33g/dL (31-37) Red Cell Distribution Width 15.8% (11.5-14.5) Platelet Count 169x10^3/uL (140-400) Neutrophils (%) (Auto) 82% (31-73) Lymphocytes (%) (Auto) 12% (24-48) Monocytes (%) (Auto) 5% (0-9) Eosinophils (%) (Auto) 0% (0-3) Basophils (%) (Auto) 0% (0-3) Neutrophils # (Auto) 5.6x10^3uL (1.8-7.7) Lymphocytes # (Auto) 0.8x10^3/uL (1.0-4.8) Monocytes # (Auto) 0.4x10^3/uL (0.0-1.1) Eosinophils # (Auto) 0.0x10^3/uL (0.0-0.7) Basophils # (Auto) 0.0x10^3/uL (0.0-0.2) Prothrombin Time 26.0SEC (11.7-14.0) Prothromb Time International Ratio 2.6 (0.8-1.1) Sodium Level 142mmol/L (136-145) Potassium Level 4.6mmol/L (3.5-5.1) Chloride Level 105mmol/L (98-107) Carbon Dioxide Level 29mmol/L (21-32) Anion Gap 8 (6-14) Blood Urea Nitrogen 25mg/dL (8-26) Creatinine 1.2mg/dL (0.7-1.3) Estimated GFR (Cockcroft-Gault) 58.0 BUN/Creatinine Ratio 21 (6-20) Glucose Level 194mg/dL (70-99) Calcium Level 8.7mg/dL (8.5-10.1) Total Bilirubin 0.5mg/dL (0.2-1.0) Aspartate Amino Transf (AST/SGOT) 14U/L (15-37) Alanine Aminotransferase (ALT/SGPT) 29U/L (16-63) Alkaline Phosphatase 55U/L (46-116) Total Protein 6.9g/dL (6.4-8.2) Albumin 3.4g/dL (3.4-5.0) Albumin/Globulin Ratio 1.0 (1.0-1.7) Test 07/20/16 07:39 Glucose (Fingerstick) 155mg/dL (70-99) Microbiology 07/16/16 Blood Culture - Preliminary, Resulted NO GROWTH AFTER 3 DAYS Medications Current Medications Aspirin 324 mg 324 mg 1X ONCE PO ; Start 07/16/16 at 10:15; Stop 07/16/16 at 10 :37; Status DC Sodium Chloride (Iv Sodium Chloride 0.9% 500ml Bag) 500 ml @ 500 mls/hr 1X ONCE IV Last administered on 07/16/16 10:46; Start 07/16/16 at 10:45; Stop at 11:44; Status DC Diltiazem HCl (Cardizem) 10 mg 1X ONCE IVP Last administered on 07/16/16 10: 46; Start 07/16/16 at 10:45; Stop 07/16/16 at 10:46; Status DC Ondansetron HCl (Zofran) 4 mg PRN Q8HRS PRN IV NAUSEA/VOMITING; Start 07/16/16 at 11:30; Stop 07/17/16 at 11:29; Status DC Morphine Sulfate 2 mg PRN Q2HR PRN IV PAIN Last administered on 07/17/16 01:45 ; Start 07/16/16 at 11:30; Stop 07/17/16 at 11:29; Status DC Albuterol/ Ipratropium 3 ml 3 ml RTQID NEB Last administered on 07/16/16 16:00 ; Start 07/16/16 at 12:00; Stop 07/16/16 at 16:40; Status DC Ceftriaxone Sodium 50 ml @ 100 mls/hr 1X ONCE IV Last administered on 11:44; Start 07/16/16 at 11:30; Stop 07/16/16 at 11:59; Status DC Azithromycin (Zithromax 500mg Ivpb For Omni) 250 ml @ 250 mls/hr 1X ONCE IV ; Start 07/16/16 at 11:30; Stop 07/16/16 at 12:29; Status DC Oxymetazoline HCl (Afrin) 2 spray BID NS Last administered on 07/19/16 21:24; Start 07/16/16 at 14:00 Aspirin (Ecotrin) 325 mg DAILY PO Last administered on 07/19/16 09:02; Start 07/17/16 at 09:00 Digoxin (Lanoxin) 250 mcg DAILY PO Last administered on 07/19/16 08:57; Start 07/16/16 at 17:00 Gabapentin (Neurontin) 300 mg HS PO Last administered on 07/19/16 21:23; Start 07/16/16 at 21:00 Gabapentin (Neurontin) 400 mg TIDWMEALS PO Last administered on 07/19/16 17:56 ; Start 07/16/16 at 17:00 Acetaminophen/ Hydrocodone Bitart (Lortab 5/325) 1 tab PRN Q6HRS PRN PO PAIN Last administered on 07/18/16 21:13; Start 07/16/16 at 16:30 Lisinopril (Prinivil) 2.5 mg DAILY PO Last administered on 07/19/16 09:00; Start 07/16/16 at 17:00 Meloxicam (Mobic) 7.5 mg DAILY PO Last administered on 07/19/16 08:58; Start 07/16/16 at 17:30 Metformin HCl (Glucophage Xr) 500 mg BID PO Last administered on 07/19/16 21: 23; Start 07/16/16 at 21:00 Methocarbamol (Robaxin) 500 mg BID PO Last administered on 07/19/16 21:23; Start 07/16/16 at 21:00 Propafenone HCl (Rythmol) 150 mg BID PO Last administered on 07/19/16 21:22; Start 07/16/16 at 21:00 Temazepam (Restoril) 15 mg QHS PO Last administered on 07/19/16 21:23; Start 07/16/16 at 21:00 Warfarin Sodium (Coumadin) 3 mg [id number] PO Last administered on 07/19/16 17:56; Start 07/17/16 at 16:00 Warfarin Sodium (Coumadin) 6 mg QFR PO Last administered on 07/16/16 17:41; Start 07/16/16 at 17:00 Non-Formulary Medication 2 puff BID IH ; Start 07/16/16 at 21:00; Status UNV Glimepiride (Amaryl) 1 mg DAILY PO Last administered on 07/19/16 09:00; Start 07/17/16 at 09:00 Theophylline (Theodur) 300 mg DAILY07 PO Last administered on 07/19/16 08:59; Start 07/17/16 at 07:00 Warfarin Sodium (Coumadin Per Physician) 1 each PRN DAILY PRN MC SEE COMMENTS Last administered on 07/19/16 15:04; Start 07/16/16 at 16:45 Budesonide (Pulmicort) 0.5 mg RTBID NEB Last administered on 07/20/16 08:13; Start 07/16/16 at 20:00 Albuterol Sulfate (Ventolin Neb Soln) 2.5 mg RTQID NEB Last administered on 07:48; Start 07/16/16 at 20:00; Stop 07/18/16 at 07:59; Status DC Propafenone HCl (Rythmol) 150 mg BID PO ; Start 07/16/16 at 21:00; Stop at 21:00; Status DC Enoxaparin Sodium 40 mg 40 mg Q24H SQ ; Start 07/16/16 at 18:30; Status UNV Ceftriaxone Sodium/Sodium Chloride (Rocephin/Iv Sodium Chloride 0.9% 50ml) 50 ml @ 100 mls/hr Q24H IV Last administered on 07/19/16 12:17; Start 07/17/16 at 12:00 Guaifenesin (Mucinex) 1,200 mg BID PO Last administered on 07/19/16 21:18; Start 07/17/16 at 14:00 Benzonatate (Tessalon Perle) 100 mg PRN TID PRN PO COUGH Last administered on 08:58; Start 07/17/16 at 14:00 Morphine Sulfate 2 mg PRN QHS PRN IM PAIN Last administered on 07/20/16 03:06 ; Start 07/17/16 at 13:30 Prednisone (Prednisone) 60 mg 1X ONCE PO Last administered on 07/17/16 14:08 ; Start 07/17/16 at 14:00; Stop 07/17/16 at 14:01; Status DC Albuterol Sulfate (Ventolin Neb Soln) 2.5 mg PRN QID PRN NEB SHORTNESS OF BREATH Last administered on 07/19/16 02:49; Start 07/18/16 at 08:00 Methylprednisolone Sodium Succinate (Solu-Medrol 40mg Vial) 40 mg Q12HR IV Last administered on 07/19/16 21:24; Start 07/18/16 at 09:00 Albuterol/ Ipratropium (Duoneb) 3 ml RTQID NEB Last administered on 07/20/16 08:13; Start 07/18/16 at 08:00 Insulin Aspart (Novolog) 0-12 UNITS QIDACHS SQ Last administered on 07/19/16 21:28; Start 07/18/16 at 11:30 Active Scripts Active [place] 5-325 Tablet (Acetaminophen/Hydrocodone Bitart) 1 Each Tablet 1 Tab PO PRN Q6HRS PRN Amox Tr-K Clv 875-125 Mg Tab (Amoxicillin/Potassium Clav) 1 Each Tablet 1 Tab PO BID Reported Cefuroxime (Cefuroxime Axetil) 500 Mg Tablet 1 Tab PO BID Alendronate Sodium 70 Mg Tablet 1 Tab PO WEEKLY Theophylline (Theophylline Anhydrous) 400 Mg Tablet.er 300 Mg PO Meloxicam 7.5 Mg Tablet 1 Tab PO DAILY Robaxin (Methocarbamol) 500 Mg Tablet 1 Tab PO BID Gabapentin 400 Mg Capsule 400 Mg PO TID Propafenone Hcl 150 Mg Tablet 150 Mg PO BID Ventolin Hfa Inhaler (Albuterol Sulfate) 18 Gm Hfa.aer.ad 2 Puff INH Q4HRS Warfarin Sodium 3 Mg Tablet 2 Tab PO QFR Warfarin Sodium 3 Mg Tablet 1 Tab PO QHS Digoxin 250 Mcg Tablet 250 Mcg PO DAILY Lisinopril 2.5 Mg Tablet 2.5 Mg PO DAILY Glimepiride 1 Mg Tablet 1 Mg PO DAILY Albuterol Sulfate Hfa Inhaler (Albuterol Sulfate) 8.5 Gm Hfa.aer.ad 2 Puff INH QID Symbicort 160-4.5 Mcg Inhaler (Budesonide/Formoterol Fumarate) 10.2 Gm Hfa.aer.ad 2 Puff IH BID Aspirin Ec (Aspirin) 325 Mg Tablet.dr 1 Tab PO DAILY Temazepam 15 Mg Capsule 1 Cap PO QHS Gabapentin 100 Mg Capsule 300 Mg PO HS Metformin Hcl Er (Metformin Hcl) 500 Mg Tab.er.24h 1 Tab PO BID Theophylline (Theophylline Anhydrous) 400 Mg Tablet.er 300 Mg PO DAILY07 Vitals/I & O Vital Sign - Last 24 Hours 07/19/16 07/19/16 07/19/16 07/19/16 10:37 11:20 11:52 15:30 Temp 97.6 98.2 97.8 97.6 98.2 97.8 Pulse 85 65 94 Resp 22 20 18 B/P 124/69 120/84 113/65 Pulse Ox 95 98 93 O2 Delivery Nasal Cannula Nasal Cannula Room Air Nasal Cannula O2 Flow Rate 2.0 2.0 2.0 07/19/16 07/19/16 07/19/16 07/19/16 15:37 19:32 19:46 20:00 Temp 97.5 97.5 Pulse 98 Resp 20 B/P 91/70 Pulse Ox 94 94 O2 Delivery Nasal Cannula Nasal Cannula Nasal Cannula Nasal Cannula O2 Flow Rate 2.0 2.0 2.0 2.0 07/19/16 07/19/16 07/20/16 07/20/16 21:22 23:00 02:56 03:06 Temp 97.7 97.6 97.7 97.6 Pulse 103 104 95 Resp 20 18 B/P 126/76 108/65 106/67 Pulse Ox 94 95 O2 Delivery Nasal Cannula Nasal Cannula Nasal Cannula O2 Flow Rate 2.0 2.0 2.0 07/20/16 07/20/16 07:00 08:14 Temp 97.7 97.7 Pulse 74 Resp 20 B/P 119/76 Pulse Ox 96 94 O2 Delivery Nasal Cannula Nasal Cannula O2 Flow Rate 2.0 2.0 Intake and Output 07/19/16 07/19/16 07/20/16 15:00 23:00 07:00 Intake Total 650 ml 640 ml 120 ml Output Total 600 ml 600 ml 300 ml Balance 50 ml 40 ml -180 ml RUDY NELSON MD Jul 20, 2016 09:26
[2016-07-20] MEDS: GABAPENTIN 400 MG CAPSULE. PO SCH ×3 (09:34→18:46)
[2016-07-20] MEDS: methylPREDNISolone SOD SUCC PF 40 MG/ML VIAL. IV SCH ×2 (09:35→21:38)
[2016-07-20] MEDS: OXYMETAZOLINE 0.05% NASAL SPRAY 30ML BOTTLE. NS SCH ×2 (09:35→21:41)
[2016-07-20] MEDS: METFORMIN XR 500 MG TAB.ER.24H PO SCH ×2 (09:36→21:39)
[2016-07-20] MEDS: LISINOPRIL 2.5 MG TABLET PO SCH (09:36)
[2016-07-20] MEDS: METHOCARBAMOL 500 MG TABLET PO SCH ×2 (09:36→21:39)
[2016-07-20] MEDS: ASPIRIN ENTERIC COATED 325 MG TABLET.DR. PO SCH (09:36)
[2016-07-20] MEDS: MELOXICAM 7.5 MG TABLET PO SCH (09:36)
[2016-07-20] MEDS: GUAIFENESIN ER 600 MG TABLET.ER PO SCH ×2 (09:37→21:39)
[2016-07-20] MEDS: PROPAFENONE 150 MG TABLET. PO SCH ×2 (09:37→21:40)
[2016-07-20] MEDS: GLIMEPIRIDE 2 MG TABLET PO SCH (09:37)
[2016-07-20] MEDS: DIGOXIN 250 MCG TABLET PO SCH (09:38)
[2016-07-20] MEDS: INSULIN ASPART 300 UNITS/3 ML INSULN.PEN SQ SCH ×4 (09:44→21:50)
--- NOTE | 2016-07-20 12:50 | PDOC ---
PULMONARY PROGRESS NOTES Subjective no soa at rest mild cough Vitals Vital Signs Date Time Temp Pulse Resp B/P Pulse Ox O2 Delivery O2 Flow Rate FiO2 07/20/16 11:59 Nasal Cannula 2.0 07/20/16 11:00 97.9 84 20 133/65 95 97.9 General: Alert, Oriented X4, No acute distress Lungs: Other (few rhonchi) Cardiovascular: S1 Abdomen: Soft Neuro Exam: Alert Extremities: No Edema Skin: Warm Labs Laboratory Tests Test 07/18/16 17:03 07/18/16 20:51 07/19/16 07:30 07/19/16 11:55 Glucose (Fingerstick) 233mg/dL (70-99) 198mg/dL (70-99) 186mg/dL (70-99) 166mg/dL (70-99) Test 07/19/16 16:48 07/19/16 20:39 07/20/16 06:12 07/20/16 07:39 Glucose (Fingerstick) 206mg/dL (70-99) 214mg/dL (70-99) 155mg/dL (70-99) White Blood Count 6.8x10^3/uL (4.0-11.0) Red Blood Count 4.99x10^6/uL (4.30-5.70) Hemoglobin 14.3g/dL (13.0-17.5) Hematocrit 43.8% (39.0-53.0) Mean Corpuscular Volume 88fL (79-100) Mean Corpuscular Hemoglobin 29pg (25-35) Mean Corpuscular Hemoglobin Concent 33g/dL (31-37) Red Cell Distribution Width 15.8% (11.5-14.5) Platelet Count 169x10^3/uL (140-400) Neutrophils (%) (Auto) 82% (31-73) Lymphocytes (%) (Auto) 12% (24-48) Monocytes (%) (Auto) 5% (0-9) Eosinophils (%) (Auto) 0% (0-3) Basophils (%) (Auto) 0% (0-3) Neutrophils # (Auto) 5.6x10^3uL (1.8-7.7) Lymphocytes # (Auto) 0.8x10^3/uL (1.0-4.8) Monocytes # (Auto) 0.4x10^3/uL (0.0-1.1) Eosinophils # (Auto) 0.0x10^3/uL (0.0-0.7) Basophils # (Auto) 0.0x10^3/uL (0.0-0.2) Prothrombin Time 26.0SEC (11.7-14.0) Prothromb Time International Ratio 2.6 (0.8-1.1) Sodium Level 142mmol/L (136-145) Potassium Level 4.6mmol/L (3.5-5.1) Chloride Level 105mmol/L (98-107) Carbon Dioxide Level 29mmol/L (21-32) Anion Gap 8 (6-14) Blood Urea Nitrogen 25mg/dL (8-26) Creatinine 1.2mg/dL (0.7-1.3) Estimated GFR (Cockcroft-Gault) 58.0 BUN/Creatinine Ratio 21 (6-20) Glucose Level 194mg/dL (70-99) Calcium Level 8.7mg/dL (8.5-10.1) Total Bilirubin 0.5mg/dL (0.2-1.0) Aspartate Amino Transf (AST/SGOT) 14U/L (15-37) Alanine Aminotransferase (ALT/SGPT) 29U/L (16-63) Alkaline Phosphatase 55U/L (46-116) Total Protein 6.9g/dL (6.4-8.2) Albumin 3.4g/dL (3.4-5.0) Albumin/Globulin Ratio 1.0 (1.0-1.7) Test 07/20/16 12:20 Glucose (Fingerstick) 231mg/dL (70-99) Laboratory Tests Test 07/19/16 16:48 07/19/16 20:39 07/20/16 06:12 07/20/16 07:39 Glucose (Fingerstick) 206mg/dL (70-99) 214mg/dL (70-99) 155mg/dL (70-99) White Blood Count 6.8x10^3/uL (4.0-11.0) Red Blood Count 4.99x10^6/uL (4.30-5.70) Hemoglobin 14.3g/dL (13.0-17.5) Hematocrit 43.8% (39.0-53.0) Mean Corpuscular Volume 88fL (79-100) Mean Corpuscular Hemoglobin 29pg (25-35) Mean Corpuscular Hemoglobin Concent 33g/dL (31-37) Red Cell Distribution Width 15.8% (11.5-14.5) Platelet Count 169x10^3/uL (140-400) Neutrophils (%) (Auto) 82% (31-73) Lymphocytes (%) (Auto) 12% (24-48) Monocytes (%) (Auto) 5% (0-9) Eosinophils (%) (Auto) 0% (0-3) Basophils (%) (Auto) 0% (0-3) Neutrophils # (Auto) 5.6x10^3uL (1.8-7.7) Lymphocytes # (Auto) 0.8x10^3/uL (1.0-4.8) Monocytes # (Auto) 0.4x10^3/uL (0.0-1.1) Eosinophils # (Auto) 0.0x10^3/uL (0.0-0.7) Basophils # (Auto) 0.0x10^3/uL (0.0-0.2) Prothrombin Time 26.0SEC (11.7-14.0) Prothromb Time International Ratio 2.6 (0.8-1.1) Sodium Level 142mmol/L (136-145) Potassium Level 4.6mmol/L (3.5-5.1) Chloride Level 105mmol/L (98-107) Carbon Dioxide Level 29mmol/L (21-32) Anion Gap 8 (6-14) Blood Urea Nitrogen 25mg/dL (8-26) Creatinine 1.2mg/dL (0.7-1.3) Estimated GFR (Cockcroft-Gault) 58.0 BUN/Creatinine Ratio 21 (6-20) Glucose Level 194mg/dL (70-99) Calcium Level 8.7mg/dL (8.5-10.1) Total Bilirubin 0.5mg/dL (0.2-1.0) Aspartate Amino Transf (AST/SGOT) 14U/L (15-37) Alanine Aminotransferase (ALT/SGPT) 29U/L (16-63) Alkaline Phosphatase 55U/L (46-116) Total Protein 6.9g/dL (6.4-8.2) Albumin 3.4g/dL (3.4-5.0) Albumin/Globulin Ratio 1.0 (1.0-1.7) Test 07/20/16 12:20 Glucose (Fingerstick) 231mg/dL (70-99) Medications Active Scripts Medications Dose Route/Sig Days Date Category Cefuroxime (Cefuroxime Axetil) 500 Mg Tablet 1 Tab PO BID 07/16/16 Reported Alendronate Sodium 70 Mg Tablet 1 Tab PO WEEKLY 07/16/16 Reported Theophylline (Theophylline Anhydrous) 400 Mg Tablet.er 300 Mg PO 07/16/16 Reported Meloxicam 7.5 Mg Tablet 1 Tab PO DAILY 07/16/16 Reported Robaxin (Methocarbamol) 500 Mg Tablet 1 Tab PO BID 07/16/16 Reported Gabapentin 400 Mg Capsule 400 Mg PO TID 07/16/16 Reported Propafenone Hcl 150 Mg Tablet 150 Mg PO BID 07/16/16 Reported Ventolin Hfa Inhaler (Albuterol Sulfate) 18 Gm Hfa.aer.ad 2 Puff INH Q4HRS 07/16/16 Reported [place] 5-325 Tablet (Acetaminophen/Hydrocodone Bitart) 1 Each Tablet 1 Tab PO PRN Q6HRS PRN 09/04/15 Rx Warfarin Sodium 3 Mg Tablet 2 Tab PO QFR 08/31/15 Reported Warfarin Sodium 3 Mg Tablet 1 Tab PO QHS 08/31/15 Reported Amox Tr-K Clv 875-125 Mg Tab (Amoxicillin/Potassium Clav) 1 Each Tablet 1 Tab PO BID 04/03/15 Rx Digoxin 250 Mcg Tablet 250 Mcg PO DAILY 04/01/15 Reported Lisinopril 2.5 Mg Tablet 2.5 Mg PO DAILY 04/01/15 Reported Glimepiride 1 Mg Tablet 1 Mg PO DAILY 02/14/15 Reported Albuterol Sulfate Hfa Inhaler (Albuterol Sulfate) 8.5 Gm Hfa.aer.ad 2 Puff INH QID 02/14/15 Reported Symbicort 160-4.5 Mcg Inhaler (Budesonide/Formoterol Fumarate) 10.2 Gm Hfa.aer.ad 2 Puff IH BID 02/14/15 Reported Aspirin Ec (Aspirin) 325 Mg Tablet.dr 1 Tab PO DAILY 03/05/14 Reported Temazepam 15 Mg Capsule 1 Cap PO QHS 03/05/14 Reported Gabapentin 100 Mg Capsule 300 Mg PO HS 03/05/14 Reported Metformin Hcl Er (Metformin Hcl) 500 Mg Tab.er.24h 1 Tab PO BID 03/05/14 Reported Theophylline (Theophylline Anhydrous) 400 Mg Tablet.er 300 Mg PO DAILY07 03/05/14 Reported Impression . 1. Acute hypoxemic respiratory failure: Multifactorial in etiology, including acute exacerbation of chronic obstructive pulmonary disease, acute bronchitis, atrial fibrillation with rapid ventricular response 2. Acute exacerbation of chronic obstructive pulmonary disease. 3. Acute bronchitis. 4. Atrial fibrillation with rapid ventricular response. 5. Hypertension. 6. Diabetes mellitus. 7. Ex-smoker. 8. History of prostate cancer. Plan . 1. Titrate FiO2 to keep O2 saturation 92%. 2. Bronchodilator: albuterol and Atrovent q.i.d. and albuterol p.r.n. I have advised him to avoid overusing albuterol. 3. Continue Pulmicort. 4. Solu-Medrol 40 mg IV every 12 h. 5. Continue Rocephin. 7. Continue Coumadin. Monitor for bleeding. 8. Protonix for stress ulcer prophylaxis. 9. Monitor respiratory status very closely. 10. slow to improve JW CERVANTES MD Jul 20, 2016 12:50
[2016-07-20] MEDS: CEFTRIAXONE SODIUM 1 GM in IV NORMAL SALINE 50ML 50 ML IV SCH (14:04)
[2016-07-20] MEDS: WARFARIN 3 MG TABLET. PO SCH (16:19)
[2016-07-20] MEDS: GABAPENTIN 300 MG CAPSULE. PO SCH (21:39)
[2016-07-20] MEDS: TEMAZEPAM 15 MG CAPSULE PO SCH (21:39)
[2016-07-20] MEDS: HYDROCODONE/APAP 5/325MG TABLET. PO PRN (21:39)
[2016-07-21] MEDS: ALBUTEROL SULFATE 2.5 MG/3 ML NEBU. NEB PRN ×2 (02:18→21:40)
[2016-07-21 03:25] VITALS: BP 132/75
[2016-07-21 07:00] VITALS: BP 140/72
[2016-07-21] MEDS: IPRATRPIUM/ALBUTEROL 0.5/2.5MG 3 ML NEBU. NEB SCH ×4 (08:04→19:08)
[2016-07-21] MEDS: BUDESONIDE 0.5 MG/2 ML NEBU NEB SCH ×2 (08:04→19:08)
[2016-07-21] MEDS ORDERED: NEOMY/BACITR/POLYMYXIN OINT PACKET. TP SCH (09:00)
[2016-07-21] MEDS: PROPAFENONE 150 MG TABLET. PO SCH ×2 (09:44→21:33)
[2016-07-21] MEDS: GABAPENTIN 400 MG CAPSULE. PO SCH ×3 (09:44→18:02)
[2016-07-21] MEDS: GLIMEPIRIDE 2 MG TABLET PO SCH (09:45)
[2016-07-21] MEDS: METHOCARBAMOL 500 MG TABLET PO SCH ×2 (09:45→21:32)
[2016-07-21] MEDS: METFORMIN XR 500 MG TAB.ER.24H PO SCH ×2 (09:45→21:36)
[2016-07-21] MEDS: LISINOPRIL 2.5 MG TABLET PO SCH (09:45)
[2016-07-21] MEDS: MELOXICAM 7.5 MG TABLET PO SCH (09:45)
[2016-07-21] MEDS: ASPIRIN ENTERIC COATED 325 MG TABLET.DR. PO SCH (09:45)
[2016-07-21] MEDS: THEOPHYLLINE 12HR ER 300 MG TAB.ER.12H. PO SCH (09:45)
[2016-07-21] MEDS: DIGOXIN 250 MCG TABLET PO SCH (09:45)
[2016-07-21] MEDS: OXYMETAZOLINE 0.05% NASAL SPRAY 30ML BOTTLE. NS SCH ×2 (09:46→21:32)
[2016-07-21] MEDS: GUAIFENESIN ER 600 MG TABLET.ER PO SCH ×2 (09:46→21:31)
[2016-07-21] MEDS: methylPREDNISolone SOD SUCC PF 40 MG/ML VIAL. IV SCH ×2 (09:46→21:32)
[2016-07-21] MEDS: INSULIN ASPART 300 UNITS/3 ML INSULN.PEN SQ SCH ×4 (09:52→21:42)
[2016-07-21 11:00] VITALS: BP 145/90
[2016-07-21] MEDS: CEFTRIAXONE SODIUM 1 GM in IV NORMAL SALINE 50ML 50 ML IV SCH (12:44)
--- NOTE | 2016-07-21 13:24 | PDOC ---
PULMONARY PROGRESS NOTES Subjective does not feel like he is getting better cannot cough up phlegm Vitals Vital Signs Date Time Temp Pulse Resp B/P Pulse Ox O2 Delivery O2 Flow Rate FiO2 07/21/16 11:54 Nasal Cannula 2.0 07/21/16 11:00 91 22 145/90 92 07/21/16 07:00 98.7 98.7 General: Alert, Oriented X4, No acute distress Lungs: Other (few rhonchi) Cardiovascular: S1 Abdomen: Soft Neuro Exam: Alert Extremities: No Edema Skin: Warm Labs Laboratory Tests Test 07/19/16 16:48 07/19/16 20:39 07/20/16 06:12 07/20/16 07:39 Glucose (Fingerstick) 206mg/dL (70-99) 214mg/dL (70-99) 155mg/dL (70-99) White Blood Count 6.8x10^3/uL (4.0-11.0) Red Blood Count 4.99x10^6/uL (4.30-5.70) Hemoglobin 14.3g/dL (13.0-17.5) Hematocrit 43.8% (39.0-53.0) Mean Corpuscular Volume 88fL (79-100) Mean Corpuscular Hemoglobin 29pg (25-35) Mean Corpuscular Hemoglobin Concent 33g/dL (31-37) Red Cell Distribution Width 15.8% (11.5-14.5) Platelet Count 169x10^3/uL (140-400) Neutrophils (%) (Auto) 82% (31-73) Lymphocytes (%) (Auto) 12% (24-48) Monocytes (%) (Auto) 5% (0-9) Eosinophils (%) (Auto) 0% (0-3) Basophils (%) (Auto) 0% (0-3) Neutrophils # (Auto) 5.6x10^3uL (1.8-7.7) Lymphocytes # (Auto) 0.8x10^3/uL (1.0-4.8) Monocytes # (Auto) 0.4x10^3/uL (0.0-1.1) Eosinophils # (Auto) 0.0x10^3/uL (0.0-0.7) Basophils # (Auto) 0.0x10^3/uL (0.0-0.2) Prothrombin Time 26.0SEC (11.7-14.0) Prothromb Time International Ratio 2.6 (0.8-1.1) Sodium Level 142mmol/L (136-145) Potassium Level 4.6mmol/L (3.5-5.1) Chloride Level 105mmol/L (98-107) Carbon Dioxide Level 29mmol/L (21-32) Anion Gap 8 (6-14) Blood Urea Nitrogen 25mg/dL (8-26) Creatinine 1.2mg/dL (0.7-1.3) Estimated GFR (Cockcroft-Gault) 58.0 BUN/Creatinine Ratio 21 (6-20) Glucose Level 194mg/dL (70-99) Calcium Level 8.7mg/dL (8.5-10.1) Total Bilirubin 0.5mg/dL (0.2-1.0) Aspartate Amino Transf (AST/SGOT) 14U/L (15-37) Alanine Aminotransferase (ALT/SGPT) 29U/L (16-63) Alkaline Phosphatase 55U/L (46-116) Total Protein 6.9g/dL (6.4-8.2) Albumin 3.4g/dL (3.4-5.0) Albumin/Globulin Ratio 1.0 (1.0-1.7) Test 07/20/16 12:20 07/20/16 17:13 07/20/16 21:35 07/21/16 07:52 Glucose (Fingerstick) 231mg/dL (70-99) 220mg/dL (70-99) 162mg/dL (70-99) 267mg/dL (70-99) Test 07/21/16 11:59 Glucose (Fingerstick) 135mg/dL (70-99) Laboratory Tests Test 07/20/16 17:13 07/20/16 21:35 07/21/16 07:52 07/21/16 11:59 Glucose (Fingerstick) 220mg/dL (70-99) 162mg/dL (70-99) 267mg/dL (70-99) 135mg/dL (70-99) Medications Active Scripts Medications Dose Route/Sig Days Date Category Cefuroxime (Cefuroxime Axetil) 500 Mg Tablet 1 Tab PO BID 07/16/16 Reported Alendronate Sodium 70 Mg Tablet 1 Tab PO WEEKLY 07/16/16 Reported Theophylline (Theophylline Anhydrous) 400 Mg Tablet.er 300 Mg PO 07/16/16 Reported Meloxicam 7.5 Mg Tablet 1 Tab PO DAILY 07/16/16 Reported Robaxin (Methocarbamol) 500 Mg Tablet 1 Tab PO BID 07/16/16 Reported Gabapentin 400 Mg Capsule 400 Mg PO TID 07/16/16 Reported Propafenone Hcl 150 Mg Tablet 150 Mg PO BID 07/16/16 Reported Ventolin Hfa Inhaler (Albuterol Sulfate) 18 Gm Hfa.aer.ad 2 Puff INH Q4HRS 07/16/16 Reported [place] 5-325 Tablet (Acetaminophen/Hydrocodone Bitart) 1 Each Tablet 1 Tab PO PRN Q6HRS PRN 09/04/15 Rx Warfarin Sodium 3 Mg Tablet 2 Tab PO QFR 08/31/15 Reported Warfarin Sodium 3 Mg Tablet 1 Tab PO QHS 08/31/15 Reported Amox Tr-K Clv 875-125 Mg Tab (Amoxicillin/Potassium Clav) 1 Each Tablet 1 Tab PO BID 04/03/15 Rx Digoxin 250 Mcg Tablet 250 Mcg PO DAILY 04/01/15 Reported Lisinopril 2.5 Mg Tablet 2.5 Mg PO DAILY 04/01/15 Reported Glimepiride 1 Mg Tablet 1 Mg PO DAILY 02/14/15 Reported Albuterol Sulfate Hfa Inhaler (Albuterol Sulfate) 8.5 Gm Hfa.aer.ad 2 Puff INH QID 02/14/15 Reported Symbicort 160-4.5 Mcg Inhaler (Budesonide/Formoterol Fumarate) 10.2 Gm Hfa.aer.ad 2 Puff IH BID 02/14/15 Reported Aspirin Ec (Aspirin) 325 Mg Tablet.dr 1 Tab PO DAILY 03/05/14 Reported Temazepam 15 Mg Capsule 1 Cap PO QHS 03/05/14 Reported Gabapentin 100 Mg Capsule 300 Mg PO HS 03/05/14 Reported Metformin Hcl Er (Metformin Hcl) 500 Mg Tab.er.24h 1 Tab PO BID 03/05/14 Reported Theophylline (Theophylline Anhydrous) 400 Mg Tablet.er 300 Mg PO DAILY07 03/05/14 Reported Impression . 1. Acute hypoxemic respiratory failure: Multifactorial in etiology, including acute exacerbation of chronic obstructive pulmonary disease, acute bronchitis, atrial fibrillation with rapid ventricular response 2. Acute exacerbation of chronic obstructive pulmonary disease. 3. Acute bronchitis. 4. Atrial fibrillation with rapid ventricular response. 5. Hypertension. 6. Diabetes mellitus. 7. Ex-smoker. 8. History of prostate cancer. Plan . 1. Clinically not better. will do ct chest to r/o mucous plug. 2. Bronchodilator: albuterol and Atrovent q.i.d. and albuterol p.r.n. 3. Continue Pulmicort. 4. Solu-Medrol 40 mg IV every 12 h. 5. Continue Rocephin. 7. Coumadin per PCP. 8. Protonix for stress ulcer prophylaxis. 9. slow to improve. D/W JW CERVANTES MD Jul 21, 2016 13:24
--- NOTE | 2016-07-21 14:32 | PDOC ---
PROGRESS NOTES Subjective Subjective Patient states he is improving today, but reports productive cough and some shortness of breath. He offers no other cardiac complaints. Objective Objective Vital Signs Date Time Temp Pulse Resp B/P Pulse Ox O2 Delivery O2 Flow Rate FiO2 07/21/16 11:54 Nasal Cannula 2.0 07/21/16 11:00 91 22 145/90 92 07/21/16 07:00 98.7 98.7 Intake and Output 07/21/16 07:00 Intake Total 750 ml Output Total 1025 ml Balance -275 ml Intake Oral 700 ml IV Total 50 ml Output Urine Total 1025 ml Physical Exam Physical Exam No change in cardiac exam. Lungs- moderate bibasilar rales appreciated. Assessment Assessment Problems Medical Problems: (1) Atrial fibrillation with RVR Status: Acute (2) Hypoxia Status: Acute (3) Shortness of breath Status: Acute Plan Plan of Care Stable from a cardiac standpoint. I agree with the current plan of care. His cough and shortness of breath are likely from a healing pneumonia. Comment Review of Relevant I have reviewed the following items kaila (where applicable) has been applied. Labs Laboratory Tests Test 07/19/16 16:48 07/19/16 20:39 07/20/16 06:12 07/20/16 07:39 Glucose (Fingerstick) 206mg/dL (70-99) 214mg/dL (70-99) 155mg/dL (70-99) White Blood Count 6.8x10^3/uL (4.0-11.0) Red Blood Count 4.99x10^6/uL (4.30-5.70) Hemoglobin 14.3g/dL (13.0-17.5) Hematocrit 43.8% (39.0-53.0) Mean Corpuscular Volume 88fL (79-100) Mean Corpuscular Hemoglobin 29pg (25-35) Mean Corpuscular Hemoglobin Concent 33g/dL (31-37) Red Cell Distribution Width 15.8% (11.5-14.5) Platelet Count 169x10^3/uL (140-400) Neutrophils (%) (Auto) 82% (31-73) Lymphocytes (%) (Auto) 12% (24-48) Monocytes (%) (Auto) 5% (0-9) Eosinophils (%) (Auto) 0% (0-3) Basophils (%) (Auto) 0% (0-3) Neutrophils # (Auto) 5.6x10^3uL (1.8-7.7) Lymphocytes # (Auto) 0.8x10^3/uL (1.0-4.8) Monocytes # (Auto) 0.4x10^3/uL (0.0-1.1) Eosinophils # (Auto) 0.0x10^3/uL (0.0-0.7) Basophils # (Auto) 0.0x10^3/uL (0.0-0.2) Prothrombin Time 26.0SEC (11.7-14.0) Prothromb Time International Ratio 2.6 (0.8-1.1) Sodium Level 142mmol/L (136-145) Potassium Level 4.6mmol/L (3.5-5.1) Chloride Level 105mmol/L (98-107) Carbon Dioxide Level 29mmol/L (21-32) Anion Gap 8 (6-14) Blood Urea Nitrogen 25mg/dL (8-26) Creatinine 1.2mg/dL (0.7-1.3) Estimated GFR (Cockcroft-Gault) 58.0 BUN/Creatinine Ratio 21 (6-20) Glucose Level 194mg/dL (70-99) Calcium Level 8.7mg/dL (8.5-10.1) Total Bilirubin 0.5mg/dL (0.2-1.0) Aspartate Amino Transf (AST/SGOT) 14U/L (15-37) Alanine Aminotransferase (ALT/SGPT) 29U/L (16-63) Alkaline Phosphatase 55U/L (46-116) Total Protein 6.9g/dL (6.4-8.2) Albumin 3.4g/dL (3.4-5.0) Albumin/Globulin Ratio 1.0 (1.0-1.7) Test 07/20/16 12:20 07/20/16 17:13 07/20/16 21:35 07/21/16 07:52 Glucose (Fingerstick) 231mg/dL (70-99) 220mg/dL (70-99) 162mg/dL (70-99) 267mg/dL (70-99) Test 07/21/16 11:59 Glucose (Fingerstick) 135mg/dL (70-99) Laboratory Tests Test 07/20/16 17:13 07/20/16 21:35 07/21/16 07:52 07/21/16 11:59 Glucose (Fingerstick) 220mg/dL (70-99) 162mg/dL (70-99) 267mg/dL (70-99) 135mg/dL (70-99) Microbiology 07/16/16 Blood Culture - Final, Complete NO GROWTH AFTER 5 DAYS Medications Current Medications Aspirin 324 mg 324 mg 1X ONCE PO ; Start 07/16/16 at 10:15; Stop 07/16/16 at 10 :37; Status DC Sodium Chloride (Iv Sodium Chloride 0.9% 500ml Bag) 500 ml @ 500 mls/hr 1X ONCE IV Last administered on 07/16/16 10:46; Start 07/16/16 at 10:45; Stop at 11:44; Status DC Diltiazem HCl (Cardizem) 10 mg 1X ONCE IVP Last administered on 07/16/16 10: 46; Start 07/16/16 at 10:45; Stop 07/16/16 at 10:46; Status DC Ondansetron HCl (Zofran) 4 mg PRN Q8HRS PRN IV NAUSEA/VOMITING; Start 07/16/16 at 11:30; Stop 07/17/16 at 11:29; Status DC Morphine Sulfate 2 mg PRN Q2HR PRN IV PAIN Last administered on 07/17/16 01:45 ; Start 07/16/16 at 11:30; Stop 07/17/16 at 11:29; Status DC Albuterol/ Ipratropium 3 ml 3 ml RTQID NEB Last administered on 07/16/16 16:00 ; Start 07/16/16 at 12:00; Stop 07/16/16 at 16:40; Status DC Ceftriaxone Sodium 50 ml @ 100 mls/hr 1X ONCE IV Last administered on 11:44; Start 07/16/16 at 11:30; Stop 07/16/16 at 11:59; Status DC Azithromycin (Zithromax 500mg Ivpb For Omni) 250 ml @ 250 mls/hr 1X ONCE IV ; Start 07/16/16 at 11:30; Stop 07/16/16 at 12:29; Status DC Oxymetazoline HCl (Afrin) 2 spray BID NS Last administered on 07/21/16 09:46; Start 07/16/16 at 14:00 Aspirin (Ecotrin) 325 mg DAILY PO Last administered on 07/21/16 09:45; Start 07/17/16 at 09:00 Digoxin (Lanoxin) 250 mcg DAILY PO Last administered on 07/21/16 09:45; Start 07/16/16 at 17:00 Gabapentin (Neurontin) 300 mg HS PO Last administered on 07/20/16 21:39; Start 07/16/16 at 21:00 Gabapentin (Neurontin) 400 mg TIDWMEALS PO Last administered on 07/21/16 12:43 ; Start 07/16/16 at 17:00 Acetaminophen/ Hydrocodone Bitart ([place] 5/325) 1 tab PRN Q6HRS PRN PO PAIN Last administered on 07/20/16 21:39; Start 07/16/16 at 16:30 Lisinopril (Prinivil) 2.5 mg DAILY PO Last administered on 07/21/16 09:45; Start 07/16/16 at 17:00 Meloxicam (Mobic) 7.5 mg DAILY PO Last administered on 07/21/16 09:45; Start 07/16/16 at 17:30 Metformin HCl (Glucophage Xr) 500 mg BID PO Last administered on 07/21/16 09: 45; Start 07/16/16 at 21:00 Methocarbamol (Robaxin) 500 mg BID PO Last administered on 07/21/16 09:45; Start 07/16/16 at 21:00 Propafenone HCl (Rythmol) 150 mg BID PO Last administered on 07/21/16 09:44; Start 07/16/16 at 21:00 Temazepam (Restoril) 15 mg QHS PO Last administered on 07/20/16 21:39; Start 07/16/16 at 21:00 Warfarin Sodium (Coumadin) 3 mg [id number] PO Last administered on 07/20/16 16:19; Start 07/17/16 at 16:00 Warfarin Sodium (Coumadin) 6 mg QFR PO Last administered on 07/16/16 17:41; Start 07/16/16 at 17:00 Non-Formulary Medication 2 puff BID IH ; Start 07/16/16 at 21:00; Status UNV Glimepiride (Amaryl) 1 mg DAILY PO Last administered on 07/21/16 09:45; Start 07/17/16 at 09:00 Theophylline (Theodur) 300 mg DAILY07 PO Last administered on 07/21/16 09:45; Start 07/17/16 at 07:00 Warfarin Sodium (Coumadin Per Physician) 1 each PRN DAILY PRN MC SEE COMMENTS Last administered on 07/21/16 08:07; Start 07/16/16 at 16:45 Budesonide (Pulmicort) 0.5 mg RTBID NEB Last administered on 07/21/16 08:04; Start 07/16/16 at 20:00 Albuterol Sulfate (Ventolin Neb Soln) 2.5 mg RTQID NEB Last administered on 07:48; Start 07/16/16 at 20:00; Stop 07/18/16 at 07:59; Status DC Propafenone HCl (Rythmol) 150 mg BID PO ; Start 07/16/16 at 21:00; Stop at 21:00; Status DC Enoxaparin Sodium 40 mg 40 mg Q24H SQ ; Start 07/16/16 at 18:30; Status UNV Ceftriaxone Sodium/Sodium Chloride (Rocephin/Iv Sodium Chloride 0.9% 50ml) 50 ml @ 100 mls/hr Q24H IV Last administered on 07/21/16 12:44; Start 07/17/16 at 12:00 Guaifenesin (Mucinex) 1,200 mg BID PO Last administered on 07/21/16 09:46; Start 07/17/16 at 14:00 Benzonatate (Tessalon Perle) 100 mg PRN TID PRN PO COUGH Last administered on 08:58; Start 07/17/16 at 14:00 Morphine Sulfate 2 mg PRN QHS PRN IM PAIN Last administered on 07/20/16 23:08 ; Start 07/17/16 at 13:30 Prednisone (Prednisone) 60 mg 1X ONCE PO Last administered on 07/17/16 14:08 ; Start 07/17/16 at 14:00; Stop 07/17/16 at 14:01; Status DC Albuterol Sulfate (Ventolin Neb Soln) 2.5 mg PRN QID PRN NEB SHORTNESS OF BREATH Last administered on 07/21/16 02:18; Start 07/18/16 at 08:00 Methylprednisolone Sodium Succinate (Solu-Medrol 40mg Vial) 40 mg Q12HR IV Last administered on 07/21/16 09:46; Start 07/18/16 at 09:00 Albuterol/ Ipratropium (Duoneb) 3 ml RTQID NEB Last administered on 07/21/16 11:53; Start 07/18/16 at 08:00 Insulin Aspart (Novolog) 0-12 UNITS QIDACHS SQ Last administered on 07/21/16 09:52; Start 07/18/16 at 11:30 Neomycin/ Polymyxin/ Bacitracin (Triple Antibiotic Ointment) 1 pkt DAILY TP ; Start 07/21/16 at 09:00; Stop 07/21/16 at 09:59; Status DC Active Scripts Active [place] 5-325 Tablet (Acetaminophen/Hydrocodone Bitart) 1 Each Tablet 1 Tab PO PRN Q6HRS PRN Amox Tr-K Clv 875-125 Mg Tab (Amoxicillin/Potassium Clav) 1 Each Tablet 1 Tab PO BID Reported Cefuroxime (Cefuroxime Axetil) 500 Mg Tablet 1 Tab PO BID Alendronate Sodium 70 Mg Tablet 1 Tab PO WEEKLY Theophylline (Theophylline Anhydrous) 400 Mg Tablet.er 300 Mg PO Meloxicam 7.5 Mg Tablet 1 Tab PO DAILY Robaxin (Methocarbamol) 500 Mg Tablet 1 Tab PO BID Gabapentin 400 Mg Capsule 400 Mg PO TID Propafenone Hcl 150 Mg Tablet 150 Mg PO BID Ventolin Hfa Inhaler (Albuterol Sulfate) 18 Gm Hfa.aer.ad 2 Puff INH Q4HRS Warfarin Sodium 3 Mg Tablet 2 Tab PO QFR Warfarin Sodium 3 Mg Tablet 1 Tab PO QHS Digoxin 250 Mcg Tablet 250 Mcg PO DAILY Lisinopril 2.5 Mg Tablet 2.5 Mg PO DAILY Glimepiride 1 Mg Tablet 1 Mg PO DAILY Albuterol Sulfate Hfa Inhaler (Albuterol Sulfate) 8.5 Gm Hfa.aer.ad 2 Puff INH QID Symbicort 160-4.5 Mcg Inhaler (Budesonide/Formoterol Fumarate) 10.2 Gm Hfa.aer.ad 2 Puff IH BID Aspirin Ec (Aspirin) 325 Mg Tablet.dr 1 Tab PO DAILY Temazepam 15 Mg Capsule 1 Cap PO QHS Gabapentin 100 Mg Capsule 300 Mg PO HS Metformin Hcl Er (Metformin Hcl) 500 Mg Tab.er.24h 1 Tab PO BID Theophylline (Theophylline Anhydrous) 400 Mg Tablet.er 300 Mg PO DAILY07 Vitals/I & O Vital Sign - Last 24 Hours 07/20/16 07/20/16 07/20/16 07/20/16 15:00 15:48 19:05 19:30 Temp 97.9 97.6 97.9 97.6 Pulse 87 93 Resp 20 20 B/P 123/71 122/75 Pulse Ox 95 98 93 O2 Delivery Nasal Cannula Nasal Cannula Nasal Cannula Room Air O2 Flow Rate 2.0 2.0 2.0 2.0 07/20/16 07/20/16 07/20/16 07/20/16 20:30 21:35 21:39 21:40 Pulse 89 89 Resp 22 22 B/P 136/68 136/68 O2 Delivery Nasal Cannula Nasal Cannula Nasal Cannula O2 Flow Rate 2.0 2.0 2.0 07/20/16 07/20/16 07/20/16 07/20/16 22:55 23:08 23:30 23:40 Temp 98.4 98.4 Pulse 90 Resp 20 20 22 19 B/P 144/80 Pulse Ox 95 O2 Delivery Nasal Cannula Nasal Cannula Nasal Cannula Nasal Cannula O2 Flow Rate 2.0 2.0 2.0 2.0 07/21/16 07/21/16 07/21/16 07/21/16 02:19 03:25 07:00 08:00 Temp 98.1 98.7 98.1 98.7 Pulse 92 78 Resp 18 20 B/P 132/75 140/72 Pulse Ox 98 94 95 O2 Delivery Nasal Cannula Nasal Cannula Nasal Cannula Nasal Cannula O2 Flow Rate 2.0 2.0 2.0 2.0 07/21/16 07/21/16 07/21/16 07/21/16 08:05 09:44 09:45 09:45 Pulse 78 78 78 B/P 140/72 140/72 140/72 Pulse Ox 96 O2 Delivery Nasal Cannula O2 Flow Rate 2.0 07/21/16 07/21/16 11:00 11:54 Pulse 91 Resp 22 B/P 145/90 Pulse Ox 92 O2 Delivery Nasal Cannula Nasal Cannula O2 Flow Rate 2.0 2.0 Intake and Output 07/20/16 07/20/16 07/21/16 15:00 23:00 07:00 Intake Total 50 ml 700 ml Output Total 525 ml 500 ml Balance 50 ml -525 ml 200 ml RUDY NELSON MD Jul 21, 2016 14:32
--- NOTE | 2016-07-21 14:49 | RAD ---
Indication persistent cough. Noncontrast images through the chest were obtained. Comparison is made to an examination approximately 11 months earlier. Imaging through the upper abdomen is unremarkable. Clips are seen in the gallbladder fossa. Some coronary artery calcification is noted. The ascending thoracic aorta is slightly prominent similar to the previous exam measuring approximately 4.3 cm in greatest dimension. Significant hilar or mediastinal adenopathy is seen. There are healed right rib fractures. A dominant soft tissue mass in either lung is not seen. An acute parenchymal infiltrate in either lung is not apparent. There has not been a significant change in the appearance of the chest compared to the previous exam. IMPRESSION: No acute process. No significant change PQRS Compliance Statement: One or more of the following individualized dose reduction techniques were utilized for this examination: 1. Automated exposure control 2. Adjustment of the mA and/or kV according to patient size 3. Use of iterative reconstruction technique
[2016-07-21 15:00] VITALS: BP 126/71
--- NOTE | 2016-07-21 16:09 | PDOC ---
PROGRESS NOTES Subjective Subjective He felt worse this am and was much more demanding so CT chest done but is unremarkable for acute process. He walked to end of nursing station yesterday but was more dyspneic today. Monitor showing controlled heart rate so no new cardiac issues Objective Objective Vital Signs Date Time Temp Pulse Resp B/P Pulse Ox O2 Delivery O2 Flow Rate FiO2 07/21/16 15:00 98.6 97 22 126/71 94 Nasal Cannula 2.0 98.6 Intake and Output 07/21/16 07:00 Intake Total 750 ml Output Total 1025 ml Balance -275 ml Intake Oral 700 ml IV Total 50 ml Output Urine Total 1025 ml Physical Exam Abdomen: Normal bowel sounds, Soft Heart: Regular rate Extremities: No clubbing, No cyanosis General: Alert, Cooperative HEENT: Atraumatic Lungs: Other (no wheezes or rhonchi heard today) MUSCULOSKELETAL: No joint tenderness Neck: Supple, No JVD Neuro: Normal speech Psych/Mental Status: Mental status NL Skin: No breakdown Assessment Assessment Problems Medical Problems: (1) Atrial fibrillation with RVR Status: Acute (2) Hypoxia Status: Acute (3) Shortness of breath Status: Acute Plan Plan of Care cont meds, slow improvement expected, hopefully will be ready for discharge by Tuesday but he will likely need help once home Comment Review of Relevant I have reviewed the following items kaila (where applicable) has been applied. Labs Laboratory Tests Test 07/19/16 16:48 07/19/16 20:39 07/20/16 06:12 07/20/16 07:39 Glucose (Fingerstick) 206mg/dL (70-99) 214mg/dL (70-99) 155mg/dL (70-99) White Blood Count 6.8x10^3/uL (4.0-11.0) Red Blood Count 4.99x10^6/uL (4.30-5.70) Hemoglobin 14.3g/dL (13.0-17.5) Hematocrit 43.8% (39.0-53.0) Mean Corpuscular Volume 88fL (79-100) Mean Corpuscular Hemoglobin 29pg (25-35) Mean Corpuscular Hemoglobin Concent 33g/dL (31-37) Red Cell Distribution Width 15.8% (11.5-14.5) Platelet Count 169x10^3/uL (140-400) Neutrophils (%) (Auto) 82% (31-73) Lymphocytes (%) (Auto) 12% (24-48) Monocytes (%) (Auto) 5% (0-9) Eosinophils (%) (Auto) 0% (0-3) Basophils (%) (Auto) 0% (0-3) Neutrophils # (Auto) 5.6x10^3uL (1.8-7.7) Lymphocytes # (Auto) 0.8x10^3/uL (1.0-4.8) Monocytes # (Auto) 0.4x10^3/uL (0.0-1.1) Eosinophils # (Auto) 0.0x10^3/uL (0.0-0.7) Basophils # (Auto) 0.0x10^3/uL (0.0-0.2) Prothrombin Time 26.0SEC (11.7-14.0) Prothromb Time International Ratio 2.6 (0.8-1.1) Sodium Level 142mmol/L (136-145) Potassium Level 4.6mmol/L (3.5-5.1) Chloride Level 105mmol/L (98-107) Carbon Dioxide Level 29mmol/L (21-32) Anion Gap 8 (6-14) Blood Urea Nitrogen 25mg/dL (8-26) Creatinine 1.2mg/dL (0.7-1.3) Estimated GFR (Cockcroft-Gault) 58.0 BUN/Creatinine Ratio 21 (6-20) Glucose Level 194mg/dL (70-99) Calcium Level 8.7mg/dL (8.5-10.1) Total Bilirubin 0.5mg/dL (0.2-1.0) Aspartate Amino Transf (AST/SGOT) 14U/L (15-37) Alanine Aminotransferase (ALT/SGPT) 29U/L (16-63) Alkaline Phosphatase 55U/L (46-116) Total Protein 6.9g/dL (6.4-8.2) Albumin 3.4g/dL (3.4-5.0) Albumin/Globulin Ratio 1.0 (1.0-1.7) Test 07/20/16 12:20 07/20/16 17:13 07/20/16 21:35 07/21/16 07:52 Glucose (Fingerstick) 231mg/dL (70-99) 220mg/dL (70-99) 162mg/dL (70-99) 267mg/dL (70-99) Test 07/21/16 11:59 Glucose (Fingerstick) 135mg/dL (70-99) Laboratory Tests Test 07/20/16 17:13 07/20/16 21:35 07/21/16 07:52 07/21/16 11:59 Glucose (Fingerstick) 220mg/dL (70-99) 162mg/dL (70-99) 267mg/dL (70-99) 135mg/dL (70-99) Microbiology 07/16/16 Blood Culture - Final, Complete NO GROWTH AFTER 5 DAYS Medications Current Medications Aspirin 324 mg 324 mg 1X ONCE PO ; Start 07/16/16 at 10:15; Stop 07/16/16 at 10 :37; Status DC Sodium Chloride (Iv Sodium Chloride 0.9% 500ml Bag) 500 ml @ 500 mls/hr 1X ONCE IV Last administered on 07/16/16 10:46; Start 07/16/16 at 10:45; Stop at 11:44; Status DC Diltiazem HCl (Cardizem) 10 mg 1X ONCE IVP Last administered on 07/16/16 10: 46; Start 07/16/16 at 10:45; Stop 07/16/16 at 10:46; Status DC Ondansetron HCl (Zofran) 4 mg PRN Q8HRS PRN IV NAUSEA/VOMITING; Start 07/16/16 at 11:30; Stop 07/17/16 at 11:29; Status DC Morphine Sulfate 2 mg PRN Q2HR PRN IV PAIN Last administered on 07/17/16 01:45 ; Start 07/16/16 at 11:30; Stop 07/17/16 at 11:29; Status DC Albuterol/ Ipratropium 3 ml 3 ml RTQID NEB Last administered on 07/16/16 16:00 ; Start 07/16/16 at 12:00; Stop 07/16/16 at 16:40; Status DC Ceftriaxone Sodium 50 ml @ 100 mls/hr 1X ONCE IV Last administered on 11:44; Start 07/16/16 at 11:30; Stop 07/16/16 at 11:59; Status DC Azithromycin (Zithromax 500mg Ivpb For Omni) 250 ml @ 250 mls/hr 1X ONCE IV ; Start 07/16/16 at 11:30; Stop 07/16/16 at 12:29; Status DC Oxymetazoline HCl (Afrin) 2 spray BID NS Last administered on 07/21/16 09:46; Start 07/16/16 at 14:00 Aspirin (Ecotrin) 325 mg DAILY PO Last administered on 07/21/16 09:45; Start 07/17/16 at 09:00 Digoxin (Lanoxin) 250 mcg DAILY PO Last administered on 07/21/16 09:45; Start 07/16/16 at 17:00 Gabapentin (Neurontin) 300 mg HS PO Last administered on 07/20/16 21:39; Start 07/16/16 at 21:00 Gabapentin (Neurontin) 400 mg TIDWMEALS PO Last administered on 07/21/16 12:43 ; Start 07/16/16 at 17:00 Acetaminophen/ Hydrocodone Bitart (Lortab 5/325) 1 tab PRN Q6HRS PRN PO PAIN Last administered on 07/20/16 21:39; Start 07/16/16 at 16:30 Lisinopril (Prinivil) 2.5 mg DAILY PO Last administered on 07/21/16 09:45; Start 07/16/16 at 17:00 Meloxicam (Mobic) 7.5 mg DAILY PO Last administered on 07/21/16 09:45; Start 07/16/16 at 17:30 Metformin HCl (Glucophage Xr) 500 mg BID PO Last administered on 07/21/16 09: 45; Start 07/16/16 at 21:00 Methocarbamol (Robaxin) 500 mg BID PO Last administered on 07/21/16 09:45; Start 07/16/16 at 21:00 Propafenone HCl (Rythmol) 150 mg BID PO Last administered on 07/21/16 09:44; Start 07/16/16 at 21:00 Temazepam (Restoril) 15 mg QHS PO Last administered on 07/20/16 21:39; Start 07/16/16 at 21:00 Warfarin Sodium (Coumadin) 3 mg [id number] PO Last administered on 07/20/16 16:19; Start 07/17/16 at 16:00 Warfarin Sodium (Coumadin) 6 mg QFR PO Last administered on 07/16/16 17:41; Start 07/16/16 at 17:00 Non-Formulary Medication 2 puff BID IH ; Start 07/16/16 at 21:00; Status UNV Glimepiride (Amaryl) 1 mg DAILY PO Last administered on 07/21/16 09:45; Start 07/17/16 at 09:00 Theophylline (Theodur) 300 mg DAILY07 PO Last administered on 07/21/16 09:45; Start 07/17/16 at 07:00 Warfarin Sodium (Coumadin Per Physician) 1 each PRN DAILY PRN MC SEE COMMENTS Last administered on 07/21/16 08:07; Start 07/16/16 at 16:45 Budesonide (Pulmicort) 0.5 mg RTBID NEB Last administered on 07/21/16 08:04; Start 07/16/16 at 20:00 Albuterol Sulfate (Ventolin Neb Soln) 2.5 mg RTQID NEB Last administered on 07:48; Start 07/16/16 at 20:00; Stop 07/18/16 at 07:59; Status DC Propafenone HCl (Rythmol) 150 mg BID PO ; Start 07/16/16 at 21:00; Stop at 21:00; Status DC Enoxaparin Sodium 40 mg 40 mg Q24H SQ ; Start 07/16/16 at 18:30; Status UNV Ceftriaxone Sodium/Sodium Chloride (Rocephin/Iv Sodium Chloride 0.9% 50ml) 50 ml @ 100 mls/hr Q24H IV Last administered on 07/21/16 12:44; Start 07/17/16 at 12:00 Guaifenesin (Mucinex) 1,200 mg BID PO Last administered on 07/21/16 09:46; Start 07/17/16 at 14:00 Benzonatate (Tessalon Perle) 100 mg PRN TID PRN PO COUGH Last administered on 08:58; Start 07/17/16 at 14:00 Morphine Sulfate 2 mg PRN QHS PRN IM PAIN Last administered on 07/20/16 23:08 ; Start 07/17/16 at 13:30 Prednisone (Prednisone) 60 mg 1X ONCE PO Last administered on 07/17/16 14:08 ; Start 07/17/16 at 14:00; Stop 07/17/16 at 14:01; Status DC Albuterol Sulfate (Ventolin Neb Soln) 2.5 mg PRN QID PRN NEB SHORTNESS OF BREATH Last administered on 07/21/16 02:18; Start 07/18/16 at 08:00 Methylprednisolone Sodium Succinate (Solu-Medrol 40mg Vial) 40 mg Q12HR IV Last administered on 07/21/16 09:46; Start 07/18/16 at 09:00 Albuterol/ Ipratropium (Duoneb) 3 ml RTQID NEB Last administered on 07/21/16 11:53; Start 07/18/16 at 08:00 Insulin Aspart (Novolog) 0-12 UNITS QIDACHS SQ Last administered on 07/21/16 09:52; Start 07/18/16 at 11:30 Neomycin/ Polymyxin/ Bacitracin (Triple Antibiotic Ointment) 1 pkt DAILY TP ; Start 07/21/16 at 09:00; Stop 07/21/16 at 09:59; Status DC Active Scripts Active [place] 5-325 Tablet (Acetaminophen/Hydrocodone Bitart) 1 Each Tablet 1 Tab PO PRN Q6HRS PRN Amox Tr-K Clv 875-125 Mg Tab (Amoxicillin/Potassium Clav) 1 Each Tablet 1 Tab PO BID Reported Cefuroxime (Cefuroxime Axetil) 500 Mg Tablet 1 Tab PO BID Alendronate Sodium 70 Mg Tablet 1 Tab PO WEEKLY Theophylline (Theophylline Anhydrous) 400 Mg Tablet.er 300 Mg PO Meloxicam 7.5 Mg Tablet 1 Tab PO DAILY Robaxin (Methocarbamol) 500 Mg Tablet 1 Tab PO BID Gabapentin 400 Mg Capsule 400 Mg PO TID Propafenone Hcl 150 Mg Tablet 150 Mg PO BID Ventolin Hfa Inhaler (Albuterol Sulfate) 18 Gm Hfa.aer.ad 2 Puff INH Q4HRS Warfarin Sodium 3 Mg Tablet 2 Tab PO QFR Warfarin Sodium 3 Mg Tablet 1 Tab PO QHS Digoxin 250 Mcg Tablet 250 Mcg PO DAILY Lisinopril 2.5 Mg Tablet 2.5 Mg PO DAILY Glimepiride 1 Mg Tablet 1 Mg PO DAILY Albuterol Sulfate Hfa Inhaler (Albuterol Sulfate) 8.5 Gm Hfa.aer.ad 2 Puff INH QID Symbicort 160-4.5 Mcg Inhaler (Budesonide/Formoterol Fumarate) 10.2 Gm Hfa.aer.ad 2 Puff IH BID Aspirin Ec (Aspirin) 325 Mg Tablet.dr 1 Tab PO DAILY Temazepam 15 Mg Capsule 1 Cap PO QHS Gabapentin 100 Mg Capsule 300 Mg PO HS Metformin Hcl Er (Metformin Hcl) 500 Mg Tab.er.24h 1 Tab PO BID Theophylline (Theophylline Anhydrous) 400 Mg Tablet.er 300 Mg PO DAILY07 Vitals/I & O Vital Sign - Last 24 Hours 07/20/16 07/20/16 07/20/16 07/20/16 19:05 19:30 20:30 21:35 Temp 97.6 97.6 Pulse 93 89 Resp 20 22 B/P 122/75 136/68 Pulse Ox 98 93 O2 Delivery Nasal Cannula Room Air Nasal Cannula Nasal Cannula O2 Flow Rate 2.0 2.0 2.0 2.0 07/20/16 07/20/16 07/20/16 07/20/16 21:39 21:40 22:55 23:08 Pulse 89 Resp 22 20 20 B/P 136/68 O2 Delivery Nasal Cannula Nasal Cannula Nasal Cannula O2 Flow Rate 2.0 2.0 2.0 07/20/16 07/20/16 07/21/16 07/21/16 23:30 23:40 02:19 03:25 Temp 98.4 98.1 98.4 98.1 Pulse 90 92 Resp 22 19 18 B/P 144/80 132/75 Pulse Ox 95 98 94 O2 Delivery Nasal Cannula Nasal Cannula Nasal Cannula Nasal Cannula O2 Flow Rate 2.0 2.0 2.0 2.0 07/21/16 07/21/16 07/21/16 07/21/16 07:00 08:00 08:05 09:44 Temp 98.7 98.7 Pulse 78 78 Resp 20 B/P 140/72 140/72 Pulse Ox 95 96 O2 Delivery Nasal Cannula Nasal Cannula Nasal Cannula O2 Flow Rate 2.0 2.0 2.0 1/07/21/16 07/21/16 07/21/16 09:45 09:45 11:00 11:54 Pulse 78 78 91 Resp 22 B/P 140/72 140/72 145/90 Pulse Ox 92 O2 Delivery Nasal Cannula Nasal Cannula O2 Flow Rate 2.0 2.0 07/21/16 15:00 Temp 98.6 98.6 Pulse 97 Resp 22 B/P 126/71 Pulse Ox 94 O2 Delivery Nasal Cannula O2 Flow Rate 2.0 Intake and Output 07/20/16 07/20/16 07/21/16 15:00 23:00 07:00 Intake Total 50 ml 700 ml Output Total 525 ml 500 ml Balance 50 ml -525 ml 200 ml Edward ALLEN MD Jul 21, 2016 16:09
[2016-07-21] MEDS: WARFARIN 3 MG TABLET. PO SCH (18:02)
[2016-07-21 19:15] VITALS: BP 134/66
[2016-07-21] MEDS: GABAPENTIN 300 MG CAPSULE. PO SCH (21:32)
[2016-07-21] MEDS: HYDROCODONE/APAP 5/325MG TABLET. PO PRN (21:35)
[2016-07-21] MEDS: TEMAZEPAM 15 MG CAPSULE PO SCH (21:36)
[2016-07-21 23:35] VITALS: BP 132/73
[2016-07-21] MEDS: MORPHINE SULFATE 2 MG/ML DISP.SYRIN. IM PRN (23:49)
[2016-07-22] VITALS (7 sets, daily range): BP systolic 107–134; BP diastolic 65–75
[2016-07-22] MEDS: THEOPHYLLINE 12HR ER 300 MG TAB.ER.12H. PO SCH (06:41)
[2016-07-22] MEDS: BUDESONIDE 0.5 MG/2 ML NEBU NEB SCH ×2 (07:34→20:59)
[2016-07-22] MEDS: IPRATRPIUM/ALBUTEROL 0.5/2.5MG 3 ML NEBU. NEB SCH ×4 (07:34→20:58)
--- NOTE | 2016-07-22 08:23 | PDOC ---
PROGRESS NOTES Subjective Subjective No events overnight, but patient states he did not sleep well and has been up since midnight. Patient states that he would like to go to a rehab facility to regain his strength. He is doing better, but is frustrated with his slow recovery. He was able to walk from his room to the nursing station and back before laying down and needing 3-4 minutes to catch his breath. Objective Objective Vital Signs Date Time Temp Pulse Resp B/P Pulse Ox O2 Delivery O2 Flow Rate FiO2 07/22/16 07:37 95 Nasal Cannula 2.0 07/22/16 07:00 97.9 97.9 07/22/16 07:00 87 16 107/65 Intake and Output 07/22/16 07:00 Intake Total 1145 ml Output Total 1350 ml Balance -205 ml Intake Oral 1145 ml Output Urine Total 1350 ml Physical Exam Abdomen: Normal bowel sounds, Soft Heart: Regular rate Extremities: No clubbing, No cyanosis General: Alert, Oriented X3, Cooperative HEENT: Atraumatic Lungs: Other (End expiratory wheezes and rhonchi with cough on auscultation) MUSCULOSKELETAL: No joint tenderness, Other (Not able to sit straight up in bed due to history of back surgery) Neck: Supple Neuro: Normal speech Psych/Mental Status: Mental status NL Skin: No rashes, No breakdown Assessment Assessment Problems Medical Problems: (1) Atrial fibrillation with RVR Status: Acute (2) Hypoxia Status: Acute (3) Shortness of breath Status: Acute Plan Plan of Care Have PT/OT evaluate due to deconditioning with plan on custodial at [facility] if accepted. Comment Review of Relevant I have reviewed the following items kaila (where applicable) has been applied. Labs Laboratory Tests Test 07/20/16 12:20 07/20/16 17:13 07/20/16 21:35 07/21/16 07:52 Glucose (Fingerstick) 231mg/dL (70-99) 220mg/dL (70-99) 162mg/dL (70-99) 267mg/dL (70-99) Test 07/21/16 11:59 07/21/16 17:53 07/21/16 21:02 07/22/16 07:56 Glucose (Fingerstick) 135mg/dL (70-99) 231mg/dL (70-99) 214mg/dL (70-99) 187mg/dL (70-99) Laboratory Tests Test 07/21/16 11:59 07/21/16 17:53 07/21/16 21:02 07/22/16 07:56 Glucose (Fingerstick) 135mg/dL (70-99) 231mg/dL (70-99) 214mg/dL (70-99) 187mg/dL (70-99) Microbiology 07/16/16 Blood Culture - Final, Complete NO GROWTH AFTER 5 DAYS Medications Current Medications Aspirin 324 mg 324 mg 1X ONCE PO ; Start 07/16/16 at 10:15; Stop 07/16/16 at 10 :37; Status DC Sodium Chloride (Iv Sodium Chloride 0.9% 500ml Bag) 500 ml @ 500 mls/hr 1X ONCE IV Last administered on 07/16/16 10:46; Start 07/16/16 at 10:45; Stop at 11:44; Status DC Diltiazem HCl (Cardizem) 10 mg 1X ONCE IVP Last administered on 07/16/16 10: 46; Start 07/16/16 at 10:45; Stop 07/16/16 at 10:46; Status DC Ondansetron HCl (Zofran) 4 mg PRN Q8HRS PRN IV NAUSEA/VOMITING; Start 07/16/16 at 11:30; Stop 07/17/16 at 11:29; Status DC Morphine Sulfate 2 mg PRN Q2HR PRN IV PAIN Last administered on 07/17/16 01:45 ; Start 07/16/16 at 11:30; Stop 07/17/16 at 11:29; Status DC Albuterol/ Ipratropium 3 ml 3 ml RTQID NEB Last administered on 07/16/16 16:00 ; Start 07/16/16 at 12:00; Stop 07/16/16 at 16:40; Status DC Ceftriaxone Sodium 50 ml @ 100 mls/hr 1X ONCE IV Last administered on 11:44; Start 07/16/16 at 11:30; Stop 07/16/16 at 11:59; Status DC Azithromycin (Zithromax 500mg Ivpb For Omni) 250 ml @ 250 mls/hr 1X ONCE IV ; Start 07/16/16 at 11:30; Stop 07/16/16 at 12:29; Status DC Oxymetazoline HCl (Afrin) 2 spray BID NS Last administered on 07/21/16 21:32; Start 07/16/16 at 14:00 Aspirin (Ecotrin) 325 mg DAILY PO Last administered on 07/21/16 09:45; Start 07/17/16 at 09:00 Digoxin (Lanoxin) 250 mcg DAILY PO Last administered on 07/21/16 09:45; Start 07/16/16 at 17:00 Gabapentin (Neurontin) 300 mg HS PO Last administered on 07/21/16 21:32; Start 07/16/16 at 21:00 Gabapentin (Neurontin) 400 mg TIDWMEALS PO Last administered on 07/21/16 18:02 ; Start 07/16/16 at 17:00 Acetaminophen/ Hydrocodone Bitart (Lortab 5/325) 1 tab PRN Q6HRS PRN PO PAIN Last administered on 07/21/16 21:35; Start 07/16/16 at 16:30 Lisinopril (Prinivil) 2.5 mg DAILY PO Last administered on 07/21/16 09:45; Start 07/16/16 at 17:00 Meloxicam (Mobic) 7.5 mg DAILY PO Last administered on 07/21/16 09:45; Start 07/16/16 at 17:30 Metformin HCl (Glucophage Xr) 500 mg BID PO Last administered on 07/21/16 21: 36; Start 07/16/16 at 21:00 Methocarbamol (Robaxin) 500 mg BID PO Last administered on 07/21/16 21:32; Start 07/16/16 at 21:00 Propafenone HCl (Rythmol) 150 mg BID PO Last administered on 07/21/16 21:33; Start 07/16/16 at 21:00 Temazepam (Restoril) 15 mg QHS PO Last administered on 07/21/16 21:36; Start 07/16/16 at 21:00 Warfarin Sodium (Coumadin) 3 mg SuMoTuWeThSa PO Last administered on 07/21/16 18:02; Start 07/17/16 at 16:00 Warfarin Sodium (Coumadin) 6 mg QFR PO Last administered on 07/16/16 17:41; Start 07/16/16 at 17:00 Non-Formulary Medication 2 puff BID IH ; Start 07/16/16 at 21:00; Status UNV Glimepiride (Amaryl) 1 mg DAILY PO Last administered on 07/21/16 09:45; Start 07/17/16 at 09:00 Theophylline (Theodur) 300 mg DAILY07 PO Last administered on 07/22/16 06:41; Start 07/17/16 at 07:00 Warfarin Sodium (Coumadin Per Physician) 1 each PRN DAILY PRN MC SEE COMMENTS Last administered on 07/21/16 08:07; Start 07/16/16 at 16:45 Budesonide (Pulmicort) 0.5 mg RTBID NEB Last administered on 07/22/16 07:34; Start 07/16/16 at 20:00 Albuterol Sulfate (Ventolin Neb Soln) 2.5 mg RTQID NEB Last administered on 07:48; Start 07/16/16 at 20:00; Stop 07/18/16 at 07:59; Status DC Propafenone HCl (Rythmol) 150 mg BID PO ; Start 07/16/16 at 21:00; Stop at 21:00; Status DC Enoxaparin Sodium 40 mg 40 mg Q24H SQ ; Start 07/16/16 at 18:30; Status UNV Ceftriaxone Sodium/Sodium Chloride (Rocephin/Iv Sodium Chloride 0.9% 50ml) 50 ml @ 100 mls/hr Q24H IV Last administered on 07/21/16 12:44; Start 07/17/16 at 12:00 Guaifenesin (Mucinex) 1,200 mg BID PO Last administered on 07/21/16 21:31; Start 07/17/16 at 14:00 Benzonatate (Tessalon Perle) 100 mg PRN TID PRN PO COUGH Last administered on 08:58; Start 07/17/16 at 14:00 Morphine Sulfate 2 mg PRN QHS PRN IM PAIN Last administered on 07/21/16 23:49 ; Start 07/17/16 at 13:30 Prednisone (Prednisone) 60 mg 1X ONCE PO Last administered on 07/17/16 14:08 ; Start 07/17/16 at 14:00; Stop 07/17/16 at 14:01; Status DC Albuterol Sulfate (Ventolin Neb Soln) 2.5 mg PRN QID PRN NEB SHORTNESS OF BREATH Last administered on 07/21/16 21:40; Start 07/18/16 at 08:00 Methylprednisolone Sodium Succinate (Solu-Medrol 40mg Vial) 40 mg Q12HR IV Last administered on 07/21/16 21:32; Start 07/18/16 at 09:00 Albuterol/ Ipratropium (Duoneb) 3 ml RTQID NEB Last administered on 07/22/16 07:34; Start 07/18/16 at 08:00 Insulin Aspart (Novolog) 0-12 UNITS QIDACHS SQ Last administered on 07/21/16 21:42; Start 07/18/16 at 11:30 Neomycin/ Polymyxin/ Bacitracin (Triple Antibiotic Ointment) 1 pkt DAILY TP ; Start 07/21/16 at 09:00; Stop 07/21/16 at 09:59; Status DC Active Scripts Active [place] 5-325 Tablet (Acetaminophen/Hydrocodone Bitart) 1 Each Tablet 1 Tab PO PRN Q6HRS PRN Amox Tr-K Clv 875-125 Mg Tab (Amoxicillin/Potassium Clav) 1 Each Tablet 1 Tab PO BID Reported Cefuroxime (Cefuroxime Axetil) 500 Mg Tablet 1 Tab PO BID Alendronate Sodium 70 Mg Tablet 1 Tab PO WEEKLY Theophylline (Theophylline Anhydrous) 400 Mg Tablet.er 300 Mg PO Meloxicam 7.5 Mg Tablet 1 Tab PO DAILY Robaxin (Methocarbamol) 500 Mg Tablet 1 Tab PO BID Gabapentin 400 Mg Capsule 400 Mg PO TID Propafenone Hcl 150 Mg Tablet 150 Mg PO BID Ventolin Hfa Inhaler (Albuterol Sulfate) 18 Gm Hfa.aer.ad 2 Puff INH Q4HRS Warfarin Sodium 3 Mg Tablet 2 Tab PO QFR Warfarin Sodium 3 Mg Tablet 1 Tab PO QHS Digoxin 250 Mcg Tablet 250 Mcg PO DAILY Lisinopril 2.5 Mg Tablet 2.5 Mg PO DAILY Glimepiride 1 Mg Tablet 1 Mg PO DAILY Albuterol Sulfate Hfa Inhaler (Albuterol Sulfate) 8.5 Gm Hfa.aer.ad 2 Puff INH QID Symbicort 160-4.5 Mcg Inhaler (Budesonide/Formoterol Fumarate) 10.2 Gm Hfa.aer.ad 2 Puff IH BID Aspirin Ec (Aspirin) 325 Mg Tablet.dr 1 Tab PO DAILY Temazepam 15 Mg Capsule 1 Cap PO QHS Gabapentin 100 Mg Capsule 300 Mg PO HS Metformin Hcl Er (Metformin Hcl) 500 Mg Tab.er.24h 1 Tab PO BID Theophylline (Theophylline Anhydrous) 400 Mg Tablet.er 300 Mg PO DAILY07 Vitals/I & O Vital Sign - Last 24 Hours 07/21/16 07/21/16 07/21/16 07/21/16 09:44 09:45 09:45 11:00 Pulse 78 78 78 91 Resp 22 B/P 140/72 140/72 140/72 145/90 Pulse Ox 92 O2 Delivery Nasal Cannula O2 Flow Rate 2.0 07/21/16 07/21/16 07/21/16 07/21/16 11:54 15:00 16:28 19:08 Temp 98.6 98.6 Pulse 97 Resp 22 B/P 126/71 Pulse Ox 94 99 O2 Delivery Nasal Cannula Nasal Cannula Nasal Cannula Nasal Cannula O2 Flow Rate 2.0 2.0 2.0 2.0 07/21/16 07/21/16 07/21/16 07/21/16 19:15 20:45 21:33 21:35 Temp 98.6 98.6 Pulse 96 96 Resp 20 24 B/P 134/66 134/66 Pulse Ox 95 O2 Delivery Nasal Cannula Nasal Cannula Nasal Cannula O2 Flow Rate 2.0 2.0 2.0 07/21/16 07/21/16 07/21/16 07/21/16 21:40 22:40 23:35 23:49 Temp 97.7 97.7 Pulse 86 Resp 18 22 B/P 132/73 Pulse Ox 99 95 O2 Delivery Nasal Cannula Nasal Cannula Nasal Cannula Nasal Cannula O2 Flow Rate 2.0 2.0 2.0 2.0 07/22/16 07/22/16 07/22/16 07/22/16 00:20 03:45 07:00 07:00 Temp 98.0 97.9 98.0 97.9 Pulse 95 87 Resp 18 16 B/P 134/72 107/65 Pulse Ox 94 95 O2 Delivery Nasal Cannula Nasal Cannula Nasal Cannula O2 Flow Rate 2.0 2.0 2.0 1/19/17 1/19/17 07:33 07:37 Pulse Ox 95 95 O2 Delivery Nasal Cannula Nasal Cannula O2 Flow Rate 2.0 2.0 Intake and Output 07/21/16 07/21/16 07/22/16 15:00 23:00 07:00 Intake Total 725 ml 420 ml Output Total 750 ml 600 ml Balance -25 ml -180 ml Edward ALLEN MD Jul 22, 2016 08:23
[2016-07-22] MEDS: OXYMETAZOLINE 0.05% NASAL SPRAY 30ML BOTTLE. NS SCH ×2 (09:00→22:11)
[2016-07-22] MEDS: GUAIFENESIN ER 600 MG TABLET.ER PO SCH ×2 (09:55→21:43)
[2016-07-22] MEDS: GLIMEPIRIDE 2 MG TABLET PO SCH (09:55)
[2016-07-22] MEDS: MELOXICAM 7.5 MG TABLET PO SCH (09:55)
[2016-07-22] MEDS: METFORMIN XR 500 MG TAB.ER.24H PO SCH ×2 (09:56→21:46)
[2016-07-22] MEDS: DIGOXIN 250 MCG TABLET PO SCH (09:56)
[2016-07-22] MEDS: ASPIRIN ENTERIC COATED 325 MG TABLET.DR. PO SCH (09:56)
[2016-07-22] MEDS: LISINOPRIL 2.5 MG TABLET PO SCH (09:56)
[2016-07-22] MEDS: GABAPENTIN 400 MG CAPSULE. PO SCH ×3 (09:56→18:01)
[2016-07-22] MEDS: METHOCARBAMOL 500 MG TABLET PO SCH ×2 (09:56→21:43)
[2016-07-22] MEDS: methylPREDNISolone SOD SUCC PF 40 MG/ML VIAL. IV SCH ×2 (09:57→22:01)
[2016-07-22] MEDS: INSULIN ASPART 300 UNITS/3 ML INSULN.PEN SQ SCH ×4 (10:02→22:08)
[2016-07-22 11:14] LABS: INR 2.3 (0.8-1.1); PROTHROMBIN TIME PATIENT 23.9 SEC (11.7-14.0)
--- NOTE | 2016-07-22 12:04 | PDOC ---
PULMONARY PROGRESS NOTES Subjective still cannot cannot cough up phlegm Vitals Vital Signs Date Time Temp Pulse Resp B/P Pulse Ox O2 Delivery O2 Flow Rate FiO2 07/22/16 11:22 97.8 78 20 133/75 93 Nasal Cannula 97.8 07/22/16 08:00 2.0 General: Alert, Oriented X4, No acute distress Lungs: Other (few rhonchi) Cardiovascular: S1 Abdomen: Soft Neuro Exam: Alert Extremities: No Edema Skin: Warm Labs Laboratory Tests Test 07/20/16 12:20 07/20/16 17:13 07/20/16 21:35 07/21/16 07:52 Glucose (Fingerstick) 231mg/dL (70-99) 220mg/dL (70-99) 162mg/dL (70-99) 267mg/dL (70-99) Test 07/21/16 11:59 07/21/16 17:53 07/21/16 21:02 07/22/16 07:56 Glucose (Fingerstick) 135mg/dL (70-99) 231mg/dL (70-99) 214mg/dL (70-99) 187mg/dL (70-99) Test 07/22/16 10:50 Prothrombin Time 23.9SEC (11.7-14.0) Prothromb Time International Ratio 2.3 (0.8-1.1) Laboratory Tests Test 07/21/16 17:53 07/21/16 21:02 07/22/16 07:56 07/22/16 10:50 Glucose (Fingerstick) 231mg/dL (70-99) 214mg/dL (70-99) 187mg/dL (70-99) Prothrombin Time 23.9SEC (11.7-14.0) Prothromb Time International Ratio 2.3 (0.8-1.1) Medications Active Scripts Medications Dose Route/Sig Days Date Category Cefuroxime (Cefuroxime Axetil) 500 Mg Tablet 1 Tab PO BID 07/16/16 Reported Alendronate Sodium 70 Mg Tablet 1 Tab PO WEEKLY 07/16/16 Reported Theophylline (Theophylline Anhydrous) 400 Mg Tablet.er 300 Mg PO 07/16/16 Reported Meloxicam 7.5 Mg Tablet 1 Tab PO DAILY 07/16/16 Reported Robaxin (Methocarbamol) 500 Mg Tablet 1 Tab PO BID 07/16/16 Reported Gabapentin 400 Mg Capsule 400 Mg PO TID 07/16/16 Reported Propafenone Hcl 150 Mg Tablet 150 Mg PO BID 07/16/16 Reported Ventolin Hfa Inhaler (Albuterol Sulfate) 18 Gm Hfa.aer.ad 2 Puff INH Q4HRS 07/16/16 Reported [place] 5-325 Tablet (Acetaminophen/Hydrocodone Bitart) 1 Each Tablet 1 Tab PO PRN Q6HRS PRN 09/04/15 Rx Warfarin Sodium 3 Mg Tablet 2 Tab PO QFR 08/31/15 Reported Warfarin Sodium 3 Mg Tablet 1 Tab PO QHS 08/31/15 Reported Amox Tr-K Clv 875-125 Mg Tab (Amoxicillin/Potassium Clav) 1 Each Tablet 1 Tab PO BID 04/03/15 Rx Digoxin 250 Mcg Tablet 250 Mcg PO DAILY 04/01/15 Reported Lisinopril 2.5 Mg Tablet 2.5 Mg PO DAILY 04/01/15 Reported Glimepiride 1 Mg Tablet 1 Mg PO DAILY 02/14/15 Reported Albuterol Sulfate Hfa Inhaler (Albuterol Sulfate) 8.5 Gm Hfa.aer.ad 2 Puff INH QID 02/14/15 Reported Symbicort 160-4.5 Mcg Inhaler (Budesonide/Formoterol Fumarate) 10.2 Gm Hfa.aer.ad 2 Puff IH BID 02/14/15 Reported Aspirin Ec (Aspirin) 325 Mg Tablet.dr 1 Tab PO DAILY 03/05/14 Reported Temazepam 15 Mg Capsule 1 Cap PO QHS 03/05/14 Reported Gabapentin 100 Mg Capsule 300 Mg PO HS 03/05/14 Reported Metformin Hcl Er (Metformin Hcl) 500 Mg Tab.er.24h 1 Tab PO BID 03/05/14 Reported Theophylline (Theophylline Anhydrous) 400 Mg Tablet.er 300 Mg PO DAILY07 03/05/14 Reported Impression . 1. Acute hypoxemic respiratory failure: Multifactorial in etiology, including acute exacerbation of chronic obstructive pulmonary disease, acute viral bronchitis, atrial fibrillation with rapid ventricular response, slow to improve 2. Acute exacerbation of chronic obstructive pulmonary disease. 3. Acute viral bronchitis. 4. Atrial fibrillation with rapid ventricular response. controlled 5. Hypertension. 6. Diabetes mellitus. 7. Ex-smoker. 8. History of prostate cancer. Plan . 1. Clinically not better. ct chest with no obvious pneumonia 2. Bronchodilator: albuterol and Atrovent q.i.d. and albuterol p.r.n. 3. Continue Pulmicort. 4. Solu-Medrol 40 mg IV every 12 h. 5. Continue Rocephin. 7. Coumadin per PCP. 8. Protonix for stress ulcer prophylaxis. 9. slow to improve. D/W . If no improvement by am, will do Bronch to r/o any central mucous plug. will keep him NPO JW Mclain MD Jul 22, 2016 12:04
[2016-07-22] MEDS: CEFTRIAXONE SODIUM 1 GM in IV NORMAL SALINE 50ML 50 ML IV SCH (13:19)
[2016-07-22] MEDS: PROPAFENONE 150 MG TABLET. PO SCH ×2 (13:19→21:46)
--- NOTE | 2016-07-22 15:32 | PDOC ---
PROGRESS NOTES Subjective Subjective Patient still having non-productive wet cough and dyspnea. Denies chest pain or other cardiac complaints. Objective Objective Vital Signs Date Time Temp Pulse Resp B/P Pulse Ox O2 Delivery O2 Flow Rate FiO2 07/22/16 14:56 97.9 95 20 110/65 91 Nasal Cannula 97.9 07/22/16 12:18 2.0 Intake and Output 07/22/16 07:00 Intake Total 1145 ml Output Total 1350 ml Balance -205 ml Intake Oral 1145 ml Output Urine Total 1350 ml Physical Exam Physical Exam Diffuse inspiratory wheezing, no rales, markedly decreased air movement. No significant changes in cardiac exam. Assessment Assessment Problems Medical Problems: (1) Atrial fibrillation with RVR Status: Acute (2) Hypoxia Status: Acute (3) Shortness of breath Status: Acute Plan Plan of Care Stable from a cardiac standpoint. Further lung care as per pulmonology. Comment Review of Relevant I have reviewed the following items kaila (where applicable) has been applied. Labs Laboratory Tests Test 07/20/16 17:13 07/20/16 21:35 07/21/16 07:52 07/21/16 11:59 Glucose (Fingerstick) 220mg/dL (70-99) 162mg/dL (70-99) 267mg/dL (70-99) 135mg/dL (70-99) Test 07/21/16 17:53 07/21/16 21:02 07/22/16 07:56 07/22/16 10:50 Glucose (Fingerstick) 231mg/dL (70-99) 214mg/dL (70-99) 187mg/dL (70-99) Prothrombin Time 23.9SEC (11.7-14.0) Prothromb Time International Ratio 2.3 (0.8-1.1) Test 07/22/16 11:59 Glucose (Fingerstick) 160mg/dL (70-99) Laboratory Tests Test 07/21/16 17:53 07/21/16 21:02 07/22/16 07:56 07/22/16 10:50 Glucose (Fingerstick) 231mg/dL (70-99) 214mg/dL (70-99) 187mg/dL (70-99) Prothrombin Time 23.9SEC (11.7-14.0) Prothromb Time International Ratio 2.3 (0.8-1.1) Test 07/22/16 11:59 Glucose (Fingerstick) 160mg/dL (70-99) Microbiology 07/16/16 Blood Culture - Final, Complete NO GROWTH AFTER 5 DAYS Medications Current Medications Aspirin 324 mg 324 mg 1X ONCE PO ; Start 07/16/16 at 10:15; Stop 07/16/16 at 10 :37; Status DC Sodium Chloride (Iv Sodium Chloride 0.9% 500ml Bag) 500 ml @ 500 mls/hr 1X ONCE IV Last administered on 07/16/16 10:46; Start 07/16/16 at 10:45; Stop at 11:44; Status DC Diltiazem HCl (Cardizem) 10 mg 1X ONCE IVP Last administered on 07/16/16 10: 46; Start 07/16/16 at 10:45; Stop 07/16/16 at 10:46; Status DC Ondansetron HCl (Zofran) 4 mg PRN Q8HRS PRN IV NAUSEA/VOMITING; Start 07/16/16 at 11:30; Stop 07/17/16 at 11:29; Status DC Morphine Sulfate 2 mg PRN Q2HR PRN IV PAIN Last administered on 07/17/16 01:45 ; Start 07/16/16 at 11:30; Stop 07/17/16 at 11:29; Status DC Albuterol/ Ipratropium 3 ml 3 ml RTQID NEB Last administered on 07/16/16 16:00 ; Start 07/16/16 at 12:00; Stop 07/16/16 at 16:40; Status DC Ceftriaxone Sodium 50 ml @ 100 mls/hr 1X ONCE IV Last administered on 11:44; Start 07/16/16 at 11:30; Stop 07/16/16 at 11:59; Status DC Azithromycin (Zithromax 500mg Ivpb For Omni) 250 ml @ 250 mls/hr 1X ONCE IV ; Start 07/16/16 at 11:30; Stop 07/16/16 at 12:29; Status DC Oxymetazoline HCl (Afrin) 2 spray BID NS Last administered on 07/21/16 21:32; Start 07/16/16 at 14:00 Aspirin (Ecotrin) 325 mg DAILY PO Last administered on 07/22/16 09:56; Start 07/17/16 at 09:00 Digoxin (Lanoxin) 250 mcg DAILY PO Last administered on 07/22/16 09:56; Start 07/16/16 at 17:00 Gabapentin (Neurontin) 300 mg HS PO Last administered on 07/21/16 21:32; Start 07/16/16 at 21:00 Gabapentin (Neurontin) 400 mg TIDWMEALS PO Last administered on 07/22/16 13:19 ; Start 07/16/16 at 17:00 Acetaminophen/ Hydrocodone Bitart (Lortab 5/325) 1 tab PRN Q6HRS PRN PO PAIN Last administered on 07/21/16 21:35; Start 07/16/16 at 16:30 Lisinopril (Prinivil) 2.5 mg DAILY PO Last administered on 07/22/16 09:56; Start 07/16/16 at 17:00 Meloxicam (Mobic) 7.5 mg DAILY PO Last administered on 07/22/16 09:55; Start 07/16/16 at 17:30 Metformin HCl (Glucophage Xr) 500 mg BID PO Last administered on 07/22/16 09: 56; Start 07/16/16 at 21:00 Methocarbamol (Robaxin) 500 mg BID PO Last administered on 07/22/16 09:56; Start 07/16/16 at 21:00 Propafenone HCl (Rythmol) 150 mg BID PO Last administered on 07/22/16 13:19; Start 07/16/16 at 21:00 Temazepam (Restoril) 15 mg QHS PO Last administered on 07/21/16 21:36; Start 07/16/16 at 21:00 Warfarin Sodium (Coumadin) 3 mg SuMoTuWeThSa PO Last administered on 07/21/16 18:02; Start 07/17/16 at 16:00 Warfarin Sodium (Coumadin) 6 mg QFR PO Last administered on 07/16/16 17:41; Start 07/16/16 at 17:00 Non-Formulary Medication 2 puff BID IH ; Start 07/16/16 at 21:00; Status UNV Glimepiride (Amaryl) 1 mg DAILY PO Last administered on 07/22/16 09:55; Start 07/17/16 at 09:00 Theophylline (Theodur) 300 mg DAILY07 PO Last administered on 07/22/16 06:41; Start 07/17/16 at 07:00 Warfarin Sodium (Coumadin Per Physician) 1 each PRN DAILY PRN MC SEE COMMENTS Last administered on 07/22/16 11:20; Start 07/16/16 at 16:45 Budesonide (Pulmicort) 0.5 mg RTBID NEB Last administered on 07/22/16 07:34; Start 07/16/16 at 20:00 Albuterol Sulfate (Ventolin Neb Soln) 2.5 mg RTQID NEB Last administered on 07:48; Start 07/16/16 at 20:00; Stop 07/18/16 at 07:59; Status DC Propafenone HCl (Rythmol) 150 mg BID PO ; Start 07/16/16 at 21:00; Stop at 21:00; Status DC Enoxaparin Sodium 40 mg 40 mg Q24H SQ ; Start 07/16/16 at 18:30; Status UNV Ceftriaxone Sodium/Sodium Chloride (Rocephin/Iv Sodium Chloride 0.9% 50ml) 50 ml @ 100 mls/hr Q24H IV Last administered on 07/22/16 13:19; Start 07/17/16 at 12:00 Guaifenesin (Mucinex) 1,200 mg BID PO Last administered on 07/22/16 09:55; Start 07/17/16 at 14:00 Benzonatate (Tessalon Perle) 100 mg PRN TID PRN PO COUGH Last administered on 08:58; Start 07/17/16 at 14:00 Morphine Sulfate 2 mg PRN QHS PRN IM PAIN Last administered on 07/21/16 23:49 ; Start 07/17/16 at 13:30 Prednisone (Prednisone) 60 mg 1X ONCE PO Last administered on 07/17/16 14:08 ; Start 07/17/16 at 14:00; Stop 07/17/16 at 14:01; Status DC Albuterol Sulfate (Ventolin Neb Soln) 2.5 mg PRN QID PRN NEB SHORTNESS OF BREATH Last administered on 07/21/16 21:40; Start 07/18/16 at 08:00 Methylprednisolone Sodium Succinate (Solu-Medrol 40mg Vial) 40 mg Q12HR IV Last administered on 07/22/16 09:57; Start 07/18/16 at 09:00 Albuterol/ Ipratropium (Duoneb) 3 ml RTQID NEB Last administered on 07/22/16 12:18; Start 07/18/16 at 08:00 Insulin Aspart (Novolog) 0-12 UNITS QIDACHS SQ Last administered on 07/22/16 13:29; Start 07/18/16 at 11:30 Neomycin/ Polymyxin/ Bacitracin (Triple Antibiotic Ointment) 1 pkt DAILY TP ; Start 07/21/16 at 09:00; Stop 07/21/16 at 09:59; Status DC Active Scripts Active [place] 5-325 Tablet (Acetaminophen/Hydrocodone Bitart) 1 Each Tablet 1 Tab PO PRN Q6HRS PRN Amox Tr-K Clv 875-125 Mg Tab (Amoxicillin/Potassium Clav) 1 Each Tablet 1 Tab PO BID Reported Cefuroxime (Cefuroxime Axetil) 500 Mg Tablet 1 Tab PO BID Alendronate Sodium 70 Mg Tablet 1 Tab PO WEEKLY Theophylline (Theophylline Anhydrous) 400 Mg Tablet.er 300 Mg PO Meloxicam 7.5 Mg Tablet 1 Tab PO DAILY Robaxin (Methocarbamol) 500 Mg Tablet 1 Tab PO BID Gabapentin 400 Mg Capsule 400 Mg PO TID Propafenone Hcl 150 Mg Tablet 150 Mg PO BID Ventolin Hfa Inhaler (Albuterol Sulfate) 18 Gm Hfa.aer.ad 2 Puff INH Q4HRS Warfarin Sodium 3 Mg Tablet 2 Tab PO QFR Warfarin Sodium 3 Mg Tablet 1 Tab PO QHS Digoxin 250 Mcg Tablet 250 Mcg PO DAILY Lisinopril 2.5 Mg Tablet 2.5 Mg PO DAILY Glimepiride 1 Mg Tablet 1 Mg PO DAILY Albuterol Sulfate Hfa Inhaler (Albuterol Sulfate) 8.5 Gm Hfa.aer.ad 2 Puff INH QID Symbicort 160-4.5 Mcg Inhaler (Budesonide/Formoterol Fumarate) 10.2 Gm Hfa.aer.ad 2 Puff IH BID Aspirin Ec (Aspirin) 325 Mg Tablet.dr 1 Tab PO DAILY Temazepam 15 Mg Capsule 1 Cap PO QHS Gabapentin 100 Mg Capsule 300 Mg PO HS Metformin Hcl Er (Metformin Hcl) 500 Mg Tab.er.24h 1 Tab PO BID Theophylline (Theophylline Anhydrous) 400 Mg Tablet.er 300 Mg PO DAILY07 Vitals/I & O Vital Sign - Last 24 Hours 07/21/16 07/21/16 07/21/16 07/21/16 16:28 19:08 19:15 20:45 Temp 98.6 98.6 Pulse 96 Resp 20 B/P 134/66 Pulse Ox 99 95 O2 Delivery Nasal Cannula Nasal Cannula Nasal Cannula Nasal Cannula O2 Flow Rate 2.0 2.0 2.0 2.0 07/21/16 07/21/16 07/21/16 07/21/16 21:33 21:35 21:40 22:40 Pulse 96 Resp 24 21 B/P 134/66 Pulse Ox 99 O2 Delivery Nasal Cannula Nasal Cannula Nasal Cannula O2 Flow Rate 2.0 2.0 2.0 07/21/16 07/21/16 07/22/16 07/22/16 23:35 23:49 00:20 03:45 Temp 97.7 98.0 97.7 98.0 Pulse 86 95 Resp 18 18 B/P 132/73 134/72 Pulse Ox 95 94 O2 Delivery Nasal Cannula Nasal Cannula Nasal Cannula Nasal Cannula O2 Flow Rate 2.0 2.0 2.0 2.0 07/22/16 07/22/16 07/22/16 07/22/16 07:00 07:00 07:33 07:37 Temp 97.9 97.9 Pulse 87 Resp 16 B/P 107/65 Pulse Ox 95 95 95 O2 Delivery Nasal Cannula Nasal Cannula Nasal Cannula O2 Flow Rate 2.0 2.0 2.0 07/22/16 07/22/16 07/22/16 07/22/16 08:00 09:56 09:56 11:22 Temp 97.8 97.8 Pulse 87 87 78 Resp 20 B/P 107/65 107/65 133/75 Pulse Ox 93 O2 Delivery Nasal Cannula Nasal Cannula O2 Flow Rate 2.0 07/22/16 07/22/16 07/22/16 12:18 13:19 14:56 Temp 97.9 97.9 Pulse 78 95 Resp 20 B/P 133/75 110/65 Pulse Ox 96 91 O2 Delivery Nasal Cannula Nasal Cannula O2 Flow Rate 2.0 Intake and Output 07/21/16 07/21/16 07/22/16 15:00 23:00 07:00 Intake Total 725 ml 420 ml Output Total 750 ml 600 ml Balance -25 ml -180 ml RUDY NELSON MD Jul 22, 2016 15:32
[2016-07-22] MEDS: WARFARIN 3 MG TABLET. PO SCH (18:01)
[2016-07-22] MEDS: GABAPENTIN 300 MG CAPSULE. PO SCH (21:43)
[2016-07-22] MEDS: TEMAZEPAM 15 MG CAPSULE PO SCH (21:44)
[2016-07-22] MEDS: HYDROCODONE/APAP 5/325MG TABLET. PO PRN (21:47)
[2016-07-22] MEDS: MORPHINE SULFATE 2 MG/ML DISP.SYRIN. IM PRN (23:21)
[2016-07-23] VITALS (14 sets, daily range): BP systolic 124–153; BP diastolic 64–107
[2016-07-23] MEDS: IPRATRPIUM/ALBUTEROL 0.5/2.5MG 3 ML NEBU. NEB SCH ×5 (07:15→19:44)
[2016-07-23] MEDS: BUDESONIDE 0.5 MG/2 ML NEBU NEB SCH ×2 (07:15→19:44)
[2016-07-23] MEDS: INSULIN ASPART 300 UNITS/3 ML INSULN.PEN SQ SCH ×4 (07:30→20:40)
[2016-07-23] MEDS: GABAPENTIN 400 MG CAPSULE. PO SCH ×3 (08:00→17:00)
[2016-07-23] MEDS: OXYMETAZOLINE 0.05% NASAL SPRAY 30ML BOTTLE. NS SCH ×2 (09:00→20:31)
--- NOTE | 2016-07-23 09:14 | PDOC ---
PROGRESS NOTES Subjective Subjective Dr. To considering bronch today as he is too weak to effectively cough up mucous, PT/OT feel he will need 2 weeks of therapy, heart rate pretty well controlled, remains in Afib Objective Objective Vital Signs Date Time Temp Pulse Resp B/P Pulse Ox O2 Delivery O2 Flow Rate FiO2 07/23/16 08:00 Nasal Cannula 2.0 07/23/16 07:47 97.5 84 21 128/73 96 97.5 Intake and Output 07/23/16 07:00 Intake Total 1540 ml Output Total 925 ml Balance 615 ml Intake Oral 1540 ml Output Urine Total 925 ml # Voids 2 # Bowel Movements 1 Physical Exam Abdomen: Normal bowel sounds, Soft Heart: Other (irreg) Extremities: No clubbing, No cyanosis General: Alert, Oriented X3, Cooperative HEENT: Atraumatic Lungs: Other (weak cough with phlegm present but tenacious) MUSCULOSKELETAL: No joint tenderness Neck: Supple Neuro: Normal speech Psych/Mental Status: Mental status NL Skin: No breakdown Assessment Assessment Problems Medical Problems: (1) Atrial fibrillation with RVR Status: Acute (2) Hypoxia Status: Acute (3) Shortness of breath Status: Acute Plan Plan of Care bronch today, possibly to SNU later today or tomorrow, continue present meds while here, transition to prednisone taper and po antibiotics when he transfers Comment Review of Relevant I have reviewed the following items kaila (where applicable) has been applied. Labs Laboratory Tests Test 07/21/16 11:59 07/21/16 17:53 07/21/16 21:02 07/22/16 07:56 Glucose (Fingerstick) 135mg/dL (70-99) 231mg/dL (70-99) 214mg/dL (70-99) 187mg/dL (70-99) Test 07/22/16 10:50 07/22/16 11:59 07/22/16 16:50 07/22/16 21:16 Prothrombin Time 23.9SEC (11.7-14.0) Prothromb Time International Ratio 2.3 (0.8-1.1) Glucose (Fingerstick) 160mg/dL (70-99) 180mg/dL (70-99) 160mg/dL (70-99) Laboratory Tests Test 07/22/16 10:50 07/22/16 11:59 07/22/16 16:50 07/22/16 21:16 Prothrombin Time 23.9SEC (11.7-14.0) Prothromb Time International Ratio 2.3 (0.8-1.1) Glucose (Fingerstick) 160mg/dL (70-99) 180mg/dL (70-99) 160mg/dL (70-99) Microbiology 07/16/16 Blood Culture - Final, Complete NO GROWTH AFTER 5 DAYS Medications Current Medications Aspirin 324 mg 324 mg 1X ONCE PO ; Start 07/16/16 at 10:15; Stop 07/16/16 at 10 :37; Status DC Sodium Chloride (Iv Sodium Chloride 0.9% 500ml Bag) 500 ml @ 500 mls/hr 1X ONCE IV Last administered on 07/16/16 10:46; Start 07/16/16 at 10:45; Stop at 11:44; Status DC Diltiazem HCl (Cardizem) 10 mg 1X ONCE IVP Last administered on 07/16/16 10: 46; Start 07/16/16 at 10:45; Stop 07/16/16 at 10:46; Status DC Ondansetron HCl (Zofran) 4 mg PRN Q8HRS PRN IV NAUSEA/VOMITING; Start 07/16/16 at 11:30; Stop 07/17/16 at 11:29; Status DC Morphine Sulfate 2 mg PRN Q2HR PRN IV PAIN Last administered on 07/17/16 01:45 ; Start 07/16/16 at 11:30; Stop 07/17/16 at 11:29; Status DC Albuterol/ Ipratropium 3 ml 3 ml RTQID NEB Last administered on 07/16/16 16:00 ; Start 07/16/16 at 12:00; Stop 07/16/16 at 16:40; Status DC Ceftriaxone Sodium 50 ml @ 100 mls/hr 1X ONCE IV Last administered on 11:44; Start 07/16/16 at 11:30; Stop 07/16/16 at 11:59; Status DC Azithromycin (Zithromax 500mg Ivpb For Omni) 250 ml @ 250 mls/hr 1X ONCE IV ; Start 07/16/16 at 11:30; Stop 07/16/16 at 12:29; Status DC Oxymetazoline HCl (Afrin) 2 spray BID NS Last administered on 07/22/16 22:11; Start 07/16/16 at 14:00 Aspirin (Ecotrin) 325 mg DAILY PO Last administered on 07/22/16 09:56; Start 07/17/16 at 09:00 Digoxin (Lanoxin) 250 mcg DAILY PO Last administered on 07/22/16 09:56; Start 07/16/16 at 17:00 Gabapentin (Neurontin) 300 mg HS PO Last administered on 07/22/16 21:43; Start 07/16/16 at 21:00 Gabapentin (Neurontin) 400 mg TIDWMEALS PO Last administered on 07/22/16 18:01 ; Start 07/16/16 at 17:00 Acetaminophen/ Hydrocodone Bitart (Lortab 5/325) 1 tab PRN Q6HRS PRN PO PAIN Last administered on 07/22/16 21:47; Start 07/16/16 at 16:30 Lisinopril (Prinivil) 2.5 mg DAILY PO Last administered on 07/22/16 09:56; Start 07/16/16 at 17:00 Meloxicam (Mobic) 7.5 mg DAILY PO Last administered on 07/22/16 09:55; Start 07/16/16 at 17:30 Metformin HCl (Glucophage Xr) 500 mg BID PO Last administered on 07/22/16 21: 46; Start 07/16/16 at 21:00 Methocarbamol (Robaxin) 500 mg BID PO Last administered on 07/22/16 21:43; Start 07/16/16 at 21:00 Propafenone HCl (Rythmol) 150 mg BID PO Last administered on 07/22/16 21:46; Start 07/16/16 at 21:00 Temazepam (Restoril) 15 mg QHS PO Last administered on 07/22/16 21:44; Start 07/16/16 at 21:00 Warfarin Sodium (Coumadin) 3 mg SuMoTuWeThSa PO Last administered on 07/22/16 18:01; Start 07/17/16 at 16:00 Warfarin Sodium (Coumadin) 6 mg QFR PO Last administered on 07/16/16 17:41; Start 07/16/16 at 17:00 Non-Formulary Medication 2 puff BID IH ; Start 07/16/16 at 21:00; Status UNV Glimepiride (Amaryl) 1 mg DAILY PO Last administered on 07/22/16 09:55; Start 07/17/16 at 09:00 Theophylline (Theodur) 300 mg DAILY07 PO Last administered on 07/22/16 06:41; Start 07/17/16 at 07:00 Warfarin Sodium (Coumadin Per Physician) 1 each PRN DAILY PRN MC SEE COMMENTS Last administered on 07/22/16 11:20; Start 07/16/16 at 16:45 Budesonide (Pulmicort) 0.5 mg RTBID NEB Last administered on 07/23/16 07:15; Start 07/16/16 at 20:00 Albuterol Sulfate (Ventolin Neb Soln) 2.5 mg RTQID NEB Last administered on 07:48; Start 07/16/16 at 20:00; Stop 07/18/16 at 07:59; Status DC Propafenone HCl (Rythmol) 150 mg BID PO ; Start 07/16/16 at 21:00; Stop at 21:00; Status DC Enoxaparin Sodium 40 mg 40 mg Q24H SQ ; Start 07/16/16 at 18:30; Status UNV Ceftriaxone Sodium/Sodium Chloride (Rocephin/Iv Sodium Chloride 0.9% 50ml) 50 ml @ 100 mls/hr Q24H IV Last administered on 07/22/16 13:19; Start 07/17/16 at 12:00 Guaifenesin (Mucinex) 1,200 mg BID PO Last administered on 07/22/16 21:43; Start 07/17/16 at 14:00 Benzonatate (Tessalon Perle) 100 mg PRN TID PRN PO COUGH Last administered on 08:58; Start 07/17/16 at 14:00 Morphine Sulfate 2 mg PRN QHS PRN IM PAIN Last administered on 07/22/16 23:21 ; Start 07/17/16 at 13:30 Prednisone (Prednisone) 60 mg 1X ONCE PO Last administered on 07/17/16 14:08 ; Start 07/17/16 at 14:00; Stop 07/17/16 at 14:01; Status DC Albuterol Sulfate (Ventolin Neb Soln) 2.5 mg PRN QID PRN NEB SHORTNESS OF BREATH Last administered on 07/21/16 21:40; Start 07/18/16 at 08:00 Methylprednisolone Sodium Succinate (Solu-Medrol 40mg Vial) 40 mg Q12HR IV Last administered on 07/22/16 22:01; Start 07/18/16 at 09:00 Albuterol/ Ipratropium (Duoneb) 3 ml RTQID NEB Last administered on 07/23/16 07:15; Start 07/18/16 at 08:00 Insulin Aspart (Novolog) 0-12 UNITS QIDACHS SQ Last administered on 07/22/16 22:08; Start 07/18/16 at 11:30 Neomycin/ Polymyxin/ Bacitracin (Triple Antibiotic Ointment) 1 pkt DAILY TP ; Start 07/21/16 at 09:00; Stop 07/21/16 at 09:59; Status DC Active Scripts Active [place] 5-325 Tablet (Acetaminophen/Hydrocodone Bitart) 1 Each Tablet 1 Tab PO PRN Q6HRS PRN Amox Tr-K Clv 875-125 Mg Tab (Amoxicillin/Potassium Clav) 1 Each Tablet 1 Tab PO BID Reported Cefuroxime (Cefuroxime Axetil) 500 Mg Tablet 1 Tab PO BID Alendronate Sodium 70 Mg Tablet 1 Tab PO WEEKLY Theophylline (Theophylline Anhydrous) 400 Mg Tablet.er 300 Mg PO Meloxicam 7.5 Mg Tablet 1 Tab PO DAILY Robaxin (Methocarbamol) 500 Mg Tablet 1 Tab PO BID Gabapentin 400 Mg Capsule 400 Mg PO TID Propafenone Hcl 150 Mg Tablet 150 Mg PO BID Ventolin Hfa Inhaler (Albuterol Sulfate) 18 Gm Hfa.aer.ad 2 Puff INH Q4HRS Warfarin Sodium 3 Mg Tablet 2 Tab PO QFR Warfarin Sodium 3 Mg Tablet 1 Tab PO QHS Digoxin 250 Mcg Tablet 250 Mcg PO DAILY Lisinopril 2.5 Mg Tablet 2.5 Mg PO DAILY Glimepiride 1 Mg Tablet 1 Mg PO DAILY Albuterol Sulfate Hfa Inhaler (Albuterol Sulfate) 8.5 Gm Hfa.aer.ad 2 Puff INH QID Symbicort 160-4.5 Mcg Inhaler (Budesonide/Formoterol Fumarate) 10.2 Gm Hfa.aer.ad 2 Puff IH BID Aspirin Ec (Aspirin) 325 Mg Tablet.dr 1 Tab PO DAILY Temazepam 15 Mg Capsule 1 Cap PO QHS Gabapentin 100 Mg Capsule 300 Mg PO HS Metformin Hcl Er (Metformin Hcl) 500 Mg Tab.er.24h 1 Tab PO BID Theophylline (Theophylline Anhydrous) 400 Mg Tablet.er 300 Mg PO DAILY07 Vitals/I & O Vital Sign - Last 24 Hours 07/22/16 07/22/16 07/22/16 07/22/16 09:56 09:56 11:22 12:18 Temp 97.8 97.8 Pulse 87 87 78 Resp 20 B/P 107/65 107/65 133/75 Pulse Ox 93 96 O2 Delivery Nasal Cannula Nasal Cannula O2 Flow Rate 2.0 07/22/16 07/22/16 07/22/16 07/22/16 13:19 14:56 15:42 19:40 Temp 97.9 97.9 97.9 97.9 Pulse 78 95 99 Resp 20 20 B/P 133/75 110/65 124/67 Pulse Ox 91 95 95 O2 Delivery Nasal Cannula Nasal Cannula Nasal Cannula O2 Flow Rate 2.0 2.0 07/22/16 07/22/16 07/22/16 07/22/16 20:36 20:58 21:45 21:46 Pulse 104 104 Resp 24 B/P 118/71 118/71 Pulse Ox 92 O2 Delivery Nasal Cannula Nasal Cannula Room Air O2 Flow Rate 2.0 2.0 07/22/16 07/22/16 07/22/16 07/22/16 21:47 22:50 23:18 23:21 Temp 98.0 98.0 Pulse 100 Resp 24 20 24 24 B/P 119/75 Pulse Ox 90 90 O2 Delivery Room Air Room Air Room Air Room Air 07/22/16 07/23/16 07/23/16 07/23/16 23:59 03:00 07:15 07:47 Temp 98.2 97.5 98.2 97.5 Pulse 96 84 Resp 19 21 B/P 129/75 128/73 Pulse Ox 96 95 96 O2 Delivery Room Air Nasal Cannula Nasal Cannula Nasal Cannula O2 Flow Rate 2.0 2.0 2.0 07/23/16 08:00 O2 Delivery Nasal Cannula O2 Flow Rate 2.0 Intake and Output 07/22/16 07/22/16 07/23/16 15:00 23:00 07:00 Intake Total 900 ml 640 ml Output Total 300 ml 425 ml 200 ml Balance -300 ml 475 ml 440 ml Edward ALLEN MD Jul 23, 2016 09:14
[2016-07-23] MEDS: methylPREDNISolone SOD SUCC PF 40 MG/ML VIAL. IV SCH ×2 (09:20→20:31)
--- NOTE | 2016-07-23 11:02 | PDOC ---
PULMONARY PROGRESS NOTES Subjective still cannot cannot cough up phlegm Vitals Vital Signs Date Time Temp Pulse Resp B/P Pulse Ox O2 Delivery O2 Flow Rate FiO2 07/23/16 10:36 97.6 91 18 133/71 95 Nasal Cannula 2.0 97.6 General: Alert, Oriented X4, No acute distress Lungs: Other (few rhonchi) Cardiovascular: S1 Abdomen: Soft Neuro Exam: Alert Extremities: No Edema Skin: Warm Labs Laboratory Tests Test 07/21/16 11:59 07/21/16 17:53 07/21/16 21:02 07/22/16 07:56 Glucose (Fingerstick) 135mg/dL (70-99) 231mg/dL (70-99) 214mg/dL (70-99) 187mg/dL (70-99) Test 07/22/16 10:50 07/22/16 11:59 07/22/16 16:50 07/22/16 21:16 Prothrombin Time 23.9SEC (11.7-14.0) Prothromb Time International Ratio 2.3 (0.8-1.1) Glucose (Fingerstick) 160mg/dL (70-99) 180mg/dL (70-99) 160mg/dL (70-99) Laboratory Tests Test 07/22/16 11:59 07/22/16 16:50 07/22/16 21:16 Glucose (Fingerstick) 160mg/dL (70-99) 180mg/dL (70-99) 160mg/dL (70-99) Medications Active Scripts Medications Dose Route/Sig Days Date Category Cefuroxime (Cefuroxime Axetil) 500 Mg Tablet 1 Tab PO BID 07/16/16 Reported Alendronate Sodium 70 Mg Tablet 1 Tab PO WEEKLY 07/16/16 Reported Theophylline (Theophylline Anhydrous) 400 Mg Tablet.er 300 Mg PO 07/16/16 Reported Meloxicam 7.5 Mg Tablet 1 Tab PO DAILY 07/16/16 Reported Robaxin (Methocarbamol) 500 Mg Tablet 1 Tab PO BID 07/16/16 Reported Gabapentin 400 Mg Capsule 400 Mg PO TID 07/16/16 Reported Propafenone Hcl 150 Mg Tablet 150 Mg PO BID 07/16/16 Reported Ventolin Hfa Inhaler (Albuterol Sulfate) 18 Gm Hfa.aer.ad 2 Puff INH Q4HRS 07/16/16 Reported [place] 5-325 Tablet (Acetaminophen/Hydrocodone Bitart) 1 Each Tablet 1 Tab PO PRN Q6HRS PRN 09/04/15 Rx Warfarin Sodium 3 Mg Tablet 2 Tab PO QFR 08/31/15 Reported Warfarin Sodium 3 Mg Tablet 1 Tab PO QHS 08/31/15 Reported Amox Tr-K Clv 875-125 Mg Tab (Amoxicillin/Potassium Clav) 1 Each Tablet 1 Tab PO BID 04/03/15 Rx Digoxin 250 Mcg Tablet 250 Mcg PO DAILY 04/01/15 Reported Lisinopril 2.5 Mg Tablet 2.5 Mg PO DAILY 04/01/15 Reported Glimepiride 1 Mg Tablet 1 Mg PO DAILY 02/14/15 Reported Albuterol Sulfate Hfa Inhaler (Albuterol Sulfate) 8.5 Gm Hfa.aer.ad 2 Puff INH QID 02/14/15 Reported Symbicort 160-4.5 Mcg Inhaler (Budesonide/Formoterol Fumarate) 10.2 Gm Hfa.aer.ad 2 Puff IH BID 02/14/15 Reported Aspirin Ec (Aspirin) 325 Mg Tablet.dr 1 Tab PO DAILY 03/05/14 Reported Temazepam 15 Mg Capsule 1 Cap PO QHS 03/05/14 Reported Gabapentin 100 Mg Capsule 300 Mg PO HS 03/05/14 Reported Metformin Hcl Er (Metformin Hcl) 500 Mg Tab.er.24h 1 Tab PO BID 03/05/14 Reported Theophylline (Theophylline Anhydrous) 400 Mg Tablet.er 300 Mg PO DAILY07 03/05/14 Reported Impression . 1. Acute hypoxemic respiratory failure: Multifactorial in etiology, including acute exacerbation of chronic obstructive pulmonary disease, acute viral bronchitis, atrial fibrillation with rapid ventricular response, slow to improve 2. Acute exacerbation of chronic obstructive pulmonary disease. 3. Acute viral bronchitis. 4. Atrial fibrillation with rapid ventricular response. controlled 5. Hypertension. 6. Diabetes mellitus. 7. Ex-smoker. 8. History of prostate cancer. Plan . 1. Clinically not better. ct chest with no obvious pneumonia 2. Bronchodilator: albuterol and Atrovent q.i.d. and albuterol p.r.n. 3. Continue Pulmicort. 4. Solu-Medrol 40 mg IV every 12 h. 5. Continue Rocephin. 7. Coumadin per PCP. 8. Protonix for stress ulcer prophylaxis. 9. slow to improve. D/W . Agree to proceed with Bronch to r/o any central mucous plug. R/B explained addend: Bronch done diffuse mucopurulent secretions in trachea/ both lungs therapeutic Bronch done hold discharge add zosyn/vanc till cultures r/o PSA/MRSA d/c JW Agosto MD Jul 23, 2016 11:02
[2016-07-23] MEDS ORDERED: PROPOFOL 20 ML IV ONE (12:30)
[2016-07-23] MEDS ORDERED: LIDOCAINE 2% PF Vial for OR 5 ML VIAL. ONE (12:30)
[2016-07-23] MEDS ORDERED: IV RINGERS,LACTATED 1000ML 1,000 ML IV ONE (12:30)
[2016-07-23] MEDS ORDERED: IV RINGERS,LACTATED 1000ML 1,000 ML IV SCH (12:42)
[2016-07-23] MEDS ORDERED: HYDROMORPHONE 2 MG/ML VIAL. IV PRN (12:45)
[2016-07-23] MEDS ORDERED: MORPHINE SULFATE 2 MG/ML DISP.SYRIN. IV PRN (12:45)
[2016-07-23] MEDS ORDERED: LIDOCAINE 1% 1 ML SYRINGE. ID PRN (12:45)
[2016-07-23] MEDS ORDERED: PROCHLORPERAZINE 10 MG/2 ML VIAL. IV PRN (12:45)
[2016-07-23] MEDS ORDERED: ONDANSETRON PF 4 MG/2 ML VIAL. IV PRN (12:45)
[2016-07-23] MEDS ORDERED: FENTANYL PF 100 MCG/2 ML VIAL. IV PRN ×2 (12:45)
--- NOTE | 2016-07-23 13:07 | PDOC4 ---
PROCEDURE Procedure Bronch dictated diffuse mucopurulent secretions in trachea/ both lungs therapeutic Bronch done hold discharge add zosyn/van till cultures back. d/c JW Agosto MD Jul 23, 2016 13:07
[2016-07-23] MEDS: VANCOMYCIN PER PHARMACY MC PRN (13:17)
--- NOTE | 2016-07-23 13:17 | OP ---
DATE OF SURGERY: BRONCHOSCOPY NOTE INDICATIONS: Persistent cough, rule out central mucus plug. Informed consent was obtained from the patient. All risks and benefits were explained. He agreed to proceed with the procedure. Sedation was performed by Anesthesia via propofol. Bronch was introduced through the left nostril. The upper area was passed. Vocal cords moves equally with respiration. The trachea was entered. There were significant amount of thick white to light yellow secretions seen in the trachea. The secretions were present throughout the mainstem bronchus. The right lung was first examined. There were thick light yellow to green white secretions seen in the right mainstem and going to the right lower lobe. Saline irrigation done and all secretions were removed. Bronchoalveolar lavage performed from the right lower lobe. Bronch was introduced into the left lung. There was again copious amount of secretions seen in the left mainstem bronchus. Bronchial wash was performed and secretions were removed. Further inspection of the left lung revealed secretions persistent in the lingula and left lower lobe. Again saline irrigation done, all secretions were removed. Bronchoalveolar lavage performed from the left lower lobe. The patient tolerated the procedure well. Mild tachycardia during the procedure noted, but it resolved post-bronchoscopy. IMPRESSION: 1. Diffuse mucus plugging seen in the distal trachea, both mainstem bronchus and also in the lower lobes. 2. Saline irrigation done and therapeutic bronchoscope performed and all secretions were removed. 3. No definite endobronchial lesion seen. 4. Bronchoalveolar lavage performed from the right lower lobe and left lower lobe and bronchial wash was performed from the left mainstem, follow the culture results. JW CERVANTES MD DR: RUPINDER/collins JOB#: [id number] / [id number] TYLER
[2016-07-23] MEDS: METHOCARBAMOL 500 MG TABLET PO SCH ×2 (14:41→20:27)
[2016-07-23] MEDS: LISINOPRIL 2.5 MG TABLET PO SCH (14:42)
[2016-07-23] MEDS: PROPAFENONE 150 MG TABLET. PO SCH ×2 (14:42→20:29)
[2016-07-23] MEDS: THEOPHYLLINE 12HR ER 300 MG TAB.ER.12H. PO SCH (14:42)
[2016-07-23] MEDS: DIGOXIN 250 MCG TABLET PO SCH (14:43)
[2016-07-23] MEDS: GLIMEPIRIDE 2 MG TABLET PO SCH (14:43)
[2016-07-23] MEDS: METFORMIN XR 500 MG TAB.ER.24H PO SCH ×2 (14:43→20:30)
[2016-07-23] MEDS: MELOXICAM 7.5 MG TABLET PO SCH (14:43)
[2016-07-23] MEDS: ASPIRIN ENTERIC COATED 325 MG TABLET.DR. PO SCH (14:43)
[2016-07-23] MEDS: GUAIFENESIN ER 600 MG TABLET.ER PO SCH ×2 (14:44→20:30)
[2016-07-23] MEDS: PIPERACILLIN/TAZOBACTAM 3.375 GM in IV NORMAL SALINE 50ML 50 ML IV SCH ×3 (14:44→23:17)
[2016-07-23] MEDS ORDERED: VANCOMYCIN 2 GM in IV NORMAL SALINE 500ML BAG 500 ML IV ONE (15:00)
--- NOTE | 2016-07-23 15:27 | PDOC ---
PROGRESS NOTES Subjective Subjective No cardiac complaints Objective Objective Vital Signs Date Time Temp Pulse Resp B/P Pulse Ox O2 Delivery O2 Flow Rate FiO2 07/23/16 14:43 114 135/64 07/23/16 13:24 20 92 07/23/16 13:13 Nasal Cannula 3.0 07/23/16 12:29 98.8 98.8 Intake and Output 07/23/16 07:00 Intake Total 1540 ml Output Total 925 ml Balance 615 ml Intake Oral 1540 ml Output Urine Total 925 ml # Voids 2 # Bowel Movements 1 Physical Exam Physical Exam Moving air better No changes in cardiac exam Assessment Assessment Pt tolerated the Bronch well Problems Medical Problems: (1) Atrial fibrillation with RVR Status: Acute (2) Hypoxia Status: Acute (3) Shortness of breath Status: Acute Plan Plan of Care Agree with present plan Comment Review of Relevant I have reviewed the following items kaila (where applicable) has been applied. Labs Laboratory Tests Test 07/21/16 17:53 07/21/16 21:02 07/22/16 07:56 07/22/16 10:50 Glucose (Fingerstick) 231mg/dL (70-99) 214mg/dL (70-99) 187mg/dL (70-99) Prothrombin Time 23.9SEC (11.7-14.0) Prothromb Time International Ratio 2.3 (0.8-1.1) Test 07/22/16 11:59 07/22/16 16:50 07/22/16 21:16 07/23/16 07:51 Glucose (Fingerstick) 160mg/dL (70-99) 180mg/dL (70-99) 160mg/dL (70-99) 172mg/dL (70-99) Laboratory Tests Test 07/22/16 16:50 07/22/16 21:16 07/23/16 07:51 Glucose (Fingerstick) 180mg/dL (70-99) 160mg/dL (70-99) 172mg/dL (70-99) Microbiology 07/16/16 Blood Culture - Final, Complete NO GROWTH AFTER 5 DAYS Medications Current Medications Aspirin 324 mg 324 mg 1X ONCE PO ; Start 07/16/16 at 10:15; Stop 07/16/16 at 10 :37; Status DC Sodium Chloride (Iv Sodium Chloride 0.9% 500ml Bag) 500 ml @ 500 mls/hr 1X ONCE IV Last administered on 07/16/16 10:46; Start 07/16/16 at 10:45; Stop at 11:44; Status DC Diltiazem HCl (Cardizem) 10 mg 1X ONCE IVP Last administered on 07/16/16 10: 46; Start 07/16/16 at 10:45; Stop 07/16/16 at 10:46; Status DC Ondansetron HCl (Zofran) 4 mg PRN Q8HRS PRN IV NAUSEA/VOMITING; Start 07/16/16 at 11:30; Stop 07/17/16 at 11:29; Status DC Morphine Sulfate 2 mg PRN Q2HR PRN IV PAIN Last administered on 07/17/16 01:45 ; Start 07/16/16 at 11:30; Stop 07/17/16 at 11:29; Status DC Albuterol/ Ipratropium 3 ml 3 ml RTQID NEB Last administered on 07/16/16 16:00 ; Start 07/16/16 at 12:00; Stop 07/16/16 at 16:40; Status DC Ceftriaxone Sodium 50 ml @ 100 mls/hr 1X ONCE IV Last administered on 11:44; Start 07/16/16 at 11:30; Stop 07/16/16 at 11:59; Status DC Azithromycin (Zithromax 500mg Ivpb For Omni) 250 ml @ 250 mls/hr 1X ONCE IV ; Start 07/16/16 at 11:30; Stop 07/16/16 at 12:29; Status DC Oxymetazoline HCl (Afrin) 2 spray BID NS Last administered on 07/22/16 22:11; Start 07/16/16 at 14:00 Aspirin (Ecotrin) 325 mg DAILY PO Last administered on 07/23/16 14:43; Start 07/17/16 at 09:00 Digoxin (Lanoxin) 250 mcg DAILY PO Last administered on 07/23/16 14:43; Start 07/16/16 at 17:00 Gabapentin (Neurontin) 300 mg HS PO Last administered on 07/22/16 21:43; Start 07/16/16 at 21:00 Gabapentin (Neurontin) 400 mg TIDWMEALS PO Last administered on 07/23/16 14:41 ; Start 07/16/16 at 17:00 Acetaminophen/ Hydrocodone Bitart (Lortab 5/325) 1 tab PRN Q6HRS PRN PO PAIN Last administered on 07/22/16 21:47; Start 07/16/16 at 16:30 Lisinopril (Prinivil) 2.5 mg DAILY PO Last administered on 07/23/16 14:42; Start 07/16/16 at 17:00 Meloxicam (Mobic) 7.5 mg DAILY PO Last administered on 07/23/16 14:43; Start 07/16/16 at 17:30 Metformin HCl (Glucophage Xr) 500 mg BID PO Last administered on 07/23/16 14: 43; Start 07/16/16 at 21:00 Methocarbamol (Robaxin) 500 mg BID PO Last administered on 07/23/16 14:41; Start 07/16/16 at 21:00 Propafenone HCl (Rythmol) 150 mg BID PO Last administered on 07/23/16 14:42; Start 07/16/16 at 21:00 Temazepam (Restoril) 15 mg QHS PO Last administered on 07/22/16 21:44; Start 07/16/16 at 21:00 Warfarin Sodium (Coumadin) 3 mg [id number] PO Last administered on 07/22/16 18:01; Start 07/17/16 at 16:00 Warfarin Sodium (Coumadin) 6 mg QFR PO Last administered on 07/16/16 17:41; Start 07/16/16 at 17:00 Non-Formulary Medication 2 puff BID IH ; Start 07/16/16 at 21:00; Status UNV Glimepiride (Amaryl) 1 mg DAILY PO Last administered on 07/23/16 14:43; Start 07/17/16 at 09:00 Theophylline (Theodur) 300 mg DAILY07 PO Last administered on 07/23/16 14:42; Start 07/17/16 at 07:00 Warfarin Sodium (Coumadin Per Physician) 1 each PRN DAILY PRN MC SEE COMMENTS Last administered on 07/23/16 10:40; Start 07/16/16 at 16:45 Budesonide (Pulmicort) 0.5 mg RTBID NEB Last administered on 07/23/16 07:15; Start 07/16/16 at 20:00 Albuterol Sulfate (Ventolin Neb Soln) 2.5 mg RTQID NEB Last administered on 07:48; Start 07/16/16 at 20:00; Stop 07/18/16 at 07:59; Status DC Propafenone HCl (Rythmol) 150 mg BID PO ; Start 07/16/16 at 21:00; Stop at 21:00; Status DC Enoxaparin Sodium 40 mg 40 mg Q24H SQ ; Start 07/16/16 at 18:30; Status UNV Ceftriaxone Sodium/Sodium Chloride (Rocephin/Iv Sodium Chloride 0.9% 50ml) 50 ml @ 100 mls/hr Q24H IV Last administered on 07/22/16 13:19; Start 07/17/16 at 12:00; Stop 07/23/16 at 13:05; Status DC Guaifenesin (Mucinex) 1,200 mg BID PO Last administered on 07/23/16 14:44; Start 07/17/16 at 14:00 Benzonatate (Tessalon Perle) 100 mg PRN TID PRN PO COUGH Last administered on 08:58; Start 07/17/16 at 14:00 Morphine Sulfate 2 mg PRN QHS PRN IM PAIN Last administered on 07/22/16 23:21 ; Start 07/17/16 at 13:30 Prednisone (Prednisone) 60 mg 1X ONCE PO Last administered on 07/17/16 14:08 ; Start 07/17/16 at 14:00; Stop 07/17/16 at 14:01; Status DC Albuterol Sulfate (Ventolin Neb Soln) 2.5 mg PRN QID PRN NEB SHORTNESS OF BREATH Last administered on 07/21/16 21:40; Start 07/18/16 at 08:00 Methylprednisolone Sodium Succinate (Solu-Medrol 40mg Vial) 40 mg Q12HR IV Last administered on 07/23/16 09:20; Start 07/18/16 at 09:00 Albuterol/ Ipratropium (Duoneb) 3 ml RTQID NEB Last administered on 07/23/16 12:14; Start 07/18/16 at 08:00 Insulin Aspart (Novolog) 0-12 UNITS QIDACHS SQ Last administered on 07/22/16 22:08; Start 07/18/16 at 11:30 Neomycin/ Polymyxin/ Bacitracin 1 pkt 1 pkt DAILY TP ; Start 07/21/16 at 09:00; Stop 07/21/16 at 09:59; Status DC Lactated Ringer's 1,000 ml @ 75 mls/hr 1X ONCE IV Last administered on 12:22; Start 07/23/16 at 12:30; Stop 07/24/16 at 01:49 Propofol (Diprivan) 20 ml @ As Directed STK-MED ONCE IV ; Start 07/23/16 at 12: 30; Stop 07/23/16 at 12:31; Status DC Lidocaine HCl (Lidocaine Pf 2% Vial) 5 ml STK-MED ONCE .ROUTE ; Start 07/23/16 at 12:30; Stop 07/23/16 at 12:31; Status DC Ondansetron HCl (Zofran) 4 mg PRN Q6HRS PRN IV Nausea; Start 07/23/16 at 12:45 ; Stop 07/23/16 at 18:00 Fentanyl Citrate (Fentanyl 2ml Vial) 25 mcg PRN Q5MIN PRN IV MILD PAIN; Start 07/23/16 at 12:45; Stop 07/23/16 at 18:00 Fentanyl Citrate (Fentanyl 2ml Vial) 50 mcg PRN Q5MIN PRN IV MODERATE PAIN; Start 07/23/16 at 12:45; Stop 07/23/16 at 18:00 Morphine Sulfate 1 mg 1 mg PRN Q10MIN PRN IV SEVERE PAIN; Start 07/23/16 at 12: 45; Stop 07/23/16 at 18:00 Lactated Ringer's (Iv Lactated Ringers) 1,000 ml @ 30 mls/hr Q24H IV Last administered on 07/23/16 12:42; Start 07/23/16 at 12:42; Stop 07/24/16 at 00:41 Lidocaine HCl 2 ml 1X PRN PRN ID IV START; Start 07/23/16 at 12:45; Stop at 18:00 Hydromorphone HCl (Dilaudid) 0.5 mg PRN Q10MIN PRN IV SEV PAIN,Second choice; Start 07/23/16 at 12:45; Stop 07/23/16 at 18:00 Prochlorperazine Edisylate (Compazine) 5 mg PACU PRN PRN IV NAUSEA; Start 07/23 at 12:45; Stop 07/23/16 at 18:00 Vancomycin HCl 1 each 1 each PRN DAILY PRN MC SEE COMMENTS Last administered on 07/23/16 13:17; Start 07/23/16 at 13:15 Piperacillin Sod/ Tazobactam Sod 3.375 gm/Sodium Chloride 50 ml @ 100 mls/hr Q6HRS IV Last administered on 07/23/16 14:44; Start 07/23/16 at 13:30 Vancomycin HCl 2 gm/Sodium Chloride 500 ml @ 250 mls/hr 1X ONCE IV ; Start at 15:00; Stop 07/23/16 at 16:59 Vancomycin HCl/ Sodium Chloride (Iv Sodium Chloride 0.9% 250ml) 250 ml @ 167 mls/hr Q12H IV ; Start 07/24/16 at 03:00 Vancomycin HCl 1 each 1X ONCE MC ; Start 07/25/16 at 02:30; Stop 07/25/16 at 02 :31 Active Scripts Active [employer] 5-325 Tablet (Acetaminophen/Hydrocodone Bitart) 1 Each Tablet 1 Tab PO PRN Q6HRS PRN Amox Tr-K Clv 875-125 Mg Tab (Amoxicillin/Potassium Clav) 1 Each Tablet 1 Tab PO BID Reported Cefuroxime (Cefuroxime Axetil) 500 Mg Tablet 1 Tab PO BID Alendronate Sodium 70 Mg Tablet 1 Tab PO WEEKLY Theophylline (Theophylline Anhydrous) 400 Mg Tablet.er 300 Mg PO Meloxicam 7.5 Mg Tablet 1 Tab PO DAILY Robaxin (Methocarbamol) 500 Mg Tablet 1 Tab PO BID Gabapentin 400 Mg Capsule 400 Mg PO TID Propafenone Hcl 150 Mg Tablet 150 Mg PO BID Ventolin Hfa Inhaler (Albuterol Sulfate) 18 Gm Hfa.aer.ad 2 Puff INH Q4HRS Warfarin Sodium 3 Mg Tablet 2 Tab PO QFR Warfarin Sodium 3 Mg Tablet 1 Tab PO QHS Digoxin 250 Mcg Tablet 250 Mcg PO DAILY Lisinopril 2.5 Mg Tablet 2.5 Mg PO DAILY Glimepiride 1 Mg Tablet 1 Mg PO DAILY Albuterol Sulfate Hfa Inhaler (Albuterol Sulfate) 8.5 Gm Hfa.aer.ad 2 Puff INH QID Symbicort 160-4.5 Mcg Inhaler (Budesonide/Formoterol Fumarate) 10.2 Gm Hfa.aer.ad 2 Puff IH BID Aspirin Ec (Aspirin) 325 Mg Tablet.dr 1 Tab PO DAILY Temazepam 15 Mg Capsule 1 Cap PO QHS Gabapentin 100 Mg Capsule 300 Mg PO HS Metformin Hcl Er (Metformin Hcl) 500 Mg Tab.er.24h 1 Tab PO BID Theophylline (Theophylline Anhydrous) 400 Mg Tablet.er 300 Mg PO DAILY07 Vitals/I & O Vital Sign - Last 24 Hours 07/22/16 07/22/16 07/22/16 07/22/16 15:42 19:40 20:36 20:58 Temp 97.9 97.9 Pulse 99 Resp 20 B/P 124/67 Pulse Ox 95 95 92 O2 Delivery Nasal Cannula Nasal Cannula Nasal Cannula Nasal Cannula O2 Flow Rate 2.0 2.0 2.0 2.0 07/22/16 07/22/16 07/22/16 07/22/16 21:45 21:46 21:47 22:50 Pulse 104 104 Resp 24 24 20 B/P 118/71 118/71 O2 Delivery Room Air Room Air Room Air 07/22/16 07/22/16 07/22/16 07/23/16 23:18 23:21 23:59 03:00 Temp 98.0 98.2 98.0 98.2 Pulse 100 96 Resp 24 24 19 20 B/P 119/75 129/75 Pulse Ox 90 90 96 O2 Delivery Room Air Room Air Room Air Nasal Cannula O2 Flow Rate 2.0 07/23/16 07/23/16 07/23/16 07/23/16 07:15 07:47 08:00 10:36 Temp 97.5 97.6 97.5 97.6 Pulse 84 91 Resp 18 B/P 128/73 133/71 Pulse Ox 95 96 95 O2 Delivery Nasal Cannula Nasal Cannula Nasal Cannula Nasal Cannula O2 Flow Rate 2.0 2.0 2.0 2.0 07/23/16 07/23/16 07/23/16 07/23/16 11:42 12:25 12:29 12:57 Temp 98.8 98.8 Pulse 87 106 Resp 24 20 B/P 141/84 Pulse Ox 99 94 O2 Delivery Nasal Cannula Nasal Cannula Simple Mask O2 Flow Rate 2.0 2.0 8 07/23/16 07/23/16 07/23/16 07/23/16 13:13 13:24 14:42 14:42 Pulse 94 107 114 114 Resp 18 20 B/P 119/67 119/75 135/64 135/64 Pulse Ox 92 92 O2 Delivery Nasal Cannula O2 Flow Rate 3.0 07/23/16 14:43 Pulse 114 B/P 135/64 Intake and Output 07/22/16 07/22/16 07/23/16 15:00 23:00 07:00 Intake Total 900 ml 640 ml Output Total 300 ml 425 ml 200 ml Balance -300 ml 475 ml 440 ml RUDY NELSON MD Jul 23, 2016 15:27
[2016-07-23] MEDS ORDERED: IPRATRPIUM/ALBUTEROL 0.5/2.5MG 3 ML NEBU. NEB ONE (15:52)
[2016-07-23] MEDS: GABAPENTIN 300 MG CAPSULE. PO SCH (16:30)
[2016-07-23] MEDS: WARFARIN 6 MG TABLET. PO SCH (16:30)
[2016-07-23] MEDS: BENZONATATE 100 MG CAPSULE. PO PRN (20:27)
[2016-07-23] MEDS: HYDROCODONE/APAP 5/325MG TABLET. PO PRN (20:29)
[2016-07-23] MEDS: TEMAZEPAM 15 MG CAPSULE PO SCH (20:31)
[2016-07-23] MEDS: MORPHINE SULFATE 2 MG/ML DISP.SYRIN. IM PRN (23:18)
[2016-07-24] MEDS: VANCOMYCIN 1.25 GM in IV NORMAL SALINE 250ML 250 ML IV SCH ×2 (03:12→17:20)
[2016-07-24 03:30] VITALS: BP 127/71
[2016-07-24] MEDS: THEOPHYLLINE 12HR ER 300 MG TAB.ER.12H. PO SCH (06:27)
[2016-07-24] MEDS: PIPERACILLIN/TAZOBACTAM 3.375 GM in IV NORMAL SALINE 50ML 50 ML IV SCH ×4 (06:28→23:15)
[2016-07-24 07:33] VITALS: BP 132/73
[2016-07-24] MEDS: BUDESONIDE 0.5 MG/2 ML NEBU NEB SCH ×2 (07:33→18:13)
[2016-07-24] MEDS: IPRATRPIUM/ALBUTEROL 0.5/2.5MG 3 ML NEBU. NEB SCH ×4 (07:33→18:13)
[2016-07-24] MEDS: methylPREDNISolone SOD SUCC PF 40 MG/ML VIAL. IV SCH ×2 (08:54→21:54)
[2016-07-24] MEDS: GUAIFENESIN ER 600 MG TABLET.ER PO SCH ×2 (08:55→21:51)
[2016-07-24] MEDS: METFORMIN XR 500 MG TAB.ER.24H PO SCH ×2 (08:55→21:53)
[2016-07-24] MEDS: GABAPENTIN 400 MG CAPSULE. PO SCH ×3 (08:55→17:39)
[2016-07-24] MEDS: ASPIRIN ENTERIC COATED 325 MG TABLET.DR. PO SCH (08:56)
[2016-07-24] MEDS: GLIMEPIRIDE 2 MG TABLET PO SCH (08:56)
[2016-07-24] MEDS: LISINOPRIL 2.5 MG TABLET PO SCH (08:57)
[2016-07-24] MEDS: DIGOXIN 250 MCG TABLET PO SCH (08:57)
[2016-07-24] MEDS: MELOXICAM 7.5 MG TABLET PO SCH (08:57)
[2016-07-24] MEDS: METHOCARBAMOL 500 MG TABLET PO SCH ×2 (08:58→21:52)
[2016-07-24] MEDS: PROPAFENONE 150 MG TABLET. PO SCH ×2 (08:58→21:52)
[2016-07-24] MEDS: OXYMETAZOLINE 0.05% NASAL SPRAY 30ML BOTTLE. NS SCH ×2 (09:00→21:54)
[2016-07-24] MEDS: INSULIN ASPART 300 UNITS/3 ML INSULN.PEN SQ SCH ×4 (09:06→21:00)
[2016-07-24 10:18] VITALS: BP 124/73
--- NOTE | 2016-07-24 11:52 | PDOC ---
SUBJECTIVE Subjective Still with a cough that's productive. Maybe a little bit less than yesterday. She feels short of breath. Eating and drinking okay. OBJECTIVE Vital Signs Vital Signs Date Time Temp Pulse Resp B/P Pulse Ox O2 Delivery O2 Flow Rate FiO2 07/24/16 11:24 Nasal Cannula 2.0 07/24/16 10:18 97.3 91 22 124/73 95 Nasal Cannula 2.0 97.3 07/24/16 08:58 81 132/73 07/24/16 08:57 81 132/73 07/24/16 08:57 81 132/73 07/24/16 08:00 Nasal Cannula 2.0 07/24/16 07:33 97.3 81 22 132/73 94 Nasal Cannula 2.0 97.3 07/24/16 07:33 94 Nasal Cannula 2.0 07/24/16 03:30 97.5 93 18 127/71 93 Nasal Cannula 2.0 97.5 07/23/16 23:19 97.0 97 18 124/77 94 Nasal Cannula 2.0 97.0 07/23/16 20:29 101 136/70 07/23/16 20:00 Nasal Cannula 2.0 07/23/16 19:45 96 Nasal Cannula 2.0 07/23/16 19:03 97.5 99 18 136/70 94 Nasal Cannula 2.0 97.5 07/23/16 17:33 84 135/79 07/23/16 16:35 90 128/72 07/23/16 15:33 82 132/73 07/23/16 15:29 97.4 105 18 125/66 93 Nasal Cannula 2.0 97.4 07/23/16 15:03 89 135/69 07/23/16 14:43 114 135/64 07/23/16 14:42 114 135/64 07/23/16 14:42 114 135/64 07/23/16 14:33 93 135/64 07/23/16 14:18 114 126/73 07/23/16 13:48 97 125/65 07/23/16 13:33 100 153/107 07/23/16 13:24 107 20 119/75 92 07/23/16 13:13 94 18 119/67 92 Nasal Cannula 3.0 07/23/16 12:57 106 20 141/84 94 Simple Mask 8 07/23/16 12:29 98.8 87 24 99 98.8 07/23/16 12:25 Nasal Cannula 2.0 I & O Intake and Output 07/24/16 07:00 Intake Total 940 ml Output Total 550 ml Balance 390 ml Intake Oral 740 ml IV Total 200 ml Output Urine Total 550 ml # Voids 2 # Bowel Movements 1 PHYSICAL EXAM Physical Exam General: No acute distress. Laying in bed with supplemental oxygen Mental status: Alert and oriented. Chest: Some expiratory wheezes. Coarse rhonchi breath sounds bilaterally anteriorly. Decreased air movement throughout. CV: Normal rate. Regular rhythm. No murmur. Abdomen: Normal bowel sounds. Soft. Not distended. No tenderness. No guarding. No rebound. Extremities: No lower extremity edema ASSESSMENT/PLAN Assessment/Plan 1. Acute hypoxemic respiratory failure, multifactorial: A. fib rate controlled. Mucopurulent secretions on bronchial yesterday. Antibiotics changed. Continue treatment for COPD. Encouraged out of bed to chair and ambulation. 2. Acute exacerbation of chronic obstructive pulmonary disease continue current treatments and per pulmonology. 3. Acute viral bronchitis: Continue as above. On IV antibiotics for possible bacterial etiology. Await cultures and adjust medications based on cultures of bronchial secretions from bronchoscopy. 4. Atrial fibrillation with rapid ventricular response: Rate controlled now. 5. Hypertension: Stable 6. Diabetes mellitus: Stable Problems: COMMENT Lab Laboratory Tests Test 07/23/16 16:46 07/23/16 20:21 07/24/16 07:35 07/24/16 10:21 Glucose (Fingerstick) 272mg/dL (70-99) 216mg/dL (70-99) 267mg/dL (70-99) 176mg/dL (70-99) ANTONIA CASANOVA MD Jul 24, 2016 11:52
--- NOTE | 2016-07-24 13:43 | PDOC ---
PROGRESS NOTES Subjective Subjective Patient complains of cough and that the shortness of breath is getting worse again Objective Objective Vital Signs Date Time Temp Pulse Resp B/P Pulse Ox O2 Delivery O2 Flow Rate FiO2 07/24/16 11:24 Nasal Cannula 2.0 07/24/16 10:18 97.3 91 22 124/73 95 97.3 Intake and Output 07/24/16 07:00 Intake Total 940 ml Output Total 550 ml Balance 390 ml Intake Oral 740 ml IV Total 200 ml Output Urine Total 550 ml # Voids 2 # Bowel Movements 1 Physical Exam Physical Exam Lungs with more diffuse crackles than yesterday. No other changes in cardiac exam Assessment Assessment The patient's pneumonic process seems to be deteriorating. He may need to have another bronch with lavage We will leave that up to the merchandising lead. Problems Medical Problems: (1) Atrial fibrillation with RVR Status: Acute (2) Hypoxia Status: Acute (3) Shortness of breath Status: Acute Comment Review of Relevant I have reviewed the following items kaila (where applicable) has been applied. Labs Laboratory Tests Test 07/22/16 16:50 07/22/16 21:16 07/23/16 07:51 07/23/16 16:46 Glucose (Fingerstick) 180mg/dL (70-99) 160mg/dL (70-99) 172mg/dL (70-99) 272mg/dL (70-99) Test 07/23/16 20:21 07/24/16 07:35 07/24/16 10:21 Glucose (Fingerstick) 216mg/dL (70-99) 267mg/dL (70-99) 176mg/dL (70-99) Laboratory Tests Test 07/23/16 16:46 07/23/16 20:21 07/24/16 07:35 07/24/16 10:21 Glucose (Fingerstick) 272mg/dL (70-99) 216mg/dL (70-99) 267mg/dL (70-99) 176mg/dL (70-99) Microbiology 07/16/16 Blood Culture - Final, Complete NO GROWTH AFTER 5 DAYS 07/23/16 Gram Stain - Final, Complete Medications Current Medications Aspirin 324 mg 324 mg 1X ONCE PO ; Start 07/16/16 at 10:15; Stop 07/16/16 at 10 :37; Status DC Sodium Chloride (Iv Sodium Chloride 0.9% 500ml Bag) 500 ml @ 500 mls/hr 1X ONCE IV Last administered on 07/16/16 10:46; Start 07/16/16 at 10:45; Stop at 11:44; Status DC Diltiazem HCl (Cardizem) 10 mg 1X ONCE IVP Last administered on 07/16/16 10: 46; Start 07/16/16 at 10:45; Stop 07/16/16 at 10:46; Status DC Ondansetron HCl (Zofran) 4 mg PRN Q8HRS PRN IV NAUSEA/VOMITING; Start 07/16/16 at 11:30; Stop 07/17/16 at 11:29; Status DC Morphine Sulfate 2 mg PRN Q2HR PRN IV PAIN Last administered on 07/17/16 01:45 ; Start 07/16/16 at 11:30; Stop 07/17/16 at 11:29; Status DC Albuterol/ Ipratropium 3 ml 3 ml RTQID NEB Last administered on 07/16/16 16:00 ; Start 07/16/16 at 12:00; Stop 07/16/16 at 16:40; Status DC Ceftriaxone Sodium 50 ml @ 100 mls/hr 1X ONCE IV Last administered on 11:44; Start 07/16/16 at 11:30; Stop 07/16/16 at 11:59; Status DC Azithromycin (Zithromax 500mg Ivpb For Omni) 250 ml @ 250 mls/hr 1X ONCE IV ; Start 07/16/16 at 11:30; Stop 07/16/16 at 12:29; Status DC Oxymetazoline HCl (Afrin) 2 spray BID NS Last administered on 07/24/16 09:00; Start 07/16/16 at 14:00 Aspirin (Ecotrin) 325 mg DAILY PO Last administered on 07/24/16 08:56; Start 07/17/16 at 09:00 Digoxin (Lanoxin) 250 mcg DAILY PO Last administered on 07/24/16 08:57; Start 07/16/16 at 17:00 Gabapentin (Neurontin) 300 mg HS PO Last administered on 07/23/16 16:30; Start 07/16/16 at 21:00 Gabapentin (Neurontin) 400 mg TIDWMEALS PO Last administered on 07/24/16 12:00 ; Start 07/16/16 at 17:00 Acetaminophen/ Hydrocodone Bitart (Lortab 5/325) 1 tab PRN Q6HRS PRN PO PAIN Last administered on 07/23/16 20:29; Start 07/16/16 at 16:30 Lisinopril (Prinivil) 2.5 mg DAILY PO Last administered on 07/24/16 08:57; Start 07/16/16 at 17:00 Meloxicam (Mobic) 7.5 mg DAILY PO Last administered on 07/24/16 08:57; Start 07/16/16 at 17:30 Metformin HCl (Glucophage Xr) 500 mg BID PO Last administered on 07/24/16 08: 55; Start 07/16/16 at 21:00 Methocarbamol (Robaxin) 500 mg BID PO Last administered on 07/24/16 08:58; Start 07/16/16 at 21:00 Propafenone HCl (Rythmol) 150 mg BID PO Last administered on 07/24/16 08:58; Start 07/16/16 at 21:00 Temazepam (Restoril) 15 mg QHS PO Last administered on 07/23/16 20:31; Start 07/16/16 at 21:00 Warfarin Sodium (Coumadin) 3 mg [id number] PO Last administered on 07/22/16 18:01; Start 07/17/16 at 16:00 Warfarin Sodium (Coumadin) 6 mg QFR PO Last administered on 07/23/16 16:30; Start 07/16/16 at 17:00 Non-Formulary Medication 2 puff BID IH ; Start 07/16/16 at 21:00; Status UNV Glimepiride (Amaryl) 1 mg DAILY PO Last administered on 07/24/16 08:56; Start 07/17/16 at 09:00 Theophylline (Theodur) 300 mg DAILY07 PO Last administered on 07/24/16 06:27; Start 07/17/16 at 07:00 Warfarin Sodium (Coumadin Per Physician) 1 each PRN DAILY PRN MC SEE COMMENTS Last administered on 07/23/16 10:40; Start 07/16/16 at 16:45 Budesonide (Pulmicort) 0.5 mg RTBID NEB Last administered on 07/24/16 07:33; Start 07/16/16 at 20:00 Albuterol Sulfate (Ventolin Neb Soln) 2.5 mg RTQID NEB Last administered on 07:48; Start 07/16/16 at 20:00; Stop 07/18/16 at 07:59; Status DC Propafenone HCl (Rythmol) 150 mg BID PO ; Start 07/16/16 at 21:00; Stop at 21:00; Status DC Enoxaparin Sodium 40 mg 40 mg Q24H SQ ; Start 07/16/16 at 18:30; Status UNV Ceftriaxone Sodium/Sodium Chloride (Rocephin/Iv Sodium Chloride 0.9% 50ml) 50 ml @ 100 mls/hr Q24H IV Last administered on 07/22/16 13:19; Start 07/17/16 at 12:00; Stop 07/23/16 at 13:05; Status DC Guaifenesin (Mucinex) 1,200 mg BID PO Last administered on 07/24/16 08:55; Start 07/17/16 at 14:00 Benzonatate (Tessalon Perle) 100 mg PRN TID PRN PO COUGH Last administered on 20:27; Start 07/17/16 at 14:00 Morphine Sulfate 2 mg PRN QHS PRN IM PAIN Last administered on 07/23/16 23:18 ; Start 07/17/16 at 13:30 Prednisone (Prednisone) 60 mg 1X ONCE PO Last administered on 07/17/16 14:08 ; Start 07/17/16 at 14:00; Stop 07/17/16 at 14:01; Status DC Albuterol Sulfate (Ventolin Neb Soln) 2.5 mg PRN QID PRN NEB SHORTNESS OF BREATH Last administered on 07/21/16 21:40; Start 07/18/16 at 08:00 Methylprednisolone Sodium Succinate (Solu-Medrol 40mg Vial) 40 mg Q12HR IV Last administered on 07/24/16 08:54; Start 07/18/16 at 09:00 Albuterol/ Ipratropium (Duoneb) 3 ml RTQID NEB Last administered on 07/23/16 12:14; Start 07/18/16 at 08:00; Stop 07/23/16 at 15:52; Status DC Insulin Aspart (Novolog) 0-12 UNITS QIDACHS SQ Last administered on 07/24/16 12:42; Start 07/18/16 at 11:30 Neomycin/ Polymyxin/ Bacitracin 1 pkt 1 pkt DAILY TP ; Start 07/21/16 at 09:00; Stop 07/21/16 at 09:59; Status DC Lactated Ringer's 1,000 ml @ 75 mls/hr 1X ONCE IV Last administered on 12:22; Start 07/23/16 at 12:30; Stop 07/24/16 at 01:49; Status DC Propofol (Diprivan) 20 ml @ As Directed STK-MED ONCE IV ; Start 07/23/16 at 12: 30; Stop 07/23/16 at 12:31; Status DC Lidocaine HCl (Lidocaine Pf 2% Vial) 5 ml STK-MED ONCE .ROUTE ; Start 07/23/16 at 12:30; Stop 07/23/16 at 12:31; Status DC Ondansetron HCl (Zofran) 4 mg PRN Q6HRS PRN IV Nausea; Start 07/23/16 at 12:45 ; Stop 07/23/16 at 18:00; Status DC Fentanyl Citrate (Fentanyl 2ml Vial) 25 mcg PRN Q5MIN PRN IV MILD PAIN; Start 07/23/16 at 12:45; Stop 07/23/16 at 18:00; Status DC Fentanyl Citrate (Fentanyl 2ml Vial) 50 mcg PRN Q5MIN PRN IV MODERATE PAIN; Start 07/23/16 at 12:45; Stop 07/23/16 at 18:00; Status DC Morphine Sulfate 1 mg 1 mg PRN Q10MIN PRN IV SEVERE PAIN; Start 07/23/16 at 12: 45; Stop 07/23/16 at 18:00; Status DC Lactated Ringer's (Iv Lactated Ringers) 1,000 ml @ 30 mls/hr Q24H IV Last administered on 07/23/16 12:42; Start 07/23/16 at 12:42; Stop 07/24/16 at 00:41 ; Status DC Lidocaine HCl 2 ml 1X PRN PRN ID IV START; Start 07/23/16 at 12:45; Stop at 18:00; Status DC Hydromorphone HCl (Dilaudid) 0.5 mg PRN Q10MIN PRN IV SEV PAIN,Second choice; Start 07/23/16 at 12:45; Stop 07/23/16 at 18:00; Status DC Prochlorperazine Edisylate (Compazine) 5 mg PACU PRN PRN IV NAUSEA; Start 07/23 at 12:45; Stop 07/23/16 at 18:00; Status DC Vancomycin HCl 1 each 1 each PRN DAILY PRN MC SEE COMMENTS Last administered on 07/23/16 13:17; Start 07/23/16 at 13:15 Piperacillin Sod/ Tazobactam Sod 3.375 gm/Sodium Chloride 50 ml @ 100 mls/hr Q6HRS IV Last administered on 07/24/16 12:36; Start 07/23/16 at 13:30 Vancomycin HCl 2 gm/Sodium Chloride 500 ml @ 250 mls/hr 1X ONCE IV Last administered on 07/23/16 15:29; Start 07/23/16 at 15:00; Stop 07/23/16 at 16:59 ; Status DC Vancomycin HCl/ Sodium Chloride (Iv Sodium Chloride 0.9% 250ml) 250 ml @ 167 mls/hr Q12H IV Last administered on 07/24/16 03:12; Start 07/24/16 at 03:00 Vancomycin HCl 1 each 1X ONCE MC ; Start 07/25/16 at 02:30; Stop 07/25/16 at 02 :31 Albuterol/ Ipratropium (Duoneb) 3 ml RTQID NEB Last administered on 07/24/16 11:24; Start 07/23/16 at 16:00 Albuterol/ Ipratropium (Duoneb) 3 ml 1X ONCE NEB ; Start 07/23/16 at 15:52; Stop 07/23/16 at 15:53; Status Cancel Active Scripts Active Amory 5-325 Tablet (Acetaminophen/Hydrocodone Bitart) 1 Each Tablet 1 Tab PO PRN Q6HRS PRN Amox Tr-K Clv 875-125 Mg Tab (Amoxicillin/Potassium Clav) 1 Each Tablet 1 Tab PO BID Reported Cefuroxime (Cefuroxime Axetil) 500 Mg Tablet 1 Tab PO BID Alendronate Sodium 70 Mg Tablet 1 Tab PO WEEKLY Theophylline (Theophylline Anhydrous) 400 Mg Tablet.er 300 Mg PO Meloxicam 7.5 Mg Tablet 1 Tab PO DAILY Robaxin (Methocarbamol) 500 Mg Tablet 1 Tab PO BID Gabapentin 400 Mg Capsule 400 Mg PO TID Propafenone Hcl 150 Mg Tablet 150 Mg PO BID Ventolin Hfa Inhaler (Albuterol Sulfate) 18 Gm Hfa.aer.ad 2 Puff INH Q4HRS Warfarin Sodium 3 Mg Tablet 2 Tab PO QFR Warfarin Sodium 3 Mg Tablet 1 Tab PO QHS Digoxin 250 Mcg Tablet 250 Mcg PO DAILY Lisinopril 2.5 Mg Tablet 2.5 Mg PO DAILY Glimepiride 1 Mg Tablet 1 Mg PO DAILY Albuterol Sulfate Hfa Inhaler (Albuterol Sulfate) 8.5 Gm Hfa.aer.ad 2 Puff INH QID Symbicort 160-4.5 Mcg Inhaler (Budesonide/Formoterol Fumarate) 10.2 Gm Hfa.aer.ad 2 Puff IH BID Aspirin Ec (Aspirin) 325 Mg Tablet.dr 1 Tab PO DAILY Temazepam 15 Mg Capsule 1 Cap PO QHS Gabapentin 100 Mg Capsule 300 Mg PO HS Metformin Hcl Er (Metformin Hcl) 500 Mg Tab.er.24h 1 Tab PO BID Theophylline (Theophylline Anhydrous) 400 Mg Tablet.er 300 Mg PO DAILY07 Vitals/I & O Vital Sign - Last 24 Hours 07/23/16 07/23/16 07/23/16 07/23/16 13:48 14:18 14:33 14:42 Pulse 97 114 93 114 B/P 125/65 126/73 135/64 135/64 07/23/16 07/23/16 07/23/16 07/23/16 14:42 14:43 15:03 15:29 Temp 97.4 97.4 Pulse 114 114 89 105 Resp 18 B/P 135/64 135/64 135/69 125/66 Pulse Ox 93 O2 Delivery Nasal Cannula O2 Flow Rate 2.0 07/23/16 07/23/16 07/23/16 07/23/16 15:33 16:35 17:33 19:03 Temp 97.5 97.5 Pulse 82 90 84 99 Resp 18 B/P 132/73 128/72 135/79 136/70 Pulse Ox 94 O2 Delivery Nasal Cannula O2 Flow Rate 2.0 07/23/16 07/23/16 07/23/16 07/23/16 19:45 20:00 20:29 23:19 Temp 97.0 97.0 Pulse 101 97 Resp 18 B/P 136/70 124/77 Pulse Ox 96 94 O2 Delivery Nasal Cannula Nasal Cannula Nasal Cannula O2 Flow Rate 2.0 2.0 2.0 07/24/16 07/24/16 07/24/16 07/24/16 03:30 07:33 07:33 08:00 Temp 97.5 97.3 97.5 97.3 Pulse 93 81 Resp 18 22 B/P 127/71 132/73 Pulse Ox 93 94 94 O2 Delivery Nasal Cannula Nasal Cannula Nasal Cannula Nasal Cannula O2 Flow Rate 2.0 2.0 2.0 2.0 07/24/16 07/24/16 07/24/16 07/24/16 08:57 08:57 08:58 10:18 Temp 97.3 97.3 Pulse 81 81 81 91 Resp 22 B/P 132/73 132/73 132/73 124/73 Pulse Ox 95 O2 Delivery Nasal Cannula O2 Flow Rate 2.0 07/24/16 11:24 O2 Delivery Nasal Cannula O2 Flow Rate 2.0 Intake and Output 07/23/16 07/23/16 07/24/16 15:00 23:00 07:00 Intake Total 200 ml 240 ml 500 ml Output Total 350 ml 200 ml Balance 200 ml -110 ml 300 ml RUDY NELSON MD Jul 24, 2016 13:43
[2016-07-24 14:18] VITALS: BP 131/61
--- NOTE | 2016-07-24 16:59 | PDOC ---
PULMONARY PROGRESS NOTES Subjective Continues to have course BS, difficult w/ expectoration. Denies chest pain, pressure, palpitations. Vitals Vital Signs Date Time Temp Pulse Resp B/P Pulse Ox O2 Delivery O2 Flow Rate FiO2 07/24/16 14:58 Nasal Cannula 2.0 07/24/16 14:18 97.5 99 19 131/61 97.5 07/24/16 10:18 95 ROS: No Nausea, No Chest Pain, No Abdominal Pain General: Alert, Oriented X4, No acute distress Lungs: Other (diffuse rhonchi) Cardiovascular: S1, S2 Abdomen: Soft, Non-tender Neuro Exam: Alert, Oriented, Normal Speech, No Focal Findings Extremities: No Edema Skin: Warm, Dry, No Rashes Labs Laboratory Tests Test 07/22/16 21:16 07/23/16 07:51 07/23/16 16:46 07/23/16 20:21 Glucose (Fingerstick) 160mg/dL (70-99) 172mg/dL (70-99) 272mg/dL (70-99) 216mg/dL (70-99) Test 07/24/16 07:35 07/24/16 10:21 Glucose (Fingerstick) 267mg/dL (70-99) 176mg/dL (70-99) Laboratory Tests Test 07/23/16 20:21 07/24/16 07:35 07/24/16 10:21 Glucose (Fingerstick) 216mg/dL (70-99) 267mg/dL (70-99) 176mg/dL (70-99) Medications Active Scripts Medications Dose Route/Sig Days Date Category Cefuroxime (Cefuroxime Axetil) 500 Mg Tablet 1 Tab PO BID 07/16/16 Reported Alendronate Sodium 70 Mg Tablet 1 Tab PO WEEKLY 07/16/16 Reported Theophylline (Theophylline Anhydrous) 400 Mg Tablet.er 300 Mg PO 07/16/16 Reported Meloxicam 7.5 Mg Tablet 1 Tab PO DAILY 07/16/16 Reported Robaxin (Methocarbamol) 500 Mg Tablet 1 Tab PO BID 07/16/16 Reported Gabapentin 400 Mg Capsule 400 Mg PO TID 07/16/16 Reported Propafenone Hcl 150 Mg Tablet 150 Mg PO BID 07/16/16 Reported Ventolin Hfa Inhaler (Albuterol Sulfate) 18 Gm Hfa.aer.ad 2 Puff INH Q4HRS 07/16/16 Reported Erin 5-325 Tablet (Acetaminophen/Hydrocodone Bitart) 1 Each Tablet 1 Tab PO PRN Q6HRS PRN 09/04/15 Rx Warfarin Sodium 3 Mg Tablet 2 Tab PO QFR 08/31/15 Reported Warfarin Sodium 3 Mg Tablet 1 Tab PO QHS 08/31/15 Reported Amox Tr-K Clv 875-125 Mg Tab (Amoxicillin/Potassium Clav) 1 Each Tablet 1 Tab PO BID 04/03/15 Rx Digoxin 250 Mcg Tablet 250 Mcg PO DAILY 04/01/15 Reported Lisinopril 2.5 Mg Tablet 2.5 Mg PO DAILY 04/01/15 Reported Glimepiride 1 Mg Tablet 1 Mg PO DAILY 02/14/15 Reported Albuterol Sulfate Hfa Inhaler (Albuterol Sulfate) 8.5 Gm Hfa.aer.ad 2 Puff INH QID 02/14/15 Reported Symbicort 160-4.5 Mcg Inhaler (Budesonide/Formoterol Fumarate) 10.2 Gm Hfa.aer.ad 2 Puff IH BID 02/14/15 Reported Aspirin Ec (Aspirin) 325 Mg Tablet.dr 1 Tab PO DAILY 03/05/14 Reported Temazepam 15 Mg Capsule 1 Cap PO QHS 03/05/14 Reported Gabapentin 100 Mg Capsule 300 Mg PO HS 03/05/14 Reported Metformin Hcl Er (Metformin Hcl) 500 Mg Tab.er.24h 1 Tab PO BID 03/05/14 Reported Theophylline (Theophylline Anhydrous) 400 Mg Tablet.er 300 Mg PO DAILY07 03/05/14 Reported Impression . 1. Acute hypoxemic respiratory failure: Multifactorial in etiology, including acute exacerbation of chronic obstructive pulmonary disease, acute viral bronchitis, atrial fibrillation with rapid ventricular response, slow to improve 2. Acute exacerbation of chronic obstructive pulmonary disease. 3. Acute viral bronchitis. 4. Atrial fibrillation with rapid ventricular response. controlled 5. Hypertension. 6. Diabetes mellitus. 7. Ex-smoker. 8. History of prostate cancer. Plan . 1. Continues to have course BS and cough, with difficulty with expectoration. 2. Bronchodilator: albuterol and Atrovent q.i.d. and albuterol p.r.n. 3. Continue Pulmicort. 4. Solu-Medrol 40 mg IV - will taper 5. Continue Abx: Vanc & Zosyn 7. Coumadin per PCP. 8. Protonix for stress ulcer prophylaxis. 9. slow to improve - diffuse mucopurulent secretions in trachea/ both lungs; now s/p therapeutic Bronch 10. Continue zosyn/vanc, r/o PSA/MRSA ED BLACKBURN MD Jul 24, 2016 16:59
[2016-07-24] MEDS: WARFARIN 3 MG TABLET. PO SCH (17:20)
[2016-07-24 19:37] VITALS: BP 126/62
[2016-07-24] MEDS: BENZONATATE 100 MG CAPSULE. PO PRN (21:52)
[2016-07-24] MEDS: GABAPENTIN 300 MG CAPSULE. PO SCH (21:53)
[2016-07-24] MEDS: TEMAZEPAM 15 MG CAPSULE PO SCH (21:53)
[2016-07-24] MEDS: HYDROCODONE/APAP 5/325MG TABLET. PO PRN (21:53)
[2016-07-24] MEDS: MORPHINE SULFATE 2 MG/ML DISP.SYRIN. IM PRN (23:15)
[2016-07-24 23:32] VITALS: BP 135/77
[2016-07-25 02:26] VITALS: BP 137/70
[2016-07-25] MEDS: VANCOMYCIN 1.25 GM in IV NORMAL SALINE 250ML 250 ML IV SCH ×2 (04:17→15:48)
[2016-07-25 06:03] LABS: BASO % 0 % (0-3); EOS % 0 % (0-3); HEMATOCRIT 45.3 % (39.0-53.0); LYMPH # 0.9 x10^3/uL (1.0-4.8); LYMPH % 9 % (24-48); MEAN CORPUSCULAR HEMOGLOBIN 29 pg (25-35); MEAN CORPUSCULAR HGB CONC 33 g/dL (31-37); MEAN CORPUSCULAR VOLUME 86 fL (79-100); MONO % 3 % (0-9); NEUT % 88 % (31-73); PLATELET COUNT 159 x10^3/uL (140-400); RED BLOOD COUNT 5.26 x10^6/uL (4.30-5.70); RED CELL DISTRIBUTION WIDTH 15.9 % (11.5-14.5); WHITE BLOOD COUNT 10.2 x10^3/uL (4.0-11.0)
[2016-07-25] MEDS: PIPERACILLIN/TAZOBACTAM 3.375 GM in IV NORMAL SALINE 50ML 50 ML IV SCH ×4 (06:18→23:08)
[2016-07-25] MEDS: THEOPHYLLINE 12HR ER 300 MG TAB.ER.12H. PO SCH (06:18)
[2016-07-25 06:26] LABS: ALBUMIN 3.2 g/dL (3.4-5.0); CALCIUM 8.2 mg/dL (8.5-10.1); CREATININE 1.2 mg/dL (0.7-1.3); TOTAL BILIRUBIN 0.8 mg/dL (0.2-1.0); TOTAL PROTEIN 6.3 g/dL (6.4-8.2)
[2016-07-25 06:27] LABS: POTASSIUM 5.4 mmol/L (3.5-5.1)
[2016-07-25 07:31] VITALS: BP 124/72
[2016-07-25] MEDS: IPRATRPIUM/ALBUTEROL 0.5/2.5MG 3 ML NEBU. NEB SCH ×4 (07:44→18:20)
[2016-07-25] MEDS: BUDESONIDE 0.5 MG/2 ML NEBU NEB SCH ×2 (07:44→15:30)
--- NOTE | 2016-07-25 08:13 | RAD ---
Portable chest, 07/25/2016: History: Hypoxia Comparison is made to a study from 07/16/2016. The heart size is normal. No pulmonary infiltrates are seen. There is no evidence of pleural fluid. Mild spurring is present in the spine. IMPRESSION: No acute cardiopulmonary abnormality is detected.
[2016-07-25 08:18] LABS: PLT ESTIMATE ADEQUATE (ADEQUATE)
[2016-07-25] MEDS: METFORMIN XR 500 MG TAB.ER.24H PO SCH ×2 (08:57→20:47)
[2016-07-25] MEDS: METHOCARBAMOL 500 MG TABLET PO SCH ×2 (08:57→20:48)
[2016-07-25] MEDS: GABAPENTIN 400 MG CAPSULE. PO SCH ×3 (08:57→17:41)
[2016-07-25] MEDS: methylPREDNISolone SOD SUCC PF 40 MG/ML VIAL. IV SCH (08:57)
[2016-07-25] MEDS: ASPIRIN ENTERIC COATED 325 MG TABLET.DR. PO SCH (08:58)
[2016-07-25] MEDS: LISINOPRIL 2.5 MG TABLET PO SCH (08:58)
[2016-07-25] MEDS: PROPAFENONE 150 MG TABLET. PO SCH ×2 (08:58→20:48)
[2016-07-25] MEDS: GUAIFENESIN ER 600 MG TABLET.ER PO SCH ×2 (08:58→20:47)
[2016-07-25] MEDS: GLIMEPIRIDE 2 MG TABLET PO SCH (08:59)
[2016-07-25] MEDS: MELOXICAM 7.5 MG TABLET PO SCH (08:59)
[2016-07-25] MEDS: OXYMETAZOLINE 0.05% NASAL SPRAY 30ML BOTTLE. NS SCH ×2 (09:00→20:47)
[2016-07-25] MEDS: DIGOXIN 250 MCG TABLET PO SCH (09:00)
[2016-07-25] MEDS: INSULIN ASPART 300 UNITS/3 ML INSULN.PEN SQ SCH ×4 (09:12→20:51)
[2016-07-25 10:24] VITALS: BP 127/71
--- NOTE | 2016-07-25 12:34 | PDOC ---
SUBJECTIVE Subjective Still feels a lot of chest congestion. Not really able to bring much of it out. Hasn't been ambulating too much. He is eating. OBJECTIVE Vital Signs Vital Signs Date Time Temp Pulse Resp B/P Pulse Ox O2 Delivery O2 Flow Rate FiO2 07/25/16 10:45 Nasal Cannula 2.0 07/25/16 10:24 97.6 97 19 127/71 96 Nasal Cannula 2.0 97.6 07/25/16 09:00 86 124/72 07/25/16 08:58 86 124/72 07/25/16 08:58 86 124/72 07/25/16 08:00 Nasal Cannula 2.0 07/25/16 07:47 Nasal Cannula 2.0 07/25/16 07:31 98.1 86 20 124/72 98 Nasal Cannula 2.0 98.1 07/25/16 02:26 97.6 89 20 137/70 96 Nasal Cannula 2.0 97.6 07/24/16 23:32 97.9 106 18 135/77 96 Nasal Cannula 2.0 97.9 07/24/16 21:52 109 126/62 07/24/16 20:00 Nasal Cannula 2.0 07/24/16 19:37 97.6 111 18 126/62 94 Nasal Cannula 2.0 97.6 07/24/16 18:13 Nasal Cannula 2.0 07/24/16 14:58 Nasal Cannula 2.0 07/24/16 14:18 97.5 99 19 131/61 Nasal Cannula 97.5 I & O Intake and Output 07/25/16 07:00 Intake Total 1580 ml Output Total 1550 ml Balance 30 ml Intake Oral 1530 ml IV Total 50 ml Output Urine Total 1550 ml PHYSICAL EXAM Physical Exam General: No acute distress. Laying in bed with supplemental oxygen Mental status: Alert and oriented. Chest: Significantly coarse breath sounds with rhonchi throughout.. Decreased air movement throughout. CV: Normal rate. Irregular rhythm. No murmur. Abdomen: Normal bowel sounds. Soft. Not distended. No tenderness. No guarding. No rebound. Extremities: No lower extremity edema ASSESSMENT/PLAN Assessment/Plan 1. Acute hypoxemic respiratory failure, multifactorial: A. fib rate controlled. Mucopurulent secretions on bronchoscopy. Antibiotics changed. Continue treatment for COPD. Encouraged out of bed to chair and ambulation. Continue per pulmonology, possibly needs another bronchoscopy? 2. Acute exacerbation of chronic obstructive pulmonary disease: continue current treatments and per pulmonology. 3. Acute viral bronchitis: Continue as above. On IV antibiotics for possible bacterial etiology. Await cultures and adjust medications based on cultures of bronchial secretions from bronchoscopy. 4. Atrial fibrillation with rapid ventricular response: Rate controlled now. Check INR tomorrow. Continue Coumadin. 5. Hypertension: Stable 6. Diabetes mellitus: Stable 7. Hyperkalemia: Mildly elevated this morning. Not on any supplements. Recheck in the a.m. and give Kayexalate if needed. Problems: COMMENT Lab Laboratory Tests Test 07/24/16 16:47 07/24/16 20:41 07/25/16 05:15 07/25/16 07:35 Glucose (Fingerstick) 221mg/dL (70-99) 203mg/dL (70-99) 185mg/dL (70-99) White Blood Count 10.2x10^3/uL (4.0-11.0) Red Blood Count 5.26x10^6/uL (4.30-5.70) Hemoglobin 15.0g/dL (13.0-17.5) Hematocrit 45.3% (39.0-53.0) Mean Corpuscular Volume 86fL (79-100) Mean Corpuscular Hemoglobin 29pg (25-35) Mean Corpuscular Hemoglobin Concent 33g/dL (31-37) Red Cell Distribution Width 15.9% (11.5-14.5) Platelet Count 159x10^3/uL (140-400) Neutrophils (%) (Auto) 88% (31-73) Lymphocytes (%) (Auto) 9% (24-48) Monocytes (%) (Auto) 3% (0-9) Eosinophils (%) (Auto) 0% (0-3) Basophils (%) (Auto) 0% (0-3) Neutrophils # (Auto) 9.0x10^3uL (1.8-7.7) Lymphocytes # (Auto) 0.9x10^3/uL (1.0-4.8) Monocytes # (Auto) 0.3x10^3/uL (0.0-1.1) Eosinophils # (Auto) 0.0x10^3/uL (0.0-0.7) Basophils # (Auto) 0.0x10^3/uL (0.0-0.2) Segmented Neutrophils % 83% (35-66) Band Neutrophils % 3% (0-9) Lymphocytes % 8% (24-48) Monocytes % 4% (0-10) Myelocytes % 2% (0-0) Platelet Estimate Adequate (ADEQUATE) Sodium Level 140mmol/L (136-145) Potassium Level 5.4mmol/L (3.5-5.1) Chloride Level 104mmol/L (98-107) Carbon Dioxide Level 29mmol/L (21-32) Anion Gap 7 (6-14) Blood Urea Nitrogen 26mg/dL (8-26) Creatinine 1.2mg/dL (0.7-1.3) Estimated GFR (Cockcroft-Gault) 58.0 BUN/Creatinine Ratio 22 (6-20) Glucose Level 274mg/dL (70-99) Calcium Level 8.2mg/dL (8.5-10.1) Total Bilirubin 0.8mg/dL (0.2-1.0) Aspartate Amino Transf (AST/SGOT) 15U/L (15-37) Alanine Aminotransferase (ALT/SGPT) 49U/L (16-63) Alkaline Phosphatase 58U/L (46-116) [id number] Natriuretic Peptide 156pg/mL (0-449) Total Protein 6.3g/dL (6.4-8.2) Albumin 3.2g/dL (3.4-5.0) Albumin/Globulin Ratio 1.0 (1.0-1.7) Test 07/25/16 10:27 Glucose (Fingerstick) 202mg/dL (70-99) ANTONIA CASANOVA MD Jul 25, 2016 12:34
[2016-07-25 14:07] VITALS: BP 135/74
--- NOTE | 2016-07-25 15:25 | PDOC ---
PULMONARY PROGRESS NOTES Subjective Continues to have course BS, difficult w/ expectoration. Denies chest pain, pressure, palpitations. Vitals Vital Signs Date Time Temp Pulse Resp B/P Pulse Ox O2 Delivery O2 Flow Rate FiO2 07/25/16 14:07 98.1 95 20 135/74 97 Nasal Cannula 2.0 98.1 ROS: No Nausea, No Chest Pain, No Abdominal Pain General: Alert, Oriented X4, No acute distress Lungs: Other (diffuse rhonchi) Cardiovascular: S1, S2 Abdomen: Soft, Non-tender Neuro Exam: Alert, Oriented, Normal Speech, No Focal Findings Extremities: No Edema Skin: Warm, Dry, No Rashes Labs Laboratory Tests Test 07/23/16 16:46 07/23/16 20:21 07/24/16 07:35 07/24/16 10:21 Glucose (Fingerstick) 272mg/dL (70-99) 216mg/dL (70-99) 267mg/dL (70-99) 176mg/dL (70-99) Test 07/24/16 16:47 07/24/16 20:41 07/25/16 05:15 07/25/16 07:35 Glucose (Fingerstick) 221mg/dL (70-99) 203mg/dL (70-99) 185mg/dL (70-99) White Blood Count 10.2x10^3/uL (4.0-11.0) Red Blood Count 5.26x10^6/uL (4.30-5.70) Hemoglobin 15.0g/dL (13.0-17.5) Hematocrit 45.3% (39.0-53.0) Mean Corpuscular Volume 86fL (79-100) Mean Corpuscular Hemoglobin 29pg (25-35) Mean Corpuscular Hemoglobin Concent 33g/dL (31-37) Red Cell Distribution Width 15.9% (11.5-14.5) Platelet Count 159x10^3/uL (140-400) Neutrophils (%) (Auto) 88% (31-73) Lymphocytes (%) (Auto) 9% (24-48) Monocytes (%) (Auto) 3% (0-9) Eosinophils (%) (Auto) 0% (0-3) Basophils (%) (Auto) 0% (0-3) Neutrophils # (Auto) 9.0x10^3uL (1.8-7.7) Lymphocytes # (Auto) 0.9x10^3/uL (1.0-4.8) Monocytes # (Auto) 0.3x10^3/uL (0.0-1.1) Eosinophils # (Auto) 0.0x10^3/uL (0.0-0.7) Basophils # (Auto) 0.0x10^3/uL (0.0-0.2) Segmented Neutrophils % 83% (35-66) Band Neutrophils % 3% (0-9) Lymphocytes % 8% (24-48) Monocytes % 4% (0-10) Myelocytes % 2% (0-0) Platelet Estimate Adequate (ADEQUATE) Sodium Level 140mmol/L (136-145) Potassium Level 5.4mmol/L (3.5-5.1) Chloride Level 104mmol/L (98-107) Carbon Dioxide Level 29mmol/L (21-32) Anion Gap 7 (6-14) Blood Urea Nitrogen 26mg/dL (8-26) Creatinine 1.2mg/dL (0.7-1.3) Estimated GFR (Cockcroft-Gault) 58.0 BUN/Creatinine Ratio 22 (6-20) Glucose Level 274mg/dL (70-99) Calcium Level 8.2mg/dL (8.5-10.1) Total Bilirubin 0.8mg/dL (0.2-1.0) Aspartate Amino Transf (AST/SGOT) 15U/L (15-37) Alanine Aminotransferase (ALT/SGPT) 49U/L (16-63) Alkaline Phosphatase 58U/L (46-116) YC-Knv-H-Type Natriuretic Peptide 156pg/mL (0-449) Total Protein 6.3g/dL (6.4-8.2) Albumin 3.2g/dL (3.4-5.0) Albumin/Globulin Ratio 1.0 (1.0-1.7) Test 07/25/16 10:27 Glucose (Fingerstick) 202mg/dL (70-99) Laboratory Tests Test 07/24/16 16:47 07/24/16 20:41 07/25/16 05:15 07/25/16 07:35 Glucose (Fingerstick) 221mg/dL (70-99) 203mg/dL (70-99) 185mg/dL (70-99) White Blood Count 10.2x10^3/uL (4.0-11.0) Red Blood Count 5.26x10^6/uL (4.30-5.70) Hemoglobin 15.0g/dL (13.0-17.5) Hematocrit 45.3% (39.0-53.0) Mean Corpuscular Volume 86fL (79-100) Mean Corpuscular Hemoglobin 29pg (25-35) Mean Corpuscular Hemoglobin Concent 33g/dL (31-37) Red Cell Distribution Width 15.9% (11.5-14.5) Platelet Count 159x10^3/uL (140-400) Neutrophils (%) (Auto) 88% (31-73) Lymphocytes (%) (Auto) 9% (24-48) Monocytes (%) (Auto) 3% (0-9) Eosinophils (%) (Auto) 0% (0-3) Basophils (%) (Auto) 0% (0-3) Neutrophils # (Auto) 9.0x10^3uL (1.8-7.7) Lymphocytes # (Auto) 0.9x10^3/uL (1.0-4.8) Monocytes # (Auto) 0.3x10^3/uL (0.0-1.1) Eosinophils # (Auto) 0.0x10^3/uL (0.0-0.7) Basophils # (Auto) 0.0x10^3/uL (0.0-0.2) Segmented Neutrophils % 83% (35-66) Band Neutrophils % 3% (0-9) Lymphocytes % 8% (24-48) Monocytes % 4% (0-10) Myelocytes % 2% (0-0) Platelet Estimate Adequate (ADEQUATE) Sodium Level 140mmol/L (136-145) Potassium Level 5.4mmol/L (3.5-5.1) Chloride Level 104mmol/L (98-107) Carbon Dioxide Level 29mmol/L (21-32) Anion Gap 7 (6-14) Blood Urea Nitrogen 26mg/dL (8-26) Creatinine 1.2mg/dL (0.7-1.3) Estimated GFR (Cockcroft-Gault) 58.0 BUN/Creatinine Ratio 22 (6-20) Glucose Level 274mg/dL (70-99) Calcium Level 8.2mg/dL (8.5-10.1) Total Bilirubin 0.8mg/dL (0.2-1.0) Aspartate Amino Transf (AST/SGOT) 15U/L (15-37) Alanine Aminotransferase (ALT/SGPT) 49U/L (16-63) Alkaline Phosphatase 58U/L (46-116) RM-Cmp-D-Type Natriuretic Peptide 156pg/mL (0-449) Total Protein 6.3g/dL (6.4-8.2) Albumin 3.2g/dL (3.4-5.0) Albumin/Globulin Ratio 1.0 (1.0-1.7) Test 07/25/16 10:27 Glucose (Fingerstick) 202mg/dL (70-99) Medications Active Scripts Medications Dose Route/Sig Days Date Category Cefuroxime (Cefuroxime Axetil) 500 Mg Tablet 1 Tab PO BID 07/16/16 Reported Alendronate Sodium 70 Mg Tablet 1 Tab PO WEEKLY 07/16/16 Reported Theophylline (Theophylline Anhydrous) 400 Mg Tablet.er 300 Mg PO 07/16/16 Reported Meloxicam 7.5 Mg Tablet 1 Tab PO DAILY 07/16/16 Reported Robaxin (Methocarbamol) 500 Mg Tablet 1 Tab PO BID 07/16/16 Reported Gabapentin 400 Mg Capsule 400 Mg PO TID 07/16/16 Reported Propafenone Hcl 150 Mg Tablet 150 Mg PO BID 07/16/16 Reported Ventolin Hfa Inhaler (Albuterol Sulfate) 18 Gm Hfa.aer.ad 2 Puff INH Q4HRS 07/16/16 Reported [place] 5-325 Tablet (Acetaminophen/Hydrocodone Bitart) 1 Each Tablet 1 Tab PO PRN Q6HRS PRN 09/04/15 Rx Warfarin Sodium 3 Mg Tablet 2 Tab PO QFR 08/31/15 Reported Warfarin Sodium 3 Mg Tablet 1 Tab PO QHS 08/31/15 Reported Amox Tr-K Clv 875-125 Mg Tab (Amoxicillin/Potassium Clav) 1 Each Tablet 1 Tab PO BID 04/03/15 Rx Digoxin 250 Mcg Tablet 250 Mcg PO DAILY 04/01/15 Reported Lisinopril 2.5 Mg Tablet 2.5 Mg PO DAILY 04/01/15 Reported Glimepiride 1 Mg Tablet 1 Mg PO DAILY 02/14/15 Reported Albuterol Sulfate Hfa Inhaler (Albuterol Sulfate) 8.5 Gm Hfa.aer.ad 2 Puff INH QID 02/14/15 Reported Symbicort 160-4.5 Mcg Inhaler (Budesonide/Formoterol Fumarate) 10.2 Gm Hfa.aer.ad 2 Puff IH BID 02/14/15 Reported Aspirin Ec (Aspirin) 325 Mg Tablet.dr 1 Tab PO DAILY 03/05/14 Reported Temazepam 15 Mg Capsule 1 Cap PO QHS 03/05/14 Reported Gabapentin 100 Mg Capsule 300 Mg PO HS 03/05/14 Reported Metformin Hcl Er (Metformin Hcl) 500 Mg Tab.er.24h 1 Tab PO BID 03/05/14 Reported Theophylline (Theophylline Anhydrous) 400 Mg Tablet.er 300 Mg PO DAILY07 03/05/14 Reported Impression . 1. Acute hypoxemic respiratory failure: Multifactorial in etiology, including acute exacerbation of chronic obstructive pulmonary disease, acute viral bronchitis, atrial fibrillation with rapid ventricular response, slow to improve 2. Acute exacerbation of chronic obstructive pulmonary disease. 3. Acute viral bronchitis. 4. Atrial fibrillation with rapid ventricular response. controlled 5. Hypertension. 6. Diabetes mellitus. 7. Ex-smoker. 8. History of prostate cancer. Plan . 1. Continues to have course BS and cough, with difficulty with expectoration. 2. Bronchodilator: albuterol and Atrovent q.i.d. and albuterol p.r.n. 3. Continue Pulmicort. 4. Continue steroids 5. Continue Abx: Vanc & Zosyn 7. Coumadin per PCP. 8. Protonix for stress ulcer prophylaxis. 9. Diffuse mucopurulent secretions in trachea/ both lungs; s/p therapeutic Bronch 10. Continue zosyn/vanc, r/o PSA/MRSA - Cultures NGTD - Will Add Mucomyst to assist with clearance. - Will Discuss with Team in [place] re: potential for additional bronch and clearance. ED BLACKBURN MD Jul 25, 2016 15:25
--- NOTE | 2016-07-25 15:49 | PDOC ---
PROGRESS NOTES Subjective Subjective Patient feels poorly, complaints of dyspnea and had a lot of secretions when he coughs Objective Objective Vital Signs Date Time Temp Pulse Resp B/P Pulse Ox O2 Delivery O2 Flow Rate FiO2 07/25/16 15:26 Nasal Cannula 2.0 07/25/16 14:07 98.1 95 20 135/74 97 98.1 Intake and Output 07/25/16 07:00 Intake Total 1580 ml Output Total 1550 ml Balance 30 ml Intake Oral 1530 ml IV Total 50 ml Output Urine Total 1550 ml Physical Exam Physical Exam Breath sounds are decreased and diffuse crackles with mild wheezing. No changes in cardiac exam Assessment Assessment The patient complained continues to have lung problems. May need to consider another bronchoscopy with lavage. Problems Medical Problems: (1) Atrial fibrillation with RVR Status: Acute (2) Hypoxia Status: Acute (3) Shortness of breath Status: Acute Comment Review of Relevant I have reviewed the following items kaila (where applicable) has been applied. Labs Laboratory Tests Test 07/23/16 16:46 07/23/16 20:21 07/24/16 07:35 07/24/16 10:21 Glucose (Fingerstick) 272mg/dL (70-99) 216mg/dL (70-99) 267mg/dL (70-99) 176mg/dL (70-99) Test 07/24/16 16:47 07/24/16 20:41 07/25/16 05:15 07/25/16 07:35 Glucose (Fingerstick) 221mg/dL (70-99) 203mg/dL (70-99) 185mg/dL (70-99) White Blood Count 10.2x10^3/uL (4.0-11.0) Red Blood Count 5.26x10^6/uL (4.30-5.70) Hemoglobin 15.0g/dL (13.0-17.5) Hematocrit 45.3% (39.0-53.0) Mean Corpuscular Volume 86fL (79-100) Mean Corpuscular Hemoglobin 29pg (25-35) Mean Corpuscular Hemoglobin Concent 33g/dL (31-37) Red Cell Distribution Width 15.9% (11.5-14.5) Platelet Count 159x10^3/uL (140-400) Neutrophils (%) (Auto) 88% (31-73) Lymphocytes (%) (Auto) 9% (24-48) Monocytes (%) (Auto) 3% (0-9) Eosinophils (%) (Auto) 0% (0-3) Basophils (%) (Auto) 0% (0-3) Neutrophils # (Auto) 9.0x10^3uL (1.8-7.7) Lymphocytes # (Auto) 0.9x10^3/uL (1.0-4.8) Monocytes # (Auto) 0.3x10^3/uL (0.0-1.1) Eosinophils # (Auto) 0.0x10^3/uL (0.0-0.7) Basophils # (Auto) 0.0x10^3/uL (0.0-0.2) Segmented Neutrophils % 83% (35-66) Band Neutrophils % 3% (0-9) Lymphocytes % 8% (24-48) Monocytes % 4% (0-10) Myelocytes % 2% (0-0) Platelet Estimate Adequate (ADEQUATE) Sodium Level 140mmol/L (136-145) Potassium Level 5.4mmol/L (3.5-5.1) Chloride Level 104mmol/L (98-107) Carbon Dioxide Level 29mmol/L (21-32) Anion Gap 7 (6-14) Blood Urea Nitrogen 26mg/dL (8-26) Creatinine 1.2mg/dL (0.7-1.3) Estimated GFR (Cockcroft-Gault) 58.0 BUN/Creatinine Ratio 22 (6-20) Glucose Level 274mg/dL (70-99) Calcium Level 8.2mg/dL (8.5-10.1) Total Bilirubin 0.8mg/dL (0.2-1.0) Aspartate Amino Transf (AST/SGOT) 15U/L (15-37) Alanine Aminotransferase (ALT/SGPT) 49U/L (16-63) Alkaline Phosphatase 58U/L (46-116) WM-Aep-O-Type Natriuretic Peptide 156pg/mL (0-449) Total Protein 6.3g/dL (6.4-8.2) Albumin 3.2g/dL (3.4-5.0) Albumin/Globulin Ratio 1.0 (1.0-1.7) Test 07/25/16 10:27 07/25/16 14:50 Glucose (Fingerstick) 202mg/dL (70-99) Vancomycin Level Trough 12.0mcg/mL (10.0-20.0) Vancomycin Last Dose Date 07/25/16 Vancomycin Last Dose Time 0300 Laboratory Tests Test 07/24/16 16:47 07/24/16 20:41 07/25/16 05:15 07/25/16 07:35 Glucose (Fingerstick) 221mg/dL (70-99) 203mg/dL (70-99) 185mg/dL (70-99) White Blood Count 10.2x10^3/uL (4.0-11.0) Red Blood Count 5.26x10^6/uL (4.30-5.70) Hemoglobin 15.0g/dL (13.0-17.5) Hematocrit 45.3% (39.0-53.0) Mean Corpuscular Volume 86fL (79-100) Mean Corpuscular Hemoglobin 29pg (25-35) Mean Corpuscular Hemoglobin Concent 33g/dL (31-37) Red Cell Distribution Width 15.9% (11.5-14.5) Platelet Count 159x10^3/uL (140-400) Neutrophils (%) (Auto) 88% (31-73) Lymphocytes (%) (Auto) 9% (24-48) Monocytes (%) (Auto) 3% (0-9) Eosinophils (%) (Auto) 0% (0-3) Basophils (%) (Auto) 0% (0-3) Neutrophils # (Auto) 9.0x10^3uL (1.8-7.7) Lymphocytes # (Auto) 0.9x10^3/uL (1.0-4.8) Monocytes # (Auto) 0.3x10^3/uL (0.0-1.1) Eosinophils # (Auto) 0.0x10^3/uL (0.0-0.7) Basophils # (Auto) 0.0x10^3/uL (0.0-0.2) Segmented Neutrophils % 83% (35-66) Band Neutrophils % 3% (0-9) Lymphocytes % 8% (24-48) Monocytes % 4% (0-10) Myelocytes % 2% (0-0) Platelet Estimate Adequate (ADEQUATE) Sodium Level 140mmol/L (136-145) Potassium Level 5.4mmol/L (3.5-5.1) Chloride Level 104mmol/L (98-107) Carbon Dioxide Level 29mmol/L (21-32) Anion Gap 7 (6-14) Blood Urea Nitrogen 26mg/dL (8-26) Creatinine 1.2mg/dL (0.7-1.3) Estimated GFR (Cockcroft-Gault) 58.0 BUN/Creatinine Ratio 22 (6-20) Glucose Level 274mg/dL (70-99) Calcium Level 8.2mg/dL (8.5-10.1) Total Bilirubin 0.8mg/dL (0.2-1.0) Aspartate Amino Transf (AST/SGOT) 15U/L (15-37) Alanine Aminotransferase (ALT/SGPT) 49U/L (16-63) Alkaline Phosphatase 58U/L (46-116) VF-Qjn-X-Type Natriuretic Peptide 156pg/mL (0-449) Total Protein 6.3g/dL (6.4-8.2) Albumin 3.2g/dL (3.4-5.0) Albumin/Globulin Ratio 1.0 (1.0-1.7) Test 07/25/16 10:27 07/25/16 14:50 Glucose (Fingerstick) 202mg/dL (70-99) Vancomycin Level Trough 12.0mcg/mL (10.0-20.0) Vancomycin Last Dose Date 07/25/16 Vancomycin Last Dose Time 0300 Microbiology 07/16/16 Blood Culture - Final, Complete NO GROWTH AFTER 5 DAYS 07/23/16 AFB Specimen Processing Tissue - Final, Resulted 07/23/16 Acid Fast Bacilli Culture, Resulted Pending 07/23/16 Gram Stain - Final, Resulted 07/23/16 Fungal Culture, Resulted Pending 07/23/16 Fungal Culture Result 1, Resulted Pending Medications Current Medications Aspirin 324 mg 324 mg 1X ONCE PO ; Start 07/16/16 at 10:15; Stop 07/16/16 at 10 :37; Status DC Sodium Chloride (Iv Sodium Chloride 0.9% 500ml Bag) 500 ml @ 500 mls/hr 1X ONCE IV Last administered on 07/16/16 10:46; Start 07/16/16 at 10:45; Stop at 11:44; Status DC Diltiazem HCl (Cardizem) 10 mg 1X ONCE IVP Last administered on 07/16/16 10: 46; Start 07/16/16 at 10:45; Stop 07/16/16 at 10:46; Status DC Ondansetron HCl (Zofran) 4 mg PRN Q8HRS PRN IV NAUSEA/VOMITING; Start 07/16/16 at 11:30; Stop 07/17/16 at 11:29; Status DC Morphine Sulfate 2 mg PRN Q2HR PRN IV PAIN Last administered on 07/17/16 01:45 ; Start 07/16/16 at 11:30; Stop 07/17/16 at 11:29; Status DC Albuterol/ Ipratropium 3 ml 3 ml RTQID NEB Last administered on 07/16/16 16:00 ; Start 07/16/16 at 12:00; Stop 07/16/16 at 16:40; Status DC Ceftriaxone Sodium 50 ml @ 100 mls/hr 1X ONCE IV Last administered on 11:44; Start 07/16/16 at 11:30; Stop 07/16/16 at 11:59; Status DC Azithromycin (Zithromax 500mg Ivpb For Omni) 250 ml @ 250 mls/hr 1X ONCE IV ; Start 07/16/16 at 11:30; Stop 07/16/16 at 12:29; Status DC Oxymetazoline HCl (Afrin) 2 spray BID NS Last administered on 07/25/16 09:00; Start 07/16/16 at 14:00 Aspirin (Ecotrin) 325 mg DAILY PO Last administered on 07/25/16 08:58; Start 07/17/16 at 09:00 Digoxin (Lanoxin) 250 mcg DAILY PO Last administered on 07/25/16 09:00; Start 07/16/16 at 17:00 Gabapentin (Neurontin) 300 mg HS PO Last administered on 07/24/16 21:53; Start 07/16/16 at 21:00 Gabapentin (Neurontin) 400 mg TIDWMEALS PO Last administered on 07/25/16 12:43 ; Start 07/16/16 at 17:00 Acetaminophen/ Hydrocodone Bitart (Lortab 5/325) 1 tab PRN Q6HRS PRN PO PAIN Last administered on 07/24/16 21:53; Start 07/16/16 at 16:30 Lisinopril (Prinivil) 2.5 mg DAILY PO Last administered on 07/25/16 08:58; Start 07/16/16 at 17:00 Meloxicam (Mobic) 7.5 mg DAILY PO Last administered on 07/25/16 08:59; Start 07/16/16 at 17:30 Metformin HCl (Glucophage Xr) 500 mg BID PO Last administered on 07/25/16 08: 57; Start 07/16/16 at 21:00 Methocarbamol (Robaxin) 500 mg BID PO Last administered on 07/25/16 08:57; Start 07/16/16 at 21:00 Propafenone HCl (Rythmol) 150 mg BID PO Last administered on 07/25/16 08:58; Start 07/16/16 at 21:00 Temazepam (Restoril) 15 mg QHS PO Last administered on 07/24/16 21:53; Start 07/16/16 at 21:00 Warfarin Sodium (Coumadin) 3 mg [id number] PO Last administered on 07/24/16 17:20; Start 07/17/16 at 16:00 Warfarin Sodium (Coumadin) 6 mg QFR PO Last administered on 07/23/16 16:30; Start 07/16/16 at 17:00 Non-Formulary Medication 2 puff BID IH ; Start 07/16/16 at 21:00; Status UNV Glimepiride (Amaryl) 1 mg DAILY PO Last administered on 07/25/16 08:59; Start 07/17/16 at 09:00 Theophylline (Theodur) 300 mg DAILY07 PO Last administered on 07/25/16 06:18; Start 07/17/16 at 07:00 Warfarin Sodium (Coumadin Per Physician) 1 each PRN DAILY PRN MC SEE COMMENTS Last administered on 07/23/16 10:40; Start 07/16/16 at 16:45 Budesonide (Pulmicort) 0.5 mg RTBID NEB Last administered on 07/25/16 15:30; Start 07/16/16 at 20:00 Albuterol Sulfate (Ventolin Neb Soln) 2.5 mg RTQID NEB Last administered on 07:48; Start 07/16/16 at 20:00; Stop 07/18/16 at 07:59; Status DC Propafenone HCl (Rythmol) 150 mg BID PO ; Start 07/16/16 at 21:00; Stop at 21:00; Status DC Enoxaparin Sodium 40 mg 40 mg Q24H SQ ; Start 07/16/16 at 18:30; Status UNV Ceftriaxone Sodium/Sodium Chloride (Rocephin/Iv Sodium Chloride 0.9% 50ml) 50 ml @ 100 mls/hr Q24H IV Last administered on 07/22/16 13:19; Start 07/17/16 at 12:00; Stop 07/23/16 at 13:05; Status DC Guaifenesin (Mucinex) 1,200 mg BID PO Last administered on 07/25/16 08:58; Start 07/17/16 at 14:00 Benzonatate (Tessalon Perle) 100 mg PRN TID PRN PO COUGH Last administered on 21:52; Start 07/17/16 at 14:00 Morphine Sulfate 2 mg PRN QHS PRN IM PAIN Last administered on 07/24/16 23:15 ; Start 07/17/16 at 13:30 Prednisone (Prednisone) 60 mg 1X ONCE PO Last administered on 07/17/16 14:08 ; Start 07/17/16 at 14:00; Stop 07/17/16 at 14:01; Status DC Albuterol Sulfate (Ventolin Neb Soln) 2.5 mg PRN QID PRN NEB SHORTNESS OF BREATH Last administered on 07/21/16 21:40; Start 07/18/16 at 08:00 Methylprednisolone Sodium Succinate (Solu-Medrol 40mg Vial) 40 mg Q12HR IV Last administered on 07/24/16 21:54; Start 07/18/16 at 09:00; Stop 07/24/16 at 22:47; Status DC Albuterol/ Ipratropium (Duoneb) 3 ml RTQID NEB Last administered on 1/20/17at 12:14; Start 07/18/16 at 08:00; Stop 07/23/16 at 15:52; Status DC Insulin Aspart (Novolog) 0-12 UNITS QIDACHS SQ Last administered on 07/25/16t 12:56; Start 07/18/16 at 11:30 Neomycin/ Polymyxin/ Bacitracin 1 pkt 1 pkt DAILY TP ; Start 07/21/16 at 09:00; Stop 07/21/16 at 09:59; Status DC Lactated Ringer's 1,000 ml @ 75 mls/hr 1X ONCE IV Last administered on 12:22; Start 07/23/16 at 12:30; Stop 07/24/16 at 01:49; Status DC Propofol (Diprivan) 20 ml @ As Directed STK-MED ONCE IV ; Start 07/23/16 at 12: 30; Stop 07/23/16 at 12:31; Status DC Lidocaine HCl (Lidocaine Pf 2% Vial) 5 ml STK-MED ONCE .ROUTE ; Start 07/23/16 at 12:30; Stop 07/23/16 at 12:31; Status DC Ondansetron HCl (Zofran) 4 mg PRN Q6HRS PRN IV Nausea; Start 07/23/16 at 12:45 ; Stop 07/23/16 at 18:00; Status DC Fentanyl Citrate (Fentanyl 2ml Vial) 25 mcg PRN Q5MIN PRN IV MILD PAIN; Start 07/23/16 at 12:45; Stop 07/23/16 at 18:00; Status DC Fentanyl Citrate (Fentanyl 2ml Vial) 50 mcg PRN Q5MIN PRN IV MODERATE PAIN; Start 07/23/16 at 12:45; Stop 07/23/16 at 18:00; Status DC Morphine Sulfate 1 mg 1 mg PRN Q10MIN PRN IV SEVERE PAIN; Start 07/23/16 at 12: 45; Stop 07/23/16 at 18:00; Status DC Lactated Ringer's (Iv Lactated Ringers) 1,000 ml @ 30 mls/hr Q24H IV Last administered on 07/23/16 12:42; Start 07/23/16 at 12:42; Stop 07/24/16 at 00:41 ; Status DC Lidocaine HCl 2 ml 1X PRN PRN ID IV START; Start 07/23/16 at 12:45; Stop at 18:00; Status DC Hydromorphone HCl (Dilaudid) 0.5 mg PRN Q10MIN PRN IV SEV PAIN,Second choice; Start 07/23/16 at 12:45; Stop 07/23/16 at 18:00; Status DC Prochlorperazine Edisylate (Compazine) 5 mg PACU PRN PRN IV NAUSEA; Start 07/23 at 12:45; Stop 07/23/16 at 18:00; Status DC Vancomycin HCl 1 each 1 each PRN DAILY PRN MC SEE COMMENTS Last administered on 07/23/16 13:17; Start 07/23/16 at 13:15 Piperacillin Sod/ Tazobactam Sod 3.375 gm/Sodium Chloride 50 ml @ 100 mls/hr Q6HRS IV Last administered on 07/25/16 12:45; Start 07/23/16 at 13:30 Vancomycin HCl 2 gm/Sodium Chloride 500 ml @ 250 mls/hr 1X ONCE IV Last administered on 07/23/16 15:29; Start 07/23/16 at 15:00; Stop 07/23/16 at 16:59 ; Status DC Vancomycin HCl/ Sodium Chloride (Iv Sodium Chloride 0.9% 250ml) 250 ml @ 167 mls/hr Q12H IV Last administered on 07/25/16 04:17; Start 07/24/16 at 03:00 Vancomycin HCl 1 each 1X ONCE MC ; Start 07/25/16 at 14:30; Stop 07/25/16 at 14 :31; Status DC Albuterol/ Ipratropium (Duoneb) 3 ml RTQID NEB Last administered on 07/25/16 15:30; Start 07/23/16 at 16:00 Albuterol/ Ipratropium (Duoneb) 3 ml 1X ONCE NEB ; Start 07/23/16 at 15:52; Stop 07/23/16 at 15:53; Status Cancel Methylprednisolone Sodium Succinate (Solu-Medrol 40mg Vial) 40 mg DAILY IV Last administered on 07/25/16 08:57; Start 07/25/16 at 09:00 Acetylcysteine (Mucomyst 20%) 600 mg QID INH ; Start 07/25/16 at 17:00; Status UNV Active Scripts Active [employer] 5-325 Tablet (Acetaminophen/Hydrocodone Bitart) 1 Each Tablet 1 Tab PO PRN Q6HRS PRN Amox Tr-K Clv 875-125 Mg Tab (Amoxicillin/Potassium Clav) 1 Each Tablet 1 Tab PO BID Reported Cefuroxime (Cefuroxime Axetil) 500 Mg Tablet 1 Tab PO BID Alendronate Sodium 70 Mg Tablet 1 Tab PO WEEKLY Theophylline (Theophylline Anhydrous) 400 Mg Tablet.er 300 Mg PO Meloxicam 7.5 Mg Tablet 1 Tab PO DAILY Robaxin (Methocarbamol) 500 Mg Tablet 1 Tab PO BID Gabapentin 400 Mg Capsule 400 Mg PO TID Propafenone Hcl 150 Mg Tablet 150 Mg PO BID Ventolin Hfa Inhaler (Albuterol Sulfate) 18 Gm Hfa.aer.ad 2 Puff INH Q4HRS Warfarin Sodium 3 Mg Tablet 2 Tab PO QFR Warfarin Sodium 3 Mg Tablet 1 Tab PO QHS Digoxin 250 Mcg Tablet 250 Mcg PO DAILY Lisinopril 2.5 Mg Tablet 2.5 Mg PO DAILY Glimepiride 1 Mg Tablet 1 Mg PO DAILY Albuterol Sulfate Hfa Inhaler (Albuterol Sulfate) 8.5 Gm Hfa.aer.ad 2 Puff INH QID Symbicort 160-4.5 Mcg Inhaler (Budesonide/Formoterol Fumarate) 10.2 Gm Hfa.aer.ad 2 Puff IH BID Aspirin Ec (Aspirin) 325 Mg Tablet.dr 1 Tab PO DAILY Temazepam 15 Mg Capsule 1 Cap PO QHS Gabapentin 100 Mg Capsule 300 Mg PO HS Metformin Hcl Er (Metformin Hcl) 500 Mg Tab.er.24h 1 Tab PO BID Theophylline (Theophylline Anhydrous) 400 Mg Tablet.er 300 Mg PO DAILY07 Vitals/I & O Vital Sign - Last 24 Hours 07/24/16 07/24/16 07/24/16 07/24/16 18:13 19:37 20:00 21:52 Temp 97.6 97.6 Pulse 111 109 Resp 18 B/P 126/62 126/62 Pulse Ox 94 O2 Delivery Nasal Cannula Nasal Cannula Nasal Cannula O2 Flow Rate 2.0 2.0 2.0 07/24/16 07/25/16 07/25/16 07/25/16 23:32 02:26 07:31 07:47 Temp 97.9 97.6 98.1 97.9 97.6 98.1 Pulse 106 89 86 Resp 18 20 20 B/P 135/77 137/70 124/72 Pulse Ox 96 96 98 O2 Delivery Nasal Cannula Nasal Cannula Nasal Cannula Nasal Cannula O2 Flow Rate 2.0 2.0 2.0 2.0 07/25/16 07/25/16 07/25/16 07/25/16 08:00 08:58 08:58 09:00 Pulse 86 86 86 B/P 124/72 124/72 124/72 O2 Delivery Nasal Cannula O2 Flow Rate 2.0 07/25/16 07/25/16 07/25/16 07/25/16 10:24 10:45 14:07 15:26 Temp 97.6 98.1 97.6 98.1 Pulse 97 95 Resp 19 20 B/P 127/71 135/74 Pulse Ox 96 97 O2 Delivery Nasal Cannula Nasal Cannula Nasal Cannula Nasal Cannula O2 Flow Rate 2.0 2.0 2.0 2.0 Intake and Output 07/24/16 07/24/16 07/25/16 15:00 23:00 07:00 Intake Total 410 ml 1050 ml 120 ml Output Total 675 ml 300 ml 575 ml Balance -265 ml 750 ml -455 ml RUDY NELSON MD Jul 25, 2016 15:49
[2016-07-25] MEDS: WARFARIN 3 MG TABLET. PO SCH (16:00)
[2016-07-25] MEDS: VANCOMYCIN PER PHARMACY MC PRN (16:18)
[2016-07-25] MEDS: ACETYLCYSTEINE 20% 800 MG/4 ML VIAL. INH SCH ×2 (17:00→21:00)
[2016-07-25 19:20] VITALS: BP 133/65
[2016-07-25] MEDS: GABAPENTIN 300 MG CAPSULE. PO SCH (20:48)
[2016-07-25] MEDS: TEMAZEPAM 15 MG CAPSULE PO SCH (20:48)
[2016-07-25 22:49] VITALS: BP 121/72
[2016-07-25] MEDS: MORPHINE SULFATE 2 MG/ML DISP.SYRIN. IM PRN (23:07)
[2016-07-26 00:35] VITALS: BP 121/79
[2016-07-26 03:00] VITALS: BP 119/74
[2016-07-26] MEDS: VANCOMYCIN 1.5 GM in IV NORMAL SALINE 500ML BAG 500 ML IV SCH ×2 (03:05→15:00)
[2016-07-26] MEDS: THEOPHYLLINE 12HR ER 300 MG TAB.ER.12H. PO SCH (06:10)
[2016-07-26] MEDS: PIPERACILLIN/TAZOBACTAM 3.375 GM in IV NORMAL SALINE 50ML 50 ML IV SCH ×2 (06:11→12:30)
[2016-07-26 07:16] VITALS: BP 122/73
[2016-07-26] MEDS: INSULIN ASPART 300 UNITS/3 ML INSULN.PEN SQ SCH ×3 (07:30→16:30)
[2016-07-26] MEDS: BUDESONIDE 0.5 MG/2 ML NEBU NEB SCH (08:00)
[2016-07-26] MEDS: IPRATRPIUM/ALBUTEROL 0.5/2.5MG 3 ML NEBU. NEB SCH ×3 (08:00→15:55)
[2016-07-26] MEDS: ACETYLCYSTEINE 20% 800 MG/4 ML VIAL. INH SCH ×3 (08:00→15:55)
[2016-07-26] MEDS: GUAIFENESIN ER 600 MG TABLET.ER PO SCH (08:23)
[2016-07-26] MEDS: METFORMIN XR 500 MG TAB.ER.24H PO SCH (08:23)
[2016-07-26] MEDS: PROPAFENONE 150 MG TABLET. PO SCH (08:24)
[2016-07-26] MEDS: ASPIRIN ENTERIC COATED 325 MG TABLET.DR. PO SCH (08:24)
[2016-07-26] MEDS: MELOXICAM 7.5 MG TABLET PO SCH (08:24)
[2016-07-26] MEDS: METHOCARBAMOL 500 MG TABLET PO SCH (08:24)
[2016-07-26] MEDS: methylPREDNISolone SOD SUCC PF 40 MG/ML VIAL. IV SCH (08:25)
[2016-07-26] MEDS: GABAPENTIN 400 MG CAPSULE. PO SCH ×2 (08:25→12:30)
[2016-07-26] MEDS: BENZONATATE 100 MG CAPSULE. PO PRN (08:26)
[2016-07-26] MEDS: LISINOPRIL 2.5 MG TABLET PO SCH (08:26)
[2016-07-26] MEDS: DIGOXIN 250 MCG TABLET PO SCH (08:26)
[2016-07-26] MEDS: GLIMEPIRIDE 2 MG TABLET PO SCH (08:27)
[2016-07-26] MEDS: OXYMETAZOLINE 0.05% NASAL SPRAY 30ML BOTTLE. NS SCH (08:27)
[2016-07-26 11:13] VITALS: BP 112/74
--- NOTE | 2016-07-26 11:20 | PDOC ---
PROGRESS NOTES Subjective Subjective Pt A&Ox3 and cooperative. States that he is still SOB and has non-productive cough. Denies having chest pain. Scheduled for bronchoscopy today and eager to be discharged from the hospital. No new complaints at this time Objective Objective Vital Signs Date Time Temp Pulse Resp B/P Pulse Ox O2 Delivery O2 Flow Rate FiO2 07/26/16 11:13 97.6 80 19 112/74 93 Nasal Cannula 97.6 07/26/16 08:20 2.0 Intake and Output 07/26/16 07:00 Intake Total 1790 ml Output Total 1725 ml Balance 65 ml Intake Oral 1140 ml IV Total 650 ml Output Urine Total 1725 ml Physical Exam Abdomen: Normal bowel sounds, Soft, No tenderness, No hepatosplenomegaly, No masses Heart: Regular rate, Normal S1, Normal S2, No murmurs, Gallops Extremities: No clubbing, No cyanosis, No edema, Normal pulses, No tenderness/ swelling General: Alert, Oriented X3, Cooperative, No acute distress Lungs: Other (Ronchi present throughout lung [place]) Assessment Assessment Problems Medical Problems: (1) Atrial fibrillation with RVR Status: Acute (2) Hypoxia Status: Acute (3) Shortness of breath Status: Acute Plan Plan of Care Afib controlled with Rythmol Stable from a cardiac standpoint Continue with current plan of care Possible bronchoscopy as per Pulmonary Comment Review of Relevant I have reviewed the following items kaila (where applicable) has been applied. Labs Laboratory Tests Test 07/24/16 16:47 07/24/16 20:41 07/25/16 05:15 07/25/16 07:35 Glucose (Fingerstick) 221mg/dL (70-99) 203mg/dL (70-99) 185mg/dL (70-99) White Blood Count 10.2x10^3/uL (4.0-11.0) Red Blood Count 5.26x10^6/uL (4.30-5.70) Hemoglobin 15.0g/dL (13.0-17.5) Hematocrit 45.3% (39.0-53.0) Mean Corpuscular Volume 86fL (79-100) Mean Corpuscular Hemoglobin 29pg (25-35) Mean Corpuscular Hemoglobin Concent 33g/dL (31-37) Red Cell Distribution Width 15.9% (11.5-14.5) Platelet Count 159x10^3/uL (140-400) Neutrophils (%) (Auto) 88% (31-73) Lymphocytes (%) (Auto) 9% (24-48) Monocytes (%) (Auto) 3% (0-9) Eosinophils (%) (Auto) 0% (0-3) Basophils (%) (Auto) 0% (0-3) Neutrophils # (Auto) 9.0x10^3uL (1.8-7.7) Lymphocytes # (Auto) 0.9x10^3/uL (1.0-4.8) Monocytes # (Auto) 0.3x10^3/uL (0.0-1.1) Eosinophils # (Auto) 0.0x10^3/uL (0.0-0.7) Basophils # (Auto) 0.0x10^3/uL (0.0-0.2) Segmented Neutrophils % 83% (35-66) Band Neutrophils % 3% (0-9) Lymphocytes % 8% (24-48) Monocytes % 4% (0-10) Myelocytes % 2% (0-0) Platelet Estimate Adequate (ADEQUATE) Sodium Level 140mmol/L (136-145) Potassium Level 5.4mmol/L (3.5-5.1) Chloride Level 104mmol/L (98-107) Carbon Dioxide Level 29mmol/L (21-32) Anion Gap 7 (6-14) Blood Urea Nitrogen 26mg/dL (8-26) Creatinine 1.2mg/dL (0.7-1.3) Estimated GFR (Cockcroft-Gault) 58.0 BUN/Creatinine Ratio 22 (6-20) Glucose Level 274mg/dL (70-99) Calcium Level 8.2mg/dL (8.5-10.1) Total Bilirubin 0.8mg/dL (0.2-1.0) Aspartate Amino Transf (AST/SGOT) 15U/L (15-37) Alanine Aminotransferase (ALT/SGPT) 49U/L (16-63) Alkaline Phosphatase 58U/L (46-116) VB-Bkr-P-Type Natriuretic Peptide 156pg/mL (0-449) Total Protein 6.3g/dL (6.4-8.2) Albumin 3.2g/dL (3.4-5.0) Albumin/Globulin Ratio 1.0 (1.0-1.7) Test 07/25/16 10:27 07/25/16 14:50 07/25/16 17:25 07/25/16 20:46 Glucose (Fingerstick) 202mg/dL (70-99) 257mg/dL (70-99) 190mg/dL (70-99) Vancomycin Level Trough 12.0mcg/mL (10.0-20.0) Vancomycin Last Dose Date 07/25/16 Vancomycin Last Dose Time 0300 Test 07/26/16 07:25 Glucose (Fingerstick) 85mg/dL (70-99) Laboratory Tests Test 07/25/16 14:50 07/25/16 17:25 07/25/16 20:46 07/26/16 07:25 Vancomycin Level Trough 12.0mcg/mL (10.0-20.0) Vancomycin Last Dose Date 07/25/16 Vancomycin Last Dose Time 0300 Glucose (Fingerstick) 257mg/dL (70-99) 190mg/dL (70-99) 85mg/dL (70-99) Microbiology 07/16/16 Blood Culture - Final, Complete NO GROWTH AFTER 5 DAYS 07/23/16 AFB Specimen Processing Tissue - Final, Resulted 07/23/16 Acid Fast Bacilli Culture, Resulted Pending 07/23/16 Gram Stain - Final, Resulted 07/23/16 Fungal Culture, Resulted Pending 07/23/16 Fungal Culture Result 1, Resulted Pending Medications Current Medications Aspirin 324 mg 324 mg 1X ONCE PO ; Start 07/16/16 at 10:15; Stop 07/16/16 at 10 :37; Status DC Sodium Chloride (Iv Sodium Chloride 0.9% 500ml Bag) 500 ml @ 500 mls/hr 1X ONCE IV Last administered on 07/16/16t 10:46; Start 07/16/16 at 10:45; Stop at 11:44; Status DC Diltiazem HCl (Cardizem) 10 mg 1X ONCE IVP Last administered on 07/16/16t 10: 46; Start 07/16/16 at 10:45; Stop 07/16/16 at 10:46; Status DC Ondansetron HCl (Zofran) 4 mg PRN Q8HRS PRN IV NAUSEA/VOMITING; Start 07/16/16 at 11:30; Stop 07/17/16 at 11:29; Status DC Morphine Sulfate 2 mg PRN Q2HR PRN IV PAIN Last administered on 07/17/16 01:45 ; Start 07/16/16 at 11:30; Stop 07/17/16 at 11:29; Status DC Albuterol/ Ipratropium 3 ml 3 ml RTQID NEB Last administered on 07/16/16 16:00 ; Start 07/16/16 at 12:00; Stop 07/16/16 at 16:40; Status DC Ceftriaxone Sodium 50 ml @ 100 mls/hr 1X ONCE IV Last administered on 11:44; Start 07/16/16 at 11:30; Stop 07/16/16 at 11:59; Status DC Azithromycin (Zithromax 500mg Ivpb For Omni) 250 ml @ 250 mls/hr 1X ONCE IV ; Start 07/16/16 at 11:30; Stop 07/16/16 at 12:29; Status DC Oxymetazoline HCl (Afrin) 2 spray BID NS Last administered on 07/26/16 08:27; Start 07/16/16 at 14:00 Aspirin (Ecotrin) 325 mg DAILY PO Last administered on 07/26/16 08:24; Start 07/17/16 at 09:00 Digoxin (Lanoxin) 250 mcg DAILY PO Last administered on 07/26/16 08:26; Start 07/16/16 at 17:00 Gabapentin (Neurontin) 300 mg HS PO Last administered on 07/25/16 20:48; Start 07/16/16 at 21:00 Gabapentin (Neurontin) 400 mg TIDWMEALS PO Last administered on 07/26/16 08:25 ; Start 07/16/16 at 17:00 Acetaminophen/ Hydrocodone Bitart (Lortab 5/325) 1 tab PRN Q6HRS PRN PO PAIN Last administered on 07/24/16 21:53; Start 07/16/16 at 16:30 Lisinopril (Prinivil) 2.5 mg DAILY PO Last administered on 07/26/16 08:26; Start 07/16/16 at 17:00 Meloxicam (Mobic) 7.5 mg DAILY PO Last administered on 07/26/16 08:24; Start 07/16/16 at 17:30 Metformin HCl (Glucophage Xr) 500 mg BID PO Last administered on 07/26/16 08: 23; Start 07/16/16 at 21:00 Methocarbamol (Robaxin) 500 mg BID PO Last administered on 07/26/16 08:24; Start 07/16/16 at 21:00 Propafenone HCl (Rythmol) 150 mg BID PO Last administered on 07/26/16 08:24; Start 07/16/16 at 21:00 Temazepam (Restoril) 15 mg QHS PO Last administered on 07/25/16 20:48; Start 07/16/16 at 21:00 Warfarin Sodium (Coumadin) 3 mg [id number] PO Last administered on 07/25/16 16:00; Start 07/17/16 at 16:00 Warfarin Sodium (Coumadin) 6 mg QFR PO Last administered on 07/23/16 16:30; Start 07/16/16 at 17:00 Non-Formulary Medication 2 puff BID IH ; Start 07/16/16 at 21:00; Status UNV Glimepiride (Amaryl) 1 mg DAILY PO Last administered on 07/26/16 08:27; Start 07/17/16 at 09:00 Theophylline (Theodur) 300 mg DAILY07 PO Last administered on 07/26/16 06:10; Start 07/17/16 at 07:00 Warfarin Sodium (Coumadin Per Physician) 1 each PRN DAILY PRN MC SEE COMMENTS Last administered on 07/23/16 10:40; Start 07/16/16 at 16:45 Budesonide (Pulmicort) 0.5 mg RTBID NEB Last administered on 07/26/16 08:00; Start 07/16/16 at 20:00 Albuterol Sulfate (Ventolin Neb Soln) 2.5 mg RTQID NEB Last administered on 07:48; Start 07/16/16 at 20:00; Stop 07/18/16 at 07:59; Status DC Propafenone HCl (Rythmol) 150 mg BID PO ; Start 07/16/16 at 21:00; Stop at 21:00; Status DC Enoxaparin Sodium 40 mg 40 mg Q24H SQ ; Start 07/16/16 at 18:30; Status UNV Ceftriaxone Sodium/Sodium Chloride (Rocephin/Iv Sodium Chloride 0.9% 50ml) 50 ml @ 100 mls/hr Q24H IV Last administered on 07/22/16 13:19; Start 07/17/16 at 12:00; Stop 07/23/16 at 13:05; Status DC Guaifenesin (Mucinex) 1,200 mg BID PO Last administered on 07/26/16 08:23; Start 07/17/16 at 14:00 Benzonatate (Tessalon Perle) 100 mg PRN TID PRN PO COUGH Last administered on 08:26; Start 07/17/16 at 14:00 Morphine Sulfate 2 mg PRN QHS PRN IM PAIN Last administered on 07/25/16 23:07 ; Start 07/17/16 at 13:30 Prednisone (Prednisone) 60 mg 1X ONCE PO Last administered on 07/17/16 14:08 ; Start 07/17/16 at 14:00; Stop 07/17/16 at 14:01; Status DC Albuterol Sulfate (Ventolin Neb Soln) 2.5 mg PRN QID PRN NEB SHORTNESS OF BREATH Last administered on 07/21/16 21:40; Start 07/18/16 at 08:00 Methylprednisolone Sodium Succinate (Solu-Medrol 40mg Vial) 40 mg Q12HR IV Last administered on 07/24/16 21:54; Start 07/18/16 at 09:00; Stop 07/24/16 at 22:47; Status DC Albuterol/ Ipratropium (Duoneb) 3 ml RTQID NEB Last administered on 07/23/16 12:14; Start 07/18/16 at 08:00; Stop 07/23/16 at 15:52; Status DC Insulin Aspart (Novolog) 0-12 UNITS QIDACHS SQ Last administered on 07/25/16 20:51; Start 07/18/16 at 11:30 Neomycin/ Polymyxin/ Bacitracin 1 pkt 1 pkt DAILY TP ; Start 07/21/16 at 09:00; Stop 07/21/16 at 09:59; Status DC Lactated Ringer's 1,000 ml @ 75 mls/hr 1X ONCE IV Last administered on 12:22; Start 07/23/16 at 12:30; Stop 07/24/16 at 01:49; Status DC Propofol (Diprivan) 20 ml @ As Directed STK-MED ONCE IV ; Start 07/23/16 at 12: 30; Stop 07/23/16 at 12:31; Status DC Lidocaine HCl (Lidocaine Pf 2% Vial) 5 ml STK-MED ONCE .ROUTE ; Start 07/23/16 at 12:30; Stop 07/23/16 at 12:31; Status DC Ondansetron HCl (Zofran) 4 mg PRN Q6HRS PRN IV Nausea; Start 07/23/16 at 12:45 ; Stop 07/23/16 at 18:00; Status DC Fentanyl Citrate (Fentanyl 2ml Vial) 25 mcg PRN Q5MIN PRN IV MILD PAIN; Start 07/23/16 at 12:45; Stop 07/23/16 at 18:00; Status DC Fentanyl Citrate (Fentanyl 2ml Vial) 50 mcg PRN Q5MIN PRN IV MODERATE PAIN; Start 07/23/16 at 12:45; Stop 07/23/16 at 18:00; Status DC Morphine Sulfate 1 mg 1 mg PRN Q10MIN PRN IV SEVERE PAIN; Start 07/23/16 at 12: 45; Stop 07/23/16 at 18:00; Status DC Lactated Ringer's (Iv Lactated Ringers) 1,000 ml @ 30 mls/hr Q24H IV Last administered on 07/23/16 12:42; Start 07/23/16 at 12:42; Stop 07/24/16 at 00:41 ; Status DC Lidocaine HCl 2 ml 1X PRN PRN ID IV START; Start 07/23/16 at 12:45; Stop at 18:00; Status DC Hydromorphone HCl (Dilaudid) 0.5 mg PRN Q10MIN PRN IV SEV PAIN,Second choice; Start 07/23/16 at 12:45; Stop 07/23/16 at 18:00; Status DC Prochlorperazine Edisylate (Compazine) 5 mg PACU PRN PRN IV NAUSEA; Start 07/23 at 12:45; Stop 07/23/16 at 18:00; Status DC Vancomycin HCl 1 each 1 each PRN DAILY PRN MC SEE COMMENTS Last administered on 07/25/16 16:18; Start 07/23/16 at 13:15 Piperacillin Sod/ Tazobactam Sod 3.375 gm/Sodium Chloride 50 ml @ 100 mls/hr Q6HRS IV Last administered on 07/26/16 06:11; Start 07/23/16 at 13:30 Vancomycin HCl 2 gm/Sodium Chloride 500 ml @ 250 mls/hr 1X ONCE IV Last administered on 07/23/16 15:29; Start 07/23/16 at 15:00; Stop 07/23/16 at 16:59 ; Status DC Vancomycin HCl/ Sodium Chloride (Iv Sodium Chloride 0.9% 250ml) 250 ml @ 167 mls/hr Q12H IV Last administered on 07/25/16 15:48; Start 07/24/16 at 03:00; Stop 07/25/16 at 17:00; Status DC Vancomycin HCl 1 each 1X ONCE MC Last administered on 07/25/16 14:30; Start 07/25/16 at 14:30; Stop 07/25/16 at 14:31; Status DC Albuterol/ Ipratropium (Duoneb) 3 ml RTQID NEB Last administered on 07/26/16 08:00; Start 07/23/16 at 16:00 Albuterol/ Ipratropium (Duoneb) 3 ml 1X ONCE NEB ; Start 07/23/16 at 15:52; Stop 07/23/16 at 15:53; Status Cancel Methylprednisolone Sodium Succinate (Solu-Medrol 40mg Vial) 40 mg DAILY IV Last administered on 07/26/16 08:25; Start 07/25/16 at 09:00 Acetylcysteine 600 mg 600 mg QID INH Last administered on 07/26/16 08:00; Start 07/25/16 at 17:00 Vancomycin HCl/ Sodium Chloride (Iv Sodium Chloride 0.9% 500ml Bag) 500 ml @ 250 mls/hr Q12H IV Last administered on 07/26/16 03:05; Start 07/26/16 at 03: 00 Vancomycin HCl 1 each 1X ONCE MC ; Start 07/27/16 at 02:30; Stop 07/27/16 at 02 :31 Active Scripts Active [place] 5-325 Tablet (Acetaminophen/Hydrocodone Bitart) 1 Each Tablet 1 Tab PO PRN Q6HRS PRN Amox Tr-K Clv 875-125 Mg Tab (Amoxicillin/Potassium Clav) 1 Each Tablet 1 Tab PO BID Reported Cefuroxime (Cefuroxime Axetil) 500 Mg Tablet 1 Tab PO BID Alendronate Sodium 70 Mg Tablet 1 Tab PO WEEKLY Theophylline (Theophylline Anhydrous) 400 Mg Tablet.er 300 Mg PO Meloxicam 7.5 Mg Tablet 1 Tab PO DAILY Robaxin (Methocarbamol) 500 Mg Tablet 1 Tab PO BID Gabapentin 400 Mg Capsule 400 Mg PO TID Propafenone Hcl 150 Mg Tablet 150 Mg PO BID Ventolin Hfa Inhaler (Albuterol Sulfate) 18 Gm Hfa.aer.ad 2 Puff INH Q4HRS Warfarin Sodium 3 Mg Tablet 2 Tab PO QFR Warfarin Sodium 3 Mg Tablet 1 Tab PO QHS Digoxin 250 Mcg Tablet 250 Mcg PO DAILY Lisinopril 2.5 Mg Tablet 2.5 Mg PO DAILY Glimepiride 1 Mg Tablet 1 Mg PO DAILY Albuterol Sulfate Hfa Inhaler (Albuterol Sulfate) 8.5 Gm Hfa.aer.ad 2 Puff INH QID Symbicort 160-4.5 Mcg Inhaler (Budesonide/Formoterol Fumarate) 10.2 Gm Hfa.aer.ad 2 Puff IH BID Aspirin Ec (Aspirin) 325 Mg Tablet.dr 1 Tab PO DAILY Temazepam 15 Mg Capsule 1 Cap PO QHS Gabapentin 100 Mg Capsule 300 Mg PO HS Metformin Hcl Er (Metformin Hcl) 500 Mg Tab.er.24h 1 Tab PO BID Theophylline (Theophylline Anhydrous) 400 Mg Tablet.er 300 Mg PO DAILY07 Vitals/I & O Vital Sign - Last 24 Hours 07/25/16 07/25/16 07/25/16 07/25/16 14:07 15:26 18:21 19:20 Temp 98.1 97.4 98.1 97.4 Pulse 95 100 Resp 20 20 B/P 135/74 133/65 Pulse Ox 97 95 O2 Delivery Nasal Cannula Nasal Cannula Nasal Cannula Nasal Cannula O2 Flow Rate 2.0 2.0 2.0 2.0 07/25/16 07/25/16 07/25/16 07/25/16 20:23 20:48 22:49 23:07 Temp 98.2 98.2 Pulse 100 101 Resp 20 18 B/P 133/65 121/72 Pulse Ox 94 95 O2 Delivery Nasal Cannula Room Air Nasal Cannula O2 Flow Rate 2.0 2.0 07/25/16 07/26/16 07/26/16 07/26/16 23:29 00:35 03:00 07:16 Temp 98.2 97.6 98.2 97.6 Pulse 101 76 72 Resp 18 20 20 18 B/P 121/79 119/74 122/73 Pulse Ox 95 94 97 96 O2 Delivery Nasal Cannula Room Air Nasal Cannula Nasal Cannula O2 Flow Rate 2.0 2.0 07/26/16 07/26/16 07/26/16 07/26/16 08:00 08:20 08:24 08:26 Pulse 78 90 O2 Delivery Nasal Cannula Nasal Cannula O2 Flow Rate 2.0 2.0 07/26/16 07/26/16 08:26 11:13 Temp 97.6 97.6 Pulse 85 80 Resp 19 B/P 122/73 112/74 Pulse Ox 93 O2 Delivery Nasal Cannula Intake and Output 07/25/16 07/25/16 07/26/16 15:00 23:00 07:00 Intake Total 470 ml 720 ml 600 ml Output Total 925 ml 200 ml 600 ml Balance -455 ml 520 ml 0 ml RUDY NELSON MD Jul 26, 2016 11:19
--- NOTE | 2016-07-26 13:07 | PDOC ---
PROGRESS NOTES Subjective Subjective Patient continues to have shortness of breath. Answer bronchoscopy today pending. Objective Objective Vital Signs Date Time Temp Pulse Resp B/P Pulse Ox O2 Delivery O2 Flow Rate FiO2 07/26/16 11:43 93 Nasal Cannula 2.0 07/26/16 11:13 97.6 80 19 112/74 97.6 Intake and Output 07/26/16 07:00 Intake Total 1790 ml Output Total 1725 ml Balance 65 ml Intake Oral 1140 ml IV Total 650 ml Output Urine Total 1725 ml Physical Exam Abdomen: Normal bowel sounds Heart: Other (A. fib controlled) General: Alert Lungs: Other (coarse breath sounds with mucous plugging and occasional wheezing noted.) Assessment Assessment Problems Medical Problems: (1) Atrial fibrillation with RVR Status: Acute (2) Hypoxia Status: Acute (3) Shortness of breath Status: Acute 1. Acute hypoxemic respiratory failure, multifactorial 2. Acute exacerbation of chronic obstructive pulmonary disease 3. Acute viral bronchitis. 4. Atrial fibrillation with rapid ventricular response: Rate controlled now. 5. Hypertension 6. Diabetes mellitus Plan Plan of Care Continue pulmonary toilet possible bronchitic today or to skilled with percussion device. Discharge to [facility] unit recommended Comment Review of Relevant I have reviewed the following items kaila (where applicable) has been applied. Labs Laboratory Tests Test 07/24/16 16:47 07/24/16 20:41 07/25/16 05:15 07/25/16 07:35 Glucose (Fingerstick) 221mg/dL (70-99) 203mg/dL (70-99) 185mg/dL (70-99) White Blood Count 10.2x10^3/uL (4.0-11.0) Red Blood Count 5.26x10^6/uL (4.30-5.70) Hemoglobin 15.0g/dL (13.0-17.5) Hematocrit 45.3% (39.0-53.0) Mean Corpuscular Volume 86fL (79-100) Mean Corpuscular Hemoglobin 29pg (25-35) Mean Corpuscular Hemoglobin Concent 33g/dL (31-37) Red Cell Distribution Width 15.9% (11.5-14.5) Platelet Count 159x10^3/uL (140-400) Neutrophils (%) (Auto) 88% (31-73) Lymphocytes (%) (Auto) 9% (24-48) Monocytes (%) (Auto) 3% (0-9) Eosinophils (%) (Auto) 0% (0-3) Basophils (%) (Auto) 0% (0-3) Neutrophils # (Auto) 9.0x10^3uL (1.8-7.7) Lymphocytes # (Auto) 0.9x10^3/uL (1.0-4.8) Monocytes # (Auto) 0.3x10^3/uL (0.0-1.1) Eosinophils # (Auto) 0.0x10^3/uL (0.0-0.7) Basophils # (Auto) 0.0x10^3/uL (0.0-0.2) Segmented Neutrophils % 83% (35-66) Band Neutrophils % 3% (0-9) Lymphocytes % 8% (24-48) Monocytes % 4% (0-10) Myelocytes % 2% (0-0) Platelet Estimate Adequate (ADEQUATE) Sodium Level 140mmol/L (136-145) Potassium Level 5.4mmol/L (3.5-5.1) Chloride Level 104mmol/L (98-107) Carbon Dioxide Level 29mmol/L (21-32) Anion Gap 7 (6-14) Blood Urea Nitrogen 26mg/dL (8-26) Creatinine 1.2mg/dL (0.7-1.3) Estimated GFR (Cockcroft-Gault) 58.0 BUN/Creatinine Ratio 22 (6-20) Glucose Level 274mg/dL (70-99) Calcium Level 8.2mg/dL (8.5-10.1) Total Bilirubin 0.8mg/dL (0.2-1.0) Aspartate Amino Transf (AST/SGOT) 15U/L (15-37) Alanine Aminotransferase (ALT/SGPT) 49U/L (16-63) Alkaline Phosphatase 58U/L (46-116) EZ-Fod-A-Type Natriuretic Peptide 156pg/mL (0-449) Total Protein 6.3g/dL (6.4-8.2) Albumin 3.2g/dL (3.4-5.0) Albumin/Globulin Ratio 1.0 (1.0-1.7) Test 07/25/16 10:27 07/25/16 14:50 07/25/16 17:25 07/25/16 20:46 Glucose (Fingerstick) 202mg/dL (70-99) 257mg/dL (70-99) 190mg/dL (70-99) Vancomycin Level Trough 12.0mcg/mL (10.0-20.0) Vancomycin Last Dose Date 07/25/16 Vancomycin Last Dose Time 0300 Test 07/26/16 07:25 07/26/16 12:03 Glucose (Fingerstick) 85mg/dL (70-99) 134mg/dL (70-99) Laboratory Tests Test 07/25/16 14:50 07/25/16 17:25 07/25/16 20:46 07/26/16 07:25 Vancomycin Level Trough 12.0mcg/mL (10.0-20.0) Vancomycin Last Dose Date 07/25/16 Vancomycin Last Dose Time 0300 Glucose (Fingerstick) 257mg/dL (70-99) 190mg/dL (70-99) 85mg/dL (70-99) Test 07/26/16 12:03 Glucose (Fingerstick) 134mg/dL (70-99) Microbiology 07/16/16 Blood Culture - Final, Complete NO GROWTH AFTER 5 DAYS 07/23/16 AFB Specimen Processing Tissue - Final, Resulted 07/23/16 Acid Fast Bacilli Culture, Resulted Pending 07/23/16 Gram Stain - Final, Resulted 07/23/16 Fungal Culture, Resulted Pending 07/23/16 Fungal Culture Result 1, Resulted Pending Medications Current Medications Aspirin 324 mg 324 mg 1X ONCE PO ; Start 07/16/16 at 10:15; Stop 07/16/16 at 10 :37; Status DC Sodium Chloride (Iv Sodium Chloride 0.9% 500ml Bag) 500 ml @ 500 mls/hr 1X ONCE IV Last administered on 07/16/16 10:46; Start 07/16/16 at 10:45; Stop at 11:44; Status DC Diltiazem HCl (Cardizem) 10 mg 1X ONCE IVP Last administered on 07/16/16t 10: 46; Start 07/16/16 at 10:45; Stop 07/16/16 at 10:46; Status DC Ondansetron HCl (Zofran) 4 mg PRN Q8HRS PRN IV NAUSEA/VOMITING; Start 07/16/16 at 11:30; Stop 07/17/16 at 11:29; Status DC Morphine Sulfate 2 mg PRN Q2HR PRN IV PAIN Last administered on 07/17/16 01:45 ; Start 07/16/16 at 11:30; Stop 07/17/16 at 11:29; Status DC Albuterol/ Ipratropium 3 ml 3 ml RTQID NEB Last administered on 07/16/16 16:00 ; Start 07/16/16 at 12:00; Stop 07/16/16 at 16:40; Status DC Ceftriaxone Sodium 50 ml @ 100 mls/hr 1X ONCE IV Last administered on 11:44; Start 07/16/16 at 11:30; Stop 07/16/16 at 11:59; Status DC Azithromycin (Zithromax 500mg Ivpb For Omni) 250 ml @ 250 mls/hr 1X ONCE IV ; Start 07/16/16 at 11:30; Stop 07/16/16 at 12:29; Status DC Oxymetazoline HCl (Afrin) 2 spray BID NS Last administered on 07/26/16 08:27; Start 07/16/16 at 14:00 Aspirin (Ecotrin) 325 mg DAILY PO Last administered on 07/26/16 08:24; Start 07/17/16 at 09:00 Digoxin (Lanoxin) 250 mcg DAILY PO Last administered on 07/26/16 08:26; Start 07/16/16 at 17:00 Gabapentin (Neurontin) 300 mg HS PO Last administered on 07/25/16 20:48; Start 07/16/16 at 21:00 Gabapentin (Neurontin) 400 mg TIDWMEALS PO Last administered on 07/26/16 12:30 ; Start 07/16/16 at 17:00 Acetaminophen/ Hydrocodone Bitart (Lortab 5/325) 1 tab PRN Q6HRS PRN PO PAIN Last administered on 07/24/16 21:53; Start 07/16/16 at 16:30 Lisinopril (Prinivil) 2.5 mg DAILY PO Last administered on 07/26/16 08:26; Start 07/16/16 at 17:00 Meloxicam (Mobic) 7.5 mg DAILY PO Last administered on 07/26/16 08:24; Start 07/16/16 at 17:30 Metformin HCl (Glucophage Xr) 500 mg BID PO Last administered on 07/26/16 08: 23; Start 07/16/16 at 21:00 Methocarbamol (Robaxin) 500 mg BID PO Last administered on 07/26/16 08:24; Start 07/16/16 at 21:00 Propafenone HCl (Rythmol) 150 mg BID PO Last administered on 07/26/16 08:24; Start 07/16/16 at 21:00 Temazepam (Restoril) 15 mg QHS PO Last administered on 07/25/16 20:48; Start 07/16/16 at 21:00 Warfarin Sodium (Coumadin) 3 mg [id number] PO Last administered on 07/25/16 16:00; Start 07/17/16 at 16:00 Warfarin Sodium (Coumadin) 6 mg QFR PO Last administered on 07/23/16 16:30; Start 07/16/16 at 17:00 Non-Formulary Medication 2 puff BID IH ; Start 07/16/16 at 21:00; Status UNV Glimepiride (Amaryl) 1 mg DAILY PO Last administered on 07/26/16 08:27; Start 07/17/16 at 09:00 Theophylline (Theodur) 300 mg DAILY07 PO Last administered on 07/26/16 06:10; Start 07/17/16 at 07:00 Warfarin Sodium (Coumadin Per Physician) 1 each PRN DAILY PRN MC SEE COMMENTS Last administered on 07/23/16 10:40; Start 07/16/16 at 16:45 Budesonide (Pulmicort) 0.5 mg RTBID NEB Last administered on 07/26/16 08:00; Start 07/16/16 at 20:00 Albuterol Sulfate (Ventolin Neb Soln) 2.5 mg RTQID NEB Last administered on 07:48; Start 07/16/16 at 20:00; Stop 07/18/16 at 07:59; Status DC Propafenone HCl (Rythmol) 150 mg BID PO ; Start 07/16/16 at 21:00; Stop at 21:00; Status DC Enoxaparin Sodium 40 mg 40 mg Q24H SQ ; Start 07/16/16 at 18:30; Status UNV Ceftriaxone Sodium/Sodium Chloride (Rocephin/Iv Sodium Chloride 0.9% 50ml) 50 ml @ 100 mls/hr Q24H IV Last administered on 07/22/16 13:19; Start 07/17/16 at 12:00; Stop 07/23/16 at 13:05; Status DC Guaifenesin (Mucinex) 1,200 mg BID PO Last administered on 07/26/16 08:23; Start 07/17/16 at 14:00 Benzonatate (Tessalon Perle) 100 mg PRN TID PRN PO COUGH Last administered on 08:26; Start 07/17/16 at 14:00 Morphine Sulfate 2 mg PRN QHS PRN IM PAIN Last administered on 07/25/16 23:07 ; Start 07/17/16 at 13:30 Prednisone (Prednisone) 60 mg 1X ONCE PO Last administered on 07/17/16 14:08 ; Start 07/17/16 at 14:00; Stop 07/17/16 at 14:01; Status DC Albuterol Sulfate (Ventolin Neb Soln) 2.5 mg PRN QID PRN NEB SHORTNESS OF BREATH Last administered on 07/21/16 21:40; Start 07/18/16 at 08:00 Methylprednisolone Sodium Succinate (Solu-Medrol 40mg Vial) 40 mg Q12HR IV Last administered on 07/24/16 21:54; Start 07/18/16 at 09:00; Stop 07/24/16 at 22:47; Status DC Albuterol/ Ipratropium (Duoneb) 3 ml RTQID NEB Last administered on 07/23/16 12:14; Start 07/18/16 at 08:00; Stop 07/23/16 at 15:52; Status DC Insulin Aspart (Novolog) 0-12 UNITS QIDACHS SQ Last administered on 07/25/16 20:51; Start 07/18/16 at 11:30 Neomycin/ Polymyxin/ Bacitracin 1 pkt 1 pkt DAILY TP ; Start 07/21/16 at 09:00; Stop 07/21/16 at 09:59; Status DC Lactated Ringer's 1,000 ml @ 75 mls/hr 1X ONCE IV Last administered on 12:22; Start 07/23/16 at 12:30; Stop 07/24/16 at 01:49; Status DC Propofol (Diprivan) 20 ml @ As Directed STK-MED ONCE IV ; Start 07/23/16 at 12: 30; Stop 07/23/16 at 12:31; Status DC Lidocaine HCl (Lidocaine Pf 2% Vial) 5 ml STK-MED ONCE .ROUTE ; Start 07/23/16 at 12:30; Stop 07/23/16 at 12:31; Status DC Ondansetron HCl (Zofran) 4 mg PRN Q6HRS PRN IV Nausea; Start 07/23/16 at 12:45 ; Stop 07/23/16 at 18:00; Status DC Fentanyl Citrate (Fentanyl 2ml Vial) 25 mcg PRN Q5MIN PRN IV MILD PAIN; Start 07/23/16 at 12:45; Stop 07/23/16 at 18:00; Status DC Fentanyl Citrate (Fentanyl 2ml Vial) 50 mcg PRN Q5MIN PRN IV MODERATE PAIN; Start 07/23/16 at 12:45; Stop 07/23/16 at 18:00; Status DC Morphine Sulfate 1 mg 1 mg PRN Q10MIN PRN IV SEVERE PAIN; Start 07/23/16 at 12: 45; Stop 07/23/16 at 18:00; Status DC Lactated Ringer's (Iv Lactated Ringers) 1,000 ml @ 30 mls/hr Q24H IV Last administered on 07/23/16 12:42; Start 07/23/16 at 12:42; Stop 07/24/16 at 00:41 ; Status DC Lidocaine HCl 2 ml 1X PRN PRN ID IV START; Start 07/23/16 at 12:45; Stop at 18:00; Status DC Hydromorphone HCl (Dilaudid) 0.5 mg PRN Q10MIN PRN IV SEV PAIN,Second choice; Start 07/23/16 at 12:45; Stop 07/23/16 at 18:00; Status DC Prochlorperazine Edisylate (Compazine) 5 mg PACU PRN PRN IV NAUSEA; Start 07/23 at 12:45; Stop 07/23/16 at 18:00; Status DC Vancomycin HCl 1 each 1 each PRN DAILY PRN MC SEE COMMENTS Last administered on 07/25/16 16:18; Start 07/23/16 at 13:15 Piperacillin Sod/ Tazobactam Sod 3.375 gm/Sodium Chloride 50 ml @ 100 mls/hr Q6HRS IV Last administered on 07/26/16 12:30; Start 07/23/16 at 13:30 Vancomycin HCl 2 gm/Sodium Chloride 500 ml @ 250 mls/hr 1X ONCE IV Last administered on 07/23/16 15:29; Start 07/23/16 at 15:00; Stop 07/23/16 at 16:59 ; Status DC Vancomycin HCl/ Sodium Chloride (Iv Sodium Chloride 0.9% 250ml) 250 ml @ 167 mls/hr Q12H IV Last administered on 07/25/16 15:48; Start 07/24/16 at 03:00; Stop 07/25/16 at 17:00; Status DC Vancomycin HCl 1 each 1X ONCE MC Last administered on 07/25/16 14:30; Start 07/25/16 at 14:30; Stop 07/25/16 at 14:31; Status DC Albuterol/ Ipratropium (Duoneb) 3 ml RTQID NEB Last administered on 07/26/16 11:43; Start 07/23/16 at 16:00 Albuterol/ Ipratropium (Duoneb) 3 ml 1X ONCE NEB ; Start 07/23/16 at 15:52; Stop 07/23/16 at 15:53; Status Cancel Methylprednisolone Sodium Succinate (Solu-Medrol 40mg Vial) 40 mg DAILY IV Last administered on 07/26/16 08:25; Start 07/25/16 at 09:00 Acetylcysteine 600 mg 600 mg QID INH Last administered on 07/26/16 11:43; Start 07/25/16 at 17:00 Vancomycin HCl/ Sodium Chloride (Iv Sodium Chloride 0.9% 500ml Bag) 500 ml @ 250 mls/hr Q12H IV Last administered on 07/26/16 03:05; Start 07/26/16 at 03: 00 Vancomycin HCl 1 each 1X ONCE MC ; Start 07/27/16 at 02:30; Stop 07/27/16 at 02 :31 Active Scripts Active [place] 5-325 Tablet (Acetaminophen/Hydrocodone Bitart) 1 Each Tablet 1 Tab PO PRN Q6HRS PRN Amox Tr-K Clv 875-125 Mg Tab (Amoxicillin/Potassium Clav) 1 Each Tablet 1 Tab PO BID Reported Cefuroxime (Cefuroxime Axetil) 500 Mg Tablet 1 Tab PO BID Alendronate Sodium 70 Mg Tablet 1 Tab PO WEEKLY Theophylline (Theophylline Anhydrous) 400 Mg Tablet.er 300 Mg PO Meloxicam 7.5 Mg Tablet 1 Tab PO DAILY Robaxin (Methocarbamol) 500 Mg Tablet 1 Tab PO BID Gabapentin 400 Mg Capsule 400 Mg PO TID Propafenone Hcl 150 Mg Tablet 150 Mg PO BID Ventolin Hfa Inhaler (Albuterol Sulfate) 18 Gm Hfa.aer.ad 2 Puff INH Q4HRS Warfarin Sodium 3 Mg Tablet 2 Tab PO QFR Warfarin Sodium 3 Mg Tablet 1 Tab PO QHS Digoxin 250 Mcg Tablet 250 Mcg PO DAILY Lisinopril 2.5 Mg Tablet 2.5 Mg PO DAILY Glimepiride 1 Mg Tablet 1 Mg PO DAILY Albuterol Sulfate Hfa Inhaler (Albuterol Sulfate) 8.5 Gm Hfa.aer.ad 2 Puff INH QID Symbicort 160-4.5 Mcg Inhaler (Budesonide/Formoterol Fumarate) 10.2 Gm Hfa.aer.ad 2 Puff IH BID Aspirin Ec (Aspirin) 325 Mg Tablet.dr 1 Tab PO DAILY Temazepam 15 Mg Capsule 1 Cap PO QHS Gabapentin 100 Mg Capsule 300 Mg PO HS Metformin Hcl Er (Metformin Hcl) 500 Mg Tab.er.24h 1 Tab PO BID Theophylline (Theophylline Anhydrous) 400 Mg Tablet.er 300 Mg PO DAILY07 Vitals/I & O Vital Sign - Last 24 Hours 07/25/16 07/25/16 07/25/16 07/25/16 14:07 15:26 18:21 19:20 Temp 98.1 97.4 98.1 97.4 Pulse 95 100 Resp 20 20 B/P 135/74 133/65 Pulse Ox 97 95 O2 Delivery Nasal Cannula Nasal Cannula Nasal Cannula Nasal Cannula O2 Flow Rate 2.0 2.0 2.0 2.0 07/25/16 07/25/16 07/25/16 07/25/16 20:23 20:48 22:49 23:07 Temp 98.2 98.2 Pulse 100 101 Resp 20 18 B/P 133/65 121/72 Pulse Ox 94 95 O2 Delivery Nasal Cannula Room Air Nasal Cannula O2 Flow Rate 2.0 2.0 07/25/16 07/26/16 07/26/16 07/26/16 23:29 00:35 03:00 07:16 Temp 98.2 97.6 98.2 97.6 Pulse 101 76 72 Resp 18 20 20 18 B/P 121/79 119/74 122/73 Pulse Ox 95 94 97 96 O2 Delivery Nasal Cannula Room Air Nasal Cannula Nasal Cannula O2 Flow Rate 2.0 2.0 07/26/16 07/26/16 07/26/16 07/26/16 08:00 08:20 08:24 08:26 Pulse 78 90 O2 Delivery Nasal Cannula Nasal Cannula O2 Flow Rate 2.0 2.0 07/26/16 07/26/16 07/26/16 08:26 11:13 11:43 Temp 97.6 97.6 Pulse 85 80 Resp 19 B/P 122/73 112/74 Pulse Ox 93 93 O2 Delivery Nasal Cannula Nasal Cannula O2 Flow Rate 2.0 Intake and Output 07/25/16 07/25/16 07/26/16 15:00 23:00 07:00 Intake Total 470 ml 720 ml 600 ml Output Total 925 ml 200 ml 600 ml Balance -455 ml 520 ml 0 ml ZENAIDA PATEL MD Jul 26, 2016 13:07
[2016-07-26] MEDS ORDERED: GUAI600T38 PO (13:14)
[2016-07-26] MEDS ORDERED: ALBU2.5V5 NEB (13:14)
[2016-07-26] MEDS ORDERED: ACET200V4 INH (13:14)
[2016-07-26] MEDS ORDERED: IPRA3AMP NEB (13:14)
[2016-07-26] MEDS ORDERED: PRED-220 PO (13:14)
[2016-07-26] MEDS ORDERED: BUDE0.5A NEB (13:14)
[2016-07-26] MEDS ORDERED: BENZ100C2 PO (13:14)
--- NOTE | 2016-07-26 13:20 | PDOC ---
PULMONARY PROGRESS NOTES Subjective Continues to have difficulty w/ expectoration. Denies chest pain, pressure, palpitations. Vitals Vital Signs Date Time Temp Pulse Resp B/P Pulse Ox O2 Delivery O2 Flow Rate FiO2 07/26/16 11:43 93 Nasal Cannula 2.0 07/26/16 11:13 97.6 80 19 112/74 97.6 ROS: No Nausea, No Chest Pain, No Abdominal Pain General: Alert, Oriented X4, No acute distress Lungs: Other (few rhonchi) Cardiovascular: S1, S2 Abdomen: Soft, Non-tender Neuro Exam: Alert, Oriented, Normal Speech, No Focal Findings Extremities: No Edema Skin: Warm, Dry, No Rashes Labs Laboratory Tests Test 07/24/16 16:47 07/24/16 20:41 07/25/16 05:15 07/25/16 07:35 Glucose (Fingerstick) 221mg/dL (70-99) 203mg/dL (70-99) 185mg/dL (70-99) White Blood Count 10.2x10^3/uL (4.0-11.0) Red Blood Count 5.26x10^6/uL (4.30-5.70) Hemoglobin 15.0g/dL (13.0-17.5) Hematocrit 45.3% (39.0-53.0) Mean Corpuscular Volume 86fL (79-100) Mean Corpuscular Hemoglobin 29pg (25-35) Mean Corpuscular Hemoglobin Concent 33g/dL (31-37) Red Cell Distribution Width 15.9% (11.5-14.5) Platelet Count 159x10^3/uL (140-400) Neutrophils (%) (Auto) 88% (31-73) Lymphocytes (%) (Auto) 9% (24-48) Monocytes (%) (Auto) 3% (0-9) Eosinophils (%) (Auto) 0% (0-3) Basophils (%) (Auto) 0% (0-3) Neutrophils # (Auto) 9.0x10^3uL (1.8-7.7) Lymphocytes # (Auto) 0.9x10^3/uL (1.0-4.8) Monocytes # (Auto) 0.3x10^3/uL (0.0-1.1) Eosinophils # (Auto) 0.0x10^3/uL (0.0-0.7) Basophils # (Auto) 0.0x10^3/uL (0.0-0.2) Segmented Neutrophils % 83% (35-66) Band Neutrophils % 3% (0-9) Lymphocytes % 8% (24-48) Monocytes % 4% (0-10) Myelocytes % 2% (0-0) Platelet Estimate Adequate (ADEQUATE) Sodium Level 140mmol/L (136-145) Potassium Level 5.4mmol/L (3.5-5.1) Chloride Level 104mmol/L (98-107) Carbon Dioxide Level 29mmol/L (21-32) Anion Gap 7 (6-14) Blood Urea Nitrogen 26mg/dL (8-26) Creatinine 1.2mg/dL (0.7-1.3) Estimated GFR (Cockcroft-Gault) 58.0 BUN/Creatinine Ratio 22 (6-20) Glucose Level 274mg/dL (70-99) Calcium Level 8.2mg/dL (8.5-10.1) Total Bilirubin 0.8mg/dL (0.2-1.0) Aspartate Amino Transf (AST/SGOT) 15U/L (15-37) Alanine Aminotransferase (ALT/SGPT) 49U/L (16-63) Alkaline Phosphatase 58U/L (46-116) GK-Psh-I-Type Natriuretic Peptide 156pg/mL (0-449) Total Protein 6.3g/dL (6.4-8.2) Albumin 3.2g/dL (3.4-5.0) Albumin/Globulin Ratio 1.0 (1.0-1.7) Test 07/25/16 10:27 07/25/16 14:50 07/25/16 17:25 07/25/16 20:46 Glucose (Fingerstick) 202mg/dL (70-99) 257mg/dL (70-99) 190mg/dL (70-99) Vancomycin Level Trough 12.0mcg/mL (10.0-20.0) Vancomycin Last Dose Date 07/25/16 Vancomycin Last Dose Time 0300 Test 07/26/16 07:25 07/26/16 12:03 Glucose (Fingerstick) 85mg/dL (70-99) 134mg/dL (70-99) Laboratory Tests Test 07/25/16 14:50 07/25/16 17:25 07/25/16 20:46 07/26/16 07:25 Vancomycin Level Trough 12.0mcg/mL (10.0-20.0) Vancomycin Last Dose Date 07/25/16 Vancomycin Last Dose Time 0300 Glucose (Fingerstick) 257mg/dL (70-99) 190mg/dL (70-99) 85mg/dL (70-99) Test 07/26/16 12:03 Glucose (Fingerstick) 134mg/dL (70-99) Medications Active Scripts Medications Dose Route/Sig Days Date Category Cefuroxime (Cefuroxime Axetil) 500 Mg Tablet 1 Tab PO BID 07/16/16 Reported Alendronate Sodium 70 Mg Tablet 1 Tab PO WEEKLY 07/16/16 Reported Theophylline (Theophylline Anhydrous) 400 Mg Tablet.er 300 Mg PO 07/16/16 Reported Meloxicam 7.5 Mg Tablet 1 Tab PO DAILY 07/16/16 Reported Robaxin (Methocarbamol) 500 Mg Tablet 1 Tab PO BID 07/16/16 Reported Gabapentin 400 Mg Capsule 400 Mg PO TID 07/16/16 Reported Propafenone Hcl 150 Mg Tablet 150 Mg PO BID 07/16/16 Reported Ventolin Hfa Inhaler (Albuterol Sulfate) 18 Gm Hfa.aer.ad 2 Puff INH Q4HRS 07/16/16 Reported [place] 5-325 Tablet (Acetaminophen/Hydrocodone Bitart) 1 Each Tablet 1 Tab PO PRN Q6HRS PRN 09/04/15 Rx Warfarin Sodium 3 Mg Tablet 2 Tab PO QFR 08/31/15 Reported Warfarin Sodium 3 Mg Tablet 1 Tab PO QHS 08/31/15 Reported Amox Tr-K Clv 875-125 Mg Tab (Amoxicillin/Potassium Clav) 1 Each Tablet 1 Tab PO BID 04/03/15 Rx Digoxin 250 Mcg Tablet 250 Mcg PO DAILY 04/01/15 Reported Lisinopril 2.5 Mg Tablet 2.5 Mg PO DAILY 04/01/15 Reported Glimepiride 1 Mg Tablet 1 Mg PO DAILY 02/14/15 Reported Albuterol Sulfate Hfa Inhaler (Albuterol Sulfate) 8.5 Gm Hfa.aer.ad 2 Puff INH QID 02/14/15 Reported Symbicort 160-4.5 Mcg Inhaler (Budesonide/Formoterol Fumarate) 10.2 Gm Hfa.aer.ad 2 Puff IH BID 02/14/15 Reported Aspirin Ec (Aspirin) 325 Mg Tablet.dr 1 Tab PO DAILY 03/05/14 Reported Temazepam 15 Mg Capsule 1 Cap PO QHS 03/05/14 Reported Gabapentin 100 Mg Capsule 300 Mg PO HS 03/05/14 Reported Metformin Hcl Er (Metformin Hcl) 500 Mg Tab.er.24h 1 Tab PO BID 03/05/14 Reported Theophylline (Theophylline Anhydrous) 400 Mg Tablet.er 300 Mg PO DAILY07 03/05/14 Reported Impression . 1. Acute hypoxemic respiratory failure: Multifactorial in etiology, including acute exacerbation of chronic obstructive pulmonary disease, acute viral bronchitis, atrial fibrillation with rapid ventricular response, diffuse mucous secretions 2. Acute exacerbation of chronic obstructive pulmonary disease. 3. Acute viral bronchitis. 4. Atrial fibrillation with rapid ventricular response. controlled 5. Hypertension. 6. Diabetes mellitus. 7. Ex-smoker. 8. History of prostate cancer. Plan . 1. Continues to have difficulty with expectoration. will add chest vest/ aggressive pulmonary toilet 2. Bronchodilator: albuterol and Atrovent q.i.d. and albuterol p.r.n. 3. Continue Pulmicort. 4. Continue steroids 5. Continue Abx: Vanc & Zosyn 7. Coumadin per PCP. 8. Diffuse mucopurulent secretions in trachea/ both lungs; s/p therapeutic Bronch , cultures negative so far 10. Continue zosyn/vanc, - Cultures NGTD - Mucomyst to assist with clearance. - chest vest - hold off on additional bronch JW CERVANTES MD Jul 26, 2016 13:20
[2016-07-26 14:39] VITALS: BP 119/68
[2016-07-26] MEDS ORDERED: [UNRECOGNIZED DRUG - SUPPLY] (15:17)
--- NOTE | 2016-07-26 16:38 | PATHOLOGY ---
CYTOPATHOLOGY REPORT CLINICAL HISTORY: Mucous plug. SPECIMEN(S) RECEIVED: A.Bronchoalveolar lavage, LLL B.Bronchoalveolar lavage, RLL FINAL DIAGNOSIS: A. Left lower lobe bronchoalveolar lavage, ThinPrep: - No malignant cells identified. - Bronchial epithelial cells and pulmonary macrophages identified within a background of mucous and scattered inflammatory cells. B. Right lower lobe bronchoalveolar lavage, ThinPrep: - No malignant cells identified. - Focally reactive bronchial epithelial cells, squamous epithelial cells, and pulmonary macrophages identified within a background of mucous and scattered inflammatory cells. (JPM:mgr; d/t: 07/26/16) PATHOLOGIST: Jim Rubio M.D. REPORT ELECTRONICALLY SIGNED BY: Jim Rubio M.D. DATE/TIME: 07/26/2016 16:37 GROSS PATHOLOGY: A. Bronchoalveolar lavage, LLL: The specimen is submitted unfixed, labeled "Alec Hawk". Received by the Cytology Department is two mL of clear pink fluid. One ThinPrep slide was prepared. B. Bronchoalveolar lavage, RLL: The specimen is submitted unfixed, labeled "HeberAlec". Received by the Cytology Department is two mL of clear colorless fluid. One ThinPrep slide was prepared. (clt 07.23.2016) SHEET METAL WORKER(S): ROBERTO Rangel([facility]) INITIAL CPT CODE(S): A; 77004 B; 40386 Professional services [place] [address] Technical services performed by [facility] at [address] [place] [address], [address], [place] [address]. PATIENT: ALEC HAWK /AGE: 2 1935 (Age: 80) SEX: M PATIENT #: [id number] ALT CASE #: SPECIMEN COLLECTION DATE: 07/16/2016 SPECIMEN RECEIVED DATE: 07/23/[address] [facility] [address] [place] [address], [address] [place] [address] PHONE: [phone] DIRECTOR: Wing Weber M.D. * * * END OF REPORT * * *
[2016-07-26] MEDS: WARFARIN 3 MG TABLET. PO SCH (16:43)
--- NOTE | 2016-07-26 20:52 | DS ---
DATE OF DISCHARGE: 07/26/2016 ADMITTING DIAGNOSIS: 1. Atrial fibrillation with rapid ventricular response. 2. Acute on chronic respiratory failure. 3. Exacerbation of chronic obstructive pulmonary disease. 4. Bronchitis. 5. Type 2 diabetes. 6. Hypertension. HISTORY OF PRESENT ILLNESS AND HOSPITAL COURSE: This patient is an 80-year-old male who came in with palpitations and shortness of breath. He was found to be in AFib was controlled, but patient continued to have difficulty with breathing and showed evidence of increasing mucus plugging and exacerbation of COPD. He underwent treatment by Pulmonary Medicine including bronchoscopy and improved to the point where he was able to tolerate PT and OT, but continued to have increased debilitation and increased mucous plugging on breath sounds with continued oxygen requirements. After PT and OT modalities, patient was recommended to proceed with nursing home. Patient continued to have secretions and was continued on multiple medications to help pulmonary toilet including Mucomyst, Mucinex and IV steroids. He was switched to p.o. steroids and a plan for percussion device to mobilize secretions was made. The patient did have one bronchoscopy, but second bronchoscopy was delayed due to fear of ARDS and increased pulmonary injury with recurrent bronchoscopies. Patient will follow up with Pulmonary Medicine as an outpatient and will be transferred to nursing home for continued PT and OT modalities and continue monitoring pulmonary status and continued RT support. DISCHARGE MEDICATIONS: He will be discharged on medications as listed on [facility]. FOLLOWUP: With Dr. Mcginnis nursing home and rehab stay. ZENAIDA PATEL MD DR: ARABELLA/collins JOB#: [id number] / [id number]
== END 2016-07-26 17:00 | DRG 189 ==
LOC: ER 09:48 → 2 SOUTH 11:16
PROVIDERS: ADMIT Family Medicine; ATTEND Family Medicine
PROC: 0B968ZX Drainage of Right Lower Lobe Bronchus, Via Natural or Artificial Opening Endoscopic, Diagnostic (ICD-10-PCS; 2016-07-23)
PROC: 0BB78ZX Excision of Left Main Bronchus, Via Natural or Artificial Opening Endoscopic, Diagnostic (ICD-10-PCS; 2016-07-23)
PROC: 0B9B8ZX Drainage of Left Lower Lobe Bronchus, Via Natural or Artificial Opening Endoscopic, Diagnostic (ICD-10-PCS; principal; 2016-07-23 12:00)
DX: J96.21 Acute and chronic respiratory failure with hypoxia (principal); J44.0 Chronic obstructive pulmonary disease with (acute) lower respiratory infection; T17.590A Other foreign object in bronchus causing asphyxiation, initial encounter; J44.1 Chronic obstructive pulmonary disease with (acute) exacerbation; E11.65 Type 2 diabetes mellitus with hyperglycemia; I48.91 Unspecified atrial fibrillation; E87.5 Hyperkalemia; I10 Essential (primary) hypertension; J20.8 Acute bronchitis due to other specified organisms; Z96.659 Presence of unspecified artificial knee joint; J45.909 Unspecified asthma, uncomplicated; T17.990A Other foreign object in respiratory tract, part unspecified in causing asphyxiation, initial encounter; Z87.01 Personal history of pneumonia (recurrent); Z85.46 Personal history of malignant neoplasm of prostate; Z85.828 Personal history of other malignant neoplasm of skin; Z87.891 Personal history of nicotine dependence; Z90.49 Acquired absence of other specified parts of digestive tract; Z98.890 Other specified postprocedural states; Z90.79 Acquired absence of other genital organ(s); Z79.82 Long term (current) use of aspirin; Z79.899 Other long term (current) drug therapy; Z88.8 Allergy status to other drugs, medicaments and biological substances
CPT/HCPCS: 31622; 36415; 71010; 71250; 80048; 80053; 80076; 80162; 80202; 82947; 83690; 83880; 84484; 85007; 85027; 85610; 85730; 87040; 87070; 87102; 87116; 87205; 87449; 88112; 93005; 94250; 94640; 94667; 94668; 94760; 96361; 96365; 96375; J0690; J0696; J1815; J2270; J2543; J2704; J2920; J3370; J3490; J7040; J7050; J7120; J7512; J7620; 97530; 97535; 99285-25; J7030

== ENCOUNTER 2019-03-21 15:36 | Inpatient (IN) | payer MEDICARE, OTHER ==
[~2019-03-21] VITALS: Ht 193 cm; Wt 93.2 kg
[~2019-03-21 15:36] MED LIST changes: +ACET200V4 INH; -ACLI400A2 IH; +ACLI400A3 IH; +ALBU2.5V5 NEB; +ALEN70TA6 PO; +AZITHROMYCIN 250 MG TABLET. PO SCH; +BENZ-8 PO; +BUDE0.5A NEB; +CEFU500T46 PO; +GABA-689 PO; +GUAI600T47 PO; +HYDR-3164 PO; -HYDR-971 PO; +IPRA3AMP29 NEB; +MELO7.5T29 PO; +METF500T11 PO; -METF500T9 PO; +METH-37 PO; +PRED-220 PO; +PROP150T2 PO; +VENTOLIN HFA18 GM INH; +WARF-31 PO; -WARF3TAB PO; +WARF3TAB50 PO; +WARF3TAB54 PO; -WARF3TAB7 PO; -WARF5TAB7 PO; +[UNRECOGNIZED DRUG - SUPPLY]
--- NOTE | 2019-03-21 16:34 | PHYS DOC ---
Past Medical History Past Medical History: A-Fib, Asthma, Cancer, CHF, COPD, Diabetes-Type II, Hypertension, Pneumonia, UTI, Other Additional Past Medical Histor: EMPHYSEMA,SKIN CANCER FACE,PROSTATE CA,NEUROPATHY Past Surgical History: Cholecystectomy, Knee Replacement Additional Past Surgical Histo: HERNIA, BACK, NECK,PROSTATECTOMY, CATARACT EXTRACTION Alcohol Use: None Drug Use: None Adult General Chief Complaint Chief Complaint: SHORTNESS OF BREATH HPI HPI Patient is a 83 year old male who presents with complaining of lung infection and urine infection. Patient complaining of productive cough for one or 2 weeks with yellow sputum and constant shortness of breath that getting worse with supine position. Patient denies chest pain, nasal congestion and sore throat, earache, sick contact, vomiting and diarrhea. Patient complaining of dizziness that usually happens with UTI and thinks he has urinary tract infections without complaining of urinary frequency or dysuria. Patient called his primary care physician 3 days ago and asked for chest x-ray and had a chest x-ray this morning without having any resolved and because of not getting better after nebulizer treatment decided to come to emergency room. Review of Systems Review of Systems Constitutional: Denies fever or chills [] Eyes: Denies change in visual acuity, redness, or eye pain [] HENT: Denies nasal congestion or sore throat [] Respiratory: Reports cough and shortness of breath Cardiovascular: No additional information not addressed in HPI [] GI: Denies abdominal pain, nausea, vomiting, bloody stools or diarrhea [] : Denies dysuria or hematuria [] Musculoskeletal: Denies back pain or joint pain [] Integument: Denies rash or skin lesions [] Neurologic: Denies headache, focal weakness or sensory changes [] Endocrine: Denies polyuria or polydipsia [] All other systems were reviewed and found to be within normal limits, except as documented in this note. Current Medications Current Medications Current Medications Medications (Trade) Dose Ordered Sig/Suri Start Time Stop Time Status Last Admin Dose Admin Albuterol/ Ipratropium (Duoneb) 3 ml 1X ONCE 03/21/19 16:45 03/21/19 16:46 DC 03/21/19 17:11 3 ML Ceftriaxone Sodium (Rocephin) 1 gm 1X ONCE 03/21/19 18:00 03/21/19 18:05 DC Methylprednisolone Sodium Succinate (SOLU-Medrol 125MG VIAL) 125 mg 1X ONCE 03/21/19 16:45 03/21/19 16:46 DC 03/21/19 17:02 125 MG Allergies Allergies Allergies Coded Allergies Type Severity Reaction Last Updated Verified duloxetine Adverse Reaction Severe syncope; nausea; weakness 07/23/16 Yes Physical Exam Physical Exam Constitutional: Well developed, well nourished, mild distress, non-toxic appearance. [] HENT: Normocephalic, atraumatic, bilateral external ears normal, oropharynx moist, no oral exudates, nose normal. [] Eyes: PERRLA, EOMI, conjunctiva normal, no discharge. [] Neck: Normal range of motion, no tenderness, supple, no stridor. [] Cardiovascular: Regular rate regular rhythm without tachycardia, no murmur [] Lungs & Thorax: Bilateral breath sounds clear to auscultation [] Abdomen: Bowel sounds normal, soft, no tenderness, no masses, no pulsatile masses. [] Skin: Warm, dry, no erythema, no rash. [] Back: No tenderness, no CVA tenderness. [] Extremities: No tenderness, no cyanosis, no clubbing, ROM intact, no edema. [] Neurologic: Alert and oriented X 3, normal motor function, normal sensory function, no focal deficits noted. [] Psychologic: Affect normal, judgement normal, mood normal. [] Current Patient Data Vital Signs Vital Signs Date Time Temp Pulse Resp B/P (MAP) Pulse Ox O2 Delivery O2 Flow Rate FiO2 03/21/19 17:11 97 Room Air 03/21/19 16:10 97.5 82 12 133/67 (89) 97.5 Lab Values Laboratory Tests Test 03/21/19 16:25 03/21/19 16:50 Urine Collection Type Void Urine Color Yellow Urine Clarity Clear Urine pH 7.5 Urine Specific [place] 1.020 Urine Protein Negative mg/dL (NEG-TRACE) Urine Glucose (UA) 100 mg/dL (NEG) Urine Ketones (Stick) Negative mg/dL (NEG) Urine Blood Negative (NEG) Urine Nitrite Negative (NEG) Urine Bilirubin Negative (NEG) Urine Urobilinogen Dipstick 1.0 mg/dL (0.2 mg/dL) Urine Leukocyte Esterase Negative (NEG) Urine RBC 0 /HPF (0-2) Urine WBC Occ /HPF (0-4) Urine Squamous Epithelial Cells Few /LPF Urine Bacteria Few /HPF (0-FEW) Urine Mucus Mod /LPF White Blood Count 9.5 x10^3/uL (4.0-11.0) Red Blood Count 4.43 x10^6/uL (4.30-5.70) Hemoglobin 13.6 g/dL (13.0-17.5) Hematocrit 39.9 % (39.0-53.0) Mean Corpuscular Volume 90 fL (79-100) Mean Corpuscular Hemoglobin 31 pg (25-35) Mean Corpuscular Hemoglobin Concent 34 g/dL (31-37) Red Cell Distribution Width 17.9 % (11.5-14.5) H Platelet Count 100 x10^3/uL (140-400) L Neutrophils (%) (Auto) 81 % (31-73) H Lymphocytes (%) (Auto) 10 % (24-48) L Monocytes (%) (Auto) 7 % (0-9) Eosinophils (%) (Auto) 1 % (0-3) Basophils (%) (Auto) 1 % (0-3) Neutrophils # (Auto) 7.7 x10^3/uL (1.8-7.7) Lymphocytes # (Auto) 1.0 x10^3/uL (1.0-4.8) Monocytes # (Auto) 0.7 x10^3/uL (0.0-1.1) Eosinophils # (Auto) 0.1 x10^3/uL (0.0-0.7) Basophils # (Auto) 0.1 x10^3/uL (0.0-0.2) Sodium Level 143 mmol/L (136-145) Potassium Level 4.3 mmol/L (3.5-5.1) Chloride Level 107 mmol/L (98-107) Carbon Dioxide Level 31 mmol/L (21-32) Anion Gap 5 (6-14) L Blood Urea Nitrogen 14 mg/dL (8-26) Creatinine 1.0 mg/dL (0.7-1.3) Estimated GFR (Cockcroft-Gault) 71.0 BUN/Creatinine Ratio 14 (6-20) Glucose Level 144 mg/dL (70-99) H Lactic Acid Level 1.3 mmol/L (0.4-2.0) Calcium Level 9.1 mg/dL (8.5-10.1) Total Bilirubin 1.7 mg/dL (0.2-1.0) H Aspartate Amino Transferase (AST) 11 U/L (15-37) L Alanine Aminotransferase (ALT) 20 U/L (16-63) Alkaline Phosphatase 69 U/L (46-116) Creatine Kinase 40 U/L (39-308) Troponin I Quantitative < 0.017 ng/mL (0.000-0.055) PI-Rge-Q-Type Natriuretic Peptide 586 pg/mL (0-449) H Total Protein 6.6 g/dL (6.4-8.2) Albumin 3.5 g/dL (3.4-5.0) Albumin/Globulin Ratio 1.1 (1.0-1.7) Laboratory Tests 03/21/19 16:50 Laboratory Tests 03/21/19 16:50 EKG EKG EKG interpreted by me. EKG at 1604 showed atrial fibrillation at rate of 68, normal" to ER is, no acute ST and T-wave abnormalities. Radiology/Procedures Radiology/Procedures [] Course & Med Decision Making Course & Med Decision Making Pertinent Labs and Imaging studies reviewed. (See chart for details) Evaluation of patient in ER showed 83-year-old male patient with complaining of productive cough and dizziness and frequent falls and generalized weakness. Patient had unremarkable chest x-ray and labs except for mild elevation of bilirubin and BNP. Patient treated with nebulizer treatment and Solu-Medrol and Rocephin in ER. Patient requiring admission for further evaluation and treatment. Discussed with Dr. Ruiz who is in agreement with admission. Discussed findings and plan with patient and family, who acknowledge understanding and agreement. Dragon Disclaimer Dragon Disclaimer This electronic medical record was generated, in whole or in part, using a voice recognition dictation system. Departure Departure Impression: Primary Impression: Dizziness Additional Impressions: Acute bronchitis Chronic atrial fibrillation Frequent falls CHF (congestive heart failure) Elevated bilirubin Disposition: ADMITTED INPATIENT (at 1756) Admitting Physician: Mauri Ruiz (March admission at 1755) Condition: IMPROVED Referrals: Edward ALLEN MD (PCP) Problem Qualifiers Additional Impressions: Acute bronchitis Bronchitis organism: unspecified organism Qualified Codes: J20.9 - Acute bronchitis, unspecified CHF (congestive heart failure) Heart failure type: unspecified Heart failure chronicity: unspecified Qualified Codes: I50.9 - Heart failure, unspecified JORGE MARTINEZ MD Mar 21, 2019 16:34
[2019-03-21] MEDS ORDERED: IPRATRPIUM/ALBUTEROL 0.5/2.5MG 3 ML NEBU. NEB ONE (16:45)
[2019-03-21] MEDS ORDERED: methylPREDNISolone SOD SUCC PF 125 MG/2 ML VIAL. IV ONE (16:45)
[2019-03-21 17:09] LABS: BASO # 0.1 x10^3/uL (0.0-0.2); BASO % 1 % (0-3); EOS # 0.1 x10^3/uL (0.0-0.7); EOS % 1 % (0-3); HEMATOCRIT 39.9 % (39.0-53.0); HEMOGLOBIN 13.6 g/dL (13.0-17.5); LYMPH % 10 % (24-48); MEAN CORPUSCULAR HEMOGLOBIN 31 pg (25-35); MEAN CORPUSCULAR HGB CONC 34 g/dL (31-37); MEAN CORPUSCULAR VOLUME 90 fL (79-100); MONO # 0.7 x10^3/uL (0.0-1.1); MONO % 7 % (0-9); NEUT # 7.7 x10^3/uL (1.8-7.7); NEUT % 81 % (31-73); PLATELET COUNT 100 x10^3/uL (140-400); RED BLOOD COUNT 4.43 x10^6/uL (4.30-5.70); RED CELL DISTRIBUTION WIDTH 17.9 % (11.5-14.5); WHITE BLOOD COUNT 9.5 x10^3/uL (4.0-11.0)
--- NOTE | 2019-03-21 17:20 | RAD ---
Chest radiograph 03/21/2019 4:24 PM INDICATION: Cough and shortness of breath COMPARISON: 07/25/2016 TECHNIQUE: Portable upright frontal view of the chest is provided. FINDINGS: The cardiomediastinal silhouette is within normal limits. There are no pleural effusions. There is no pulmonary vascular congestion. There is no pneumothorax. The lungs are clear. Suspect pulmonary emphysema. No significant osseous abnormality is identified. IMPRESSION: Suspect pulmonary emphysema without acute cardiopulmonary process. Electronically signed by: Debby Greco MD (03/21/2019 5:17 PM) [id number]
[2019-03-21 17:24] LABS: CALCIUM 9.1 mg/dL (8.5-10.1); POTASSIUM 4.3 mmol/L (3.5-5.1)
[2019-03-21 17:25] LABS: BILIRUBIN,URINE NEGATIVE (NEG); CLARITY,URINE CLEAR; COLOR,URINE YELLOW; NITRITE,URINE NEGATIVE (NEG); PH,URINE 7.5; PROTEIN,URINE NEGATIVE (NEG-TRACE)
[2019-03-21 17:26] LABS: BACTERIA,URINE FEW /HPF (0-FEW); SQUAMOUS EPITHELIAL CELL,UR FEW /LPF
[2019-03-21 17:27] LABS: RBC,URINE 0 /HPF (0-2); WBC,URINE OCC /HPF (0-4)
[2019-03-21 17:37] LABS: ALBUMIN 3.5 g/dL (3.4-5.0); ALBUMIN/GLOBULIN RATIO 1.1 (1.0-1.7); TOTAL BILIRUBIN 1.7 mg/dL (0.2-1.0); TOTAL PROTEIN 6.6 g/dL (6.4-8.2)
[2019-03-21] MEDS ORDERED: cefTRIAXone IV Push 1 GM VIAL. IVP ONE (18:00)
--- NOTE | 2019-03-21 18:45 | RAD ---
Examination: CT HEAD WO CONTRAST History: Frequent falls, pain Comparison/Correlation: None Findings: Axial images of the head were obtained without contrast. Advanced atrophy is present. Small bifrontal subdural hygromas are present. No intracranial hemorrhage, midline shift, or mass effect. 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 No acute depressed fracture. Globes and optic nerves are unremarkable. Impression: No intracranial hemorrhage. PQRS Compliance Statement: One or more of the following individualized dose reduction techniques were utilized for this examination: 1. Automated exposure control 2. Adjustment of the mA and/or kV according to patient size 3. Use of iterative reconstruction technique Electronically signed by: John Vincent MD (03/21/2019 6:42 PM) [facility]
--- NOTE | 2019-03-21 18:52 | EKG ---
[facility] [address] [place] [address] Test Date: 2019-03-21 Test Time: 16:04:58 Pat Name: YUNIER HAWK Department: Room: Gender: M [employer]: : 1935 Requested By: JORGE MARTINEZ Order Number: [id number] Reading MD: Measurements Intervals [place] Rate: 68 P: NM: QRS: 4 QRSD: 84 T: 56 QT: 382 QTc: 411 Interpretive Statements IRREGULAR RHYTHM, NO P-WAVE FOUND LOW LIMB LEAD VOLTAGE NO SPECIFIC ECG ABNORMALITIES RI6.01 Unconfirmed report No previous ECG available for comparison
[2019-03-21 19:26] VITALS: BP 134/69
[2019-03-21] MEDS ORDERED: WARF3TAB50 PO (19:48)
[2019-03-21] MEDS ORDERED: NITR0.4T24 SL (19:48)
[2019-03-21] MEDS ORDERED: HYDR-2759 PO (19:48)
[2019-03-21] MEDS ORDERED: ZOLP5TAB5 PO (19:48)
[2019-03-21] MEDS ORDERED: ATOR40TA59 PO (19:48)
[2019-03-21] MEDS ORDERED: GABA400C7 PO (19:48)
[2019-03-21] MEDS ORDERED: METO25TA4 PO (19:48)
[2019-03-21] MEDS ORDERED: HYDROcodone/APAP 5/325MG 1 TAB TABLET PO PRN ×3 (20:30→21:00)
[2019-03-21] MEDS ORDERED: NITROGLYCERIN SUBLINGUAL 0.4 MG BOTTLE OF 25. SL PRN (20:30)
[2019-03-21 20:42] LABS: PROTHROMBIN TIME PATIENT 21.2 SEC (11.7-14.0)
[2019-03-21] MEDS: ALBUTEROL SULFATE 2.5 MG/3 ML NEBU. NEB PRN (20:55)
[2019-03-21] MEDS ORDERED: NON FORMULARY ITEM (Albuterol Sulfate (Albuterol Sulfate Hfa Inhaler) 2 PUFF) INH SCH (21:00)
[2019-03-21] MEDS: ATORVASTATIN CALCIUM 40 MG TABLET. PO SCH (21:33)
[2019-03-21] MEDS: AZITHROMYCIN 250 MG TABLET. PO SCH (21:34)
[2019-03-21] MEDS: METOPROLOL TART IMMED RELEASE 50 MG TABLET. PO SCH (21:35)
[2019-03-21] MEDS: GABAPENTIN 400 MG CAPSULE. PO SCH (21:36)
[2019-03-21] MEDS: INSULIN LISPRO 300 UNITS/3 ML VIAL. SQ SCH (21:47)
[2019-03-21] MEDS: TEMAZEPAM 15 MG CAPSULE PO PRN (22:47)
[2019-03-21] MEDS ORDERED: TEMAZEPAM 15 MG CAPSULE PO PRN (23:00)
[2019-03-21 23:10] VITALS: BP 126/67
[2019-03-22] MEDS ORDERED: FLU VAX QS 2019-20 (36MOS+)/PF 0.5 ML SYRINGE. VAX IM ONE (02:15)
[2019-03-22 03:19] VITALS: BP 116/71
[2019-03-22] MEDS: ALBUTEROL SULFATE 2.5 MG/3 ML NEBU. NEB PRN (04:15)
[2019-03-22 04:49] LABS: BASO % 0 % (0-3); EOS % 0 % (0-3); HEMATOCRIT 38.8 % (39.0-53.0); LYMPH # 0.4 x10^3/uL (1.0-4.8); LYMPH % 9 % (24-48); MEAN CORPUSCULAR HEMOGLOBIN 30 pg (25-35); MEAN CORPUSCULAR HGB CONC 33 g/dL (31-37); MEAN CORPUSCULAR VOLUME 90 fL (79-100); MONO % 1 % (0-9); NEUT # 3.9 x10^3/uL (1.8-7.7); NEUT % 90 % (31-73); PLATELET COUNT 93 x10^3/uL (140-400); RED BLOOD COUNT 4.33 x10^6/uL (4.30-5.70); RED CELL DISTRIBUTION WIDTH 17.7 % (11.5-14.5); WHITE BLOOD COUNT 4.4 x10^3/uL (4.0-11.0)
[2019-03-22 04:52] LABS: CALCIUM 9.1 mg/dL (8.5-10.1); CREATININE 1.1 mg/dL (0.7-1.3); GFR 63.6; POTASSIUM 4.8 mmol/L (3.5-5.1); PROTHROMBIN TIME PATIENT 20.5 SEC (11.7-14.0)
[2019-03-22 07:00] VITALS: BP 116/65
[2019-03-22] MEDS ORDERED: THEOPHYLLINE 12HR ER 300 MG TAB.ER.12H. PO SCH (07:00)
[2019-03-22] MEDS: INSULIN LISPRO 300 UNITS/3 ML VIAL. SQ SCH ×4 (07:58→20:45)
[2019-03-22] MEDS: METOPROLOL TART IMMED RELEASE 50 MG TABLET. PO SCH ×2 (08:43→20:42)
[2019-03-22] MEDS: DIGOXIN 125 MCG TABLET. PO SCH (08:43)
[2019-03-22] MEDS: GLIMEPIRIDE 2 MG TABLET. PO SCH (08:43)
[2019-03-22] MEDS: GABAPENTIN 400 MG CAPSULE. PO SCH ×2 (08:43→20:42)
[2019-03-22] MEDS: metFORMIN XR 500 MG TAB.ER.24H PO SCH ×2 (08:43→17:41)
[2019-03-22] MEDS: THEOPHYLLINE 12HR ER 300 MG TAB.ER.12H. PO SCH (09:14)
[2019-03-22] MEDS: ALBUTEROL SULFATE 2.5 MG/3 ML NEBU. NEB SCH ×2 (09:18→11:30)
[2019-03-22 10:51] VITALS: BP_SYST 119; BP_SYST 126; BP_DIAS 66; BP_DIAS 80
[2019-03-22 10:52] LABS: % BANDS 4 % (0-9); % LYMPHS 6 % (24-48); % MONOS 1 % (0-10); % SEGS 89 % (35-66); PLT ESTIMATE ADEQUATE (ADEQUATE)
[2019-03-22 10:53] LABS: ANISOCYTOSIS SLIGHT
[2019-03-22] MEDS ORDERED: THEO300T9 PO (12:45)
--- NOTE | 2019-03-22 13:55 | HP ---
ADMIT DATE: 03/21/2019 CHIEF COMPLAINT: Shortness of breath and dizziness. HISTORY OF PRESENT ILLNESS AND HOSPITAL COURSE: This patient is an 83-year-old male with history of COPD. He states that for the last 4 days, he has been having difficulty walking and dizzy. He is also short of breath, coughing up yellowish mucus for the last 2 weeks. He is worsening and having frequent falls and came to the hospital for further evaluation. No significant pneumonia was found, but patient was unable to care for himself; therefore, he was admitted for frequent falls and bronchitis with exacerbation of COPD. PAST MEDICAL HISTORY: Significant for: 1. COPD. 2. Type 2 diabetes. 3. Hypertension. 4. Atrial fibrillation. 5. Prostate cancer. 6. Coronary artery disease with stent. 7. History of skin cancer. PAST SURGICAL HISTORY: Significant for cholecystectomy and knee replacements, right inguinal hernia repair, back surgery, neck surgery, skin lesion removal, prostatectomy, cyst excision on back and heart stent. FAMILY HISTORY: His mother with lung cancer. His father of old age. He has a brother with esophageal cancer who is alive. SOCIAL HISTORY: The patient is a former smoker, but quit over 10 years ago. He does not use alcohol. He lives with his son and [id number]. ALLERGIES: The patient has no known drug allergies. REVIEW OF SYSTEMS: The patient was doing well until approximately 2 weeks ago and began having increasing shortness of breath and productive cough, began becoming dizzy in the last 4 days, having falls, and having difficulty with ambulation. PHYSICAL EXAMINATION: GENERAL: This is a well-nourished, thin male who is alert and oriented x 3. HEENT: Benign. NECK: Supple, without JVD or bruits. CARDIAC: Regular rate and rhythm. LUNGS: Wheezes bilaterally, expiratory in nature. ABDOMEN: Soft and nontender. EXTREMITIES: Have 2+ pulses without edema. NEUROLOGIC: Showed no unilateral findings. ASSESSMENT: 1. Vertigo. 2. Mobility deficit. 3. Bronchitis. 4. Exacerbation of chronic obstructive pulmonary disease. 5. Chronic atrial fibrillation. PLAN: To proceed with PT and OT modalities. Proceed with pulmonary toilet and former breathing treatments and proceed with IV antibiotics of Rocephin and p.o. antibiotics of Zithromax for possible occult pneumonia, community-acquired. Plan for a 3-day hospital stay and intermediate for mobility as needed. ZENAIDA PATEL MD DR: ARABELLA/collins JOB#: [id number] / [id number]
--- NOTE | 2019-03-22 14:08 | CONS ---
DATE OF CONSULTATION: PULMONARY CONSULTATION ATTENDING PHYSICIAN: Mauri Ruiz MD REASON FOR CONSULTATION: Dyspnea. HISTORY OF PRESENT ILLNESS: The patient 83 years old who has past medical history of chronic obstructive airway disease. He came into the hospital as he was having cough, which is productive of yellow sputum for the last few weeks. He denies any fever, denies any chills, but had some chest congestion, nasal congestion and also shortness of breath. No headaches. No weight loss. No nausea, vomiting, no diarrhea. The patient also was complaining of lightheadedness. His chest x-ray was reviewed by me and did not show any evidence of pneumonia. There was evidence of emphysema. PAST MEDICAL HISTORY: History of atrial fibrillation, history of COPD, type 2 diabetes, hypertension, pneumonia, UTI, prostate cancer, neuropathy. PAST SURGICAL HISTORY: Cholecystectomy, knee replacement and others as listed in H and P. MEDICATIONS: Currently were reviewed as listed in the MRAD including Rocephin and metoprolol and also on albuterol nebs. REVIEW OF SYSTEMS: Twelve-point system obtained. Pertinent positives discussed in my history of present illness, otherwise noncontributory. All systems that were negative were reviewed as well. SOCIAL HISTORY: Smoked for about 35-40 years before quitting 40 years ago. PHYSICAL EXAMINATION: VITAL SIGNS: Stable. Pulse ox is 96% on room air. NECK: Supple. LUNGS: With few rhonchi and wheezes. CARDIOVASCULAR: Regular rate. ABDOMEN: Soft, nontender. EXTREMITIES: With no pitting edema. LABORATORY DATA: Reviewed. White cell count 4.4, hemoglobin 13.0 and platelets are 93. BUN and creatinine 17 and 1.1. IMPRESSION: 1. Dyspnea secondary to acute exacerbation of chronic obstructive pulmonary disease and acute bronchitis. 2. No definite consolidation seen on the chest x-ray. 3. History of atrial fibrillation, on oral warfarin. RECOMMENDATIONS: 1. Continue with present Rocephin. 2. Add scheduled DuoNebs instead of just albuterol only. 3. Add Pulmicort. 4. patient has faint bronchospasm. if it does not improve, then we will consider holding metoprolol. 5. Obtain theophylline level. 6. Discussed with RN. We will follow along with you. JW CERVANTES MD DR: RUPINDER/collins JOB#: [id number] / [id number] TYLER
[2019-03-22 14:46] LABS: THEOPH < 2 mcg/mL (10-20)
[2019-03-22 15:00] VITALS: BP 103/49
[2019-03-22] MEDS: IPRATRPIUM/ALBUTEROL 0.5/2.5MG 3 ML NEBU. NEB SCH ×2 (15:35→19:22)
[2019-03-22] MEDS: WARFARIN 3 MG TABLET. PO SCH (15:51)
[2019-03-22] MEDS: BUDESONIDE 0.5 MG/2 ML NEBU. NEB SCH (19:22)
[2019-03-22 19:24] VITALS: BP 114/61
[2019-03-22] MEDS: TEMAZEPAM 15 MG CAPSULE PO PRN (20:42)
[2019-03-22] MEDS: AZITHROMYCIN 250 MG TABLET. PO SCH (20:43)
[2019-03-22] MEDS: ATORVASTATIN CALCIUM 40 MG TABLET. PO SCH (20:43)
[2019-03-22] MEDS ORDERED: cefTRIAXone IV Push 1 GM VIAL. IVP SCH (21:00)
--- NOTE | 2019-03-22 22:08 | CONS ---
DATE OF CONSULTATION: 03/22/2019 ATTENDING PHYSICIAN: Mauri Ruiz MD The patient was seen at the request of Dr. Ruiz for rehab evaluation. HISTORY OF PRESENT ILLNESS: This is an 83-year-old male patient with chronic obstructive pulmonary disease, diabetes mellitus, hypertension, atrial fibrillation, carcinoma of prostate, coronary artery disease status post stenting, history of carcinoma of skin, cholecystectomy, left total knee arthroplasty done by Dr. Hernandez in the past, also right inguinal hernia repair, back surgery, neck surgery, skin lesion removal, prostatectomy, cyst excision on his back and heart stent. His mother with lung carcinoma. Father of old age. Brother with esophageal carcinoma and he is alive. The patient is known ALLERGIC TO DULOXETINE. The patient lost his about 5 years ago. He stayed with his [id number] until she about 2 months ago. Since then he has been staying with his son and [id number]. He had few steps to manage. The patient is a former smoker, quit about 10 years ago. He is retired. He used to work with [employer]. The patient denies any difficulty with bowel or bladder control. He admits occasional dizziness and he had a few falls recently. He feels dizzy when standing up. The patient uses a cane to walk. PHYSICAL EXAMINATION: Today revealed an elderly male. He is alert, oriented to time, place, person and circumstance and follows commands appropriately, moves all 4 extremities voluntarily where he had 4+/5 grade muscle strength. Deep tendon reflexes are 1-2+ and symmetrical with absent ankle jerks and he had equal perception of touch and pinprick sensation bilaterally. He had some flexion deformity of both little fingers, probably secondary to mild degree of Dupuytren's contracture. He had hand intrinsic muscle atrophy, but negative Tinel sign over median nerve at the wrist and over ulnar nerve at the wrist and elbow and negative Phalen sign at both wrists and he had equal perception of touch and pinprick sensation bilaterally. He had pain free range of motion of all four extremity joints. He had some tenderness to palpation over the left sacroiliac joint area and straight leg raising test is negative bilaterally. No significant lumbar paraspinal muscle spasm was noted at this time. He felt dizzy when he stood up from sitting in the bedside chair. Once up he walked using a roller walker and cane. With a cane he walks with somewhat wide-based gait. He had bruised skin over right leg. Other than that, his skin is intact. ASSESSMENT: An elderly male with diabetic peripheral neuropathy, chronic obstructive pulmonary disease, chronic lower back pain, status post lumbar spine surgery with radiological evidence of degenerative disk disease and degenerative joint disease of lumbar vertebrae without any clinical evidence of ongoing lumbar radiculopathy, to rule out any orthostatic hypotension responsible for his dizziness. He also admits some chronic neck stiffness and pain, probably from degenerative disk disease and degenerative joint disease, but no clinical evidence of ongoing cervical radiculopathy. RECOMMENDATIONS: I agree with physical therapy and occupational therapy to work on safety with his mobility and self-care and he agrees to use a roller walker while up. Hopefully home with outpatient therapy followup when medically stable in the next day or so. Dr. Ruiz, I appreciate asking me to participate in the care of this interesting patient. I will be glad to see him for followup with you on as needed basis. DEBRA HACKETT MD DR: DMITRIY/collins JOB#: [id number] / [id number]
[2019-03-22 23:23] VITALS: BP 126/69
[2019-03-23 03:49] VITALS: BP 116/67
[2019-03-23] MEDS: THEOPHYLLINE 12HR ER 300 MG TAB.ER.12H. PO SCH (06:22)
[2019-03-23 07:00] VITALS: BP_SYST 119; BP_SYST 125; BP_DIAS 65; BP_DIAS 87
[2019-03-23] MEDS: BUDESONIDE 0.5 MG/2 ML NEBU. NEB SCH ×2 (07:22→20:14)
[2019-03-23] MEDS: IPRATRPIUM/ALBUTEROL 0.5/2.5MG 3 ML NEBU. NEB SCH ×4 (07:22→20:14)
[2019-03-23] MEDS: GABAPENTIN 400 MG CAPSULE. PO SCH ×2 (08:30→21:31)
[2019-03-23] MEDS: metFORMIN XR 500 MG TAB.ER.24H PO SCH ×2 (08:30→17:50)
[2019-03-23] MEDS: DIGOXIN 125 MCG TABLET. PO SCH (08:33)
[2019-03-23] MEDS: GLIMEPIRIDE 2 MG TABLET. PO SCH (08:33)
[2019-03-23] MEDS: METOPROLOL TART IMMED RELEASE 50 MG TABLET. PO SCH (08:34)
[2019-03-23] MEDS: INSULIN LISPRO 300 UNITS/3 ML VIAL. SQ SCH ×4 (08:39→21:00)
[2019-03-23] MEDS: MECLIZINE HCL 12.5 MG TABLET. PO PRN (09:27)
--- NOTE | 2019-03-23 09:39 | PDOC ---
PULMONARY PROGRESS NOTES Subjective Pt. is up walking hallways today with physical therapy. Remains on room air. Reports productive cough and SOA with exertion. Vitals Vital Signs Date Time Temp Pulse Resp B/P (MAP) Pulse Ox O2 Delivery O2 Flow Rate FiO2 03/23/19 08:34 72 119/65 03/23/19 07:24 95 Room Air 03/23/19 07:00 97.5 18 97.5 ROS: No Nausea, No Chest Pain, No Increase Cough General: Alert, Oriented X4, No acute distress Lungs: Wheezing (faint) Cardiovascular: S1, S2 Abdomen: Soft, Non-tender Neuro Exam: Alert, Oriented, Normal Speech Extremities: No Edema Skin: Warm, Dry Labs Laboratory Tests Test 03/21/19 16:25 03/21/19 16:50 03/21/19 20:18 03/22/19 03:05 Urine Collection Type Void Urine Color Yellow Urine Clarity Clear Urine pH 7.5 Urine Specific [place] 1.020 Urine Protein Negative mg/dL (NEG-TRACE) Urine Glucose (UA) 100 mg/dL (NEG) Urine Ketones (Stick) Negative mg/dL (NEG) Urine Blood Negative (NEG) Urine Nitrite Negative (NEG) Urine Bilirubin Negative (NEG) Urine Urobilinogen Dipstick 1.0 mg/dL (0.2 mg/dL) Urine Leukocyte Esterase Negative (NEG) Urine RBC 0 /HPF (0-2) Urine WBC Occ /HPF (0-4) Urine Squamous Epithelial Cells Few /LPF Urine Bacteria Few /HPF (0-FEW) Urine Mucus Mod /LPF White Blood Count 9.5 x10^3/uL (4.0-11.0) 4.4 x10^3/uL (4.0-11.0) Red Blood Count 4.43 x10^6/uL (4.30-5.70) 4.33 x10^6/uL (4.30-5.70) Hemoglobin 13.6 g/dL (13.0-17.5) 13.0 g/dL (13.0-17.5) Hematocrit 39.9 % (39.0-53.0) 38.8 % (39.0-53.0) Mean Corpuscular Volume 90 fL (79-100) 90 fL (79-100) Mean Corpuscular Hemoglobin 31 pg (25-35) 30 pg (25-35) Mean Corpuscular Hemoglobin Concent 34 g/dL (31-37) 33 g/dL (31-37) Red Cell Distribution Width 17.9 % (11.5-14.5) 17.7 % (11.5-14.5) Platelet Count 100 x10^3/uL (140-400) 93 x10^3/uL (140-400) Neutrophils (%) (Auto) 81 % (31-73) 90 % (31-73) Lymphocytes (%) (Auto) 10 % (24-48) 9 % (24-48) Monocytes (%) (Auto) 7 % (0-9) 1 % (0-9) Eosinophils (%) (Auto) 1 % (0-3) 0 % (0-3) Basophils (%) (Auto) 1 % (0-3) 0 % (0-3) Neutrophils # (Auto) 7.7 x10^3/uL (1.8-7.7) 3.9 x10^3/uL (1.8-7.7) Lymphocytes # (Auto) 1.0 x10^3/uL (1.0-4.8) 0.4 x10^3/uL (1.0-4.8) Monocytes # (Auto) 0.7 x10^3/uL (0.0-1.1) 0.0 x10^3/uL (0.0-1.1) Eosinophils # (Auto) 0.1 x10^3/uL (0.0-0.7) 0.0 x10^3/uL (0.0-0.7) Basophils # (Auto) 0.1 x10^3/uL (0.0-0.2) 0.0 x10^3/uL (0.0-0.2) Prothrombin Time 21.2 SEC (11.7-14.0) Prothromb Time International Ratio 1.9 (0.8-1.1) Sodium Level 143 mmol/L (136-145) Potassium Level 4.3 mmol/L (3.5-5.1) Chloride Level 107 mmol/L (98-107) Carbon Dioxide Level 31 mmol/L (21-32) Anion Gap 5 (6-14) Blood Urea Nitrogen 14 mg/dL (8-26) Creatinine 1.0 mg/dL (0.7-1.3) Estimated GFR (Cockcroft-Gault) 71.0 BUN/Creatinine Ratio 14 (6-20) Glucose Level 144 mg/dL (70-99) Lactic Acid Level 1.3 mmol/L (0.4-2.0) Calcium Level 9.1 mg/dL (8.5-10.1) Total Bilirubin 1.7 mg/dL (0.2-1.0) Aspartate Amino Transf (AST/SGOT) 11 U/L (15-37) Alanine Aminotransferase (ALT/SGPT) 20 U/L (16-63) Alkaline Phosphatase 69 U/L (46-116) Creatine Kinase 40 U/L (39-308) Troponin I Quantitative < 0.017 ng/mL (0.000-0.055) BP-Tsh-I-Type Natriuretic Peptide 586 pg/mL (0-449) Total Protein 6.6 g/dL (6.4-8.2) Albumin 3.5 g/dL (3.4-5.0) Albumin/Globulin Ratio 1.1 (1.0-1.7) Glucose (Fingerstick) 265 mg/dL (70-99) Segmented Neutrophils % 89 % (35-66) Band Neutrophils % 4 % (0-9) Lymphocytes % 6 % (24-48) Monocytes % 1 % (0-10) Platelet Estimate Adequate (ADEQUATE) Large Platelets Occ Anisocytosis Slight Test 03/22/19 03:25 03/22/19 07:26 03/22/19 11:43 03/22/19 16:59 Prothrombin Time 20.5 SEC (11.7-14.0) Prothromb Time International Ratio 1.8 (0.8-1.1) Sodium Level 141 mmol/L (136-145) Potassium Level 4.8 mmol/L (3.5-5.1) Chloride Level 105 mmol/L (98-107) Carbon Dioxide Level 27 mmol/L (21-32) Anion Gap 9 (6-14) Blood Urea Nitrogen 17 mg/dL (8-26) Creatinine 1.1 mg/dL (0.7-1.3) Estimated GFR (Cockcroft-Gault) 63.6 Glucose Level 324 mg/dL (70-99) Calcium Level 9.1 mg/dL (8.5-10.1) Theophylline Level < 2 mcg/mL (10-20) Theophylline Last Dose Date Unknown Theophylline Last Dose Time Unknown Glucose (Fingerstick) 276 mg/dL (70-99) 230 mg/dL (70-99) 134 mg/dL (70-99) Test 03/22/19 20:40 03/23/19 07:38 Glucose (Fingerstick) 220 mg/dL (70-99) 164 mg/dL (70-99) Laboratory Tests Test 03/22/19 11:43 03/22/19 16:59 03/22/19 20:40 03/23/19 07:38 Glucose (Fingerstick) 230 mg/dL (70-99) 134 mg/dL (70-99) 220 mg/dL (70-99) 164 mg/dL (70-99) Medications Active Scripts Medications Dose Route/Sig Max Daily Dose Days Date Category Theophylline Anhydrous 300 Mg Tab.er.12h 300 Mg PO DAILY 03/22/19 Reported Atorvastatin Calcium 40 Mg Tablet 40 Mg PO HS 03/21/19 Reported Metoprolol Tartrate 25 Mg Tablet 25 Mg PO BID 03/21/19 Reported Warfarin Sodium 3 Mg Tablet 3 Mg PO DAILY 03/21/19 Reported Hydrocodone-Acetamin 5-325 mg (Hydrocodone/Acetaminophen) 1 Each Tablet 1 Tab PO HS PRN 03/21/19 Reported Gabapentin 400 Mg Capsule 400 Mg PO BID 03/21/19 Reported Zolpidem Tartrate 5 Mg Tablet 5 Mg PO HS PRN 03/21/19 Reported Nitrostat (Nitroglycerin) 0.4 Mg Tab.subl 0.4 Mg SL PRN Q5MIN PRN 03/21/19 Reported [Percussion Vest Bid] 07/26/16 Reported Albuterol Sulfate Neb Soln (Albuterol Sulfate) 2.5 Mg/3 Ml Vial.neb 2.5 Mg NEB PRN QID PRN 07/26/16 Rx Duoneb 0.5-3(2.5) Mg/3 Ml (Albuterol/Ipratropium) 3 Ml Ampul.neb 3 Ml NEB RTQID 07/26/16 Rx Alendronate Sodium 70 Mg Tablet 1 Tab PO WEEKLY 07/16/16 Reported Meloxicam 7.5 Mg Tablet 7.5 Mg PO DAILY 07/16/16 Reported Ventolin Hfa Inhaler (Albuterol Sulfate) 18 Gm Hfa.aer.ad 2 Puff INH Q4HRS PRN 07/16/16 Reported [place] 5-325 Tablet (Acetaminophen/Hydrocodone Bitart) 1 Each Tablet 1 Tab PO PRN Q6HRS PRN 09/04/15 Rx Digoxin 250 Mcg Tablet 125 Mcg PO DAILY 04/01/15 Reported Glimepiride 1 Mg Tablet 1 Mg PO DAILY 02/14/15 Reported Albuterol Sulfate Hfa Inhaler (Albuterol Sulfate) 8.5 Gm Hfa.aer.ad 2 Puff INH QID 02/14/15 Reported Metformin Hcl Er (Metformin Hcl) 500 Mg Tab.er.24h 1 Tab PO BIDWMEALS 03/05/14 Reported Impression . 1. Dyspnea secondary to acute exacerbation of chronic obstructive pulmonary disease and acute bronchitis. 2. No definite consolidation seen on the chest x-ray. 3. History of atrial fibrillation, on warfarin. Plan . 1. Continue with present Rocephin. 2. continue DuoNebs 3. continue Pulmicort. 4. theophylline level less than 2 5. Discussed with RN. We will follow along with you. likely dc home Tuesday JW CERVANTES MD Mar 23, 2019 09:39
[2019-03-23 11:00] VITALS: BP 104/61
--- NOTE | 2019-03-23 13:52 | PDOC ---
PROGRESS NOTES Subjective Subjective No new complaints. Objective Objective Vital Signs Date Time Temp Pulse Resp B/P (MAP) Pulse Ox O2 Delivery O2 Flow Rate FiO2 03/23/19 11:42 97 Room Air 03/23/19 11:00 97.5 78 18 104/61 (75) 97.5 03/23/19 07:00 Intake and Output 03/23/19 06:59 Intake Total 5380 ml Output Total 5900 ml Balance -520 ml Intake Oral 5380 ml Output Urine Total 5900 ml Physical Exam Physical Exam He is alert,comfortable,sitting in bedside recliner and he walked for 200' with roller walker with physical therapy. 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 Comment Review of Relevant I have reviewed the following items kaila (where applicable) has been applied. Labs Laboratory Tests Test 03/21/19 16:25 03/21/19 16:50 03/21/19 20:18 03/22/19 03:05 Urine Collection Type Void Urine Color Yellow Urine Clarity Clear Urine pH 7.5 Urine Specific [place] 1.020 Urine Protein Negative mg/dL (NEG-TRACE) Urine Glucose (UA) 100 mg/dL (NEG) Urine Ketones (Stick) Negative mg/dL (NEG) Urine Blood Negative (NEG) Urine Nitrite Negative (NEG) Urine Bilirubin Negative (NEG) Urine Urobilinogen Dipstick 1.0 mg/dL (0.2 mg/dL) Urine Leukocyte Esterase Negative (NEG) Urine RBC 0 /HPF (0-2) Urine WBC Occ /HPF (0-4) Urine Squamous Epithelial Cells Few /LPF Urine Bacteria Few /HPF (0-FEW) Urine Mucus Mod /LPF White Blood Count 9.5 x10^3/uL (4.0-11.0) 4.4 x10^3/uL (4.0-11.0) Red Blood Count 4.43 x10^6/uL (4.30-5.70) 4.33 x10^6/uL (4.30-5.70) Hemoglobin 13.6 g/dL (13.0-17.5) 13.0 g/dL (13.0-17.5) Hematocrit 39.9 % (39.0-53.0) 38.8 % (39.0-53.0) Mean Corpuscular Volume 90 fL (79-100) 90 fL (79-100) Mean Corpuscular Hemoglobin 31 pg (25-35) 30 pg (25-35) Mean Corpuscular Hemoglobin Concent 34 g/dL (31-37) 33 g/dL (31-37) Red Cell Distribution Width 17.9 % (11.5-14.5) 17.7 % (11.5-14.5) Platelet Count 100 x10^3/uL (140-400) 93 x10^3/uL (140-400) Neutrophils (%) (Auto) 81 % (31-73) 90 % (31-73) Lymphocytes (%) (Auto) 10 % (24-48) 9 % (24-48) Monocytes (%) (Auto) 7 % (0-9) 1 % (0-9) Eosinophils (%) (Auto) 1 % (0-3) 0 % (0-3) Basophils (%) (Auto) 1 % (0-3) 0 % (0-3) Neutrophils # (Auto) 7.7 x10^3/uL (1.8-7.7) 3.9 x10^3/uL (1.8-7.7) Lymphocytes # (Auto) 1.0 x10^3/uL (1.0-4.8) 0.4 x10^3/uL (1.0-4.8) Monocytes # (Auto) 0.7 x10^3/uL (0.0-1.1) 0.0 x10^3/uL (0.0-1.1) Eosinophils # (Auto) 0.1 x10^3/uL (0.0-0.7) 0.0 x10^3/uL (0.0-0.7) Basophils # (Auto) 0.1 x10^3/uL (0.0-0.2) 0.0 x10^3/uL (0.0-0.2) Prothrombin Time 21.2 SEC (11.7-14.0) Prothromb Time International Ratio 1.9 (0.8-1.1) Sodium Level 143 mmol/L (136-145) Potassium Level 4.3 mmol/L (3.5-5.1) Chloride Level 107 mmol/L (98-107) Carbon Dioxide Level 31 mmol/L (21-32) Anion Gap 5 (6-14) Blood Urea Nitrogen 14 mg/dL (8-26) Creatinine 1.0 mg/dL (0.7-1.3) Estimated GFR (Cockcroft-Gault) 71.0 BUN/Creatinine Ratio 14 (6-20) Glucose Level 144 mg/dL (70-99) Lactic Acid Level 1.3 mmol/L (0.4-2.0) Calcium Level 9.1 mg/dL (8.5-10.1) Total Bilirubin 1.7 mg/dL (0.2-1.0) Aspartate Amino Transf (AST/SGOT) 11 U/L (15-37) Alanine Aminotransferase (ALT/SGPT) 20 U/L (16-63) Alkaline Phosphatase 69 U/L (46-116) Creatine Kinase 40 U/L (39-308) Troponin I Quantitative < 0.017 ng/mL (0.000-0.055) ML-Gsl-R-Type Natriuretic Peptide 586 pg/mL (0-449) Total Protein 6.6 g/dL (6.4-8.2) Albumin 3.5 g/dL (3.4-5.0) Albumin/Globulin Ratio 1.1 (1.0-1.7) Glucose (Fingerstick) 265 mg/dL (70-99) Segmented Neutrophils % 89 % (35-66) Band Neutrophils % 4 % (0-9) Lymphocytes % 6 % (24-48) Monocytes % 1 % (0-10) Platelet Estimate Adequate (ADEQUATE) Large Platelets Occ Anisocytosis Slight Test 03/22/19 03:25 03/22/19 07:26 03/22/19 11:43 03/22/19 16:59 Prothrombin Time 20.5 SEC (11.7-14.0) Prothromb Time International Ratio 1.8 (0.8-1.1) Sodium Level 141 mmol/L (136-145) Potassium Level 4.8 mmol/L (3.5-5.1) Chloride Level 105 mmol/L (98-107) Carbon Dioxide Level 27 mmol/L (21-32) Anion Gap 9 (6-14) Blood Urea Nitrogen 17 mg/dL (8-26) Creatinine 1.1 mg/dL (0.7-1.3) Estimated GFR (Cockcroft-Gault) 63.6 Glucose Level 324 mg/dL (70-99) Calcium Level 9.1 mg/dL (8.5-10.1) Theophylline Level < 2 mcg/mL (10-20) Theophylline Last Dose Date Unknown Theophylline Last Dose Time Unknown Glucose (Fingerstick) 276 mg/dL (70-99) 230 mg/dL (70-99) 134 mg/dL (70-99) Test 03/22/19 20:40 03/23/19 07:38 03/23/19 11:45 Glucose (Fingerstick) 220 mg/dL (70-99) 164 mg/dL (70-99) 125 mg/dL (70-99) Laboratory Tests Test 03/22/19 16:59 03/22/19 20:40 03/23/19 07:38 03/23/19 11:45 Glucose (Fingerstick) 134 mg/dL (70-99) 220 mg/dL (70-99) 164 mg/dL (70-99) 125 mg/dL (70-99) Microbiology 03/21/19 Blood Culture - Preliminary, Resulted NO GROWTH AFTER 1 DAY Medications Current Medications Albuterol/ Ipratropium (Duoneb) 3 ml 1X ONCE NEB Last administered on 03/21/19at 17:11; Start 03/21/19 at 16:45; Stop 03/21/19 at 16:46; Status DC Methylprednisolone Sodium Succinate (SOLU-Medrol 125MG VIAL) 125 mg 1X ONCE IV Last administered on 03/21/19at 17:02; Start 03/21/19 at 16:45; Stop 03/21/19 at 16:46; Status DC Ceftriaxone Sodium (Rocephin) 1 gm 1X ONCE IVP Last administered on 03/21/19at 21:47; Start 03/21/19 at 18:00; Stop 03/21/19 at 18:05; Status DC Albuterol Sulfate (Ventolin Neb Soln) 2.5 mg PRN QID PRN NEB SHORTNESS OF BREATH Last administered on 03/22/19 04:15; Start 03/21/19 at 20:30 Atorvastatin Calcium (Lipitor) 40 mg HS PO Last administered on 03/22/19at 20:45; Start 03/21/19 at 21:00 Gabapentin (Neurontin) 400 mg BID PO Last administered on 03/23/19 08:34; Start 03/21/19 at 21:00 Acetaminophen/ Hydrocodone Bitart (Lortab 5/325) 1 tab PRN QHS PRN PO PAIN; Start 03/21/19 at 21:00 Metformin HCl (Glucophage Xr) 500 mg BIDWMEALS PO Last administered on 03/23/19 08:34; Start 03/22/19 at 08:00 Metoprolol Tartrate (Lopressor) 50 mg BID PO Last administered on 03/23/19 08:34; Start 03/21/19 at 21:00; Stop 03/23/19 at 09:33; Status DC Nitroglycerin (Nitrostat) 0.4 mg PRN Q5MIN PRN SL CHEST PAIN; Start 03/21/19 at 20:30 Warfarin Sodium (Coumadin) 3 mg DAILY16 PO Last administered on 03/22/19at 15:51; Start 03/22/19 at 16:00 Non-Formulary Medication (Albuterol Sulfate (Albuterol Sulfate Hfa Inhaler)) 2 puff QID INH ; Start 03/21/19 at 21:00; Stop 03/21/19 at 23:40; Status DC Non-Formulary Medication (Alendronate Sodium ) 1 tab WEEKLY PO ; Start 03/28/19 at 09:00; Status UNV Digoxin (Lanoxin) 125 mcg DAILY PO Last administered on 03/23/19 08:34; Start 03/22/19 at 09:00 Glimepiride (Amaryl) 1 mg DAILY PO Last administered on 03/23/19 08:34; Start 03/22/19 at 09:00 Theophylline (Theodur) 300 mg DAILY07 PO ; Start 03/22/19 at 07:00; Status Cancel Acetaminophen/ Hydrocodone Bitart (Lortab 5/325) 1 tab PRN Q4HRS PRN PO MILD PAIN 1-3; Start 03/21/19 at 20:30 Acetaminophen/ Hydrocodone Bitart (Lortab 5/325) 2 tab PRN Q4HRS PRN PO MODERATE PAIN, SEVERE PAIN; Start 03/21/19 at 20:30 Insulin Human Lispro (HumaLOG) 0-12 UNITS QIDACHS SQ Last administered on 03/23/19at 08:39; Start 03/21/19 at 21:00 Ceftriaxone Sodium (Rocephin) 1 gm Q24H IVP Last administered on 03/22/19at 20:45; Start 03/22/19 at 21:00 Azithromycin (Zithromax) 500 mg Q24H PO ; Start 03/21/19 at 09:00; Stop 03/24/19 at 08:59; Status Cancel Azithromycin (Zithromax) 500 mg Q24H PO Last administered on 03/22/19at 20:45; Start 03/21/19 at 21:00; Stop 03/24/19 at 22:00 Temazepam (Restoril) 15 mg PRN QHS PRN PO INSOMNIA Last administered on 03/22/19at 20:45; Start 03/21/19 at 22:30 Temazepam (Restoril) 15 mg 1X PRN PRN PO INSOMNIA Last administered on 03/23/19at 00:25; Start 03/21/19 at 23:00 Warfarin Sodium (Coumadin Per Physician) 1 each PRN DAILY PRN MC SEE COMMENTS; Start 03/22/19 at 16:00 Albuterol Sulfate (Ventolin Neb Soln) 2.5 mg RTQID NEB Last administered on 03/22/19at 11:30; Start 03/22/19 at 08:00; Stop 03/22/19 at 13:53; Status DC Influenza Virus Vaccine Quadrival (Afluria Quad 2019-20 (3yr Up) Syringe) 0.5 ml ONCE ONCE VAX IM ; Start 03/22/19 at 02:15; Stop 03/22/19 at 02:16; Status UNV Theophylline (Theodur) 300 mg DAILY07 PO Last administered on 03/23/19at 06:22; Start 03/22/19 at 09:30 Meclizine HCl (Antivert) 12.5 mg PRN Q6HRS PRN PO DIZZINESS Last administered on 03/23/19at 09:28; Start 03/22/19 at 13:30 Albuterol/ Ipratropium (Duoneb) 3 ml RTQID NEB Last administered on 03/23/19at 11:41; Start 03/22/19 at 16:00 Budesonide (Pulmicort) 0.5 mg RTBID NEB Last administered on 03/23/19at 07:22; Start 03/22/19 at 20:00 Metoprolol Tartrate (Lopressor) 25 mg BID PO ; Start 03/23/19 at 21:00 Active Scripts Active Albuterol Sulfate Neb Soln (Albuterol Sulfate) 2.5 Mg/3 Ml Vial.neb 2.5 Mg NEB PRN QID PRN Duoneb 0.5-3(2.5) Mg/3 Ml (Albuterol/Ipratropium) 3 Ml Ampul.neb 3 Ml NEB RTQID [place] 5-325 Tablet (Acetaminophen/Hydrocodone Bitart) 1 Each Tablet 1 Tab PO PRN Q6HRS PRN Reported Theophylline Anhydrous 300 Mg Tab.er.12h 300 Mg PO DAILY Atorvastatin Calcium 40 Mg Tablet 40 Mg PO HS Metoprolol Tartrate 25 Mg Tablet 25 Mg PO BID Warfarin Sodium 3 Mg Tablet 3 Mg PO DAILY Hydrocodone-Acetamin 5-325 mg (Hydrocodone/Acetaminophen) 1 Each Tablet 1 Tab PO HS PRN Gabapentin 400 Mg Capsule 400 Mg PO BID Zolpidem Tartrate 5 Mg Tablet 5 Mg PO HS PRN Nitrostat (Nitroglycerin) 0.4 Mg Tab.subl 0.4 Mg SL PRN Q5MIN PRN [Percussion Vest Bid] Alendronate Sodium 70 Mg Tablet 1 Tab PO WEEKLY Meloxicam 7.5 Mg Tablet 7.5 Mg PO DAILY Ventolin Hfa Inhaler (Albuterol Sulfate) 18 Gm Hfa.aer.ad 2 Puff INH Q4HRS PRN Digoxin 250 Mcg Tablet 125 Mcg PO DAILY Glimepiride 1 Mg Tablet 1 Mg PO DAILY Albuterol Sulfate Hfa Inhaler (Albuterol Sulfate) 8.5 Gm Hfa.aer.ad 2 Puff INH QID Metformin Hcl Er (Metformin Hcl) 500 Mg Tab.er.24h 1 Tab PO BIDWMEALS Vitals/I & O Vital Sign - Last 24 Hours 03/22/19 03/22/19 03/22/19 03/22/19 15:00 15:36 19:24 19:25 Temp 96.2 97.5 96.2 97.5 Pulse 68 93 Resp 16 18 B/P (MAP) 103/49 (67) 114/61 (78) Pulse Ox 98 97 94 O2 Delivery Room Air Room Air Room Air Room Air 03/22/19 03/22/19 03/22/19 03/23/19 20:00 20:45 23:23 03:49 Temp 97.6 97.5 97.6 97.5 Pulse 93 101 95 Resp 18 18 B/P (MAP) 114/61 126/69 (88) 116/67 (83) Pulse Ox 96 O2 Delivery Room Air Room Air Room Air 03/23/19 03/23/19 03/23/19 03/23/19 07:00 07:24 07:24 08:00 Temp 97.5 97.5 Pulse 72 Resp 18 B/P (MAP) 119/65 (83) Pulse Ox 95 95 95 O2 Delivery Room Air Room Air Room Air Room Air O2 Flow Rate 03/23/19 03/23/19 03/23/19 03/23/19 08:34 08:34 11:00 11:42 Temp 97.5 97.5 Pulse 72 72 78 Resp 18 B/P (MAP) 119/65 119/65 104/61 (75) Pulse Ox 97 97 O2 Delivery Room Air Room Air Intake and Output 03/22/19 03/22/19 03/23/19 14:59 22:59 06:59 Intake Total 1080 ml 4000 ml 300 ml Output Total 400 ml 5250 ml 250 ml Balance 680 ml -1250 ml 50 ml DEBRA HACKETT MD Mar 23, 2019 13:52
[2019-03-23 15:00] VITALS: BP 97/58
--- NOTE | 2019-03-23 15:17 | NUR ---
SW following pt for dc planning. Chart reviewed and pt lives at home with family. PT/OT recommends SNU. SW spoke with pt and pt reports he lives at home with his son and daughter in law. SW discussed SNU, options and insurance coverage. Pt stated he has been to [facility] before and agreeable to go there upon dc. Pt requested SW to speak with his family regarding this. Plan 1. SW phoned and faxed referral to [facility]. Pt has been accepted and facility will have a bed available upon dc. 2. Pt will need one more midnight before dc to SNU. 3. SW spoke with pt's son, Cherie, phon: [phone] and confirmed discharge disposition. 4. Will continue to follow. Discussed with RN.
[2019-03-23] MEDS: WARFARIN 3 MG TABLET. PO SCH (15:47)
--- NOTE | 2019-03-23 17:02 | PDOC ---
PROGRESS NOTES Subjective Subjective Patient feeling better but still C/o dizziness orthostasis documented by pt. recc snu by PTand OT. Patient also c/o productive cough with yellow sputum. Objective Objective Vital Signs Date Time Temp Pulse Resp B/P (MAP) Pulse Ox O2 Delivery O2 Flow Rate FiO2 03/23/19 15:06 99 Room Air 03/23/19 15:00 97.7 68 18 97/58 (71) 97.7 03/23/19 07:00 Intake and Output 03/23/19 07:00 Intake Total 5380 ml Output Total 5900 ml Balance -520 ml Intake Oral 5380 ml Output Urine Total 5900 ml Physical Exam Abdomen: Normal bowel sounds Heart: Regular rate Extremities: No edema General: Alert Lungs: Clear to auscultation Assessment Assessment Problems Medical Problems: (1) Acute bronchitis Status: Acute (2) CHF (congestive heart failure) Status: Acute (3) Chronic atrial fibrillation Status: Acute (4) COPD (chronic obstructive pulmonary disease) Status: Chronic (5) DDD (degenerative disc disease), lumbar Status: Chronic (6) Degenerative joint disease (DJD) of lumbar spine Status: Chronic (7) Dizziness Status: Acute (8) Elevated bilirubin Status: Acute (9) Frequent falls Status: Acute (10) Type 2 diabetes mellitus with peripheral neuropathy Status: Chronic 1. Vertigo. 2. Mobility deficit. 3. Bronchitis. 4. Exacerbation of chronic obstructive pulmonary disease. 5. Chronic atrial fibrillation. 6. Orthostatic hypotension Plan Plan of Care decrease beta-marlen to SNU Tuesday Continue pulm toilet Comment Review of Relevant I have reviewed the following items kaila (where applicable) has been applied. Labs Laboratory Tests Test 03/21/19 20:18 03/22/19 03:05 03/22/19 03:25 03/22/19 07:26 Glucose (Fingerstick) 265 mg/dL (70-99) 276 mg/dL (70-99) White Blood Count 4.4 x10^3/uL (4.0-11.0) Red Blood Count 4.33 x10^6/uL (4.30-5.70) Hemoglobin 13.0 g/dL (13.0-17.5) Hematocrit 38.8 % (39.0-53.0) Mean Corpuscular Volume 90 fL (79-100) Mean Corpuscular Hemoglobin 30 pg (25-35) Mean Corpuscular Hemoglobin Concent 33 g/dL (31-37) Red Cell Distribution Width 17.7 % (11.5-14.5) Platelet Count 93 x10^3/uL (140-400) Neutrophils (%) (Auto) 90 % (31-73) Lymphocytes (%) (Auto) 9 % (24-48) Monocytes (%) (Auto) 1 % (0-9) Eosinophils (%) (Auto) 0 % (0-3) Basophils (%) (Auto) 0 % (0-3) Neutrophils # (Auto) 3.9 x10^3/uL (1.8-7.7) Lymphocytes # (Auto) 0.4 x10^3/uL (1.0-4.8) Monocytes # (Auto) 0.0 x10^3/uL (0.0-1.1) Eosinophils # (Auto) 0.0 x10^3/uL (0.0-0.7) Basophils # (Auto) 0.0 x10^3/uL (0.0-0.2) Segmented Neutrophils % 89 % (35-66) Band Neutrophils % 4 % (0-9) Lymphocytes % 6 % (24-48) Monocytes % 1 % (0-10) Platelet Estimate Adequate (ADEQUATE) Large Platelets Occ Anisocytosis Slight Prothrombin Time 20.5 SEC (11.7-14.0) Prothromb Time International Ratio 1.8 (0.8-1.1) Sodium Level 141 mmol/L (136-145) Potassium Level 4.8 mmol/L (3.5-5.1) Chloride Level 105 mmol/L (98-107) Carbon Dioxide Level 27 mmol/L (21-32) Anion Gap 9 (6-14) Blood Urea Nitrogen 17 mg/dL (8-26) Creatinine 1.1 mg/dL (0.7-1.3) Estimated GFR (Cockcroft-Gault) 63.6 Glucose Level 324 mg/dL (70-99) Calcium Level 9.1 mg/dL (8.5-10.1) Theophylline Level < 2 mcg/mL (10-20) Theophylline Last Dose Date Unknown Theophylline Last Dose Time Unknown Test 03/22/19 11:43 03/22/19 16:59 03/22/19 20:40 03/23/19 07:38 Glucose (Fingerstick) 230 mg/dL (70-99) 134 mg/dL (70-99) 220 mg/dL (70-99) 164 mg/dL (70-99) Test 03/23/19 11:45 Glucose (Fingerstick) 125 mg/dL (70-99) Laboratory Tests Test 03/22/19 16:59 03/22/19 20:40 03/23/19 07:38 03/23/19 11:45 Glucose (Fingerstick) 134 mg/dL (70-99) 220 mg/dL (70-99) 164 mg/dL (70-99) 125 mg/dL (70-99) Microbiology 03/21/19 Blood Culture - Preliminary, Resulted NO GROWTH AFTER 1 DAY Medications Current Medications Albuterol/ Ipratropium (Duoneb) 3 ml 1X ONCE NEB Last administered on 03/21/19at 17:11; Start 03/21/19 at 16:45; Stop 03/21/19 at 16:46; Status DC Methylprednisolone Sodium Succinate (SOLU-Medrol 125MG VIAL) 125 mg 1X ONCE IV Last administered on 03/21/19at 17:02; Start 03/21/19 at 16:45; Stop 03/21/19 at 16:46; Status DC Ceftriaxone Sodium (Rocephin) 1 gm 1X ONCE IVP Last administered on 03/21/19at 21:47; Start 03/21/19 at 18:00; Stop 03/21/19 at 18:05; Status DC Albuterol Sulfate (Ventolin Neb Soln) 2.5 mg PRN QID PRN NEB SHORTNESS OF BREATH Last administered on 03/22/19at 04:15; Start 03/21/19 at 20:30 Atorvastatin Calcium (Lipitor) 40 mg HS PO Last administered on 03/22/19at 20:45; Start 03/21/19 at 21:00 Gabapentin (Neurontin) 400 mg BID PO Last administered on 03/23/19at 08:34; Start 03/21/19 at 21:00 Acetaminophen/ Hydrocodone Bitart (Lortab 5/325) 1 tab PRN QHS PRN PO PAIN; Start 03/21/19 at 21:00 Metformin HCl (Glucophage Xr) 500 mg BIDWMEALS PO Last administered on 03/23/19 08:34; Start 03/22/19 at 08:00 Metoprolol Tartrate (Lopressor) 50 mg BID PO Last administered on 03/23/19 08:34; Start 03/21/19 at 21:00; Stop 03/23/19 at 09:33; Status DC Nitroglycerin (Nitrostat) 0.4 mg PRN Q5MIN PRN SL CHEST PAIN; Start 03/21/19 at 20:30 Warfarin Sodium (Coumadin) 3 mg DAILY16 PO Last administered on 03/23/19at 15:47; Start 03/22/19 at 16:00 Non-Formulary Medication (Albuterol Sulfate (Albuterol Sulfate Hfa Inhaler)) 2 puff QID INH ; Start 03/21/19 at 21:00; Stop 03/21/19 at 23:40; Status DC Non-Formulary Medication (Alendronate Sodium ) 1 tab WEEKLY PO ; Start 03/28/19 at 09:00; Status UNV Digoxin (Lanoxin) 125 mcg DAILY PO Last administered on 03/23/19at 08:34; Start 03/22/19 at 09:00 Glimepiride (Amaryl) 1 mg DAILY PO Last administered on 03/23/19 08:34; Start 03/22/19 at 09:00 Theophylline (Theodur) 300 mg DAILY07 PO ; Start 03/22/19 at 07:00; Status Cancel Acetaminophen/ Hydrocodone Bitart (Lortab 5/325) 1 tab PRN Q4HRS PRN PO MILD PAIN 1-3; Start 03/21/19 at 20:30 Acetaminophen/ Hydrocodone Bitart (Lortab 5/325) 2 tab PRN Q4HRS PRN PO MODERATE PAIN, SEVERE PAIN; Start 03/21/19 at 20:30 Insulin Human Lispro (HumaLOG) 0-12 UNITS QIDACHS SQ Last administered on 03/23/19at 08:39; Start 03/21/19 at 21:00 Ceftriaxone Sodium (Rocephin) 1 gm Q24H IVP Last administered on 03/22/19at 20:45; Start 03/22/19 at 21:00; Stop 03/23/19 at 14:35; Status DC Azithromycin (Zithromax) 500 mg Q24H PO ; Start 03/21/19 at 09:00; Stop 03/24/19 at 08:59; Status Cancel Azithromycin (Zithromax) 500 mg Q24H PO Last administered on 03/22/19at 20:45; Start 03/21/19 at 21:00; Stop 03/24/19 at 22:00 Temazepam (Restoril) 15 mg PRN QHS PRN PO INSOMNIA Last administered on 03/22/19at 20:45; Start 03/21/19 at 22:30 Temazepam (Restoril) 15 mg 1X PRN PRN PO INSOMNIA Last administered on 03/23/19at 00:25; Start 03/21/19 at 23:00 Warfarin Sodium (Coumadin Per Physician) 1 each PRN DAILY PRN MC SEE COMMENTS; Start 03/22/19 at 16:00 Albuterol Sulfate (Ventolin Neb Soln) 2.5 mg RTQID NEB Last administered on 03/22/19at 11:30; Start 03/22/19 at 08:00; Stop 03/22/19 at 13:53; Status DC Influenza Virus Vaccine Quadrival (Afluria Quad 2019-20 (3yr Up) Syringe) 0.5 ml ONCE ONCE VAX IM ; Start 03/22/19 at 02:15; Stop 03/22/19 at 02:16; Status UNV Theophylline (Theodur) 300 mg DAILY07 PO Last administered on 03/23/19at 06:22; Start 03/22/19 at 09:30 Meclizine HCl (Antivert) 12.5 mg PRN Q6HRS PRN PO DIZZINESS Last administered on 03/23/19at 09:28; Start 03/22/19 at 13:30 Albuterol/ Ipratropium (Duoneb) 3 ml RTQID NEB Last administered on 03/23/19at 15:05; Start 03/22/19 at 16:00 Budesonide (Pulmicort) 0.5 mg RTBID NEB Last administered on 03/23/19at 07:22; Start 03/22/19 at 20:00 Metoprolol Tartrate (Lopressor) 25 mg BID PO ; Start 03/23/19 at 21:00 Cefdinir (Omnicef) 300 mg BID PO ; Start 03/23/19 at 21:00 Active Scripts Active Albuterol Sulfate Neb Soln (Albuterol Sulfate) 2.5 Mg/3 Ml Vial.neb 2.5 Mg NEB PRN QID PRN Duoneb 0.5-3(2.5) Mg/3 Ml (Albuterol/Ipratropium) 3 Ml Ampul.neb 3 Ml NEB RTQID [place] 5-325 Tablet (Acetaminophen/Hydrocodone Bitart) 1 Each Tablet 1 Tab PO PRN Q6HRS PRN Reported Theophylline Anhydrous 300 Mg Tab.er.12h 300 Mg PO DAILY Atorvastatin Calcium 40 Mg Tablet 40 Mg PO HS Metoprolol Tartrate 25 Mg Tablet 25 Mg PO BID Warfarin Sodium 3 Mg Tablet 3 Mg PO DAILY Hydrocodone-Acetamin 5-325 mg (Hydrocodone/Acetaminophen) 1 Each Tablet 1 Tab PO HS PRN Gabapentin 400 Mg Capsule 400 Mg PO BID Zolpidem Tartrate 5 Mg Tablet 5 Mg PO HS PRN Nitrostat (Nitroglycerin) 0.4 Mg Tab.subl 0.4 Mg SL PRN Q5MIN PRN [Percussion Vest Bid] Alendronate Sodium 70 Mg Tablet 1 Tab PO WEEKLY Meloxicam 7.5 Mg Tablet 7.5 Mg PO DAILY Ventolin Hfa Inhaler (Albuterol Sulfate) 18 Gm Hfa.aer.ad 2 Puff INH Q4HRS PRN Digoxin 250 Mcg Tablet 125 Mcg PO DAILY Glimepiride 1 Mg Tablet 1 Mg PO DAILY Albuterol Sulfate Hfa Inhaler (Albuterol Sulfate) 8.5 Gm Hfa.aer.ad 2 Puff INH QID Metformin Hcl Er (Metformin Hcl) 500 Mg Tab.er.24h 1 Tab PO BIDWMEALS Vitals/I & O Vital Sign - Last 24 Hours 03/22/19 03/22/19 03/22/19 03/22/19 19:24 19:25 20:00 20:45 Temp 97.5 97.5 Pulse 93 93 Resp 18 B/P (MAP) 114/61 (78) 114/61 Pulse Ox 97 94 O2 Delivery Room Air Room Air Room Air 03/22/19 03/23/19 03/23/19 03/23/19 23:23 03:49 07:00 07:24 Temp 97.6 97.5 97.5 97.6 97.5 97.5 Pulse 101 95 72 Resp 18 18 18 B/P (MAP) 126/69 (88) 116/67 (83) 119/65 (83) Pulse Ox 96 95 95 O2 Delivery Room Air Room Air Room Air Room Air O2 Flow Rate 03/23/19 03/23/19 03/23/19 03/23/19 07:24 08:00 08:34 08:34 Pulse 72 72 B/P (MAP) 119/65 119/65 Pulse Ox 95 O2 Delivery Room Air Room Air 03/23/19 03/23/19 03/23/19 03/23/19 11:00 11:42 15:00 15:06 Temp 97.5 97.7 97.5 97.7 Pulse 78 68 Resp 18 18 B/P (MAP) 104/61 (75) 97/58 (71) Pulse Ox 97 97 99 99 O2 Delivery Room Air Room Air Room Air Room Air Intake and Output 03/22/19 03/22/19 03/23/19 15:00 23:00 07:00 Intake Total 1080 ml 4000 ml 300 ml Output Total 400 ml 5250 ml 250 ml Balance 680 ml -1250 ml 50 ml ZENAIDA PATEL MD Mar 23, 2019 17:02
[2019-03-23 19:46] VITALS: BP 116/63
[2019-03-23] MEDS: CEFDINIR 300 MG CAPSULE PO SCH (21:31)
[2019-03-23] MEDS: AZITHROMYCIN 250 MG TABLET. PO SCH (21:32)
[2019-03-23] MEDS: METOPROLOL TART IMMED RELEASE 25 MG TABLET. PO SCH (21:32)
[2019-03-23] MEDS: ATORVASTATIN CALCIUM 40 MG TABLET. PO SCH (21:32)
[2019-03-23 23:25] VITALS: BP 125/75
[2019-03-23] MEDS: TEMAZEPAM 15 MG CAPSULE PO PRN (23:57)
[2019-03-24] MEDS: MECLIZINE HCL 12.5 MG TABLET. PO PRN ×2 (00:03→09:17)
[2019-03-24 03:47] VITALS: BP 111/51
[2019-03-24] MEDS: INSULIN LISPRO 300 UNITS/3 ML VIAL. SQ SCH ×5 (07:30→21:45)
[2019-03-24 07:44] VITALS: BP 113/51
[2019-03-24] MEDS: IPRATRPIUM/ALBUTEROL 0.5/2.5MG 3 ML NEBU. NEB SCH ×4 (08:19→18:33)
[2019-03-24] MEDS: BUDESONIDE 0.5 MG/2 ML NEBU. NEB SCH ×2 (08:19→18:33)
[2019-03-24] MEDS: GABAPENTIN 400 MG CAPSULE. PO SCH ×2 (09:12→21:36)
[2019-03-24] MEDS: metFORMIN XR 500 MG TAB.ER.24H PO SCH ×2 (09:12→17:13)
[2019-03-24] MEDS: THEOPHYLLINE 12HR ER 300 MG TAB.ER.12H. PO SCH (09:12)
[2019-03-24] MEDS: METOPROLOL TART IMMED RELEASE 25 MG TABLET. PO SCH ×2 (09:13→21:37)
[2019-03-24] MEDS: GLIMEPIRIDE 2 MG TABLET. PO SCH (09:13)
[2019-03-24] MEDS: DIGOXIN 125 MCG TABLET. PO SCH (09:13)
[2019-03-24] MEDS: CEFDINIR 300 MG CAPSULE PO SCH ×2 (09:13→21:36)
--- NOTE | 2019-03-24 10:51 | PDOC ---
PROGRESS NOTES Subjective Subjective No new complaints. Objective Objective Vital Signs Date Time Temp Pulse Resp B/P (MAP) Pulse Ox O2 Delivery O2 Flow Rate FiO2 03/24/19 09:17 72 113/51 03/24/19 08:25 94 Room Air 03/24/19 07:44 98.3 18 98.3 03/23/19 07:00 Intake and Output 03/24/19 06:59 Intake Total 0 ml Output Total 1200 ml Balance -1200 ml Intake Oral 0 ml Output Urine Total 1200 ml # Voids 2 Physical Exam Physical Exam He is alert,supine in bed and seems to be comfortable and he is walking with roller walker under supervision and he is independent with his transfers. Assessment Assessment Problems Medical Problems: (1) Acute bronchitis Status: Acute (2) CHF (congestive heart failure) Status: Acute (3) Chronic atrial fibrillation Status: Acute (4) COPD (chronic obstructive pulmonary disease) Status: Chronic (5) DDD (degenerative disc disease), lumbar Status: Chronic (6) Degenerative joint disease (DJD) of lumbar spine Status: Chronic (7) Dizziness Status: Acute (8) Elevated bilirubin Status: Acute (9) Frequent falls Status: Acute (10) Type 2 diabetes mellitus with peripheral neuropathy Status: Chronic Plan Plan of Care To SNF when medically stable. Comment Review of Relevant I have reviewed the following items kaila (where applicable) has been applied. Labs Laboratory Tests Test 03/22/19 11:43 03/22/19 16:59 03/22/19 20:40 03/23/19 07:38 Glucose (Fingerstick) 230 mg/dL (70-99) 134 mg/dL (70-99) 220 mg/dL (70-99) 164 mg/dL (70-99) Test 03/23/19 11:45 03/23/19 16:56 03/23/19 20:28 03/24/19 07:25 Glucose (Fingerstick) 125 mg/dL (70-99) 87 mg/dL (70-99) 151 mg/dL (70-99) 135 mg/dL (70-99) Laboratory Tests Test 03/23/19 11:45 03/23/19 16:56 03/23/19 20:28 03/24/19 07:25 Glucose (Fingerstick) 125 mg/dL (70-99) 87 mg/dL (70-99) 151 mg/dL (70-99) 135 mg/dL (70-99) Microbiology 03/21/19 Blood Culture - Preliminary, Resulted NO GROWTH AFTER 2 DAYS Medications Current Medications Albuterol/ Ipratropium (Duoneb) 3 ml 1X ONCE NEB Last administered on 03/21/19at 17:11; Start 03/21/19 at 16:45; Stop 03/21/19 at 16:46; Status DC Methylprednisolone Sodium Succinate (SOLU-Medrol 125MG VIAL) 125 mg 1X ONCE IV Last administered on 03/21/19at 17:02; Start 03/21/19 at 16:45; Stop 03/21/19 at 16:46; Status DC Ceftriaxone Sodium (Rocephin) 1 gm 1X ONCE IVP Last administered on 03/21/19at 21:47; Start 03/21/19 at 18:00; Stop 03/21/19 at 18:05; Status DC Albuterol Sulfate (Ventolin Neb Soln) 2.5 mg PRN QID PRN NEB SHORTNESS OF BREATH Last administered on 03/22/19at 04:15; Start 03/21/19 at 20:30 Atorvastatin Calcium (Lipitor) 40 mg HS PO Last administered on 03/23/19at 21:33; Start 03/21/19 at 21:00 Gabapentin (Neurontin) 400 mg BID PO Last administered on 03/24/19at 09:17; Start 03/21/19 at 21:00 Acetaminophen/ Hydrocodone Bitart (Lortab 5/325) 1 tab PRN QHS PRN PO PAIN; Start 03/21/19 at 21:00 Metformin HCl (Glucophage Xr) 500 mg BIDWMEALS PO Last administered on 03/24/19at 09:17; Start 03/22/19 at 08:00 Metoprolol Tartrate (Lopressor) 50 mg BID PO Last administered on 03/23/19at 08:34; Start 03/21/19 at 21:00; Stop 03/23/19 at 09:33; Status DC Nitroglycerin (Nitrostat) 0.4 mg PRN Q5MIN PRN SL CHEST PAIN; Start 03/21/19 at 20:30 Warfarin Sodium (Coumadin) 3 mg DAILY16 PO Last administered on 03/23/19at 15:47; Start 03/22/19 at 16:00 Non-Formulary Medication (Albuterol Sulfate (Albuterol Sulfate Hfa Inhaler)) 2 puff QID INH ; Start 03/21/19 at 21:00; Stop 03/21/19 at 23:40; Status DC Non-Formulary Medication (Alendronate Sodium ) 1 tab WEEKLY PO ; Start 03/28/19 at 09:00; Status UNV Digoxin (Lanoxin) 125 mcg DAILY PO Last administered on 03/24/19at 09:17; Start 03/22/19 at 09:00 Glimepiride (Amaryl) 1 mg DAILY PO Last administered on 03/24/19at 09:17; Start 03/22/19 at 09:00 Theophylline (Theodur) 300 mg DAILY07 PO ; Start 03/22/19 at 07:00; Status Cancel Acetaminophen/ Hydrocodone Bitart (Lortab 5/325) 1 tab PRN Q4HRS PRN PO MILD PAIN 1-3; Start 03/21/19 at 20:30 Acetaminophen/ Hydrocodone Bitart (Lortab 5/325) 2 tab PRN Q4HRS PRN PO MODERATE PAIN, SEVERE PAIN; Start 03/21/19 at 20:30 Insulin Human Lispro (HumaLOG) 0-12 UNITS QIDACHS SQ Last administered on 03/23/19at 08:39; Start 03/21/19 at 21:00 Ceftriaxone Sodium (Rocephin) 1 gm Q24H IVP Last administered on 03/22/19at 20:45; Start 03/22/19 at 21:00; Stop 03/23/19 at 14:35; Status DC Azithromycin (Zithromax) 500 mg Q24H PO ; Start 03/21/19 at 09:00; Stop 03/24/19 at 08:59; Status Cancel Azithromycin (Zithromax) 500 mg Q24H PO Last administered on 03/23/19at 21:33; Start 03/21/19 at 21:00; Stop 03/24/19 at 22:00 Temazepam (Restoril) 15 mg PRN QHS PRN PO INSOMNIA Last administered on 03/23/19at 23:58; Start 03/21/19 at 22:30 Temazepam (Restoril) 15 mg 1X PRN PRN PO INSOMNIA Last administered on 03/23/19at 00:25; Start 03/21/19 at 23:00 Warfarin Sodium (Coumadin Per Physician) 1 each PRN DAILY PRN MC SEE COMMENTS; Start 03/22/19 at 16:00 Albuterol Sulfate (Ventolin Neb Soln) 2.5 mg RTQID NEB Last administered on 03/22/19at 11:30; Start 03/22/19 at 08:00; Stop 03/22/19 at 13:53; Status DC Influenza Virus Vaccine Quadrival (Afluria Quad 2019-20 (3yr Up) Syringe) 0.5 ml ONCE ONCE VAX IM ; Start 03/22/19 at 02:15; Stop 03/22/19 at 02:16; Status UNV Theophylline (Theodur) 300 mg DAILY07 PO Last administered on 03/24/19at 09:17; Start 03/22/19 at 09:30 Meclizine HCl (Antivert) 12.5 mg PRN Q6HRS PRN PO DIZZINESS Last administered on 03/24/19at 09:17; Start 03/22/19 at 13:30 Albuterol/ Ipratropium (Duoneb) 3 ml RTQID NEB Last administered on 03/24/19at 08:19; Start 03/22/19 at 16:00 Budesonide (Pulmicort) 0.5 mg RTBID NEB Last administered on 03/24/19at 08:19; Start 03/22/19 at 20:00 Metoprolol Tartrate (Lopressor) 25 mg BID PO Last administered on 03/24/19at 09:17; Start 03/23/19 at 21:00 Cefdinir (Omnicef) 300 mg BID PO Last administered on 03/24/19at 09:17; Start 03/23/19 at 21:00 Active Scripts Active Albuterol Sulfate Neb Soln (Albuterol Sulfate) 2.5 Mg/3 Ml Vial.neb 2.5 Mg NEB PRN QID PRN Duoneb 0.5-3(2.5) Mg/3 Ml (Albuterol/Ipratropium) 3 Ml Ampul.neb 3 Ml NEB RTQID [place] 5-325 Tablet (Acetaminophen/Hydrocodone Bitart) 1 Each Tablet 1 Tab PO PRN Q6HRS PRN Reported Theophylline Anhydrous 300 Mg Tab.er.12h 300 Mg PO DAILY Atorvastatin Calcium 40 Mg Tablet 40 Mg PO HS Metoprolol Tartrate 25 Mg Tablet 25 Mg PO BID Warfarin Sodium 3 Mg Tablet 3 Mg PO DAILY Hydrocodone-Acetamin 5-325 mg (Hydrocodone/Acetaminophen) 1 Each Tablet 1 Tab PO HS PRN Gabapentin 400 Mg Capsule 400 Mg PO BID Zolpidem Tartrate 5 Mg Tablet 5 Mg PO HS PRN Nitrostat (Nitroglycerin) 0.4 Mg Tab.subl 0.4 Mg SL PRN Q5MIN PRN [Percussion Vest Bid] Alendronate Sodium 70 Mg Tablet 1 Tab PO WEEKLY Meloxicam 7.5 Mg Tablet 7.5 Mg PO DAILY Ventolin Hfa Inhaler (Albuterol Sulfate) 18 Gm Hfa.aer.ad 2 Puff INH Q4HRS PRN Digoxin 250 Mcg Tablet 125 Mcg PO DAILY Glimepiride 1 Mg Tablet 1 Mg PO DAILY Albuterol Sulfate Hfa Inhaler (Albuterol Sulfate) 8.5 Gm Hfa.aer.ad 2 Puff INH QID Metformin Hcl Er (Metformin Hcl) 500 Mg Tab.er.24h 1 Tab PO BIDWMEALS Vitals/I & O Vital Sign - Last 24 Hours 03/23/19 03/23/19 03/23/19 03/23/19 11:00 11:42 15:00 15:06 Temp 97.5 97.7 97.5 97.7 Pulse 78 68 Resp 18 18 B/P (MAP) 104/61 (75) 97/58 (71) Pulse Ox 97 97 99 99 O2 Delivery Room Air Room Air Room Air Room Air 03/23/19 03/23/19 03/23/19 03/23/19 19:46 20:00 20:14 20:15 Temp 97.6 97.6 Pulse 82 Resp 20 B/P (MAP) 116/63 (80) Pulse Ox 98 99 99 O2 Delivery Room Air Room Air Room Air Room Air 03/23/19 03/23/19 03/24/19 03/24/19 21:33 23:25 03:47 07:44 Temp 98.4 97.6 98.3 98.4 97.6 98.3 Pulse 82 102 72 72 Resp 18 16 18 B/P (MAP) 116/63 125/75 (92) 111/51 (71) 113/51 (71) Pulse Ox 96 94 95 O2 Delivery Room Air Room Air Room Air 03/24/19 03/24/19 03/24/19 03/24/19 08:21 08:25 09:17 09:17 Pulse 72 72 B/P (MAP) 113/51 113/51 Pulse Ox 94 94 O2 Delivery Room Air Room Air Intake and Output 03/23/19 03/23/19 03/24/19 14:59 22:59 06:59 Intake Total 0 ml Output Total 500 ml 700 ml Balance -500 ml -700 ml DEBRA HACKETT MD Mar 24, 2019 10:51
[2019-03-24 11:00] VITALS: BP 113/65
--- NOTE | 2019-03-24 12:41 | PDOC ---
PROGRESS NOTES Subjective He still feels off balance and wantd meclizine on schedule, he is agreeable to SNU, he is still coughing but now on po antibiotics, his linotypist has not shown any significant arrhythmia Objective Afebrile General: A&O Heart: RRR Lungs: loose cough Abd: soft, non tender Ext: no C/C/E Vital Signs Vital Signs Date Time Temp Pulse Resp B/P (MAP) Pulse Ox O2 Delivery O2 Flow Rate FiO2 03/24/19 09:17 72 113/51 03/24/19 08:25 94 Room Air 03/24/19 07:44 98.3 18 98.3 03/23/19 07:00 I & O Intake and Output 03/24/19 06:59 Intake Total 0 ml Output Total 1200 ml Balance -1200 ml Intake Oral 0 ml Output Urine Total 1200 ml # Voids 2 Assessment and Plan Problems Medical Problems: (1) Acute bronchitis Status: Acute (2) CHF (congestive heart failure) Status: Acute (3) Chronic atrial fibrillation Status: Acute (4) COPD (chronic obstructive pulmonary disease) Status: Chronic (5) DDD (degenerative disc disease), lumbar Status: Chronic (6) Degenerative joint disease (DJD) of lumbar spine Status: Chronic (7) Dizziness Status: Acute (8) Elevated bilirubin Status: Acute (9) Frequent falls Status: Acute (10) Type 2 diabetes mellitus with peripheral neuropathy Status: Chronic 1. Vertigo - meclizine on schedule - PT/OT. 2. Mobility deficit - PT/OT - SNU. 3. Bronchitis - continue po abx. 4. Exacerbation of chronic obstructive pulmonary disease - neb tx. 5. Chronic atrial fibrillation - monitor showing controlled rate, no signifi cant irregularities, will DC monitor. 6. Orthostatic hypotension - continue to monitor Edward ALLEN MD Mar 24, 2019 12:40
[2019-03-24] MEDS: MECLIZINE HCL 12.5 MG TABLET. PO SCH ×3 (14:17→21:36)
[2019-03-24 14:35] VITALS: BP 119/63
--- NOTE | 2019-03-24 15:27 | PDOC ---
PULMONARY PROGRESS NOTES Subjective Pt. is up walking hallways today with physical therapy. Remains on room air. Reports productive cough and SOA is better Vitals Vital Signs Date Time Temp Pulse Resp B/P (MAP) Pulse Ox O2 Delivery O2 Flow Rate FiO2 03/24/19 14:35 97.6 86 14 119/63 (81) 96 Room Air 97.6 03/23/19 07:00 ROS: No Nausea, No Chest Pain, No Increase Cough General: Alert, Oriented X4, No acute distress Lungs: Clear, Other (diminished in both lungs) Cardiovascular: S1, S2 Abdomen: Soft, Non-tender Neuro Exam: Alert, Oriented, Normal Speech Extremities: No Edema Skin: Warm, Dry Labs Laboratory Tests Test 03/22/19 16:59 03/22/19 20:40 03/23/19 07:38 03/23/19 11:45 Glucose (Fingerstick) 134 mg/dL (70-99) 220 mg/dL (70-99) 164 mg/dL (70-99) 125 mg/dL (70-99) Test 03/23/19 16:56 03/23/19 20:28 03/24/19 07:25 03/24/19 11:54 Glucose (Fingerstick) 87 mg/dL (70-99) 151 mg/dL (70-99) 135 mg/dL (70-99) 127 mg/dL (70-99) Laboratory Tests Test 03/23/19 16:56 03/23/19 20:28 03/24/19 07:25 03/24/19 11:54 Glucose (Fingerstick) 87 mg/dL (70-99) 151 mg/dL (70-99) 135 mg/dL (70-99) 127 mg/dL (70-99) Medications Active Scripts Medications Dose Route/Sig Max Daily Dose Days Date Category Theophylline Anhydrous 300 Mg Tab.er.12h 300 Mg PO DAILY 03/22/19 Reported Atorvastatin Calcium 40 Mg Tablet 40 Mg PO HS 03/21/19 Reported Metoprolol Tartrate 25 Mg Tablet 25 Mg PO BID 03/21/19 Reported Warfarin Sodium 3 Mg Tablet 3 Mg PO DAILY 03/21/19 Reported Hydrocodone-Acetamin 5-325 mg (Hydrocodone/Acetaminophen) 1 Each Tablet 1 Tab PO HS PRN 03/21/19 Reported Gabapentin 400 Mg Capsule 400 Mg PO BID 03/21/19 Reported Zolpidem Tartrate 5 Mg Tablet 5 Mg PO HS PRN 03/21/19 Reported Nitrostat (Nitroglycerin) 0.4 Mg Tab.subl 0.4 Mg SL PRN Q5MIN PRN 03/21/19 Reported [Percussion Vest Bid] 07/26/16 Reported Albuterol Sulfate Neb Soln (Albuterol Sulfate) 2.5 Mg/3 Ml Vial.neb 2.5 Mg NEB PRN QID PRN 07/26/16 Rx Duoneb 0.5-3(2.5) Mg/3 Ml (Albuterol/Ipratropium) 3 Ml Ampul.neb 3 Ml NEB RTQID 07/26/16 Rx Alendronate Sodium 70 Mg Tablet 1 Tab PO WEEKLY 07/16/16 Reported Meloxicam 7.5 Mg Tablet 7.5 Mg PO DAILY 07/16/16 Reported Ventolin Hfa Inhaler (Albuterol Sulfate) 18 Gm Hfa.aer.ad 2 Puff INH Q4HRS PRN 07/16/16 Reported [place] 5-325 Tablet (Acetaminophen/Hydrocodone Bitart) 1 Each Tablet 1 Tab PO PRN Q6HRS PRN 09/04/15 Rx Digoxin 250 Mcg Tablet 125 Mcg PO DAILY 04/01/15 Reported Glimepiride 1 Mg Tablet 1 Mg PO DAILY 02/14/15 Reported Albuterol Sulfate Hfa Inhaler (Albuterol Sulfate) 8.5 Gm Hfa.aer.ad 2 Puff INH QID 02/14/15 Reported Metformin Hcl Er (Metformin Hcl) 500 Mg Tab.er.24h 1 Tab PO BIDWMEALS 03/05/14 Reported Impression . 1. Dyspnea secondary to acute exacerbation of chronic obstructive pulmonary disease and acute bronchitis. 2. No definite consolidation seen on the chest x-ray. 3. History of atrial fibrillation, on warfarin. Plan . 1. Continue with present Rocephin. 2. continue DuoNebs 3. continue Pulmicort. 4. theophylline level less than 2 -- probably not adding much to his therapy. I believe you could discontinue that. We will follow along with you. likely dc home Tuesday RUDY MULLINS MD Mar 24, 2019 15:27
[2019-03-24] MEDS: WARFARIN 3 MG TABLET. PO SCH (17:12)
[2019-03-24 19:00] VITALS: BP 111/65
[2019-03-24] MEDS: LACTOBACILLUS RHAMNOSUS GG 1 CAPSULE. PO SCH (21:36)
[2019-03-24] MEDS: AZITHROMYCIN 250 MG TABLET. PO SCH (21:36)
[2019-03-24] MEDS: ATORVASTATIN CALCIUM 40 MG TABLET. PO SCH (21:37)
[2019-03-24] MEDS: TEMAZEPAM 15 MG CAPSULE PO PRN (22:31)
[2019-03-24 23:00] VITALS: BP 113/60
[2019-03-25 03:00] VITALS: BP 119/71
[2019-03-25 06:53] LABS: ANION GAP 7 (6-14); BLOOD UREA NITROGEN 22 mg/dL (8-26); CALCIUM 8.8 mg/dL (8.5-10.1); CARBON DIOXIDE 27 mmol/L (21-32); CHLORIDE 108 mmol/L (98-107); DIG 0.5 ng/mL (0.9-2.0); GLUCOSE 180 mg/dL (70-99); POTASSIUM 3.9 mmol/L (3.5-5.1); SODIUM 142 mmol/L (136-145)
[2019-03-25 06:55] LABS: BASO # 0.2 x10^3/uL (0.0-0.2); BASO % 3 % (0-3); EOS # 0.2 x10^3/uL (0.0-0.7); EOS % 3 % (0-3); HEMOGLOBIN 13.7 g/dL (13.0-17.5); LYMPH # 1.7 x10^3/uL (1.0-4.8); LYMPH % 28 % (24-48); MEAN CORPUSCULAR HEMOGLOBIN 30 pg (25-35); MEAN CORPUSCULAR HGB CONC 33 g/dL (31-37); MEAN CORPUSCULAR VOLUME 90 fL (79-100); MONO # 0.5 x10^3/uL (0.0-1.1); MONO % 9 % (0-9); NEUT # 3.6 x10^3/uL (1.8-7.7); NEUT % 58 % (31-73); PLATELET COUNT 121 x10^3/uL (140-400); RED BLOOD COUNT 4.58 x10^6/uL (4.30-5.70); RED CELL DISTRIBUTION WIDTH 17.7 % (11.5-14.5); WHITE BLOOD COUNT 6.2 x10^3/uL (4.0-11.0)
[2019-03-25 07:00] VITALS: BP 136/86
[2019-03-25] MEDS: THEOPHYLLINE 12HR ER 300 MG TAB.ER.12H. PO SCH (07:00)
[2019-03-25] MEDS: INSULIN LISPRO 300 UNITS/3 ML VIAL. SQ SCH ×4 (07:30→21:00)
[2019-03-25] MEDS: IPRATRPIUM/ALBUTEROL 0.5/2.5MG 3 ML NEBU. NEB SCH ×4 (08:12→19:49)
[2019-03-25] MEDS: BUDESONIDE 0.5 MG/2 ML NEBU. NEB SCH ×2 (08:12→19:49)
[2019-03-25] MEDS: METOPROLOL TART IMMED RELEASE 25 MG TABLET. PO SCH ×2 (08:17→20:53)
[2019-03-25] MEDS: LACTOBACILLUS RHAMNOSUS GG 1 CAPSULE. PO SCH ×2 (08:17→20:52)
[2019-03-25] MEDS: GABAPENTIN 400 MG CAPSULE. PO SCH ×2 (08:17→20:52)
[2019-03-25] MEDS: metFORMIN XR 500 MG TAB.ER.24H PO SCH ×2 (08:18→16:37)
[2019-03-25] MEDS: MECLIZINE HCL 12.5 MG TABLET. PO SCH ×4 (08:18→20:52)
[2019-03-25] MEDS: DIGOXIN 125 MCG TABLET. PO SCH (08:18)
[2019-03-25] MEDS: CEFDINIR 300 MG CAPSULE PO SCH ×2 (08:18→20:52)
[2019-03-25] MEDS: GLIMEPIRIDE 2 MG TABLET. PO SCH (08:18)
--- NOTE | 2019-03-25 10:43 | PDOC ---
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, still agreeable for SNU, INR now subtherapeutic Objective Afebrile General: diminished hearing but NAD Heart: RRR Lungs: diminished but clear Abd: soft, thin Ext: no C/C/E, diminished sensation of feet Vital Signs Vital Signs Date Time Temp Pulse Resp B/P (MAP) Pulse Ox O2 Delivery O2 Flow Rate FiO2 03/25/19 08:18 76 136/86 03/25/19 08:18 94 Room Air 03/25/19 07:00 97.4 18 97.4 03/23/19 07:00 I & O Intake and Output 03/25/19 07:00 Intake Total 480 ml Output Total 1550 ml Balance -1070 ml Intake Oral 480 ml Output Urine Total 1550 ml # Voids 3 Assessment and Plan Problems Medical Problems: (1) Acute bronchitis Status: Acute (2) CHF (congestive heart failure) Status: Acute (3) Chronic atrial fibrillation Status: Acute (4) COPD (chronic obstructive pulmonary disease) Status: Chronic (5) DDD (degenerative disc disease), lumbar Status: Chronic (6) Degenerative joint disease (DJD) of lumbar spine Status: Chronic (7) Dizziness Status: Acute (8) Elevated bilirubin Status: Acute (9) Frequent falls Status: Acute (10) Type 2 diabetes mellitus with peripheral neuropathy Status: Chronic 1. Vertigo - meclizine on schedule - PT/OT. 2. Mobility deficit - PT/OT - SNU. 3. Bronchitis - continue po abx. 4. Exacerbation of chronic obstructive pulmonary disease, emphysema type - neb tx - will need WC at discharge. 5. Chronic atrial fibrillation - monitor showing controlled rate, no significant irregularities, will DC monitor, INR subtherapeutic so will increase to 4 mg from 3 mg and monitor. 6. Orthostatic hypotension - continue to monitor Edward ALLEN MD Mar 25, 2019 10:43
[2019-03-25 11:00] VITALS: BP 106/60
--- NOTE | 2019-03-25 14:56 | PDOC ---
PULMONARY PROGRESS NOTES Subjective Pt. is up walking hallways today with physical therapy. Remains on room air. Reports productive cough, sputum still yellow, and SOA is better Vitals Vital Signs Date Time Temp Pulse Resp B/P (MAP) Pulse Ox O2 Delivery O2 Flow Rate FiO2 03/25/19 11:37 Room Air 03/25/19 11:00 97.6 72 14 106/60 (75) 100 97.6 ROS: No Nausea, No Chest Pain, No Increase Cough General: Alert, Oriented X4, No acute distress Lungs: Clear, Other (diminished in both lungs) Cardiovascular: S1, S2 Abdomen: Soft, Non-tender Neuro Exam: Alert, Oriented, Normal Speech Extremities: No Edema Skin: Warm, Dry Labs Laboratory Tests Test 03/23/19 16:56 03/23/19 20:28 03/24/19 07:25 03/24/19 11:54 Glucose (Fingerstick) 87 mg/dL (70-99) 151 mg/dL (70-99) 135 mg/dL (70-99) 127 mg/dL (70-99) Test 03/24/19 21:15 03/24/19 21:18 03/25/19 04:30 03/25/19 07:09 Glucose (Fingerstick) 187 mg/dL (70-99) 200 mg/dL (70-99) 144 mg/dL (70-99) White Blood Count 6.2 x10^3/uL (4.0-11.0) Red Blood Count 4.58 x10^6/uL (4.30-5.70) Hemoglobin 13.7 g/dL (13.0-17.5) Hematocrit 41.0 % (39.0-53.0) Mean Corpuscular Volume 90 fL (79-100) Mean Corpuscular Hemoglobin 30 pg (25-35) Mean Corpuscular Hemoglobin Concent 33 g/dL (31-37) Red Cell Distribution Width 17.7 % (11.5-14.5) Platelet Count 121 x10^3/uL (140-400) Neutrophils (%) (Auto) 58 % (31-73) Lymphocytes (%) (Auto) 28 % (24-48) Monocytes (%) (Auto) 9 % (0-9) Eosinophils (%) (Auto) 3 % (0-3) Basophils (%) (Auto) 3 % (0-3) Neutrophils # (Auto) 3.6 x10^3/uL (1.8-7.7) Lymphocytes # (Auto) 1.7 x10^3/uL (1.0-4.8) Monocytes # (Auto) 0.5 x10^3/uL (0.0-1.1) Eosinophils # (Auto) 0.2 x10^3/uL (0.0-0.7) Basophils # (Auto) 0.2 x10^3/uL (0.0-0.2) Prothrombin Time 19.0 SEC (11.7-14.0) Prothromb Time International Ratio 1.6 (0.8-1.1) Sodium Level 142 mmol/L (136-145) Potassium Level 3.9 mmol/L (3.5-5.1) Chloride Level 108 mmol/L (98-107) Carbon Dioxide Level 27 mmol/L (21-32) Anion Gap 7 (6-14) Blood Urea Nitrogen 22 mg/dL (8-26) Creatinine 1.0 mg/dL (0.7-1.3) Estimated GFR (Cockcroft-Gault) 71.0 Glucose Level 180 mg/dL (70-99) Calcium Level 8.8 mg/dL (8.5-10.1) Digoxin Level 0.5 ng/mL (0.9-2.0) Digoxin Last Dose Date 03/24/19 Digoxin Last Dose Time 0900 Test 03/25/19 11:29 Glucose (Fingerstick) 160 mg/dL (70-99) Laboratory Tests Test 03/24/19 21:15 03/24/19 21:18 03/25/19 04:30 03/25/19 07:09 Glucose (Fingerstick) 187 mg/dL (70-99) 200 mg/dL (70-99) 144 mg/dL (70-99) White Blood Count 6.2 x10^3/uL (4.0-11.0) Red Blood Count 4.58 x10^6/uL (4.30-5.70) Hemoglobin 13.7 g/dL (13.0-17.5) Hematocrit 41.0 % (39.0-53.0) Mean Corpuscular Volume 90 fL (79-100) Mean Corpuscular Hemoglobin 30 pg (25-35) Mean Corpuscular Hemoglobin Concent 33 g/dL (31-37) Red Cell Distribution Width 17.7 % (11.5-14.5) Platelet Count 121 x10^3/uL (140-400) Neutrophils (%) (Auto) 58 % (31-73) Lymphocytes (%) (Auto) 28 % (24-48) Monocytes (%) (Auto) 9 % (0-9) Eosinophils (%) (Auto) 3 % (0-3) Basophils (%) (Auto) 3 % (0-3) Neutrophils # (Auto) 3.6 x10^3/uL (1.8-7.7) Lymphocytes # (Auto) 1.7 x10^3/uL (1.0-4.8) Monocytes # (Auto) 0.5 x10^3/uL (0.0-1.1) Eosinophils # (Auto) 0.2 x10^3/uL (0.0-0.7) Basophils # (Auto) 0.2 x10^3/uL (0.0-0.2) Prothrombin Time 19.0 SEC (11.7-14.0) Prothromb Time International Ratio 1.6 (0.8-1.1) Sodium Level 142 mmol/L (136-145) Potassium Level 3.9 mmol/L (3.5-5.1) Chloride Level 108 mmol/L (98-107) Carbon Dioxide Level 27 mmol/L (21-32) Anion Gap 7 (6-14) Blood Urea Nitrogen 22 mg/dL (8-26) Creatinine 1.0 mg/dL (0.7-1.3) Estimated GFR (Cockcroft-Gault) 71.0 Glucose Level 180 mg/dL (70-99) Calcium Level 8.8 mg/dL (8.5-10.1) Digoxin Level 0.5 ng/mL (0.9-2.0) Digoxin Last Dose Date 03/24/19 Digoxin Last Dose Time 0900 Test 03/25/19 11:29 Glucose (Fingerstick) 160 mg/dL (70-99) Medications Active Scripts Medications Dose Route/Sig Max Daily Dose Days Date Category Theophylline Anhydrous 300 Mg Tab.er.12h 300 Mg PO DAILY 03/22/19 Reported Atorvastatin Calcium 40 Mg Tablet 40 Mg PO HS 03/21/19 Reported Metoprolol Tartrate 25 Mg Tablet 25 Mg PO BID 03/21/19 Reported Warfarin Sodium 3 Mg Tablet 3 Mg PO DAILY 03/21/19 Reported Hydrocodone-Acetamin 5-325 mg (Hydrocodone/Acetaminophen) 1 Each Tablet 1 Tab PO HS PRN 03/21/19 Reported Gabapentin 400 Mg Capsule 400 Mg PO BID 03/21/19 Reported Zolpidem Tartrate 5 Mg Tablet 5 Mg PO HS PRN 03/21/19 Reported Nitrostat (Nitroglycerin) 0.4 Mg Tab.subl 0.4 Mg SL PRN Q5MIN PRN 03/21/19 Reported [Percussion Vest Bid] 07/26/16 Reported Albuterol Sulfate Neb Soln (Albuterol Sulfate) 2.5 Mg/3 Ml Vial.neb 2.5 Mg NEB PRN QID PRN 07/26/16 Rx Duoneb 0.5-3(2.5) Mg/3 Ml (Albuterol/Ipratropium) 3 Ml Ampul.neb 3 Ml NEB RTQID 07/26/16 Rx Alendronate Sodium 70 Mg Tablet 1 Tab PO WEEKLY 07/16/16 Reported Meloxicam 7.5 Mg Tablet 7.5 Mg PO DAILY 07/16/16 Reported Ventolin Hfa Inhaler (Albuterol Sulfate) 18 Gm Hfa.aer.ad 2 Puff INH Q4HRS PRN 07/16/16 Reported [place] 5-325 Tablet (Acetaminophen/Hydrocodone Bitart) 1 Each Tablet 1 Tab PO PRN Q6HRS PRN 09/04/15 Rx Digoxin 250 Mcg Tablet 125 Mcg PO DAILY 04/01/15 Reported Glimepiride 1 Mg Tablet 1 Mg PO DAILY 02/14/15 Reported Albuterol Sulfate Hfa Inhaler (Albuterol Sulfate) 8.5 Gm Hfa.aer.ad 2 Puff INH QID 02/14/15 Reported Metformin Hcl Er (Metformin Hcl) 500 Mg Tab.er.24h 1 Tab PO BIDWMEALS 03/05/14 Reported Impression . 1. Dyspnea secondary to acute exacerbation of chronic obstructive pulmonary disease and acute bronchitis. 2. No definite consolidation seen on the chest x-ray. 3. History of atrial fibrillation, on warfarin. Plan . 1. Continue with present oral cephalosporin. 2. continue DuoNebs 3. continue Pulmicort. 4. theophylline level less than 2 -- probably not adding much to his therapy. I believe you could discontinue that. We will follow along with you. likely dc home Tuesday RUDY MULLINS MD Mar 25, 2019 14:56
[2019-03-25 15:00] VITALS: BP 111/60
[2019-03-25] MEDS ORDERED: WARFARIN 4 MG TABLET. PO SCH (16:00)
[2019-03-25 19:00] VITALS: BP 112/72
[2019-03-25] MEDS: ATORVASTATIN CALCIUM 40 MG TABLET. PO SCH (20:53)
[2019-03-25] MEDS: TEMAZEPAM 15 MG CAPSULE PO PRN (22:27)
[2019-03-25 23:00] VITALS: BP 125/79
[2019-03-26 03:00] VITALS: BP 120/72
[2019-03-26 07:00] VITALS: BP 113/70
[2019-03-26] MEDS: INSULIN LISPRO 300 UNITS/3 ML VIAL. SQ SCH ×2 (07:30→11:30)
[2019-03-26 07:42] LABS: PROTHROMBIN TIME PATIENT 18.2 SEC (11.7-14.0)
[2019-03-26] MEDS: BUDESONIDE 0.5 MG/2 ML NEBU. NEB SCH (07:44)
[2019-03-26] MEDS: IPRATRPIUM/ALBUTEROL 0.5/2.5MG 3 ML NEBU. NEB SCH ×2 (07:45→11:42)
[2019-03-26] MEDS: CEFDINIR 300 MG CAPSULE PO SCH (09:01)
[2019-03-26] MEDS: metFORMIN XR 500 MG TAB.ER.24H PO SCH (09:01)
[2019-03-26] MEDS: GABAPENTIN 400 MG CAPSULE. PO SCH (09:01)
[2019-03-26] MEDS: LACTOBACILLUS RHAMNOSUS GG 1 CAPSULE. PO SCH (09:01)
[2019-03-26] MEDS: DIGOXIN 125 MCG TABLET. PO SCH (09:01)
[2019-03-26] MEDS: THEOPHYLLINE 12HR ER 300 MG TAB.ER.12H. PO SCH (09:01)
[2019-03-26] MEDS: MECLIZINE HCL 12.5 MG TABLET. PO SCH ×2 (09:01→12:52)
[2019-03-26] MEDS: METOPROLOL TART IMMED RELEASE 25 MG TABLET. PO SCH (09:02)
[2019-03-26] MEDS: GLIMEPIRIDE 2 MG TABLET. PO SCH (09:02)
--- NOTE | 2019-03-26 09:52 | PDOC ---
PROGRESS NOTES Subjective Subjective No new complaints. Objective Objective Vital Signs Date Time Temp Pulse Resp B/P (MAP) Pulse Ox O2 Delivery O2 Flow Rate FiO2 03/26/19 09:02 72 113/70 03/26/19 07:45 94 Room Air 03/26/19 07:00 98.1 17 98.1 03/23/19 07:00 Intake and Output 03/26/19 06:59 Intake Total 1400 ml Balance 1400 ml Intake Oral 1400 ml # Voids 5 Physical Exam Physical Exam He is sitting in bedside recliner and is comfortable and he is walking with roller walker. Assessment Assessment Problems Medical Problems: (1) Acute bronchitis Status: Acute (2) CHF (congestive heart failure) Status: Acute (3) Chronic atrial fibrillation Status: Acute (4) COPD (chronic obstructive pulmonary disease) Status: Chronic (5) DDD (degenerative disc disease), lumbar Status: Chronic (6) Degenerative joint disease (DJD) of lumbar spine Status: Chronic (7) Dizziness Status: Acute (8) Elevated bilirubin Status: Acute (9) Frequent falls Status: Acute (10) Type 2 diabetes mellitus with peripheral neuropathy Status: Chronic Plan Plan of Care To SNF for a short stay when medically stable. Comment Review of Relevant I have reviewed the following items kaila (where applicable) has been applied. Labs Laboratory Tests Test 03/24/19 11:54 03/24/19 21:15 03/24/19 21:18 03/25/19 04:30 Glucose (Fingerstick) 127 mg/dL (70-99) 187 mg/dL (70-99) 200 mg/dL (70-99) White Blood Count 6.2 x10^3/uL (4.0-11.0) Red Blood Count 4.58 x10^6/uL (4.30-5.70) Hemoglobin 13.7 g/dL (13.0-17.5) Hematocrit 41.0 % (39.0-53.0) Mean Corpuscular Volume 90 fL (79-100) Mean Corpuscular Hemoglobin 30 pg (25-35) Mean Corpuscular Hemoglobin Concent 33 g/dL (31-37) Red Cell Distribution Width 17.7 % (11.5-14.5) Platelet Count 121 x10^3/uL (140-400) Neutrophils (%) (Auto) 58 % (31-73) Lymphocytes (%) (Auto) 28 % (24-48) Monocytes (%) (Auto) 9 % (0-9) Eosinophils (%) (Auto) 3 % (0-3) Basophils (%) (Auto) 3 % (0-3) Neutrophils # (Auto) 3.6 x10^3/uL (1.8-7.7) Lymphocytes # (Auto) 1.7 x10^3/uL (1.0-4.8) Monocytes # (Auto) 0.5 x10^3/uL (0.0-1.1) Eosinophils # (Auto) 0.2 x10^3/uL (0.0-0.7) Basophils # (Auto) 0.2 x10^3/uL (0.0-0.2) Prothrombin Time 19.0 SEC (11.7-14.0) Prothromb Time International Ratio 1.6 (0.8-1.1) Sodium Level 142 mmol/L (136-145) Potassium Level 3.9 mmol/L (3.5-5.1) Chloride Level 108 mmol/L (98-107) Carbon Dioxide Level 27 mmol/L (21-32) Anion Gap 7 (6-14) Blood Urea Nitrogen 22 mg/dL (8-26) Creatinine 1.0 mg/dL (0.7-1.3) Estimated GFR (Cockcroft-Gault) 71.0 Glucose Level 180 mg/dL (70-99) Calcium Level 8.8 mg/dL (8.5-10.1) Digoxin Level 0.5 ng/mL (0.9-2.0) Digoxin Last Dose Date 03/24/19 Digoxin Last Dose Time 0900 Test 03/25/19 07:09 03/25/19 11:29 03/25/19 16:39 03/25/19 20:45 Glucose (Fingerstick) 144 mg/dL (70-99) 160 mg/dL (70-99) 127 mg/dL (70-99) 142 mg/dL (70-99) Test 03/26/19 05:30 03/26/19 07:16 Prothrombin Time 18.2 SEC (11.7-14.0) Prothromb Time International Ratio 1.5 (0.8-1.1) Glucose (Fingerstick) 142 mg/dL (70-99) Laboratory Tests Test 03/25/19 11:29 03/25/19 16:39 03/25/19 20:45 03/26/19 05:30 Glucose (Fingerstick) 160 mg/dL (70-99) 127 mg/dL (70-99) 142 mg/dL (70-99) Prothrombin Time 18.2 SEC (11.7-14.0) Prothromb Time International Ratio 1.5 (0.8-1.1) Test 03/26/19 07:16 Glucose (Fingerstick) 142 mg/dL (70-99) Microbiology 03/21/19 Blood Culture - Preliminary, Resulted NO GROWTH AFTER 4 DAYS Medications Current Medications Albuterol/ Ipratropium (Duoneb) 3 ml 1X ONCE NEB Last administered on 03/21/19 17:11; Start 03/21/19 at 16:45; Stop 03/21/19 at 16:46; Status DC Methylprednisolone Sodium Succinate (SOLU-Medrol 125MG VIAL) 125 mg 1X ONCE IV Last administered on 03/21/19 17:02; Start 03/21/19 at 16:45; Stop 03/21/19 at 16:46; Status DC Ceftriaxone Sodium (Rocephin) 1 gm 1X ONCE IVP Last administered on 03/21/19at 21:47; Start 03/21/19 at 18:00; Stop 03/21/19 at 18:05; Status DC Albuterol Sulfate (Ventolin Neb Soln) 2.5 mg PRN QID PRN NEB SHORTNESS OF BREATH Last administered on 03/22/19at 04:15; Start 03/21/19 at 20:30 Atorvastatin Calcium (Lipitor) 40 mg HS PO Last administered on 03/25/19at 20:54; Start 03/21/19 at 21:00 Gabapentin (Neurontin) 400 mg BID PO Last administered on 03/26/19 09:02; Start 03/21/19 at 21:00 Acetaminophen/ Hydrocodone Bitart (Lortab 5/325) 1 tab PRN QHS PRN PO PAIN; Start 03/21/19 at 21:00; Stop 03/24/19 at 13:54; Status DC Metformin HCl (Glucophage Xr) 500 mg BIDWMEALS PO Last administered on 03/26/19a t 09:02; Start 03/22/19 at 08:00 Metoprolol Tartrate (Lopressor) 50 mg BID PO Last administered on 03/23/19at 08:34; Start 03/21/19 at 21:00; Stop 03/23/19 at 09:33; Status DC Nitroglycerin (Nitrostat) 0.4 mg PRN Q5MIN PRN SL CHEST PAIN; Start 03/21/19 at 20:30 Warfarin Sodium (Coumadin) 3 mg DAILY16 PO Last administered on 03/24/19at 17:14; Start 03/22/19 at 16:00; Stop 03/25/19 at 09:47; Status DC Non-Formulary Medication (Albuterol Sulfate (Albuterol Sulfate Hfa Inhaler)) 2 puff QID INH ; Start 03/21/19 at 21:00; Stop 03/21/19 at 23:40; Status DC Non-Formulary Medication (Alendronate Sodium ) 1 tab WEEKLY PO ; Start 03/28/19 at 09:00; Status UNV Digoxin (Lanoxin) 125 mcg DAILY PO Last administered on 03/26/19at 09:02; Start 03/22/19 at 09:00 Glimepiride (Amaryl) 1 mg DAILY PO Last administered on 03/26/19at 09:02; Start 03/22/19 at 09:00 Theophylline (Theodur) 300 mg DAILY07 PO ; Start 03/22/19 at 07:00; Status Cancel Acetaminophen/ Hydrocodone Bitart (Lortab 5/325) 1 tab PRN Q4HRS PRN PO MILD PAIN 1-3; Start 03/21/19 at 20:30 Acetaminophen/ Hydrocodone Bitart (Lortab 5/325) 2 tab PRN Q4HRS PRN PO MODERATE PAIN, SEVERE PAIN; Start 03/21/19 at 20:30 Insulin Human Lispro (HumaLOG) 0-12 UNITS QIDACHS SQ Last administered on 03/25/19at 12:34; Start 03/21/19 at 21:00 Ceftriaxone Sodium (Rocephin) 1 gm Q24H IVP Last administered on 03/22/19at 20:45; Start 03/22/19 at 21:00; Stop 03/23/19 at 14:35; Status DC Azithromycin (Zithromax) 500 mg Q24H PO ; Start 03/21/19 at 09:00; Stop 03/24/19 at 08:59; Status Cancel Azithromycin (Zithromax) 500 mg Q24H PO Last administered on 03/24/19at 21:37; Start 03/21/19 at 21:00; Stop 03/24/19 at 22:00; Status DC Temazepam (Restoril) 15 mg PRN QHS PRN PO INSOMNIA Last administered on 03/25/19at 22:27; Start 03/21/19 at 22:30 Temazepam (Restoril) 15 mg 1X PRN PRN PO INSOMNIA Last administered on 03/23/19 00:25; Start 03/21/19 at 23:00 Warfarin Sodium (Coumadin Per Physician) 1 each PRN DAILY PRN MC SEE COMMENTS Last administered on 03/25/19at 13:49; Start 03/22/19 at 16:00 Albuterol Sulfate (Ventolin Neb Soln) 2.5 mg RTQID NEB Last administered on 03/22/19at 11:30; Start 03/22/19 at 08:00; Stop 03/22/19 at 13:53; Status DC Influenza Virus Vaccine Quadrival (Afluria Quad 2019-20 (3yr Up) Syringe) 0.5 ml ONCE ONCE VAX IM ; Start 03/22/19 at 02:15; Stop 03/22/19 at 02:16; Status UNV Theophylline (Theodur) 300 mg DAILY07 PO Last administered on 03/26/19 09:02; Start 03/22/19 at 09:30 Meclizine HCl (Antivert) 12.5 mg PRN Q6HRS PRN PO DIZZINESS Last administered on 03/24/19 09:17; Start 03/22/19 at 13:30; Stop 03/24/19 at 12:43; Status DC Albuterol/ Ipratropium (Duoneb) 3 ml RTQID NEB Last administered on 03/26/19at 07:45; Start 03/22/19 at 16:00 Budesonide (Pulmicort) 0.5 mg RTBID NEB Last administered on 03/26/19at 07:45; Start 03/22/19 at 20:00 Metoprolol Tartrate (Lopressor) 25 mg BID PO Last administered on 03/26/19 09:02; Start 03/23/19 at 21:00 Cefdinir (Omnicef) 300 mg BID PO Last administered on 03/26/19 09:02; Start 03/23/19 at 21:00 Meclizine HCl (Antivert) 12.5 mg QID PO Last administered on 03/26/19 09:02; Start 03/24/19 at 13:30 Lactobacillus Rhamnosus (Culturelle) 1 cap BID PO Last administered on 03/26/19at 09:02; Start 03/24/19 at 21:00 Warfarin Sodium (Coumadin) 4 mg DAILY16 PO Last administered on 03/25/19at 16:38; Start 03/25/19 at 16:00; Stop 03/26/19 at 08:39; Status DC Warfarin Sodium (Coumadin) 5 mg DAILY16 PO ; Start 03/26/19 at 16:00 Active Scripts Active Albuterol Sulfate Neb Soln (Albuterol Sulfate) 2.5 Mg/3 Ml Vial.neb 2.5 Mg NEB PRN QID PRN Duoneb 0.5-3(2.5) Mg/3 Ml (Albuterol/Ipratropium) 3 Ml Ampul.neb 3 Ml NEB RTQID [place] 5-325 Tablet (Acetaminophen/Hydrocodone Bitart) 1 Each Tablet 1 Tab PO PRN Q6HRS PRN Reported Theophylline Anhydrous 300 Mg Tab.er.12h 300 Mg PO DAILY Atorvastatin Calcium 40 Mg Tablet 40 Mg PO HS Metoprolol Tartrate 25 Mg Tablet 25 Mg PO BID Warfarin Sodium 3 Mg Tablet 3 Mg PO DAILY Hydrocodone-Acetamin 5-325 mg (Hydrocodone/Acetaminophen) 1 Each Tablet 1 Tab PO HS PRN Gabapentin 400 Mg Capsule 400 Mg PO BID Zolpidem Tartrate 5 Mg Tablet 5 Mg PO HS PRN Nitrostat (Nitroglycerin) 0.4 Mg Tab.subl 0.4 Mg SL PRN Q5MIN PRN [Percussion Vest Bid] Alendronate Sodium 70 Mg Tablet 1 Tab PO WEEKLY Meloxicam 7.5 Mg Tablet 7.5 Mg PO DAILY Ventolin Hfa Inhaler (Albuterol Sulfate) 18 Gm Hfa.aer.ad 2 Puff INH Q4HRS PRN Digoxin 250 Mcg Tablet 125 Mcg PO DAILY Glimepiride 1 Mg Tablet 1 Mg PO DAILY Albuterol Sulfate Hfa Inhaler (Albuterol Sulfate) 8.5 Gm Hfa.aer.ad 2 Puff INH QID Metformin Hcl Er (Metformin Hcl) 500 Mg Tab.er.24h 1 Tab PO BIDWMEALS Vitals/I & O Vital Sign - Last 24 Hours 03/25/19 03/25/19 03/25/19 03/25/19 11:00 11:37 15:00 15:36 Temp 97.6 97.9 97.6 97.9 Pulse 72 66 Resp 14 14 B/P (MAP) 106/60 (75) 111/60 (77) Pulse Ox 100 95 O2 Delivery Room Air Room Air Room Air Room Air 03/25/19 03/25/19 03/25/19 03/25/19 19:00 19:49 20:00 20:54 Temp 98.4 98.4 Pulse 81 81 Resp 20 B/P (MAP) 112/72 (85) 112/72 Pulse Ox 93 96 O2 Delivery Room Air Room Air Room Air 03/25/19 03/26/19 03/26/19 03/26/19 23:00 03:00 07:00 07:45 Temp 97.7 98.0 98.1 97.7 98.0 98.1 Pulse 82 84 72 Resp 20 20 17 B/P (MAP) 125/79 (94) 120/72 (88) 113/70 (84) Pulse Ox 96 97 100 94 O2 Delivery Room Air Room Air Room Air Room Air 03/26/19 03/26/19 09:02 09:02 Pulse 72 72 B/P (MAP) 113/70 113/70 Intake and Output 03/25/19 03/25/19 03/26/19 14:59 22:59 06:59 Intake Total 360 ml 540 ml 500 ml Balance 360 ml 540 ml 500 ml DEBRA HACKETT MD Mar 26, 2019 09:52
[2019-03-26 10:45] VITALS: BP 100/56
--- NOTE | 2019-03-26 11:43 | PDOC ---
PULMONARY PROGRESS NOTES Subjective Remains on room air. Reports productive cough, SOA is better Vitals Vital Signs Date Time Temp Pulse Resp B/P (MAP) Pulse Ox O2 Delivery O2 Flow Rate FiO2 03/26/19 10:45 97.8 79 17 100/56 (71) 94 Room Air 97.8 ROS: No Nausea, No Chest Pain, No Increase Cough General: Alert, Oriented X4, No acute distress Lungs: Other (diminished in both lungs) Cardiovascular: S1, S2 Abdomen: Soft, Non-tender Neuro Exam: Alert, Oriented, Normal Speech Extremities: No Edema Skin: Warm, Dry Labs Laboratory Tests Test 03/24/19 11:54 03/24/19 21:15 03/24/19 21:18 03/25/19 04:30 Glucose (Fingerstick) 127 mg/dL (70-99) 187 mg/dL (70-99) 200 mg/dL (70-99) White Blood Count 6.2 x10^3/uL (4.0-11.0) Red Blood Count 4.58 x10^6/uL (4.30-5.70) Hemoglobin 13.7 g/dL (13.0-17.5) Hematocrit 41.0 % (39.0-53.0) Mean Corpuscular Volume 90 fL (79-100) Mean Corpuscular Hemoglobin 30 pg (25-35) Mean Corpuscular Hemoglobin Concent 33 g/dL (31-37) Red Cell Distribution Width 17.7 % (11.5-14.5) Platelet Count 121 x10^3/uL (140-400) Neutrophils (%) (Auto) 58 % (31-73) Lymphocytes (%) (Auto) 28 % (24-48) Monocytes (%) (Auto) 9 % (0-9) Eosinophils (%) (Auto) 3 % (0-3) Basophils (%) (Auto) 3 % (0-3) Neutrophils # (Auto) 3.6 x10^3/uL (1.8-7.7) Lymphocytes # (Auto) 1.7 x10^3/uL (1.0-4.8) Monocytes # (Auto) 0.5 x10^3/uL (0.0-1.1) Eosinophils # (Auto) 0.2 x10^3/uL (0.0-0.7) Basophils # (Auto) 0.2 x10^3/uL (0.0-0.2) Prothrombin Time 19.0 SEC (11.7-14.0) Prothromb Time International Ratio 1.6 (0.8-1.1) Sodium Level 142 mmol/L (136-145) Potassium Level 3.9 mmol/L (3.5-5.1) Chloride Level 108 mmol/L (98-107) Carbon Dioxide Level 27 mmol/L (21-32) Anion Gap 7 (6-14) Blood Urea Nitrogen 22 mg/dL (8-26) Creatinine 1.0 mg/dL (0.7-1.3) Estimated GFR (Cockcroft-Gault) 71.0 Glucose Level 180 mg/dL (70-99) Calcium Level 8.8 mg/dL (8.5-10.1) Digoxin Level 0.5 ng/mL (0.9-2.0) Digoxin Last Dose Date 03/24/19 Digoxin Last Dose Time 0900 Test 03/25/19 07:09 03/25/19 11:29 03/25/19 16:39 03/25/19 20:45 Glucose (Fingerstick) 144 mg/dL (70-99) 160 mg/dL (70-99) 127 mg/dL (70-99) 142 mg/dL (70-99) Test 03/26/19 05:30 03/26/19 07:16 Prothrombin Time 18.2 SEC (11.7-14.0) Prothromb Time International Ratio 1.5 (0.8-1.1) Glucose (Fingerstick) 142 mg/dL (70-99) Laboratory Tests Test 03/25/19 16:39 03/25/19 20:45 03/26/19 05:30 03/26/19 07:16 Glucose (Fingerstick) 127 mg/dL (70-99) 142 mg/dL (70-99) 142 mg/dL (70-99) Prothrombin Time 18.2 SEC (11.7-14.0) Prothromb Time International Ratio 1.5 (0.8-1.1) Medications Active Scripts Medications Dose Route/Sig Max Daily Dose Days Date Category Theophylline Anhydrous 300 Mg Tab.er.12h 300 Mg PO DAILY 03/22/19 Reported Atorvastatin Calcium 40 Mg Tablet 40 Mg PO HS 03/21/19 Reported Metoprolol Tartrate 25 Mg Tablet 25 Mg PO BID 03/21/19 Reported Warfarin Sodium 3 Mg Tablet 3 Mg PO DAILY 03/21/19 Reported Hydrocodone-Acetamin 5-325 mg (Hydrocodone/Acetaminophen) 1 Each Tablet 1 Tab PO HS PRN 03/21/19 Reported Gabapentin 400 Mg Capsule 400 Mg PO BID 03/21/19 Reported Zolpidem Tartrate 5 Mg Tablet 5 Mg PO HS PRN 03/21/19 Reported Nitrostat (Nitroglycerin) 0.4 Mg Tab.subl 0.4 Mg SL PRN Q5MIN PRN 03/21/19 Reported [Percussion Vest Bid] 07/26/16 Reported Albuterol Sulfate Neb Soln (Albuterol Sulfate) 2.5 Mg/3 Ml Vial.neb 2.5 Mg NEB PRN QID PRN 07/26/16 Rx Duoneb 0.5-3(2.5) Mg/3 Ml (Albuterol/Ipratropium) 3 Ml Ampul.neb 3 Ml NEB RTQID 07/26/16 Rx Alendronate Sodium 70 Mg Tablet 1 Tab PO WEEKLY 07/16/16 Reported Meloxicam 7.5 Mg Tablet 7.5 Mg PO DAILY 07/16/16 Reported Ventolin Hfa Inhaler (Albuterol Sulfate) 18 Gm Hfa.aer.ad 2 Puff INH Q4HRS PRN 07/16/16 Reported [place] 5-325 Tablet (Acetaminophen/Hydrocodone Bitart) 1 Each Tablet 1 Tab PO PRN Q6HRS PRN 09/04/15 Rx Digoxin 250 Mcg Tablet 125 Mcg PO DAILY 04/01/15 Reported Glimepiride 1 Mg Tablet 1 Mg PO DAILY 02/14/15 Reported Albuterol Sulfate Hfa Inhaler (Albuterol Sulfate) 8.5 Gm Hfa.aer.ad 2 Puff INH QID 02/14/15 Reported Metformin Hcl Er (Metformin Hcl) 500 Mg Tab.er.24h 1 Tab PO BIDWMEALS 03/05/14 Reported Impression . 1. Dyspnea secondary to acute exacerbation of chronic obstructive pulmonary disease and acute bronchitis. 2. No definite consolidation seen on the chest x-ray. 3. History of atrial fibrillation, on warfarin. Plan . 1. Continue with present oral cephalosporin. 2. continue DuoNebs 3. continue Pulmicort. 4. theophylline level less than 2 -- probably not adding much to his therapy. I believe you could discontinue that. We will follow along with you. dc home vs skill today JW CERVANTES MD Mar 26, 2019 11:43
[2019-03-26] MEDS ORDERED: CEFD300C PO (12:33)
[2019-03-26] MEDS ORDERED: LACT1CAP19 PO (12:33)
[2019-03-26] MEDS ORDERED: TEMA15CA6 PO (12:33)
[2019-03-26] MEDS ORDERED: MECL12.52 PO (12:33)
[2019-03-26] MEDS ORDERED: WARF-78 PO (12:33)
[2019-03-26] MEDS ORDERED: BUDE0.5A NEB (12:33)
--- NOTE | 2019-03-26 12:36 | SNU/HH DC ---
DISCHARGE ORDERS DISCHARGE INFORMATION: DISCHARGE DATE: Mar 26, 2019 FINAL DIAGNOSIS Problems Medical Problems: (1) Acute bronchitis Status: Acute (2) CHF (congestive heart failure) Status: Acute (3) Chronic atrial fibrillation Status: Acute (4) COPD (chronic obstructive pulmonary disease) Status: Chronic (5) DDD (degenerative disc disease), lumbar Status: Chronic (6) Degenerative joint disease (DJD) of lumbar spine Status: Chronic (7) Dizziness Status: Acute (8) Elevated bilirubin Status: Acute (9) Frequent falls Status: Acute (10) Type 2 diabetes mellitus with peripheral neuropathy Status: Chronic CONDITION ON DISCHARGE: Stable CODE STATUS: Code Status: Full HALFWAY: SNF STAY <30 DAYS: Yes POST DISCHARGE ORDERS: ACTIVITY ORDERS: Activity as tolerated WEIGHT BEARING STATUS: As tolerated DIET AFTER DISCHARGE: ADA WOUND/INCISION CARE: No wound care needed CHECKS AFTER DISCHARGE: CHECKS AFTER DISCHARGE: Check blood press - daily, Check blood sugar, ac/hs FOLLOW-UP: PHYSICIAN FOLLOW-UP: 1-2 weeks ANTICOAGULATION F/U NEEDED: monthly INR after SNU discharge, every and Tuesday at SNU TREATMENT/EQUIPMENT ORDERS: ADAPTIVE EQUIPMENT NEEDED: Walker, Wheelchair (due to emphysema and limited ability to ambulate) RESPIRATORY EQUIPMENT NEEDED: Oxygen Physical Therapy For: Evalulation/Treatment (gait disorder, dizziness) Occupational Therapy For: Evaluation/Treatment DISCHARGE MEDICATIONS: Home Meds Active Scripts Albuterol Sulfate (ALBUTEROL SULFATE NEB SOLN) 2.5 Mg/3 Ml Vial.neb, 2.5 MG NEB PRN QID PRN for SHORTNESS OF BREATH, #120 MISC Prov:ZENAIDA PATEL MD 07/26/16 Ipratropium/Albuterol Sulfate (DUONEB 0.5-3(2.5) MG/3 ML) 3 Ml Ampul.neb, 3 ML NEB RTQID, #120 MISC Prov:ZENAIDA PATEL MD 07/26/16 Hydrocodone/Apap 5-325 (NORCO 5-325 TABLET) 1 Each Tablet, 1 TAB PO PRN Q6HRS PRN for PAIN, #100 TAB 0 Refills Prov:Edward ALLEN MD 09/04/15 Reported Medications Theophylline Anhydrous (THEOPHYLLINE ANHYDROUS) 300 Mg Tab.er.12h, 300 MG PO DAILY for emphysema, TAB.SR 03/22/19 Atorvastatin Calcium (ATORVASTATIN CALCIUM) 40 Mg Tablet, 40 MG PO HS for FOR CHOLESTEROL, #30 TAB 0 Refills 03/21/19 Metoprolol Tartrate (METOPROLOL TARTRATE) 25 Mg Tablet, 25 MG PO BID for FOR HYPERTENSION, #60 TAB 0 Refills 03/21/19 Warfarin Sodium (WARFARIN SODIUM) 3 Mg Tablet, 3 MG PO DAILY for afib 03/21/19 Hydrocodone/Acetaminophen (Hydrocodone-Acetamin 5-325 mg) 1 Each Tablet, 1 TAB PO HS PRN for PAIN 03/21/19 Gabapentin (Gabapentin) 400 Mg Capsule, 400 MG PO BID for neuropathy 03/21/19 Zolpidem Tartrate (ZOLPIDEM TARTRATE) 5 Mg Tablet, 5 MG PO HS PRN for INSOMNIA 03/21/19 Nitroglycerin (NITROSTAT) 0.4 Mg Tab.subl, 0.4 MG SL PRN Q5MIN PRN for CHEST BARI N, BOTTLE 03/21/19 [Percussion Vest Bid] No Conflict Check 07/26/16 Alendronate Sodium (ALENDRONATE SODIUM) 70 Mg Tablet, 1 TAB PO WEEKLY, #4 TAB 3 Refills 07/16/16 Meloxicam (MELOXICAM) 7.5 Mg Tablet, 7.5 MG PO DAILY for arthritis, #30 TAB 2 Refills 07/16/16 Albuterol Sulfate (VENTOLIN HFA INHALER) 18 Gm Hfa.aer.ad, 2 PUFF INH Q4HRS PRN for WHEEZING, INHALER 0 Refills 07/16/16 Digoxin (DIGOXIN) 250 Mcg Tablet, 125 MCG PO DAILY for hr, TAB 04/01/15 Glimepiride (GLIMEPIRIDE) 1 Mg Tablet, 1 MG PO DAILY, TAB 02/14/15 Albuterol Sulfate (ALBUTEROL SULFATE HFA INHALER) 8.5 Gm Hfa.aer.ad, 2 PUFF INH QID for FOR ASTHMA, INHALER 0 Refills 02/14/15 Metformin Hcl (METFORMIN HCL ER) 500 Mg Tab.er.24h, 1 TAB PO BIDWMEALS for dm, #180 TAB 3 Refills 03/05/14 Edward ALLEN MD Mar 26, 2019 12:36
--- NOTE | 2019-03-26 14:03 | SNU/HH DC ---
DISCHARGE ORDERS DISCHARGE INFORMATION: DISCHARGE DATE: Mar 26, 2019 FINAL DIAGNOSIS Problems Medical Problems: (1) Acute bronchitis Status: Acute (2) CHF (congestive heart failure) Status: Acute (3) Chronic atrial fibrillation Status: Acute (4) COPD (chronic obstructive pulmonary disease) Status: Chronic (5) DDD (degenerative disc disease), lumbar Status: Chronic (6) Degenerative joint disease (DJD) of lumbar spine Status: Chronic (7) Dizziness Status: Acute (8) Elevated bilirubin Status: Acute (9) Frequent falls Status: Acute (10) Type 2 diabetes mellitus with peripheral neuropathy Status: Chronic CONDITION ON DISCHARGE: Stable CODE STATUS: Code Status: Full POST DISCHARGE ORDERS: ACTIVITY ORDERS: Activity as tolerated WEIGHT BEARING STATUS: As tolerated DIET AFTER DISCHARGE: ADA WOUND/INCISION CARE: No wound care needed CHECKS AFTER DISCHARGE: CHECKS AFTER DISCHARGE: Check blood press - daily, Check blood sugar, ac/hs FOLLOW-UP: PHYSICIAN FOLLOW-UP: 1-2 weeks ANTICOAGULATION F/U NEEDED: monthly INR after SNU discharge, every and Tuesday at SNU TREATMENT/EQUIPMENT ORDERS: ADAPTIVE EQUIPMENT NEEDED: Walker, Wheelchair (due to emphysema and limited ability to ambulate) RESPIRATORY EQUIPMENT NEEDED: Oxygen Physical Therapy For: Evalulation/Treatment (gait disorder, dizziness) Occupational Therapy For: Evaluation/Treatment DISCHARGE MEDICATIONS: Home Meds Active Scripts Lactobacillus Rhamnosus Gg (CULTURELLE) 1 Each Cap.sprink, 1 CAP PO BID for probiotic for 10 Days, #20 CAP Prov:Edward ALLEN MD 03/26/19 Budesonide (BUDESONIDE) 0.5 Mg/2 Ml Ampul.neb, 0.5 MG NEB RTBID for copd for 30 Days, #60 EACH Prov:Edward ALLEN MD 03/26/19 Meclizine Hcl (MECLIZINE HCL) 12.5 Mg Tablet, 12.5 MG PO QID for dizziness for 30 Days, #120 TAB Prov:Edward ALLEN MD 03/26/19 Temazepam (RESTORIL) 15 Mg Capsule, 15 MG PO PRN QHS PRN for INSOMNIA for 30 Days, #30 CAP Prov:Edward ALLEN MD 03/26/19 Warfarin Sodium (COUMADIN) 5 Mg Tablet, 5 MG PO DAILY16 for blood thinner for 30 Days, #30 TAB Prov:Edward ALLEN MD 03/26/19 Cefdinir (CEFDINIR) 300 Mg Capsule, 300 MG PO BID for bronchitis for 3 Days, #6 CAP Prov:Edward ALLEN MD 03/26/19 Albuterol Sulfate (ALBUTEROL SULFATE NEB SOLN) 2.5 Mg/3 Ml Vial.neb, 2.5 MG NEB PRN QID PRN for SHORTNESS OF BREATH, #120 MISC Prov:ZENAIDA PATEL MD 07/26/16 Ipratropium/Albuterol Sulfate (DUONEB 0.5-3(2.5) MG/3 ML) 3 Ml Ampul.neb, 3 ML NEB RTQID, #120 MISC Prov:ZENAIDA PATEL MD 07/26/16 Hydrocodone/Apap 5-325 (NORCO 5-325 TABLET) 1 Each Tablet, 1 TAB PO PRN Q6HRS PRN for PAIN, #100 TAB 0 Refills Prov:Edward ALLEN MD 09/04/15 Reported Medications Atorvastatin Calcium (ATORVASTATIN CALCIUM) 40 Mg Tablet, 40 MG PO HS for FOR CHOLESTEROL, #30 TAB 0 Refills 03/21/19 Gabapentin (Gabapentin) 400 Mg Capsule, 400 MG PO BID for neuropathy 03/21/19 Nitroglycerin (NITROSTAT) 0.4 Mg Tab.subl, 0.4 MG SL PRN Q5MIN PRN for CHEST PAIN, BOTTLE 03/21/19 [Percussion Vest Bid] No Conflict Check 07/26/16 Alendronate Sodium (ALENDRONATE SODIUM) 70 Mg Tablet, 1 TAB PO WEEKLY, #4 TAB 3 Refills 07/16/16 Meloxicam (MELOXICAM) 7.5 Mg Tablet, 7.5 MG PO DAILY for arthritis, #30 TAB 2 Refills 07/16/16 Albuterol Sulfate (VENTOLIN HFA INHALER) 18 Gm Hfa.aer.ad, 2 PUFF INH Q4HRS PRN for WHEEZING, INHALER 0 Refills 07/16/16 Digoxin (DIGOXIN) 250 Mcg Tablet, 125 MCG PO DAILY for hr, TAB 04/01/15 Glimepiride (GLIMEPIRIDE) 1 Mg Tablet, 1 MG PO DAILY, TAB 02/14/15 Albuterol Sulfate (ALBUTEROL SULFATE HFA INHALER) 8.5 Gm Hfa.aer.ad, 2 PUFF INH QID for FOR ASTHMA, INHALER 0 Refills 02/14/15 Metformin Hcl (METFORMIN HCL ER) 500 Mg Tab.er.24h, 1 TAB PO BIDWMEALS for dm, #180 TAB 3 Refills 03/05/14 Discontinued Reported Medications Theophylline Anhydrous (THEOPHYLLINE ANHYDROUS) 300 Mg Tab.er.12h, 300 MG PO DAILY for emphysema, TAB.SR 03/22/19 Metoprolol Tartrate (METOPROLOL TARTRATE) 25 Mg Tablet, 25 MG PO BID for FOR HYPERTENSION, #60 TAB 0 Refills 03/21/19 Warfarin Sodium (WARFARIN SODIUM) 3 Mg Tablet, 3 MG PO DAILY for afib 03/21/19 Hydrocodone/Acetaminophen (Hydrocodone-Acetamin 5-325 mg) 1 Each Tablet, 1 TAB PO HS PRN for PAIN 03/21/19 Zolpidem Tartrate (ZOLPIDEM TARTRATE) 5 Mg Tablet, 5 MG PO HS PRN for INSOMNIA 03/21/19 Edward ALLEN MD Mar 26, 2019 14:03
[2019-03-26] MEDS ORDERED: WARFARIN 5 MG TABLET. PO SCH (16:00)
--- NOTE | 2019-03-26 16:47 | NUR ---
Late note: SW following pt. Pt has been accepted at [facility]. Orders faxed and pt will transport via central transport at 1530. RN had notified family.
[2019-03-28] MEDS ORDERED: NON FORMULARY ITEM (Alendronate Sodium 1 TAB) PO SCH (09:00)
== END 2019-03-26 16:05 | DRG 203 ==
LOC: ER 15:36 → 6 SOUTH 17:55 → 5 SOUTH 03-24 14:35
PROVIDERS: ADMIT Family Medicine; ATTEND Family Medicine
DX: J20.9 Acute bronchitis, unspecified (principal); E11.42 Type 2 diabetes mellitus with diabetic polyneuropathy; G89.29 Other chronic pain; I11.0 Hypertensive heart disease with heart failure; I25.10 Atherosclerotic heart disease of native coronary artery without angina pectoris; I48.2 Chronic atrial fibrillation; I50.9 Heart failure, unspecified; I95.1 Orthostatic hypotension; J43.9 Emphysema, unspecified; Z96.652 Presence of left artificial knee joint; M19.90 Unspecified osteoarthritis, unspecified site; M51.36 Other intervertebral disc degeneration, lumbar region; R29.6 Repeated falls; Z79.01 Long term (current) use of anticoagulants; Z80.0 Family history of malignant neoplasm of digestive organs; Z80.1 Family history of malignant neoplasm of trachea, bronchus and lung; Z85.46 Personal history of malignant neoplasm of prostate; Z85.828 Personal history of other malignant neoplasm of skin; Z87.891 Personal history of nicotine dependence; Z95.5 Presence of coronary angioplasty implant and graft; Z88.8 Allergy status to other drugs, medicaments and biological substances
CPT/HCPCS: 36415; 70450; 71045; 80048; 80053; 80162; 80198; 81001; 82550; 82962; 83605; 83880; 84484; 85007; 85025; 85610; 87040; 93005; 94640; 94760; 96374; J0696; J1815; J2930; J7613; J7620; J7626; J8597; Q0144; 97110; 97116; 97530; 97535; 99285-25; G0378

== ENCOUNTER 2019-09-16 17:34 | Emergency (ER) | payer MEDICARE, OTHER ==
[~2019-09-16] VITALS: Ht 193 cm; Wt 95.4 kg
[~2019-09-16 17:34] MED LIST changes: +ATOR40TA59 PO; -AZITHROMYCIN 250 MG TABLET. PO SCH; +CEFD300C PO; -DIGO125T PO; +DIGO125T3 PO; -DIGO250T PO; +DIGO250T3 PO; +GABA400C7 PO; -GLIM1TAB2 PO; +GLIM1TAB7 PO; +HYDR-2759 PO; +LACT1CAP19 PO; +MECL12.573 PO; +METO25TA4 PO; +NITR0.4T24 SL; +TEMA15CA6 PO; +THEO300T9 PO; +WARF-78 PO; +ZOLP5TAB5 PO
[2019-09-16] MEDS ORDERED: HYDROmorphone 2 MG/ML VIAL IV ONE (18:00)
--- NOTE | 2019-09-16 18:26 | PHYS DOC ---
Past Medical History Past Medical History: A-Fib, Arthritis, Asthma, Cancer, CHF, COPD, Diabetes- Type II, High Cholesterol, Hypertension, Pneumonia, UTI, Other Additional Past Medical Histor: EMPHYSEMA,SKIN CANCER FACE,PROSTATE CA,NEUROPATHY,OSTEOPOROSIS (PAMELA SOLANO APRN) Past Surgical History: Cholecystectomy, Knee Replacement Additional Past Surgical Histo: HERNIA, BACK, NECK,PROSTATECTOMY, CATARACT EXTRACTION (PAMELA SOLANO APRN) Smoking Status: Former Smoker Alcohol Use: None Drug Use: None (PAMELA SOLANO APRN) Attending Signature I have participated in the care of this patient and I have reviewed and agree with all pertinent clinical information above including history, exam, and recommendations. (PAMELA OROZCO MD) Adult General Chief Complaint Chief Complaint: MECHANICAL FALL HPI HPI Patient is a 84 year old male, accompanied by his son, who presents to the emergency department with complaints of pain below his right shoulder that began after a fall on 09/14/2027 approximately 3:00 in the morning.. Patient states he does not know why he fell, he denies any dizziness, chest pain, palpitations, headache, or weakness prior to the fall. Patient states that he was diagnosed with COPD last week at his primary care doctor's office. Patient denies any fever, abdominal pain, nausea, vomiting, diarrhea, numbness, tingling, weakness, vision changes, or confusion. He denies any head, or neck pain after his fall. Patient states that he took a hydrocodone earlier today for relief of his pain, he states the medication helped for a few hours but then the pain came back. He currently rates his pain 8 out of 10 on the pain scale, the pain is worse with palpation and movement of his right arm. (PAMELA SOLANO APRN) Review of Systems Review of Systems Complete ROS is negative unless otherwise noted in HPI. (PAMELA SOLANO APRN) Current Medications Current Medications Current Medications Medications (Trade) Dose Ordered Sig/Suri Start Time Stop Time Status Last Admin Dose Admin Acetaminophen/ Hydrocodone Bitart (Lortab 5/325) 1 tab 1X ONCE 09/16/19 19:45 09/16/19 19:46 DC 09/16/19 19:42 1 TAB Hydromorphone HCl (Dilaudid) 1 mg 1X ONCE 09/16/19 18:00 3/15/20 17:54 DC (PAMELA OROZCO MD) Allergies Allergies Allergies Coded Allergies Type Severity Reaction Last Updated Verified duloxetine Adverse Reaction Severe syncope; nausea; weakness 07/23/16 Yes (PAMELA OROZCO MD) Physical Exam Physical Exam See Above Constitutional: Well developed, well nourished, no acute distress, non-toxic appearance. [] HENT: Normocephalic, atraumatic, bilateral external ears normal, oropharynx moist, no oral exudates, nose normal. [] Eyes: PERRLA, EOMI, conjunctiva normal, no discharge. [] Neck: Normal range of motion, no tenderness, supple, no stridor. [] Cardiovascular:Heart rate regular rhythm, no murmur [] Lungs & Thorax: Bilateral breath sounds clear to auscultation, Respirations even and unlabored, no retractions, no respiratory distress [] Abdomen: Bowel sounds normal, soft, no tenderness Skin: Warm, dry, no erythema, no rash. [] Back: No midline tenderness, paraspinal pain to palpation below R shoulder blade and R posterior ribs without crepitus or subcutaneous emphysema Extremities: No tenderness, no cyanosis, no clubbing, ROM intact, no edema. [] Neurologic: Alert and oriented X 3, no focal deficits noted. [] Psychologic: Affect normal, judgement normal, mood normal. [] (PAMELA SOLANO APRN) Current Patient Data Vital Signs Vital Signs Date Time Temp Pulse Resp B/P (MAP) Pulse Ox O2 Delivery O2 Flow Rate FiO2 09/16/19 20:24 68 15 128/57 (80) 94 Room Air 09/16/19 17:45 97.8 97.8 (PAMELA OROZCO MD) Lab Values Laboratory Tests Test 09/16/19 18:05 09/16/19 19:20 White Blood Count 5.9 x10^3/uL (4.0-11.0) Red Blood Count 4.75 x10^6/uL (4.30-5.70) Hemoglobin 14.1 g/dL (13.0-17.5) Hematocrit 42.5 % (39.0-53.0) Mean Corpuscular Volume 90 fL (79-100) Mean Corpuscular Hemoglobin 30 pg (25-35) Mean Corpuscular Hemoglobin Concent 33 g/dL (31-37) Red Cell Distribution Width 18.1 % (11.5-14.5) H Platelet Count 105 x10^3/uL (140-400) L Neutrophils (%) (Auto) 67 % (31-73) Lymphocytes (%) (Auto) 22 % (24-48) L Monocytes (%) (Auto) 7 % (0-9) Eosinophils (%) (Auto) 2 % (0-3) Basophils (%) (Auto) 3 % (0-3) Neutrophils # (Auto) 3.9 x10^3/uL (1.8-7.7) Lymphocytes # (Auto) 1.3 x10^3/uL (1.0-4.8) Monocytes # (Auto) 0.4 x10^3/uL (0.0-1.1) Eosinophils # (Auto) 0.1 x10^3/uL (0.0-0.7) Basophils # (Auto) 0.2 x10^3/uL (0.0-0.2) Platelet Estimate Decreased (ADEQUATE) Large Platelets Present Prothrombin Time 27.2 SEC (11.7-14.0) H Prothrombin Time INR 2.5 (0.8-1.1) H Activated Partial Thromboplast Time 37 SEC (24-38) Sodium Level 144 mmol/L (136-145) Potassium Level 4.0 mmol/L (3.5-5.1) Chloride Level 106 mmol/L (98-107) Carbon Dioxide Level 32 mmol/L (21-32) Anion Gap 6 (6-14) Blood Urea Nitrogen 21 mg/dL (8-26) Creatinine 1.0 mg/dL (0.7-1.3) Estimated GFR (Cockcroft-Gault) 70.8 BUN/Creatinine Ratio 21 (6-20) H Glucose Level 122 mg/dL (70-99) H Calcium Level 8.8 mg/dL (8.5-10.1) Magnesium Level 2.1 mg/dL (1.8-2.4) Total Bilirubin 0.6 mg/dL (0.2-1.0) Aspartate Amino Transferase (AST) 18 U/L (15-37) Alanine Aminotransferase (ALT) 32 U/L (16-63) Alkaline Phosphatase 72 U/L (46-116) Troponin I Quantitative < 0.017 ng/mL (0.000-0.055) SP-Tkv-G-Type Natriuretic Peptide 506 pg/mL (0-449) H Total Protein 6.0 g/dL (6.4-8.2) L Albumin 3.5 g/dL (3.4-5.0) Albumin/Globulin Ratio 1.4 (1.0-1.7) Urine Collection Type Unknown Urine Color Yellow Urine Clarity Clear Urine pH 5.5 (<5.0-8.0) Urine Specific Ray >=1.030 (1.000-1.030) Urine Protein Negative mg/dL (NEG-TRACE) Urine Glucose (UA) Negative mg/dL (NEG) Urine Ketones (Stick) Negative mg/dL (NEG) Urine Blood Negative (NEG) Urine Nitrite Negative (NEG) Urine Bilirubin Negative (NEG) Urine Urobilinogen Dipstick 1.0 mg/dL (0.2 mg/dL) Urine Leukocyte Esterase Negative (NEG) Urine RBC 0 /HPF (0-2) Urine WBC 10 /HPF (0-4) Urine Squamous Epithelial Cells Few /LPF Urine Bacteria 0 /HPF (0-FEW) Urine Hyaline Casts Occasional /HPF Urine Mucus Marked /LPF Laboratory Tests 09/16/19 18:05 Laboratory Tests 09/16/19 18:05 (PAMELA OROZCO MD) Lab Values Laboratory Tests Test 09/16/19 18:05 09/16/19 19:20 White Blood Count 5.9 x10^3/uL (4.0-11.0) Red Blood Count 4.75 x10^6/uL (4.30-5.70) Hemoglobin 14.1 g/dL (13.0-17.5) Hematocrit 42.5 % (39.0-53.0) Mean Corpuscular Volume 90 fL (79-100) Mean Corpuscular Hemoglobin 30 pg (25-35) Mean Corpuscular Hemoglobin Concent 33 g/dL (31-37) Red Cell Distribution Width 18.1 % (11.5-14.5) H Platelet Count 105 x10^3/uL (140-400) L Neutrophils (%) (Auto) 67 % (31-73) Lymphocytes (%) (Auto) 22 % (24-48) L Monocytes (%) (Auto) 7 % (0-9) Eosinophils (%) (Auto) 2 % (0-3) Basophils (%) (Auto) 3 % (0-3) Neutrophils # (Auto) 3.9 x10^3/uL (1.8-7.7) Lymphocytes # (Auto) 1.3 x10^3/uL (1.0-4.8) Monocytes # (Auto) 0.4 x10^3/uL (0.0-1.1) Eosinophils # (Auto) 0.1 x10^3/uL (0.0-0.7) Basophils # (Auto) 0.2 x10^3/uL (0.0-0.2) Platelet Estimate Decreased (ADEQUATE) Large Platelets Present Prothrombin Time 27.2 SEC (11.7-14.0) H Prothrombin Time INR 2.5 (0.8-1.1) H Activated Partial Thromboplast Time 37 SEC (24-38) Sodium Level 144 mmol/L (136-145) Potassium Level 4.0 mmol/L (3.5-5.1) Chloride Level 106 mmol/L (98-107) Carbon Dioxide Level 32 mmol/L (21-32) Anion Gap 6 (6-14) Blood Urea Nitrogen 21 mg/dL (8-26) Creatinine 1.0 mg/dL (0.7-1.3) Estimated GFR (Cockcroft-Gault) 70.8 BUN/Creatinine Ratio 21 (6-20) H Glucose Level 122 mg/dL (70-99) H Calcium Level 8.8 mg/dL (8.5-10.1) Magnesium Level 2.1 mg/dL (1.8-2.4) Total Bilirubin 0.6 mg/dL (0.2-1.0) Aspartate Amino Transferase (AST) 18 U/L (15-37) Alanine Aminotransferase (ALT) 32 U/L (16-63) Alkaline Phosphatase 72 U/L (46-116) Troponin I Quantitative < 0.017 ng/mL (0.000-0.055) XI-Tui-Y-Type Natriuretic Peptide 506 pg/mL (0-449) H Total Protein 6.0 g/dL (6.4-8.2) L Albumin 3.5 g/dL (3.4-5.0) Albumin/Globulin Ratio 1.4 (1.0-1.7) Urine Collection Type Unknown Urine Color Yellow Urine Clarity Clear Urine pH 5.5 (<5.0-8.0) Urine Specific Ray >=1.030 (1.000-1.030) Urine Protein Negative mg/dL (NEG-TRACE) Urine Glucose (UA) Negative mg/dL (NEG) Urine Ketones (Stick) Negative mg/dL (NEG) Urine Blood Negative (NEG) Urine Nitrite Negative (NEG) Urine Bilirubin Negative (NEG) Urine Urobilinogen Dipstick 1.0 mg/dL (0.2 mg/dL) Urine Leukocyte Esterase Negative (NEG) Urine RBC 0 /HPF (0-2) Urine WBC 10 /HPF (0-4) Urine Squamous Epithelial Cells Few /LPF Urine Bacteria 0 /HPF (0-FEW) Urine Hyaline Casts Occasional /HPF Urine Mucus Marked /LPF Laboratory Tests 09/16/19 18:05 Laboratory Tests 09/16/19 18:05 (PAMELA SOLANO APRN) EKG EKG 1816- SR rate 74, no STEMI read by Dr. Orozco. [] (PAMELA SOLANO APRN) Radiology/Procedures Radiology/Procedures PROCEDURE: RIBS RIGHT AND PA CHEST Ribs right with PA chest History: Pain PA view of the chest and dedicated views of the left ribs were obtained. The heart and pulmonary vessels appear normal. The lungs and pleural margins are clear. The visualized osseous structures appear intact. Impression: No acute findings. No evidence of a bony displaced rib fracture.[] PROCEDURE: CT HEAD WO CONTRAST Examination: CT HEAD WO CONTRAST History: Fall 2 days ago. Injury. On Coumadin. Comparison/Correlation: 03/21/2019 CT head without contrast Findings: Axial images of the head were obtained without contrast. Atrophy is present. Mild chronic ischemic changes are recommended. No intracranial hemorrhage, midline shift, or mass effect. No displaced fracture or bone destruction. Right frontal osteochondroma present in the sinus. Bony structures are intact. Impression: No acute process. (PAMELA SOLANO APRN) Course & Med Decision Making Course & Med Decision Making Pertinent Labs and Imaging studies reviewed. (See chart for details) Patient is a 84-year-old male who presented to the emergency room with complaints of pain below his right shoulder blade into his right posterior ribs after a fall suffered 2 days prior. EKG revealed no acute changes, CT of the head was negative for any acute findings, chest x-ray with right ribs was also negative for any acute fractures or findings. CBC reveals platelets of 105 otherwise unremarkable PT 27.2, INR 2.5; CMP reveals normal electrolytes, glucose is 122, BNP 506, negative troponin; UA revealed 10 white blood cells, no bacteria, patient asymptomatic. Patient's vital signs are stable throughout the visit. Patient was encouraged to continue taking his home hydrocodone as needed for severe pain. Recommended Tylenol or ibuprofen, application of ice, and activity as tolerated. Follow-up with primary care doctor this week if symptoms persist, return to the ER symptoms worsen. Patient and his son verbalized an understanding of home care, medications, follow-up, and return to ED instructions and were in agreement with the plan of care. POC and results were also discussed with Dr. Orozco, prior to patient discharge, who was in agreement with plan of care. [] (PAMELA SOLANO APRN) Dragon Disclaimer Dragon Disclaimer This electronic medical record was generated, in whole or in part, using a voice recognition dictation system. (PAMELA SOLANO APRN) Departure Departure Impression: Primary Impression: Fall Additional Impressions: Episode of syncope Right shoulder pain Right shoulder strain Disposition: 01 HOME, SELF-CARE Condition: STABLE Referrals: Edward ALLEN MD (PCP) Patient Instructions: Fall Prevention and Home Safety, [id number], Shoulder Pain, [id number], Syncope, [id number] Additional Instructions: Tylenol or ibuprofen as needed for pain. Follow fall prevention strategies given to you in the ER. Follow up with your primary care doctor in 1-2 days, return to the ER if symptoms worsen or you feel dizzy. Problem Qualifiers Primary Impression: Fall Encounter type: initial encounter Qualified Codes: W19.XXXA - Unspecified fall, initial encounter Additional Impressions: Episode of syncope Syncope type: unspecified Qualified Codes: R55 - Syncope and collapse Right shoulder pain Chronicity: acute Qualified Codes: M25.511 - Pain in right shoulder Right shoulder strain Encounter type: initial encounter Qualified Codes: S46.911A - Strain of unspecified muscle, fascia and tendon at shoulder and upper arm level, right arm, initial encounter PAMELA SOLANO APRN 15, 2020 18:26 PAMELA OROZCO MD Sep 17, 2019 01:35
[2019-09-16 18:28] LABS: BASO # 0.2 x10^3/uL (0.0-0.2); BASO % 3 % (0-3); EOS # 0.1 x10^3/uL (0.0-0.7); EOS % 2 % (0-3); HEMATOCRIT 42.5 % (39.0-53.0); HEMOGLOBIN 14.1 g/dL (13.0-17.5); LYMPH # 1.3 x10^3/uL (1.0-4.8); LYMPH % 22 % (24-48); MEAN CORPUSCULAR HEMOGLOBIN 30 pg (25-35); MEAN CORPUSCULAR HGB CONC 33 g/dL (31-37); MEAN CORPUSCULAR VOLUME 90 fL (79-100); MONO # 0.4 x10^3/uL (0.0-1.1); MONO % 7 % (0-9); NEUT # 3.9 x10^3/uL (1.8-7.7); NEUT % 67 % (31-73); PLATELET COUNT 105 x10^3/uL (140-400); PROTHROMBIN TIME PATIENT 27.2 SEC (11.7-14.0); RED BLOOD COUNT 4.75 x10^6/uL (4.30-5.70); RED CELL DISTRIBUTION WIDTH 18.1 % (11.5-14.5); WHITE BLOOD COUNT 5.9 x10^3/uL (4.0-11.0)
[2019-09-16 18:31] LABS: CALCIUM 8.8 mg/dL (8.5-10.1); GFR 70.8
[2019-09-16 18:35] LABS: ALBUMIN 3.5 g/dL (3.4-5.0); ALBUMIN/GLOBULIN RATIO 1.4 (1.0-1.7); MAGNESIUM 2.1 mg/dL (1.8-2.4); TOTAL BILIRUBIN 0.6 mg/dL (0.2-1.0)
[2019-09-16 18:50] LABS: PLT ESTIMATE DECREASED (ADEQUATE)
--- NOTE | 2019-09-16 19:09 | RAD ---
Examination: CT HEAD WO CONTRAST History: Fall 2 days ago. Injury. On Coumadin. Comparison/Correlation: 03/21/2019 CT head without contrast Findings: Axial images of the head were obtained without contrast. Atrophy is present. Mild chronic ischemic changes are recommended. No intracranial hemorrhage, midline shift, or mass effect. No displaced fracture or bone destruction. Right frontal osteochondroma present in the sinus. Bony structures are intact. Impression: No acute process. PQRS Compliance Statement: One or more of the following individualized dose reduction techniques were utilized for this examination: 1. Automated exposure control 2. Adjustment of the mA and/or kV according to patient size 3. Use of iterative reconstruction technique Electronically signed by: John Vincent MD (09/16/2019 7:06 PM) [id number]
--- NOTE | 2019-09-16 19:14 | EKG ---
[facility] [address] [place] [address] Test Date: 2019-09-16 Test Time: 18:17:39 Pat Name: YUNIER HAWK Department: Room: Gender: M [employer] Specialist: : [id number] Requested By: PAMELA SOLANO Order Number: [id number] Reading MD: Measurements Intervals [place] Rate: 73 P: 0 PA: 240 QRS: -7 QRSD: 88 T: 43 QT: 386 QTc: 428 Interpretive Statements SINUS RHYTHM ATRIAL PREMATURE COMPLEX(ES) PROLONGED PA INTERVAL LEFTWARD AXIS LOW LIMB LEAD VOLTAGE NON SPECIFIC T ABNORMALITY NON SPECIFIC ST DEPRESSION ABNORMAL ECG No previous ECG available for comparison
--- NOTE | 2019-09-16 19:22 | RAD ---
Ribs right with PA chest History: Pain PA view of the chest and dedicated views of the left ribs were obtained. The heart and pulmonary vessels appear normal. The lungs and pleural margins are clear. The visualized osseous structures appear intact. Impression: No acute findings. No evidence of a bony displaced rib fracture. Electronically signed by: Gio Nava III, MD (09/16/2019 7:19 PM) [id number]
[2019-09-16 19:35] LABS: BILIRUBIN,URINE NEGATIVE (NEG); CLARITY,URINE CLEAR; COLOR,URINE YELLOW; NITRITE,URINE NEGATIVE (NEG); PH,URINE 5.5 (<5.0-8.0); PROTEIN,URINE NEGATIVE (NEG-TRACE)
[2019-09-16 19:43] LABS: BACTERIA,URINE 0 /HPF (0-FEW); HYALINE CASTS, URINE OCCASIONAL /HPF; RBC,URINE 0 /HPF (0-2); SQUAMOUS EPITHELIAL CELL,UR FEW /LPF; WBC,URINE 10 /HPF (0-4)
[2019-09-16] MEDS ORDERED: HYDROcodone/APAP 5/325MG 1 TAB TABLET PO ONE (19:45)
[2019-09-16 20:24] VITALS: BP 128/57
== END 2019-09-16 20:35 | disposition home or self-care (01) ==
LOC: ER 17:34
DX: S46.911A Strain of unspecified muscle, fascia and tendon at shoulder and upper arm level, right arm, initial encounter (principal); R55 Syncope and collapse; I48.91 Unspecified atrial fibrillation; M19.90 Unspecified osteoarthritis, unspecified site; J44.9 Chronic obstructive pulmonary disease, unspecified; I11.0 Hypertensive heart disease with heart failure; I50.9 Heart failure, unspecified; E11.9 Type 2 diabetes mellitus without complications; E78.00 Pure hypercholesterolemia, unspecified; Z87.440 Personal history of urinary (tract) infections; Z90.49 Acquired absence of other specified parts of digestive tract; Z87.891 Personal history of nicotine dependence; Z88.8 Allergy status to other drugs, medicaments and biological substances; W18.39XA Other fall on same level, initial encounter; Y93.89 Activity, other specified; Y92.89 Other specified places as the place of occurrence of the external cause; Y99.8 Other external cause status
CPT/HCPCS: 36415; 70450; 71101; 80053; 81001; 83735; 83880; 84484; 85025; 85610; 85730; 93005; 99285